=== PATIENT | female | born 1985 | race Caucasian/White ===

== ENCOUNTER → 2018-03-29 08:20 | Outpatient (CLI) | payer MEDICAID, SELFPAY ==
[2018-03-29 09:05] LABS: Basophils % 0.4 % (0.1-2.0); Eosinophils # 0.1 K/mm3 (0.0-0.4); Eosinophils % 1.1 % (0.1-12.0); Hematocrit 38.4 % (37.0-47.0); Lymphocytes # 2.7 K/mm3 (0.7-4.5); Lymphocytes % 38.3 K/mm3 (10-50); Mean Corpuscular HGB Conc 33.9 g/dL (31.8-35.4); Mean Corpuscular Hemoglobin 27.9 pg (27.0-31.2); Mean Corpuscular Volume 82.5 fl (81-99); Mean Platelet Volume 8.1 fl (7.4-10.4); Monocytes # 0.4 K/mm3 (0.1-1.0); Monocytes % 5.4 % (1.7-9.3); Neutrophils # 3.9 K/mm3 (1.8-7.8); Neutrophils % 54.8 % (37.0-80.0); Platelet Count 248 K/mm3 (142-424); Red Blood Count 4.65 M/mm3 (4.20-5.40); Red Cell Distribution Width 12.8 % (11.5-17.5); White Blood Count 7.1 K/mm3 (4.8-10.8)
[2018-03-29 09:46] LABS: Hemoglobin A1C 5.5 % (0.0-7.0)
[2018-03-29 12:45] LABS: Alanine Aminotransferase 38 U/L (12-78); Albumin Level 3.6 gm/dL (3.4-5.0); Albumin/Globulin Ratio 1.1 (1.1-1.8); Alkaline Phosphatase 84 U/L (46-116); Anion Gap 10.7 mEq/L (5-15); Aspartate Amino Transferase 19 U/L (15-37); Bilirubin,Total 0.8 mg/dL (0.2-1.0); Blood Urea Nitrogen 13 mg/dL (7-18); Calcium 9.1 mg/dL (8.5-10.1); Carbon Dioxide 28 mmol/L (21.0-32.0); Chloride 107 mmol/L (98-107); Chol/HDL Ratio 3.3 (1-3.5); Cholesterol 160 mg/dL (140-200); Creatinine,Serum 0.67 mg/dL (0.55-1.02); Estimated Glomerular Filt Rate 101 ml/min (>60); GFR (African American) 122 ML/MIN (>60); Globulin 3.2 gm/dl (1.3-3.2); Glucose 98 mg/dL (74-106); HDL Cholesterol 48 mg/dL (29-89); LDL Cholesterol 89 mg/dL (0-130); Potassium 3.7 mmoL/L (3.5-5.1); Sodium 142 mmol/L (136-145); Thyroid Stimulating Hormone 2.25 uIU/ml (0.358-3.740); Total Protein,Serum 6.8 gm/dL (6.4-8.2); Triglycerides 115 mg/dL (30-200); VLDL Cholesterol 23 mg/dL (0-40)
[2018-03-30 20:12] LABS: Insulin Level Total 22.3 uIU/mL (2.6-24.9); Vitamin D 25 Hydroxy 19.3 ng/mL (30.0-100.0)
== END ==
PROVIDERS: Visit Provider Physician Assistant
DX: R63.5 Abnormal weight gain (principal)
CPT/HCPCS: 36415; 80053; 80061; 82652; 83036; 83525; 84439; 84443; 85025

== ENCOUNTER → 2019-01-28 15:37 | Outpatient (CLI) | payer MEDICAID, SELFPAY ==
--- NOTE | 2019-01-28 15:42 | XR_ITS ---
EXAM: XR lumbar spine min 4V HISTORY: ITS.REASON: LOW BACK PAIN ORDERING PHYSICIAN: TRISTAN Hernandez PATIENT AGE: 33 years COMPARISON: None FINDINGS: There is mild dextroscoliosis of the lumbar spine and levoscoliosis of the lower thoracic spine. No fracture or dislocation. No lytic or blastic change. There is mild degenerative disc disease at T12-L1 with anterior osteophyte along the inferior aspect of T12. IMPRESSION: Thoracic lumbar scoliosis with degenerative changes at the thoracolumbar junction
--- NOTE | 2019-01-28 15:42 | XR_ITS ---
EXAM: XR cervical spine 2V HISTORY: ITS.REASON: NECK PAIN ORDERING PHYSICIAN: TRISTAN Hernandez PATIENT AGE: 33 years COMPARISON: None FINDINGS: There is reversal of the cervical lordosis with degenerative disc disease at C5-C6. No fracture or dislocation. No cervical rib. IMPRESSION: Degenerative disc disease. Reversal lordosis which may be due to patient positioning or muscle spasm
== END ==
PROVIDERS: PCP Physician Assistant; Visit Provider Physician Assistant
DX: M54.2 Cervicalgia (principal); M54.5 Low back pain
CPT/HCPCS: 72040; 72110

== ENCOUNTER 2019-04-24 11:00 | Outpatient (RCR) | payer MEDICAID, SELFPAY ==
--- NOTE | 2019-03-20 14:34 | HMH.PTOPEV ---
PT Outpatient Evaluation Rehab PT Outpatient Evaluation Start: 03/20/19 14:22 Freq: Status: Active Protocol: Document 03/20/19 14:22 DWAINE (Rec: 03/20/19 14:33 DWAINE [id number]) Electronically Signed By Kirt Mcclure, PT 03/20/19 14:22 Outpatient Therapy Subjective History Subjective History Pt reports h/o chronic neck pain and LBP for ~10+yrs, exacerbation reported over last ~3 months. Pt reports R>L sided neck w/intermittent radicular s/s down R UE. Pt reports localized LBP w/o radicular s/s. Chief Complaint Pain,Stiff,Paresthesia Symptom Type Ache,Sharp,Dull,Numbness, Tingling Symptoms Relieved By Ice Symptoms Aggravated By Standing,Physical Activity, Walking,Lifting Prior Functional Limitations Reaching,Lifting,Housework Current Functional Limitations Reaching,Lifting,Housework, Standing,Walking,Bending/ Stooping Symptom Description Constant but Variable Level of pain today (0-10) 6 Pain scale - at its best (0-10) 3 Pain scale - at its worst (0-10) 8 Cervical Eval Palpation Cervical Muscles R Cervical Paraspinal,L Cervical Paraspinal,R CT Junction,L CT Junction,R Upper Trapezius,L Upper Trapezius Cervical/Thoracic Palpation Findings Tenderness,Trigger Point Posture Head/C-Spine Posture Sitting Position Neutral Position Head/C-Spine Posture Standing Position Neutral Position Flexibility Deficits Upper Trapezius Muscle Length (R) Moderate Tightness,(L) Moderate Tightness Levaetor Scapulae Muscle Length (R) Mild Tightness,(L) Mild Tightness Scalene Group Muscle Length (R) Moderate Tightness,(L) Moderate Tightness Passive Joint Mobility Cervical PIVM WNL: R OA L OA R AA L AA R C2/3 L C2/3 R C3/4 L C3/4 R C4/5 L C4/5 R C5/6 L C5/6 R C6/7 L C6/7 R C7/T1
--- NOTE | 2019-04-19 11:31 | HMH.RHREAS ---
Rehab Reassessment Rehab OP Re-assessment Start: 04/19/19 10:53 Freq: Status: Active Protocol: Document 04/19/19 11:26 DWAINE (Rec: 04/19/19 11:31 DWAINE [id number]) Electronically Signed By Kirt Mcclure, PT 04/19/19 11:26 Rehab Re-assessment Subjective Subjective PT REPORTS 2-3/10 NECK PAIN, AND 4/10 LBP ON VAS, AND FEELS 50% BETTER OVERALL SINCE I EVAL Objective Objective Notes CROM: FLX 0-45, EXT 0-50, B SB 0-35, B ROT 0-50 AROM L-SPINE FLX 0-45, EXT 0- 30, R SB 0-30, L SB 0-20 W/ PAIN MMT: B HIP IR 4-/5, B HIP ER 4 /5, B HIP ABD 4--4/5, B DELTOID 4/5 TTP: R SI/L5-S1 3/4, B SUBOCCIPITAL 1/4 Assessment Progress Assessment Progressing as Expected Assessment Notes PT W/IMPROVEMENTS IN ROM, STRENTGH, AND TTP Patient goals met STG'S 03/13 Goals Not Met STG'S 01/11, LTG'S 07/15 Plan Plan PT TO CONT. W/SKILLED P.T. TO MAKE FURTHER IMPROVEMENTS IN ROM, STRENGTH, AND TTP TO ALLOW FOR OPTIMAL FUNCTION Frequency of Therapy 2-3X/WK Duration of therapy 3-4 WKS Time and Billing Re-Eval Time 15 Re-Eval Billing Units 1 PHYSICIAN CERTIFICATION: I certify the specified therapy services for Kimberly Flores are required, authorized, and reviewed every 30 days.
== END 2019-04-24 11:05 | disposition home or self-care (01) ==
LOC: PT 11:00
PROVIDERS: Visit Provider Physician Assistant
DX: M54.2 Cervicalgia (principal); M54.5 Low back pain
CPT/HCPCS: 97010; 97012; 97014; 97110; 97140; 97163; 97164; G0283

== ENCOUNTER → 2019-05-01 07:45 | Outpatient (CLI) | payer MEDICAID, SELFPAY ==
--- NOTE | 2019-05-01 07:52 | MR_ITS ---
MR lumbar spine wo con HISTORY: ITS.REASON: NECK PAIN ORDERING PHYSICIAN: TRISTAN Hernandez PATIENT AGE: 33 years Comparison: 01/28/2019. TECHNIQUE: Standard multiplanar multiecho sequences are performed without contrast. 3-D MIP and myelographic images are also rendered and reviewed FINDINGS: Alignment, vertebral body heights and significantly osseous marrow elements are normal. There is moderate loss of disc space height with anterior spur at T12-L1 level. L4-5 shows mild loss of disc hydration with preservation of the disc space height. L4-5 also showed borderline minimal bulge without mass effect associated with a thin linear focus of increased signal suggesting associated small annular tear. The remainder of the disc levels are normal without bulges, herniations or central canal stenosis. Nerve root and foraminal areas are normal. Conus and cauda equina structures are normal. L4-5 and L5-S1 shows borderline mild facet hypertrophy without mass effect. Paraspinal areas are unremarkable. IMPRESSION: L4-5 minimal bulge with small annular tear without mass effect or herniation. T12-L1 level chronic degenerative disc disease. L4-5 and L5-S1 mild facet arthrosis.
--- NOTE | 2019-05-01 07:53 | MR_ITS ---
MR cervical spine wo con HISTORY: ITS.REASON: ACUTE MIDLINE LOW BACK PAIN WITHOUT SCIATICA ORDERING PHYSICIAN: TRISTAN Hernandez PATIENT AGE: 33 years Comparison: 01/28/2019. TECHNIQUE: Standard multiplanar multiecho sequences are performed without contrast. 3-D MIP and myelographic images are also rendered and reviewed FINDINGS: There is borderline very mild kyphotic curvature at the C5-6 level. The axial gradient echo images shows a punctate foci of increased signal along the right lateral and right posterior periphery of the spinal cord at the skull base. There are some vessels in this area visualized on the axial T2 images and this area is normal on the T2 axial sequence suggesting this may be artifactual. Spinal cord is otherwise of normal signal. C5-6 shows diffuse mild to moderate left paracentral protrusion with mild left ventral cord deformity and also causes mild narrowing of the proximal aspect of the left C5-6 foramina. The remainder of the disc levels are normal. Foramen magnum and remainder of the foraminal areas are normal. Posterior elements are intact. Paraspinal areas appear unremarkable. IMPRESSION: C5-6 diffuse mild to moderate left-sided disc herniation with mild cord deformity and mild proximal left foraminal encroachment.
== END ==
PROVIDERS: PCP Physician Assistant; Visit Provider Physician Assistant
DX: M54.5 Low back pain (principal); M54.2 Cervicalgia
CPT/HCPCS: 72141; 72148; 76376

== ENCOUNTER → 2019-07-15 15:39 | Outpatient (POV) | payer MEDICAID, SELFPAY ==
[2019-07-15 15:52] VITALS: BP 121/68; PULSE 85; RESP 18; O2SAT 98; BMI 64.0
--- NOTE | 2019-07-16 08:51 | HMH.PMCON ---
Assessment and Plan (1) Degenerative disc disease Current visit: Yes Status: Chronic Qualifiers: Spinal region: lumbar Qualified Code(s): M51.36 - Other intervertebral disc degeneration, lumbar region Category: Medical (2) Spondylosis of lumbar spine Current visit: Yes Status: Chronic Category: Medical Code(s): M47.816 - Spondylosis without myelopathy or radiculopathy, lumbar region - Assessment and plan all Dx Assessment and Plan for all problems:: We will plan an L4-L5 L5-S1 bilateral medial branch block/facet joint injection given her symptomology I believe it would be beneficial for her. Patient and I discussed the diagnostic nature of this injection. She understands this. Patient is not on any anticoagulation therapy. She is completed over 6 months of conservative therapies including physical therapy. Patient is also having neck pain however she does have a nerve conduction study already scheduled. We will start working on her neck pain once she gets the results of these and she has relief of her low back pain Dr. Drummond has reviewed this note and agrees with this plan of care. This note was dictated using voice recognition software and may contain errors or omissions HPI - Data of Consult Consult date: 07/15/19 Requesting Physician: Vonda Hernandez APRN Primary Care Provider: TRISTAN Hernandez - Consult Narrative Reason for consult: Back pain History of present illness: Ms. Flores is a 33 year old female who presents today for consultation in regards to her low back and neck pain. Patient was seen by Dr. Hood who recommended trying injective therapy prior to surgical intervention. Her MRI does show spondylosis. She has no radicular pain in her legs it is very focal in her low back. Patient has trouble with twisting movements she does have a positive Kemps test and positive facet loading test lumbar spine. Patient has tried and failed chiropractic therapy, physical therapy, massage therapy. Patient also on gabapentin and states that it is not beneficial for her it has too many side effects and she has begun to feel dizzy and unable to function on the medication. She rates her pain today a 5 out of 10. CC: Vonda Hernandez APRN [facility] History I have reviewed the patient's past medical history: Yes Medical History: Reports:: Migraine Denies:: Asthma, Cancer, Congestive Heart Failure, Chronic Obstructive Pulmonary Disease (COPD), Congenital Heart Disease, Coronary Artery Disease, Diabetes Mellitus Type 1, Diabetes Mellitus Type 2, Gastroesophageal Reflux Disease(GERD), Hyperlipidemia, Hypertension, Myocardial Infarction *Have you ever received a pneumonia vaccine?: No *Have you received a flu vaccine this season?: Yes Laterality Cases: Bilateral: Tonsillectomy Other Surgeries: Yes: , Other (right foot surgery) Amputation: No Fractures: No - *Social History Smoking Status: Never smoker # Packs/Day (cigarettes): 0 #Yrs smoked (if former smoker): 0 Alcohol Intake: never Alcohol Intake Frequency:: other Substance Use Type: denies use *Occupational Status:: other Housing: house *Travel in the last 8 weeks: None Family Hx:: No significant family history Review of Systems - Review of Systems ROS General: no recent weight change, no fever, no sleep disturbances Respiratory: no cough, no shortness of air, no recurring pulmonary infections Cardiovascular/Peripheral Vascular: No chest pain, No palpitations, no edema, no shortness of breath. Gastrointestinal: no incontinence, normal bowel movements reported Genitourinary: no incontinence Musculoskeletal: Back pain, neck pain Psychiatric: normal mood/ affect Neurological: [denies weakness in extremities], [denies balance issues] Meds Home Medications Medication Instructions Recorded Confirmed Type buspirone 10 mg tablet PO 30 Days #60 01/11/18 History diclofenac 1 % topical gel 4 g TOPICAL QID #30 g
--- NOTE | 2019-07-16 08:55 | P.CONS_ITS ---
Assessment and Plan (1) Degenerative disc disease Current visit: Yes Status: Chronic Qualifiers: Spinal region: lumbar Qualified Code(s): M51.36 - Other intervertebral disc degeneration, lumbar region Category: Medical (2) Spondylosis of lumbar spine Current visit: Yes Status: Chronic Category: Medical Code(s): M47.816 - Spondylosis without myelopathy or radiculopathy, lumbar region - Assessment and plan all Dx Assessment and Plan for all problems:: We will plan an L4-L5 L5-S1 bilateral medial branch block/facet joint injection given her symptomology I believe it would be beneficial for her. Patient and I discussed the diagnostic nature of this injection. She understands this. Patient is not on any anticoagulation therapy. She is completed over 6 months of conservative therapies including physical therapy. Patient is also having neck pain however she does have a nerve conduction study already scheduled. We will start working on her neck pain once she gets the results of these and she has relief of her low back pain Dr. Drummond has reviewed this note and agrees with this plan of care. This note was dictated using voice recognition software and may contain errors or omissions HPI - Data of Consult Consult date: 07/15/19 Requesting Physician: Vonda Hernandez APRN Primary Care Provider: TRISTAN Hernandez - Consult Narrative Reason for consult: Back pain History of present illness: Ms. Flores is a 33 year old female who presents today for consultation in regards to her low back and neck pain. Patient was seen by Dr. Hood who recommended trying injective therapy prior to surgical intervention. Her MRI does show spondylosis. She has no radicular pain in her legs it is very focal in her low back. Patient has trouble with twisting movements she does have a positive Kemps test and positive facet loading test lumbar spine. Patient has tried and failed chiropractic therapy, physical therapy, massage therapy. Patient also on gabapentin and states that it is not beneficial for her it has too many side effects and she has begun to feel dizzy and unable to function on the medication. She rates her pain today a 5 out of 10. CC: Vonda Hernandez APRN [facility] History I have reviewed the patient's past medical history: Yes Medical History: Reports:: Migraine Denies:: Asthma, Cancer, Congestive Heart Failure, Chronic Obstructive Pulmonary Disease (COPD), Congenital Heart Disease, Coronary Artery Disease, Diabetes Mellitus Type 1, Diabetes Mellitus Type 2, Gastroesophageal Reflux Disease(GERD), Hyperlipidemia, Hypertension, Myocardial Infarction *Have you ever received a pneumonia vaccine?: No *Have you received a flu vaccine this season?: Yes Laterality Cases: Bilateral: Tonsillectomy Other Surgeries: Yes: , Other (right foot surgery) Amputation: No Fractures: No - *Social History Smoking Status: Never smoker # Packs/Day (cigarettes): 0 #Yrs smoked (if former smoker): 0 Alcohol Intake: never Alcohol Intake Frequency:: other Substance Use Type: denies use *Occupational Status:: other Housing: house *Travel in the last 8 weeks: None Family Hx:: No significant family history Review of Systems - Review of Systems ROS General: no recent weight change, no fever, no sleep disturbances Respiratory: no cough, no shortness of air, no recurring pulmonary infections Cardiovascular/Peripheral Vascular: No chest pain, No palpitations, no edema, no shortness of breath. Gastrointestinal: no incontinence, normal bowel movements reported Genitouri
== END ==
PROVIDERS: PCP Physician Assistant; Visit Provider Clinical Nurse Specialist Family Health
DX: M51.36 Other intervertebral disc degeneration, lumbar region (principal); M47.816 Spondylosis without myelopathy or radiculopathy, lumbar region
CPT/HCPCS: 99212

== ENCOUNTER → 2019-08-05 08:48 | Outpatient (POV) | payer MEDICAID, SELFPAY | PROVIDERS: Visit Provider Specialist | DX: M79.602 Pain in left arm (principal); R20.2 Paresthesia of skin | CPT/HCPCS: 95886; 95908 ==

== ENCOUNTER → 2019-08-29 15:35 | Outpatient (CLI) | payer OTHER, SELFPAY ==
--- NOTE | 2019-08-29 15:53 | ECG_ITS ---
APPROVED REPORT Exam: Resting ECG HR:89 bpm ECG Measurements Heart Rate 89 AXES GA 148 P 69 QRSd 88 QRS 93 QT 368 T 49 QTc 447 <Conclusion> Normal sinus rhythm Rightward axis Borderline ECG Electronically signed by : Alex Villalpando, 08/30/2019 08:51:09
[2019-08-29 16:18] LABS: Alanine Aminotransferase 20 U/L (12-78); Albumin Level 3.6 gm/dL (3.4-5.0); Alkaline Phosphatase 103 U/L (46-116); Anion Gap 12.9 mEq/L (5-15); Aspartate Amino Transferase 8 U/L (15-37); Bilirubin,Total 0.5 mg/dL (0.2-1.0); Blood Urea Nitrogen 16 mg/dL (7-18); CKMB Relative Index 0.8 U/L (0-4.0); Calcium 9.1 mg/dL (8.5-10.1); Carbon Dioxide 26 mmol/L (21.0-32.0); Chloride 104 mmol/L (98-107); Creatine Kinase 129 U/L (26-192); Creatinine,Serum 0.88 mg/dL (0.55-1.02); Estimated Glomerular Filt Rate 73 ml/min (>60); Free T4 (Free Thyroxine) 0.89 ng/dl (0.76-1.46); GFR (African American) 88 ML/MIN (>60); Globulin 3.6 gm/dl (1.3-3.2); Glucose 113 mg/dL (74-106); Potassium 3.9 mmoL/L (3.5-5.1); Sodium 139 mmol/L (136-145); Thyroid Stimulating Hormone 2.05 uIU/ml (0.358-3.740); Total Protein,Serum 7.2 gm/dL (6.4-8.2); Troponin I < 0.02 ng/ml (0.00-0.06)
== END ==
PROVIDERS: PCP Physician Assistant; Visit Provider Physician Assistant
DX: R07.9 Chest pain, unspecified (principal); R00.2 Palpitations
CPT/HCPCS: 36415; 80053; 82550; 82553; 84439; 84443; 84484; 93005; 93225; 93226

== ENCOUNTER → 2019-09-16 08:32 | Outpatient (CLI) | payer OTHER, SELFPAY ==
--- NOTE | 2019-09-16 | CA_ITS ---
APPROVED REPORT Exam: Exercise Treadmill Technologist: Sierra Craft Ht: 5 ft 2 in Wt: 334 lbs BSA: 2.38 m2 HR: 65 bpm BP: 133/73 mmHg Indications: Chest pain, Shortness of Breath Medical History Medications: PERsteke,,,,, Stress Test Details Test: Simón HR Resting HR: 68 bpm Max Heart Rate (APMHR): 184 bpm Max HR Achieved: 159 bpm Target HR (85% APMHR): 156 bpm % of APMHR: 86 Recovery HR: 96 bpm BP Resting BP: 133/73 mmHg Max BP: 154/76 mmHg Recovery BP: 144.0/69.0 mmHg ECG Clinical Exercise duration: 06:38 min Highest Stage Achieved: Exercise capacity: 7.0 METs Stress ECG Conclusion Resting ECG: Sinus rhythm Simón protocol completed. Patient exercised 6:38 Symptoms: Chest pain at peak exercise. Shortness of breath at peak exercise. Symptoms resolved in recovery. Arrhythmias/Ectopy: No ectopy. ST-T Changes: Less than 1.5mm ST depression. Conclusion: 1. The EKG portion of the exercise treadmill stress test is negative for ischemia, patient has adequate exercise capacity achieved 7 mets of workload on treadmill, the blood pressure response to exercise was adequate, there was no exercise-induced chest discomfort test was stopped due to shortness of breath. 2. Normal exercise treadmill stress test. Test Summary RECOVERY 02:00 0.0 0.0 121 . 154/ 76 . . REST 11:33 0.0 0.0 68 . 133/ 73 . . Stage 1 01:00 10.0 1.7 108 . . . . Stage 1 02:00 10.0 1.7 115 . . . . Stage 1 03:00 10.0 1.7 120 . 142/ 78 . . Stage 2 01:00 12.0 2.5 131 . . . . Stage 2 02:00 12.0 2.5 139 . . . . Stage 2 03:00 12.0 2.5 146 . 152/ 84 . . Stage 3 00:38 14.0 3.4 158 . . . Stop exercise at 06:38 RECOVERY 01:00 0.0 0.0 127 . . . . RECOVERY 02:00 0.0 0.0 121 . 154/ 76 . . RECOVERY 03:00 0.0 0.0 102 . 154/ 76 . . RECOVERY 04:00 0.0 0.0 95 . 140/ 78 . . RECOVERY 05:00 0.0 0.0 96 . 140/ 78 . . RECOVERY 05:34 0.0 0.0 95 . 144/ 69 . . Electronically signed by : Edson Colmenares, 09/16/2019 19:09:35
--- NOTE | 2019-09-16 08:32 | CA_ITS ---
APPROVED REPORT EXAM: Comprehensive 2D, Doppler, and color-flow Echocardiogram Cardiovascular Physician Assistant: Ana Zarate RDCS Ht: 5 ft 2 in Wt: 330lbs BSA: 2.37 BP: 132/78 mmHg Indications: Chest Pain, Palpitations 2D Dimensions LVOT 2.16 cm (M/F) 1.5-2.5 M-Mode Dimensions RVDd 2.88 cm (0.9-2.6) LVDd 3.92 cm (3.5-5.7) LVDs 2.55 cm (3.5-5.7) IVSd 1.54 cm (0.6-1.1) PWd 0.70 cm (0.6-1.1) EF (Teich) 64.90% FS 34.90% EDV (Teich) 66.70 mL ESV (Teich) 23.40 mL LV Diastology E/A Ratio 1.76 Mitral Valve MV A Velocity 50.00 (40-130 cm/s) Left Ventricle Left atrium is normal size, left ventricle is normal size, mild concentric left ventricular hypertrophy, visually estimated ejection fraction 55% with no regional wall motion abnormality. Diastolic parameters are within normal range. Right Ventricle Right atrium and right ventricular normal size and contractility. Aortic Valve Aortic valve is grossly normal, there is no aortic stenosis aortic insufficiency. Mitral Valve Mitral valve is grossly normal, there is no mitral stenosis, there is trace mitral regurgitation. Tricuspid Valve Tricuspid valve is grossly normal, there is no tricuspid stenosis, there is trace tricuspid regurgitation. Pulmonic Valve Pulmonic valve is poorly visualized. Great Vessels Aortic root is normal size. Pericardium No significant pericardial effusion noted. Conclusion 1. Normal left ventricular size, preserved left ventricular systolic function, visually estimated ejection fraction 55% with no regional wall motion abnormality, diastolic parameters are within normal range. 2. Trace mitral and tricuspid regurgitation 3. No significant pericardial effusion noted. Electronically signed by : Edson Colmenares, 09/16/2019 19:16:40
== END ==
PROVIDERS: PCP Physician Assistant; Visit Provider Nurse Practitioner Family
DX: R07.9 Chest pain, unspecified (principal); R00.2 Palpitations; E66.9 Obesity, unspecified
CPT/HCPCS: 93017; 93306

== ENCOUNTER → 2019-09-26 08:43 | Outpatient (POV) | payer OTHER, SELFPAY ==
--- NOTE | 2019-09-26 09:04 | HMH.PAINSOAP ---
[facility] Pain Management SOAP Note Subjective:: Patient is a pleasant 34-year-old white female who presents today for follow-up after medial branch block/facet joint injections at L4-L5 L5-S1 bilaterally. She is being treated for low back pain with lumbar spondylosis and facet arthropathy. Patient has increased pain over her lower lumbar facet joints. She has increased pain with extension and twisting. Patient says that she got approximately 85% relief following her medial branch block/facet joint injections. She rates her pain a 5 out of 10 today. Patient does state her pain has returned. She would like to proceed with a another medial branch block/facet joint injection. Patient also complains of neck pain with radiation into bilateral shoulders and bilateral arms with numbness and tingling. She says this is chronic for her and has been ongoing for greater than 5 years. She did see a neurologist for the numbness and tingling. She was also having severe headaches. Patient says her work-up with the neurologist has been negative to this point. Patient is not on any anticoagulation therapy. She is continuing with a home stretching program and anti-inflammatories. Review of Systems General: No recent weight changes, no fever, no sleep disturbances Respiratory: No cough, no shortness of air, no recurring pulmonary infections Cardiovascular/peripheral vascular: No chest pain, no palpitations, no edema, no shortness of breath Gastrointestinal: No new onset incontinence, normal bowel movements reported Genitourinary: No new onset incontinence Musculoskeletal: Back pain, neck pain Psychiatric: Normal mood/affect Neurological: [Denies weakness in extremities], [denies balance issues] Objective:: Physical exam General: Alert and oriented x3, no acute distress, pleasant and cooperative, [on room air] Lungs: Respirations even and unlabored, symmetrical chest expansion Eyes: PERRL Musculoskeletal: Flexion and extension of cervical and lumbar spine somewhat guarded secondary to pain, deep tendon reflexes normal, strength in upper and lower extremities [5/5], [abnormal gait noted] Neurological: Speech clear, certified personal chef equal, no gross sensory deficit Assessment:: Degenerative disc disease lumbar spine with lumbar spondylosis and facet arthropathy of lumbar spine, neck pain with cervical radiculopathy Plan:: Patient I did discuss that her next medial branch block and facet injections will be without any type of steroid medication. Patient's insurance has denied the procedure with steroids, however, will approve the injection with lidocaine only. Patient understands this and is in agreement. We will schedule her for the medial branch block/facet joint injection at L4-L5 and L5-S1. Is not on any anticoagulation therapy. She will continue with anti-inflammatories and home stretching program. Patient's been instructed to contact the clinic if she has any concerns before the next appointment. We will see her back in the clinic following her injection to reassess her symptoms. Patient and I did discuss possible injections to her neck in the future due to the severity of her pain. Dr. Drummond has reviewed this note and agrees with this plan of care. This note was dictated using voice recognition software and make contain errors or omissions. [facility] History I have reviewed the patient's past medical history: Yes Medical History: Reports:: Migraine Denies:: Asthma, Cancer, Congestive Heart Failure, Chronic Obstructive Pulmonary Disease (COPD), Congenital Heart Disease, Coronary Artery Disease, Diabetes Mellitus Type 1, Diabetes Mellitus Type 2, Gastroesophageal Reflux Disease(GERD), Hyperlipidemia, Hypertension, MRSA, Myocardial Infarction, Seizures *Have you ever received a pneumonia vaccine?: No *Have you received a flu vaccine this season?: Yes Other Medical History: Denies: Blood Transfusion Reaction Laterality Cases: Bilateral: Tonsillectomy Other
[2019-09-26 09:06] VITALS: BP 132/78; PULSE 78; RESP 18; O2SAT 99; BMI 54.8
--- NOTE | 2019-09-26 09:08 | P.CONS_ITS ---
[facility] Pain Management SOAP Note Subjective:: Patient is a pleasant 34-year-old white female who presents today for follow-up after medial branch block/facet joint injections at L4-L5 L5-S1 bilaterally. She is being treated for low back pain with lumbar spondylosis and facet arthropathy. Patient has increased pain over her lower lumbar facet joints. She has increased pain with extension and twisting. Patient says that she got approximately 85% relief following her medial branch block/facet joint injections. She rates her pain a 5 out of 10 today. Patient does state her pain has returned. She would like to proceed with a another medial branch block/facet joint injection. Patient also complains of neck pain with radiation into bilateral shoulders and bilateral arms with numbness and tingling. She says this is chronic for her and has been ongoing for greater than 5 years. She did see a neurologist for the numbness and tingling. She was also having severe headaches. Patient says her work-up with the neurologist has been negative to this point. Patient is not on any anticoagulation therapy. She is continuing with a home stretching program and anti-inflammatories. Review of Systems General: No recent weight changes, no fever, no sleep disturbances Respiratory: No cough, no shortness of air, no recurring pulmonary infections Cardiovascular/peripheral vascular: No chest pain, no palpitations, no edema, no shortness of breath Gastrointestinal: No new onset incontinence, normal bowel movements reported Genitourinary: No new onset incontinence Musculoskeletal: Back pain, neck pain Psychiatric: Normal mood/affect Neurological: [Denies weakness in extremities], [denies balance issues] Objective:: Physical exam General: Alert and oriented x3, no acute distress, pleasant and cooperative, [on room air] Lungs: Respirations even and unlabored, symmetrical chest expansion Eyes: PERRL Musculoskeletal: Flexion and extension of cervical and lumbar spine somewhat guarded secondary to pain, deep tendon reflexes normal, strength in upper and lower extremities [5/5], [abnormal gait noted] Neurological: Speech clear, laundry presser equal, no gross sensory deficit Assessment:: Degenerative disc disease lumbar spine with lumbar spondylosis and facet arthropathy of lumbar spine, neck pain with cervical radiculopathy Plan:: Patient I did discuss that her next medial branch block and facet injections will be without any type of steroid medication. Patient's insurance has denied the procedure with steroids, however, will approve the injection with lidocaine only. Patient understands this and is in agreement. We will schedule her for the medial branch block/facet joint injection at L4-L5 and L5-S1. Is not on any anticoagulation therapy. She will continue with anti-inflammatories and home stretching program. Patient's been instructed to contact the clinic if she has any concerns before the next appointment. We will see her back in the clinic following her injection to reassess her symptoms. Patient and I did discuss pos sible injections to her neck in the future due to the severity of her pain. Dr. Drummond has reviewed this note and agrees with this plan of care. This note was dictated using voice recognition software and make contain errors or omissions. [facility] History I have reviewed the patient's past medical history: Yes Medical History: Reports:: Migraine Denies:: Asthma, Cancer, Congestive Heart Failure, Chronic Obstructive Pulmonary Disease (COPD), Congenital Heart Disease, Coronary Artery Disease, Diabetes Mellitus Type 1, Diabetes Mellitus Type 2, Gastroesophageal Reflu
== END ==
PROVIDERS: PCP Physician Assistant; Visit Provider Clinical Nurse Specialist Family Health
DX: M51.36 Other intervertebral disc degeneration, lumbar region (principal); M54.12 Radiculopathy, cervical region; M47.816 Spondylosis without myelopathy or radiculopathy, lumbar region; M54.06 Panniculitis affecting regions of neck and back, lumbar region; M54.2 Cervicalgia
CPT/HCPCS: 99212

== ENCOUNTER → 2019-11-11 15:17 | Outpatient (POV) | payer OTHER, SELFPAY ==
[2019-11-11 15:39] VITALS: BP 125/67; PULSE 79; RESP 18; O2SAT 98; BMI 60.3
--- NOTE | 2019-11-12 08:40 | P.CONS_ITS ---
[facility] Pain Management SOAP Note Subjective:: Patient is a pleasant 34-year-old white female who presents today for follow-up after her second medial branch block at L4-L5 L5-S1 bilaterally. Patient got 90% relief of her symptomology for almost 2 weeks. She rates her pain today a 5 out of 10. Overall she has had 2 sets of medial branch blocks with over 80% relief. She is had pain for over 6 months and has exhausted medication and conservative therapy. Patient is continuing a home stretching program. Patient is a neurotomy candidate and would like to move forward with this. She is not on any anticoagulation therapy. ROS General: no recent weight change, no fever, no sleep disturbances Respiratory: no cough, no shortness of air, no recurring pulmonary infections Cardiovascular/Peripheral Vascular: No chest pain, No palpitations, no edema, no shortness of breath. Gastrointestinal: no new onset incontinence, normal bowel movements reported Genitourinary: no new onset incontinence Musculoskeletal: Back pain Psychiatric: normal mood/ affect Neurological: [denies new onset weakness in extremities], [denies new onset balance issues] Objective:: Physical Exam General: Alert and oriented x3, no acute distress, pleasant and cooperative, [on room air] Lungs: Resps E/U, Symmetrical chest expansion, Eyes: PERRL Musculoskeletal: Flexion and extension of lumbar spine somewhat guarded secondary to pain, deep tendon reflexes normal, strength in upper and lower extremities [5/5], normal gait noted, positive Kemps test positive facet loading lumbar spine Neurological: speech clear, supervisor forming department equal, no gross sensory deficits Assessment:: Degenerative disc disease lumbar spine with lumbar spondylosis and facet arthropathy Plan:: We will move forward with a RFA of the L4-L5 L5-S1 levels bilaterally. We will start with the left side and in 2 weeks to the right side. She is been instructed to call the office if she has any issues prior to her next appointment. Dr. Drummond has reviewed this note and agrees with this plan of care. This note was dictated using voice recognition software and may contain errors or omissions [facility] History I have reviewed the patient's past medical history: Yes Medical History: Reports:: Migraine Denies:: Asthma, Cancer, Congestive Heart Failure, Chronic Obstructive Pulmonary Disease (COPD), Congenital Heart Disease, Coronary Artery Disease, Diabetes Mellitus Type 1, Diabetes Mellitus Type 2, Gastroesophageal Reflux Disease(GERD), Hyperlipidemia, Hypertension, MRSA, Myocardial Infarction, Seizures *Have you ever received a pneumonia vaccine?: Yes *Have you received a flu vaccine this season?: Yes Other Medical History: Denies: Blood Transfusion Reaction Laterality Cases: Bilateral: Tonsillectomy Other Surgeries: Yes: , Other (right foot surgery) Amputation: No Fractures: No - *Social History Smoking Status: Never smoker # Packs/Day (cigarettes): 0 #Yrs smoked (if former smoker): 0 Alcohol Intake: never Alcohol Intake Frequency:: other Substance Use Type: denies use *Occupational Status:: other Housing: house Household Members: children *Travel in the last 8 weeks: None Family Hx:: No significant family history
== END ==
PROVIDERS: PCP Family Medicine; Visit Provider Clinical Nurse Specialist Family Health
DX: M51.36 Other intervertebral disc degeneration, lumbar region (principal); M47.816 Spondylosis without myelopathy or radiculopathy, lumbar region; M54.06 Panniculitis affecting regions of neck and back, lumbar region
CPT/HCPCS: 99212

== ENCOUNTER → 2020-01-27 10:52 | Outpatient (POV) | payer OTHER, SELFPAY ==
[2020-01-27 12:19] VITALS: BP 118/63; PULSE 79; RESP 18; O2SAT 99; BMI 58.5
--- NOTE | 2020-01-27 12:33 | HMH.PAINSOAP ---
[facility] Pain Management SOAP Note Subjective:: Patient is a pleasant 34-year-old white female who presents today for follow-up. Patient is awaiting an RFA which is now been postponed due to the coronavirus. She rates her pain today 6 out of 10. Patient is recently ran out of gabapentin she found that it had been helping her. She states that she takes 1 at nighttime. We will renew this. Also continue her Robaxin 500 mg 1 p.o. twice daily as needed. We will move forward with her RFA once available. ROS General: no recent weight change, no fever, no sleep disturbances Respiratory: no cough, no shortness of air, no recurring pulmonary infections Cardiovascular/Peripheral Vascular: No chest pain, No palpitations, no edema, no shortness of breath. Gastrointestinal: no new onset incontinence, normal bowel movements reported Genitourinary: no new onset incontinence Musculoskeletal: Back pain Psychiatric: normal mood/ affect Neurological: [denies new onset weakness in extremities], [denies new onset balance issues] Objective:: Physical Exam General: Alert and oriented x3, no acute distress, pleasant and cooperative, [on room air] Lungs: Resps E/U, Symmetrical chest expansion, Eyes: PERRL Musculoskeletal: Flexion and extension of lumbar spine somewhat guarded secondary to pain, deep tendon reflexes normal, strength in upper and lower extremities [5/5], normal gait noted Neurological: speech clear, certified medical dosimetrist equal, no gross sensory deficits Assessment:: Degenerative disc disease lumbar spine with lumbar spondylosis and facet arthropathy Plan:: We will continue the patient on gabapentin 3 mg 1 p.o. nightly and Robaxin 500 mg 1 p.o. twice daily as needed. We will see her back in 2 months reassess her symptoms at that time she has been instructed to call the office if she has any issues prior to her next appointment. Dr. Drummond has reviewed this note and agrees with this plan of care. This note was dictated using voice recognition software and may contain errors or omissions [facility] History I have reviewed the patient's past medical history: Yes Medical History: Reports:: Migraine Denies:: Asthma, Cancer, Congestive Heart Failure, Chronic Obstructive Pulmonary Disease (COPD), Congenital Heart Disease, Coronary Artery Disease, Diabetes Mellitus Type 1, Diabetes Mellitus Type 2, Gastroesophageal Reflux Disease(GERD), Hyperlipidemia, Hypertension, MRSA, Myocardial Infarction, Seizures *Have you ever received a pneumonia vaccine?: Yes *Have you received a flu vaccine this season?: Yes Other Medical History: Denies: Blood Transfusion Reaction Laterality Cases: Bilateral: Tonsillectomy Other Surgeries: Yes: , Other (right foot surgery) Amputation: No Fractures: No - *Social History Smoking Status: Never smoker # Packs/Day (cigarettes): 0 #Yrs smoked (if former smoker): 0 Alcohol Intake: never Alcohol Intake Frequency:: other Substance Use Type: denies use *Occupational Status:: other Housing: house Household Members: children *Travel in the last 8 weeks: None Family Hx:: No significant family history
== END ==
PROVIDERS: PCP Family Medicine; Visit Provider Clinical Nurse Specialist Family Health
DX: M51.36 Other intervertebral disc degeneration, lumbar region (principal); M47.816 Spondylosis without myelopathy or radiculopathy, lumbar region; M54.06 Panniculitis affecting regions of neck and back, lumbar region
CPT/HCPCS: 99212

== ENCOUNTER → 2020-02-24 10:38 | Outpatient (POV) | payer OTHER, SELFPAY ==
--- NOTE | 2020-02-24 12:24 | HMH.VVPMSO ---
[facility] Virtual Visit SOAP Consent for virtual visit:: With the recent concerns about the COVID-19, we are trying to minimize exposure to you by shifting to telehealth appointments whenever possible. It restricts me from seeing you in person, but the trade off is protecting you during this pandemic. Can you see and hear me okay, and do you consent to this option? If not, I would be happy to see if we can reschedule your appointment in the future, when feasible. Has patient consented to this virtual visit?: Yes Subjective:: Patient is a pleasant 34-year-old white female who presents for follow-up. She is awaiting an RFA which is been postponed due to the coronavirus. She rates her pain today a 7 out of 10. She is on gabapentin and Robaxin. Patient states Robaxin does make her too tired during the day so we will try her on Zanaflex 4 mg twice daily if necessary. Patient is interested in moving forward with RFA as soon as possible. She is had 2 successful medial branch blocks. She is not on any anticoagulation therapy. ROS General: no recent weight change, no fever, no sleep disturbances Respiratory: no cough, no shortness of air, no recurring pulmonary infections Cardiovascular/Peripheral Vascular: No chest pain, No palpitations, no edema, no shortness of breath. Gastrointestinal: no new onset incontinence, normal bowel movements reported Genitourinary: no new onset incontinence Musculoskeletal: Back pain Psychiatric: normal mood/ affect Neurological: [denies new onset balance issues] Objective:: Physical exam: Constitutional: Healthy appearing, well-developed, alert, in no acute distress Psychiatric: Judgment and insight intact, Alert and oriented x4 Mood and affect: Mood normal, affect appropriate Head and face: Inspection: Normocephalic atraumatic, extraocular movement intact Respiratory: Breathing nonlabored, nondyspneic Cardiovascular: No cyanosis, clubbing, or edema observed Skin: Head and neck: Skin with no lesions or rash observed Gait: Able to walk without assistive device: Able to heel and toe walk Neurologic: Sensation grossly intact per patient Musculoskeletal: Limited range of motion lumbar spine noted Assessment:: Lumbar spondylosis, facet arthropathy Plan:: We will move forward with RFA as soon as possible. Again she is not on any anticoagulation therapy. We will start Zanaflex 4 mg 1 p.o. twice daily as needed. After her RFA we will discuss starting to treat her neck pain. I will follow-up with her after this reassess her symptoms at that time she has been instructed to call the office if she has any issues prior to next appointment., This encounter was performed as a telemedicine visit via secure 2 way video and audio to minimize risk and transmission of Covid-19. The patient and we understand the limitations of a telemedicine visit including inability to check reflexes, possibly missing subtle findings on physical exam. Alternative options were presented to the patient and the patient elected to proceed with the visit. We specifically discussed risk factors for Covid-19 including age, heart or lung disease, diabetes, immunosuppression and travel. We also discussed that NSAIDs may worsen Covid-19 infection symptoms and that they should not be used to treat Covid-19 symptoms. Patient was also informed that corticosteroids in any form oral or injectable will decrease immune response and may increase risk of Covid-[address] Drummond has reviewed this patient's chart and this note and agrees with plan of care. Patient has been instructed to call the office if they have any issues prior to the next appointment. Time In:: 10:00 Time Out:: 10:10 [facility] History I have reviewed the patient's past medical history: Yes Medical History: Reports:: Migraine Denies:: Asthma, Cancer, Congestive Heart Failure, Chronic Obstructive Pulmonary Disease (COPD), Congenital Heart Disease, Coronary Artery Dis
== END ==
PROVIDERS: Visit Provider Clinical Nurse Specialist Family Health
DX: M47.816 Spondylosis without myelopathy or radiculopathy, lumbar region (principal); M54.06 Panniculitis affecting regions of neck and back, lumbar region
CPT/HCPCS: 99212

== ENCOUNTER → 2020-02-27 11:39 | Outpatient (CLI) | payer OTHER, SELFPAY ==
[2020-02-28 14:34] LABS: H. pylori Breath Test Negative (Negative)
== END ==
PROVIDERS: Visit Provider Physician Assistant Medical
DX: R10.13 Epigastric pain (principal)
CPT/HCPCS: 83013

== ENCOUNTER 2020-02-28 08:02 | Day surgery (SDC) | payer OTHER, SELFPAY ==
[2020-02-28 08:21] VITALS: BP 150/85; PULSE 81; RESP 18; TEMP 36.7; O2SAT 99; BMI 60.3
[2020-02-28 08:54] VITALS: BP 143/89; PULSE 74; RESP 18; TEMP 36.8; O2SAT 98
[2020-02-28 08:58] VITALS: BP 144/95; PULSE 76; RESP 18; O2SAT 98
--- NOTE | 2020-02-28 09:05 | HMH.PMPROC ---
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 She has done well with the medial branch blocks in the past with 80 to 90% relief in her pain symptoms for several days. Her pain now is worsened in her back is affecting activities of daily living. Is affecting her function. We will do radiofrequency ablation to her facet joints today to help with her pain symptoms and keep her out of the emergency room and off oral opioids. Procedure Details:: Lumbar RFA informed consent was obtained and the risk and benefits of the procedure was explained to the patient. Patient was placed prone on the procedure table. The patient was prepped and draped in sterile fashion. C-arm fluoroscopy was used to view the lumbar spine. The skin and subcutaneous tissues were anesthetized using lidocaine. I placed 20-gauge RF needles into the facet joints of L4-5 and L5-S1 levels on the left side. We underwent sensory stimulation. There is good sensory stimulation at 0.8 V. We underwent motor stimulation. There is no motor stimulation at 2 V. We then anesthetized these levels with lidocaine and Depo-Medrol. I used a total of 40 mg Depo-Medrol for both levels. I then burned both levels of L4-5 and L5-S1 facet joint/medial branches on the left side for 4 minutes at 80?C. Patient tolerated the procedure well with no complication. Plan and Disposition:: We will follow-up with her in 2 weeks. Will reevaluate her symptoms at that time. We will plan on radiofrequency ablation to the facet joints of L4-5 and L5-S1 on the right side.
[2020-02-28 09:08] VITALS: BP 158/97; PULSE 77; RESP 18; O2SAT 99
== END 2020-02-28 09:16 | disposition home or self-care (01) ==
PROVIDERS: PCP Physician Assistant; Visit Provider Anesthesiology
DX: M51.36 Other intervertebral disc degeneration, lumbar region (principal); M47.816 Spondylosis without myelopathy or radiculopathy, lumbar region; M54.06 Panniculitis affecting regions of neck and back, lumbar region
CPT/HCPCS: 64635; 64636; J1040

== ENCOUNTER → 2020-03-11 14:19 | Outpatient (CLI) | payer OTHER, SELFPAY ==
[2020-03-12 15:03] LABS: Covid-19 Nasal PCR Sendout Lex NOT DETECTED
== END ==
PROVIDERS: Visit Provider Anesthesiology
DX: Z01.818 Encounter for other preprocedural examination (principal); M47.9 Spondylosis, unspecified
CPT/HCPCS: U0003

== ENCOUNTER 2020-03-13 10:54 | Day surgery (SDC) | payer OTHER, SELFPAY ==
[2020-03-13 11:31] VITALS: BP 170/85; PULSE 102; RESP 18; TEMP 36.8; O2SAT 96; BMI 60.3
[2020-03-13 12:11] VITALS: BP 145/85
[2020-03-13 12:12] VITALS: BP 152/85; PULSE 85; RESP 18; O2SAT 98
--- NOTE | 2020-03-13 12:16 | HMH.PMPROC ---
- Procedure Date: 03/13/20 Time: 12:16 Anesthesiologist:: Ty Drummond MD Complications:: None Pre-procedure Diagnosis:: Degenerative disc disease of lumbar spine with lumbar radicular symptoms and lumbar spondylosis with facet arthropathy of lumbar spine Post-procedure Diagnosis:: Same Indications for Procedure:: The patient is a pleasant 34-year-old white female who we are treating for low back pain with lumbar spondylosis and lumbar facet arthropathy. She is done very well with RFA of the facet joints of L4-5 and L5-S1 on the left side. She presents for RFA of the facet joints of L4-5 and L5-S1 on the right side today. Procedure Details:: Lumbar RFA informed consent was obtained and the risk and benefits of the procedure was explained to the patient. Patient was placed prone on the procedure table. The patient was prepped and draped in sterile fashion. C-arm fluoroscopy was used to view the lumbar spine. The skin and subcutaneous tissues were anesthetized using lidocaine. I placed 20-gauge RF needles into the facet joints of L4-5 and L5-S1 levels on the right side. We underwent sensory stimulation. There is good sensory stimulation at 0.8 V. We underwent motor stimulation. There is no motor stimulation at 2 V. We then anesthetized these levels with lidocaine and Depo-Medrol. I used a total of 40 mg Depo-Medrol for both levels. I then burned both levels of L4-5 and L5-S1 facet joint/medial branches on the right side for 4 minutes at 80 ?C. Patient tolerated the procedure well with no complication. Plan and Disposition:: We will follow-up with her in 2 weeks we will reevaluate her symptoms at that time.
[2020-03-13 12:19] VITALS: BP 165/80; PULSE 102; RESP 20; O2SAT 96
== END 2020-03-13 12:21 | disposition home or self-care (01) ==
LOC: SC.PAINP 10:55
PROVIDERS: PCP Physician Assistant; Visit Provider Anesthesiology
DX: M51.16 Intervertebral disc disorders with radiculopathy, lumbar region (principal); M54.06 Panniculitis affecting regions of neck and back, lumbar region; M47.896 Other spondylosis, lumbar region; E66.9 Obesity, unspecified; Z68.44 Body mass index [BMI] 60.0-69.9, adult
CPT/HCPCS: 64635; 64636; J1040; Q9966

== ENCOUNTER → 2020-05-04 14:13 | Outpatient (POV) | payer OTHER, SELFPAY ==
[2020-05-04 15:00] VITALS: BP 122/65; PULSE 104; RESP 18; O2SAT 98; BMI 60.3
--- NOTE | 2020-05-04 16:26 | P.CONS_ITS ---
[facility] Pain Management SOAP Note Subjective:: Patient is a pleasant 34-year-old white female who presents today for follow-up after RFA. Patient is doing quite well she rates her pain a 5 out of 10 however she states is due to the fact that she is worked 35 hours in the last several days. Patient overall doing well she would like to address her neck and headaches. Patient has occipital neuralgia with extreme tenderness in her neck. Patient is scheduled for gastric sleeve surgery and is unable to take any steroids at this time. Patient is interested in a diagnostic occipital nerve block. ROS General: no recent weight change, no fever, no sleep disturbances Respiratory: no cough, no shortness of air, no recurring pulmonary infections Cardiovascular/Peripheral Vascular: No chest pain, No palpitations, no edema, no shortness of breath. Gastrointestinal: no new onset incontinence, normal bowel movements reported Genitourinary: no new onset incontinence Musculoskeletal: Neck pain, headache, occipital neuralgia Psychiatric: normal mood/ affect Neurological: [denies new onset weakness in extremities], [denies new onset balance issues] Objective:: Physical Exam General: Alert and oriented x3, no acute distress, pleasant and cooperative, [on room air] Lungs: Resps E/U, Symmetrical chest expansion, Eyes: PERRL Musculoskeletal: Flexion and extension of cervical and lumbar spine somewhat guarded secondary to pain, deep tendon reflexes normal, strength in upper and lower extremities [5/5], slightly antalgic gait noted Neurological: speech clear, consultant in ergonomics and safety equal, no gross sensory deficits Assessment:: Degenerative disc disease lumbar spine lumbar radiculopathy symptoms and lumbar spondylosis with facet arthropathy of lumbar spine, occipital neuralgia, headaches, cervical pain Plan:: Patient would like a diagnostic occipital nerve block given the fact that she cannot have any steroids due to pending gastric sleeve surgery. Patient and I had a long discussion in regards to this. She like to move forward. I will follow-up with her after this reassess her symptoms at that time she has been instructed to call the office if she has issues prior to her next appointment. Dr. Drummond has reviewed this note and agrees with this plan of care. This note was dictated using voice recognition software and may contain errors or omissions [facility] History I have reviewed the patient's past medical history: Yes Medical History: Reports:: Migraine Denies:: Asthma, Cancer, Congestive Heart Failure, Chronic Obstructive Pulmonary Disease (COPD), Congenital Heart Disease, Coronary Artery Disease, Diabetes Mellitus Type 1, Diabetes Mellitus Type 2, Gastroesophageal Reflux Disease(GERD), Hyperlipidemia, Hypertension, MRSA, Myocardial Infarction, Seizures *Have you ever received a pneumonia vaccine?: Yes *Have you received a flu vaccine this season?: Yes Other Medical History: Denies: Blood Transfusion Reaction Laterality Cases: Bilateral: Tonsillectomy Other Surgeries: Yes: , Other (right foot surgery) Amputation: No Fractures: No - *Social History Smoking Status: Never smoker # Packs/Day (cigarettes): 0 #Yrs smoked (if former smoker): 0 Alcohol Intake: never Alcohol Intake Frequency:: other Substance Use Type: denies use *Occupational Status:: other Housing: house Household Members: children *Travel in the last 8 weeks: None Family Hx:: No significant family history
== END ==
PROVIDERS: PCP Physician Assistant; Visit Provider Clinical Nurse Specialist Family Health
DX: M51.16 Intervertebral disc disorders with radiculopathy, lumbar region (principal); M47.816 Spondylosis without myelopathy or radiculopathy, lumbar region; M54.2 Cervicalgia; M54.81 Occipital neuralgia
CPT/HCPCS: 99212

== ENCOUNTER 2020-05-08 09:48 | Day surgery (SDC) | payer OTHER, SELFPAY ==
[2020-05-08 10:22] VITALS: BP 152/83; PULSE 94; RESP 18; TEMP 36.9; O2SAT 98; BMI 60.3
[2020-05-08 10:50] VITALS: BP 145/85; PULSE 88; RESP 18; O2SAT 99
[2020-05-08 10:51] VITALS: BP 142/88; BP 144/87; PULSE 85; PULSE 86; RESP 18; O2SAT 99
--- NOTE | 2020-05-08 11:00 | HMH.PMPROC ---
- Procedure Date: 05/08/20 Time: 11:01 Anesthesiologist:: Ty Drummond MD Complications:: None Pre-procedure Diagnosis:: Bilateral occipital neuralgia Post-procedure Diagnosis:: Same Indications for Procedure:: This patient is a pleasant 34-year-old white female who we are treating for occipital neuralgia. She has headaches originating from the occiput. She is scheduled for gastric sleeve surgery next week and is unable to take steroids at this time. We will do bilateral occipital nerve blocks today to see if this will help with her pain symptoms. We will only use local anesthetic. Procedure Details:: Bilateral occipital nerve block Informed consent was obtained and the risk and benefits of the procedure was explained to the patient. The patient was taken to the procedure room. The occiput was cleansed using ChloraPrep. A 25-gauge needle was used first on the left side and advanced until it contacted the left occiput. After negative aspiration we injected 5 mL bupivacaine 0.25% Depo-Medrol 40 mg. The same was done for the right side again advancing a 25-gauge needle until it contacted occiput. After negative aspiration, we injected 5 mL bupivacaine 0.25% and Depo-Medrol 40 mg. Patient tolerated procedure well with no complications. Plan and Disposition:: We will follow-up with this patient after her surgery. We will reevaluate her symptoms at that time.
== END 2020-05-08 10:53 | disposition home or self-care (01) ==
LOC: SC.PAINP 09:48
PROVIDERS: PCP Physician Assistant; Visit Provider Anesthesiology
DX: M54.81 Occipital neuralgia (principal); Z90.89 Acquired absence of other organs; Z87.39 Personal history of other diseases of the musculoskeletal system and connective tissue; Z98.84 Bariatric surgery status; M51.16 Intervertebral disc disorders with radiculopathy, lumbar region; M47.816 Spondylosis without myelopathy or radiculopathy, lumbar region; M12.88 Other specific arthropathies, not elsewhere classified, other specified site; Z79.899 Other long term (current) drug therapy
CPT/HCPCS: 64450

== ENCOUNTER 2020-08-12 16:27 | Emergency (ER) | payer OTHER, SELFPAY ==
[2020-08-12 16:38] VITALS: BP 147/81; PULSE 63; RESP 20; TEMP 36.7; O2SAT 99; BMI 53.0
--- NOTE | 2020-08-12 17:14 | HMH.EDUTC ---
[facility] [place]: Encounter for laboratory testing for COVID-19 virus Sinusitis Qualifiers: Sinusitis location: unspecified location Chronicity: unspecified Qualified Code(s): J32.9 - Chronic sinusitis, unspecified Disposition: Home, Self-Care Condition on Discharge: Good Instructions: Sinusitis, Sinus Headache, DI for Sinusitis, Preventing the Spread of Coronavirus Discharge Instructions Additional Instructions: *Monitor Temp, Over the counter Motrin or Tylenol as directed/as needed Tylenol every 4 hours and Motrin every 6 hours (as long as your family doctor has told you that you can take it) for fever or pain. and straight to ER if unable to lower temp less than 101.0 after medication given *Warm salt water gargles may help to soothe the throat *Throat Lozenges *Warm fluids like tea with honey may help to soothe the throat *Sleep elevated *Humidifier/Vaporizer *Flonase 2 sprays in each nostril daily but be aware that it may take 2-3 days before you notice improvement Follow up IMMEDIATELY for new or worsening symptoms or no Noticeable improvement over the next 48-72 hours. 911 for difficulty breathing or swallowing You was tested for today for COVID19 your test result should be back later this evening, you may call back later this evening to see if your test results are back and the result You was given a handout with instructions for Self Quarantine and Self isolation for while you wait on test results and what to do if they are positive Prescriptions: Fluticasone Propionate [Flonase 50mcg nasal spray 16gm] 1 - 2 spr NS DAILY #1 bottle Transmission Status: [facility] Azithromycin [Z-Derrick 250mg Tab] 250 mg PO DIRECTED #6 tab Transmission Status: Received by [facility] Referrals: Lakshmi Rivera PA [Primary Care Provider] - As needed Forms: Work/School Release Time of Disposition: 17:23 Medical Decision Making - Bill Inquiry Pt receiving controlled substance: No Bill was queried for this patient: No Vital Signs: 08/12/20 16:38 08/12/20 17:36 Temperature 98.0 F 98.0 F Temperature Source Oral Oral Pulse Rate 63 Pulse Rate [Radial] 63 Respiratory Rate 20 20 Blood Pressure 147/81 H Blood Pressure [Right Arm] 147/81 H Blood Pressure Mean [Right Arm] 103 Blood Pressure Source Automatic Cuff Blood Pressure Source [Right Arm] Automatic Cuff Blood Pressure Position Sitting Blood Pressure Position [Right Arm] Sitting 02 Sat by Pulse Oximetry 99 Oxygen Delivery Method Room Air Room Air Orders (Tests/Meds): ORDERS Category Date Time Status Covid-19 Nasal PCR ([facility]) Routine Lab 08/12/20 16:53 Received [facility] UTC HPI - General Stated complaint: Headache; sinus pressure;congestion Time Seen by Provider: 08/12/20 17:14 Mode of Arrival: Ambulatory Source of Information: Patient Limitations: No Limitations Description of Symptoms (Recalled from Triage Doc. by RN): BRODY, Sinus Presuure, chest tightness, chills. HEENT Symptoms (Recalled from RN notes): Yes Resp Symptoms (Recalled from RN notes): No Skin Symptoms (Recalled from RN notes): No MS Symptoms (Recalled from RN notes): No Functional Status (Recalled from RN notes): wnl - History of Present Illness Provider Complaint: Patient states that she has been having sinus pain and pressure along with sore throat and congestion States that she feels like it is trying to move into her chest like bronchitis or that she may have COVID and wants to be tested - Related Data Home Medications Medication Instructions Recorded Confirmed Gabapentin [Neurontin 300mg 300 mg PO HS 02/24/20 05/08/20 capsule] Previous Rx's Medication Instructions Recorded Azithromycin [Z-Derrick 250mg Tab] 250 mg PO DIRECTED #6 tab 08/12/20 Fluticasone Propionate [Flonase 1 - 2 spr NS DAILY #1 bottle 08/12/20 50mcg nasal spray 16gm] Allergies Allergy/AdvReac Type Severity [place]
[2020-08-12 17:36] VITALS: BP 147/81; PULSE 63; RESP 20; TEMP 36.7; O2SAT 99
== END 2020-08-12 17:37 | disposition home or self-care (01) ==
PROVIDERS: Emergency Provider Nurse Practitioner; PCP Physician Assistant
DX: J32.9 Chronic sinusitis, unspecified (principal); Z20.828 Contact with and (suspected) exposure to other viral communicable diseases; G43.709 Chronic migraine without aura, not intractable, without status migrainosus
CPT/HCPCS: 99201; U0003

== ENCOUNTER → 2021-02-25 15:31 | Outpatient (POV) | payer OTHER, SELFPAY ==
[2021-02-25 15:46] VITALS: BP 145/88; PULSE 74; RESP 18; TEMP 36.8; O2SAT 98; BMI 38.5
--- NOTE | 2021-02-25 16:05 | P.CONS_ITS ---
[facility] Pain Management SOAP Note Subjective:: Patient is a pleasant 35-year-old white female who we are treating for occipital neuralgia. Patient's been doing extremely well with her gabapentin 300 mg at bedtime and tizanidine 4 mg at bedtime. She is recently lost 140 pounds. She rates her pain today a 5 out of 10. She denies any side effects to her current medication regimen. [facility] #[id number] reviewed and and appropriate. ROS General: no recent weight change, no fever, no sleep disturbances Respiratory: no cough, no shortness of air, no recurring pulmonary infections Cardiovascular/Peripheral Vascular: No chest pain, No palpitations, no edema, no shortness of breath. Gastrointestinal: no new onset incontinence, normal bowel movements reported Genitourinary: no new onset incontinence Musculoskeletal: Headaches at times Psychiatric: normal mood/ affect, Neurological: [denies new onset weakness in extremities], [denies new onset balance issues] Objective:: Physical Exam General: Alert and oriented x3, no acute distress, pleasant and cooperative, [on room air] Lungs: Resps E/U, Symmetrical chest expansion Eyes: PERRL Musculoskeletal: deep tendon reflexes normal, strength in upper and lower extremities [5/5], normal gait noted Neurological: speech clear, patient care equal, no gross sensory deficits Assessment:: Occipital neuralgia Plan:: We will continue her gabapentin 300 mg 1 p.o. nightly and her tizanidine 4 mg 1 p.o. nightly. We will see her back in 6 months reassess her symptoms at that time she been instructed to call the office if she has any issues prior to her next appointment. Dr. Drummond has reviewed this note and agrees with this plan of care. This note was dictated using voice recognition software and may contain errors or omissions [facility] History I have reviewed the patient's past medical history: Yes Medical History: Reports:: Migraine Denies:: Asthma, Cancer, Congestive Heart Failure, Chronic Obstructive Pulmonary Disease (COPD), Congenital Heart Disease, Coronary Artery Disease, Diabetes Mellitus Type 1, Diabetes Mellitus Type 2, Gastroesophageal Reflux Disease(GERD), Hyperlipidemia, Hypertension, MRSA, Myocardial Infarction, Seizures *Have you ever received a pneumonia vaccine?: Yes *Have you received a flu vaccine this season?: Yes Other Medical History: Denies: Blood Transfusion Reaction Laterality Cases: Bilateral: Tonsillectomy Other Surgeries: Yes: , Other (right foot surgery) Amputation: No Fractures: No - *Social History Smoking Status: Never smoker # Packs/Day (cigarettes): 0 #Yrs smoked (if former smoker): 0 Alcohol Intake: never Alcohol Intake Frequency:: other Substance Use Type: denies use *Occupational Status:: other Housing: house Household Members: spouse *Travel in the last 8 weeks: None Family Hx:: No significant family history
== END ==
PROVIDERS: PCP Physician Assistant; Visit Provider Clinical Nurse Specialist Family Health
DX: M54.81 Occipital neuralgia (principal)
CPT/HCPCS: 99212; G0463

== ENCOUNTER 2021-03-17 10:38 | Emergency (ER) | payer OTHER, SELFPAY ==
[2021-03-17 11:07] VITALS: BP 128/75; PULSE 76; RESP 19; TEMP 37; O2SAT 99; BMI 37.6
[2021-03-17 11:13] VITALS: BP 128/75; PULSE 76; RESP 19; TEMP 37; O2SAT 99
[2021-03-17 11:13] LABS: UTC Influenza A Antigen Negative (Negative); UTC Strep Screen (Rapid) Negative (Negative)
[2021-03-17 11:14] LABS: UTC Influenza B Antigen Negative (Negative)
--- NOTE | 2021-03-17 11:35 | HMH.EDUTC ---
[facility] [place]position Clinical Impression: COVID-19 Disposition: Home, Self-Care Condition on Discharge: Good Instructions: DI for Viral Syndrome, Preventing the Spread of Coronavirus Discharge Instructions Additional Instructions: Drink plenty of fluids. Take tylenol or ibuprofen for pain or fever. Take the medications as directed. Follow up with your regular doctor. GO TO THE ER FOR ANY WORSENING SYMPTOMS Prescriptions: Ondansetron [Zofran 4mg ODT] 4 mg PO Q8HP PRN #12 tab.rapdis PRN Reason: Nausea Transmission Status: Received by [facility] Referrals: Lakshmi Rivera PA [Primary Care Provider] - Forms: Work/School Release Time of Disposition: 11:36 Medical Decision Making - Medical Records Medical records reviewed: No: I reviewed the patient's medical records. - Bill Inquiry Pt receiving controlled substance: No Vital Signs: 03/17/21 11:07 03/17/21 11:13 Temperature 98.6 F 98.6 F Temperature Source Oral Pulse Rate 76 Pulse Rate [Left] 76 Respiratory Rate 19 19 Blood Pressure 128/75 Blood Pressure [Right Arm] 128/75 Blood Pressure Mean [Right Arm] 92 02 Sat by Pulse Oximetry 99 - Lab Data Lab results reviewed: Yes: I reviewed the patient's lab results. Lab Results 03/17/21 10:55: Influenza Type A Ag Negative, Influenza Type B Ag Negative 03/17/21 10:55: Strep Scn Rapid Clinic Negative Orders (Tests/Meds): ORDERS Category Date Time Status Strep Screen Confirmation Stat Micro 03/17/21 10:55 Received [facility] [place] HPI - General Stated complaint: headache,fatigue Time Seen by Provider: 03/17/21 11:35 Mode of Arrival: Ambulatory Source of Information: Patient Limitations: No Limitations Description of Symptoms (Recalled from Triage Doc. by RN): Headache, fever, chills, and no energy since Monday HEENT Symptoms (Recalled from RN notes): Yes Resp Symptoms (Recalled from RN notes): No Skin Symptoms (Recalled from RN notes): No MS Symptoms (Recalled from RN notes): No Functional Status (Recalled from RN notes): wnl - History of Present Illness Provider Complaint: She states that for the past 2 days she has had worse than normal fatigue, body aches, chills and she has felt bad. She denies any cough, sore throat, n/v/d. - Related Data Home Medications Medication Instructions Recorded Confirmed hydrocortisone 2.5 % topical cream 1 applic ND g 03/08/21 03/08/21 with perineal applicator multivitamin 1 tab PO DAILY 03/08/21 03/08/21 phytonadione (vitamin K1) 5 mg 5 mg PO tab 03/08/21 03/08/21 tablet vitamin A 10,000 unit capsule 10,000 unit PO cap 03/08/21 03/08/21 Previous Rx's Medication Instructions Recorded Gabapentin [Neurontin 300mg 300 mg PO HS #30 cap 02/25/21 capsule] Tizanidine HCl 4 mg PO HS #30 tab 02/25/21 nitroglycerin 0.4 % (w/w) rectal 1 inch ND BID 14 Days #30 g 03/08/21 ointment Ondansetron [Zofran 4mg ODT] 4 mg PO Q8HP PRN #12 tab.rapdis 03/17/21 Allergies Allergy/AdvReac Type Severity Reaction Status Date / Time No Known Allergies Allergy Verified 03/17/21 11:11 - Worker's Comp Is this a Worker's Comp case?: No [facility] History - Hepatitis A Screen Drug use history?: No High risk sexual behaviors?: No History of sexually transmitted infection?: No Currently employed?: No Childcare worker?: No Do you have indoor plumbing?: Yes Do you have electricity?: Yes Attestation statement:: This patient has been screened for Hepatitis A risk factors. I have reviewed the patient's past medical history: Yes Medical History: Reports:: Migraine Denies:: Asthma, Cancer, Congestive Heart Failure, Chronic Obstructive Pulmonary Disease (COPD), Congenital Heart Disease, Coronary Artery Disease, Diabetes Mellitus Type 1, Diabetes Mellitus Type 2, Gastroesophageal Reflux Disease(GERD), Hyperlipidemia, Hypertension, MRSA, Myocardial Infarction, Seizures Other Medical History: Denies: Blood Transf
--- NOTE | 2021-03-17 15:07 | PC.NURSE ---
Pt notified by phoneat [phone] 03/17/2021 of Positive Covid result and informed to self isolate and the [facility] would be following up with him.
== END 2021-03-17 11:51 | disposition home or self-care (01) ==
PROVIDERS: Emergency Provider Nurse Practitioner Family; PCP Physician Assistant
DX: U07.1 COVID-19 (principal); R51.9 Headache, unspecified
CPT/HCPCS: 87804; 87880; 99202; G0463; U0003

== ENCOUNTER → 2021-07-14 15:54 | Outpatient (CLI) | payer OTHER, SELFPAY ==
--- NOTE | 2021-07-14 16:14 | ECG_ITS ---
APPROVED REPORT Exam: Resting ECG HR:65 bpm ECG Measurements Heart Rate 65 AXES DC 160 P 59 QRSd 90 QRS 16 QT 414 T 22 QTc 430 Conclusion Normal sinus rhythm T wave abnormality, consider anterior ischemia Abnormal ECG Electronically signed by : Alex Villalpando MD 07/16/2021 10:55:29
--- NOTE | 2021-07-14 16:14 | XR_ITS ---
PROCEDURE: XR CHEST 2V CLINICAL HISTORY: FIRST DEGREE HEMORRHOIDS COMPARISON: CR CXR CHEST(2 VIEWS-NOT PORTABLE) from 03/11/2015 CR CXR CHEST(2 VIEWS-NOT PORTABLE) from 04/17/2016 CR [id number] XR lumbar spine min 4V from 01/28/2019 FINDINGS: The cardiomediastinal silhouette and pulmonary vascularity are within normal limits. Nodular opacity is present in the left lung base and may represent a granuloma which appear stable. The remaining lungs are clear. There is mild midthoracic curvature convex right and thoracolumbar curvature convex left. No acute bony abnormalities. IMPRESSION: No change with no acute finding Dictated by: Alonzo Blanchard MD 07/15/2021 11:55 Alonzo Blanchard MD in OV 07/15/2021 11:55
[2021-07-14 17:01] LABS: Basophils % 0.4 % (0.1-2.0); Eosinophils % 0.4 % (0.1-12.0); Hematocrit 37.6 % (37.0-47.0); Hemoglobin 12.3 g/dL (12.2-16.2); Lymphocytes # 2.9 K/mm3 (0.7-4.5); Lymphocytes % 39.7 % (10-50); Mean Corpuscular HGB Conc 32.6 g/dL (31.8-35.4); Mean Corpuscular Hemoglobin 28.4 pg (27.0-31.2); Mean Corpuscular Volume 87.1 fl (81-99); Mean Platelet Volume 9.1 fl (7.4-10.4); Monocytes # 0.3 K/mm3 (0.1-1.0); Monocytes % 4.6 % (1.7-9.3); Neutrophils # 4.1 K/mm3 (1.8-7.8); Neutrophils % 54.9 % (37.0-80.0); Platelet Count 214 K/mm3 (142-424); Red Blood Count 4.32 M/mm3 (4.20-5.40); Red Cell Distribution Width 13.5 % (11.5-17.5); White Blood Count 7.4 K/mm3 (4.8-10.8)
[2021-07-14 17:18] LABS: Chloride 106 mmol/L (98-107); Potassium 3.3 mmoL/L (3.5-5.1); Sodium 142 mmol/L (136-145)
[2021-07-14 17:21] LABS: Anion Gap 11.3 mEq/L (5-15); Blood Urea Nitrogen 8 mg/dl (7-17); Calcium 8.4 mg/dl (8.4-10.2); Carbon Dioxide 28 mmol/L (22.0-30.0); Estimated Glomerular Filt Rate 139 ml/min (>60); GFR (African American) 168 ML/MIN (>60); Glucose 94 mg/dl (74-100)
== END ==
PROVIDERS: PCP Physician Assistant; Visit Provider Colon & Rectal Surgery
DX: K64.0 First degree hemorrhoids (principal)
CPT/HCPCS: 36415; 71046; 80048; 85025; 93005

== ENCOUNTER → 2021-08-05 15:41 | Outpatient (POV) | payer OTHER, SELFPAY ==
[2021-08-05 15:50] VITALS: BP 152/91; PULSE 78; RESP 18; O2SAT 98; BMI 36.2
--- NOTE | 2021-08-05 15:59 | HMH.PAINSOAP ---
[facility] Pain Management SOAP Note Subjective:: Patient is a 36-year-old white female who presents today for follow-up. The patient was seen in the clinic on 02/25/2021. The patient is having progressively worsening pain to her low back area. She says the pain is worse with bending and turning or twisting at her waist. She has undergone medial branch blocks x2 in 2019 and got 70 to 80% relief with the injections. The patient's pain did return and she did undergo an RFA. Patient got 90 to 100% relief with the RFA to bilateral L4-L5 L5-S1 areas. This was performed in 2019. The patient's pain has now returned. She says that the pain is worse with movement?turning and twisting and bending forward or extension at waist. She does rate her pain a 6 out of 10. She is also managed in the clinic with gabapentin 300 mg 1 tablet p.o. daily. She denies any side effects with the medication. Review of Systems General: No recent weight changes, no fever, no sleep disturbances Respiratory: No cough, no shortness of air, no recurring pulmonary infections Cardiovascular/peripheral vascular: No chest pain, no palpitations, no edema, no shortness of breath Gastrointestinal: No new onset incontinence, normal bowel movements reported Genitourinary: No new onset incontinence Musculoskeletal: Low back pain worse with bending forward or extension at waist Psychiatric: [Normal mood/affect] Neurological: [Denies weakness in extremities], [denies balance issues] Objective:: Physical exam General: Alert and oriented x3, no acute distress, pleasant and cooperative, [on room air] Lungs: Respirations even and unlabored, symmetrical chest expansion Eyes: PERRL Musculoskeletal: Flexion and extension of lumbar [spine] somewhat guarded secondary to pain, strength in upper and lower extremities [5/5], [antalgic gait noted], positive Kemps test Neurological: Speech clear, [occupational therapy teacher equal], no gross sensory deficit Assessment:: Degenerative disc disease lumbar spine with lumbar facet arthropathy and lumbar spondylosis Plan:: We will schedule the patient for an RFA at L4-L5 L5-S1 bilaterally. She has had an RFA in 2019 and got between 90 to 100% relief until recently. She has tried and failed conservative therapies of physical therapy for more than 6 weeks in the past, continued home stretching, anti-inflammatories, and medial branch blocks with greater than 80% relief. We will schedule her for the RFA and see her back afterwards for reevaluation of symptoms. Risks and benefits of the procedure have been explained to the patient. Patient would like to proceed with the procedure. Patient has been instructed to contact the clinic with any concerns before the next appointment. Dr. Drummond has reviewed this note and agrees with this plan of care. This note was dictated using voice recognition software and make contain errors or omissions. [facility] History I have reviewed the patient's past medical history: Yes Medical History: Reports:: Migraine Denies:: Asthma, Cancer, Congestive Heart Failure, Chronic Obstructive Pulmonary Disease (COPD), Congenital Heart Disease, Coronary Artery Disease, Diabetes Mellitus Type 1, Diabetes Mellitus Type 2, Gastroesophageal Reflux Disease(GERD), Hyperlipidemia, Hypertension, MRSA, Myocardial Infarction, Seizures *Have you ever received a pneumonia vaccine?: No *Have you received a flu vaccine this season?: No Other Medical History: Denies: Blood Transfusion Reaction Laterality Cases: Bilateral: Tonsillectomy Other Surgeries: Yes: Colonoscopy, , Other Amputation: No Fractures: No - *Social History Smoking Status: Never smoker # Packs/Day (cigarettes): 0 #Yrs smoked (if former smoker): 0 Alcohol Intake: never Alcohol Intake Frequency:: other Substance Use Type: denies use *Occupational Status:: employed Housing: house Household Members: spouse *Travel in the last 8 weeks: None Family Hx:: No significant family history
== END ==
PROVIDERS: Visit Provider Clinical Nurse Specialist Family Health
DX: M51.36 Other intervertebral disc degeneration, lumbar region (principal); M47.816 Spondylosis without myelopathy or radiculopathy, lumbar region; M54.06 Panniculitis affecting regions of neck and back, lumbar region
CPT/HCPCS: 99212; G0463

== ENCOUNTER 2021-09-03 15:16 | Day surgery (SDC) | payer OTHER, SELFPAY ==
[2021-09-03 15:23] VITALS: BP 150/91; PULSE 82; RESP 18; TEMP 36.9; O2SAT 100; BMI 33.5
[2021-09-03 15:38] VITALS: BP 138/87; PULSE 72; RESP 18; O2SAT 100
[2021-09-03 15:39] VITALS: BP 138/86; PULSE 68; RESP 18; O2SAT 100
--- NOTE | 2021-09-03 15:49 | P.PCN_ITS ---
- Procedure Date: 09/03/21 Time: 15:49 Anesthesiologist:: Ty Drummond MD Complications:: None Pre-procedure Diagnosis:: Degenerative disc disease of lumbar spine with lumbar spondylosis and lumbar facet arthropathy Post-procedure Diagnosis:: Same Indications for Procedure:: This patient is a pleasant 36-year-old white female who we are treating for low back pain with lumbar radiculopathy symptoms and lumbar facet arthropathy. She got 90 to 100% relief with previous RFA of L4-5 L5-S1. The pain is now returned. She presents for repeat RFA to L4-5 and L5-S1 bilaterally today. She is also had previous good results with medial branch blocks to these areas. Procedure Details:: Lumbar RFA informed consent was obtained and the risk and benefits of the procedure was explained to the patient. Patient was placed prone on the procedure table. The patient was prepped and draped in sterile fashion. C-arm fluoroscopy was used to view the lumbar spine. The skin and subcutaneous tissues were anesthetized using lidocaine. I placed 20-gauge RF needles into the facet joints of L4-5 and L5-S1 bilaterally. We underwent sensory stimulation. There is good sensory stimulation at 0.8 V. We underwent motor stimulation. There is no motor stimulation at 2 V. We then anesthetized these levels with lidocaine and Depo- Medrol. I used a total of 40 mg Depo-Medrol for both levels. I then burned both levels of L4-5 and L5-S1 bilaterally for 4 minutes at 80 ?C. Patient tolerated the procedure well with no complication. Plan and Disposition:: We will follow-up with her in 2 weeks. Will reevaluate symptoms at that time.
[2021-09-03 15:55] VITALS: BP 151/95; PULSE 76; RESP 18; TEMP 36.9; O2SAT 100
== END 2021-09-03 15:58 | disposition home or self-care (01) ==
LOC: SC.PAINP 15:18
PROVIDERS: PCP Physician Assistant; Visit Provider Anesthesiology
DX: M51.36 Other intervertebral disc degeneration, lumbar region (principal); M47.816 Spondylosis without myelopathy or radiculopathy, lumbar region; M54.06 Panniculitis affecting regions of neck and back, lumbar region; G43.909 Migraine, unspecified, not intractable, without status migrainosus; Z72.0 Tobacco use; K21.9 Gastro-esophageal reflux disease without esophagitis; Z98.84 Bariatric surgery status
CPT/HCPCS: 64635; 64636; J1040

== ENCOUNTER → 2021-10-07 15:41 | Outpatient (POV) | payer OTHER, SELFPAY ==
[2021-10-07 15:55] VITALS: BP 163/89; PULSE 87; RESP 18; O2SAT 97; BMI 34.5
--- NOTE | 2021-10-07 16:23 | HMH.PAINSOAP ---
[facility] Pain Management SOAP Note Subjective:: Patient is a pleasant 36-year-old female who is here today for follow-up after an RFA on 09/03/2021. Patient is currently being treated for degenerative disc disease of the lumbar spine with lumbar spondylosis and lumbar facet arthropathy. After the procedure, the patient says that she had about 90 to 100% relief. This is the patient's second RFA that provided tremendous relief. She said the first 1 was 1 to 2 years ago. Today, the patient is complaining of left-sided hip pain that started about 3 months ago. She she states that this pain radiates from her left buttock to her hip and her knees. She says that walking for long periods of time or any prolonged activity aggravates her hip. Patient denies any trauma to the hip. Patient has never had any injections to her hip. Patient has tried and failed several conservative therapies such as oral medication, physical therapy, and at home exercises. Patient is currently on gabapentin 300mg daily that is not prescribed at his clinic. She rates her pain today as 5 out of 10. Gregory is [phone] with a morphine equivalent of 0. Review of Systems General: No recent weight changes, no fever, no sleep disturbances Respiratory: No cough, no shortness of air, no recurring pulmonary infections Cardiovascular/peripheral vascular: No chest pain, no palpitations, no edema, no shortness of breath Gastrointestinal: No new onset incontinence, normal bowel movements reported Genitourinary: No new onset incontinence Musculoskeletal: Left hip pain, improved low back pain Psychiatric: [Normal mood/affect] Neurological: [Denies weakness in extremities], [denies balance issues] Objective:: Physical exam General: Alert and oriented x3, no acute distress, pleasant and cooperative Lungs: Respirations even and unlabored, symmetrical chest expansion Eyes: PERRL Musculoskeletal: Flexion and extension of [lumbar] [spine] somewhat guarded secondary to pain, left hip: +scott, +fortins, +compression, +distraction Neurological: Speech clear, no gross sensory deficit Assessment:: Degenerative disease of lumbar spine with lumbar spine spondylosis and lumbar facet arthropathy Sacroiliitis Plan:: We will schedule the patient for a left SI injection. Risk and benefits of this procedure has been discussed with the patient. Patient is currently not on any blood thinners. Risks and benefits of the medication have been explained in detail to the patient. The patient does understand the risk of dependence on the medication when given over a prolonged period. Patient has been advised of risks of oversedation with the prescribed medication. Narcan has been offered to the paitent in the event of oversedation. Patient has been advised that a family member should also be educated regarding administration of Narcan. The patient has been advised to consult with his/her primary care provider and pharmacist regarding drug-drug interaction of medications currently prescribed. Patient has been prescribed a controlled substance after being counseled on the medication, medication safety, and possible side effects. GREGORY report has been obtained and reviewed prior to prescription and found to be appropriate. Opioid contract was reviewed and signed by the patient, and that they have agreed to all of the terms set forth by our compliance program. Patient has been instructed to contact the clinic with any concerns before the next appointment. Dr. Drummond has reviewed this note and agrees with this plan of care. This note was dictated using voice recognition software and make contain errors or omissions. [facility] History Medical History: Reports:: Migraine Denies:: Asthma, Cancer, Congestive Heart Failure, Chronic Obstructive Pulmonary Disease (COPD), Congenital Heart Disease, Coronary Artery Disease, Diabetes Mellitus Type 1, Diabetes Mellitus Type 2, Gastroesophageal Reflu
== END ==
PROVIDERS: Visit Provider Clinical Nurse Specialist Family Health
DX: M51.36 Other intervertebral disc degeneration, lumbar region (principal); M47.816 Spondylosis without myelopathy or radiculopathy, lumbar region; M54.06 Panniculitis affecting regions of neck and back, lumbar region
CPT/HCPCS: 99212; G0463

== ENCOUNTER 2021-10-22 15:14 | Day surgery (SDC) | payer OTHER, SELFPAY ==
[2021-10-22 15:22] VITALS: BP 149/96; PULSE 81; RESP 20; TEMP 36.9; O2SAT 100; BMI 34.2
--- NOTE | 2021-10-22 15:29 | HMH.PMPROC ---
- Procedure Date: 10/22/21 Time: 15:29 Anesthesiologist:: Jacinda Padron MD Complications:: None Pre-procedure Diagnosis:: Left-sided sacroiliitis, left-sided low back pain, left-sided hip pain Post-procedure Diagnosis:: Same Indications for Procedure:: This patient is a very pleasant 36-year-old white female who presents today with left-sided low back and hip pain related to the above diagnosis. She has tried and failed conservative treatment including oral pain medication and home stretching program for greater than 6 weeks. She has previously undergone RFA on September 03, 2021 and notes 90 to 800% pain relief that is ongoing. Her biggest pain complaint today is her left-sided hip pain. The plan for today is for the patient to undergo a left SI joint injection under fluoroscopy. Procedure Details:: Left SI joint injection under fluoroscopy Informed consent was obtained and the risks and benefits of the procedure was explained to the patient. Patient was taken to the procedure room. Patient was placed prone on the procedure table. The left hip was prepped using ChloraPrep. The skin and subcutaneous tissues were anesthetized using lidocaine. I placed a 22-gauge spinal needle into the inferior aspect of the left SI joint. Needle placement was confirmed with dye. After this we injected 5 mL bupivacaine 0.25% and Depo-Medrol 40 mg into the left SI joint. The patient tolerated the procedure well with no complication. Plan and Disposition:: We will follow-up with this patient in 2 weeks. Will reevaluate pain symptoms at that time.
[2021-10-22 15:34] VITALS: RESP 18; O2SAT 98
[2021-10-22 15:36] VITALS: PULSE 83; RESP 18; O2SAT 98
[2021-10-22 15:45] VITALS: BP 138/88; PULSE 75; RESP 20; O2SAT 100
== END 2021-10-22 15:45 | disposition home or self-care (01) ==
LOC: SC.PAINP 15:15
PROVIDERS: PCP Physician Assistant; Visit Provider Anesthesiology Pain Medicine
DX: M46.1 Sacroiliitis, not elsewhere classified (principal); M54.59 Other low back pain; M25.552 Pain in left hip
CPT/HCPCS: 27096; G0260; J1040; Q9966

== ENCOUNTER → 2021-11-25 11:13 | Outpatient (POV) | payer OTHER, SELFPAY ==
--- NOTE | 2021-11-25 11:41 | HMH.VVPMSO ---
[facility] PM Virtual Visit SOAP Consent for virtual visit:: With the recent concerns about the COVID-19, we are trying to minimize exposure to you by shifting to telehealth appointments whenever possible. It restricts me from seeing you in person, but the trade off is protecting you during this pandemic. Can you see and hear me okay, and do you consent to this option? If not, I would be happy to see if we can reschedule your appointment in the future, when feasible. Has patient consented to this virtual visit?: Yes Subjective:: Patient is a 36-year-old white female who is following up via telehealth medicine today. She recently had a right-sided SI joint injection. She got up to 80% relief and is still. Today, she rates her pain a 3 out of 10. She is also managed with gabapentin 3 to milligrams 1 tablet p.o. daily and tizanidine 4 mg 1 tablet p.o. twice daily. She denies any side effects. She does need refills on medications. [facility] #[id number] has been reviewed and is appropriate. Morphine equivalent is 0. Review of Systems General: No recent weight changes, no fever, no sleep disturbances Respiratory: No cough, no shortness of air, no recurring pulmonary infections Cardiovascular/peripheral vascular: No chest pain, no palpitations, no edema, no shortness of breath Gastrointestinal: No new onset incontinence, normal bowel movements reported Genitourinary: No new onset incontinence Musculoskeletal: No pain at this time Psychiatric: [Normal mood/affect] Neurological: [Denies weakness in extremities], [denies balance issues] Objective:: Physical exam General: Alert and oriented x3, no acute distress, pleasant and cooperative Assessment:: Left side sacroiliitis, low back pain Plan:: Patient is doing well following her SI injection. We will continue her with gabapentin 300 mg 1 tablet p.o. and increase to twice daily and tizanidine 4 mg 1 tablet p.o. twice daily. She has started taking gabapentin twice daily to get relief of bilateral lower extremity pain with numbness and tingling. Tizanidine does help the patient throughout the day while working. We will see the patient back in the clinic for follow-up in 3 months. ORT is minimal risk. Risks and benefits of the medication have been explained in detail to the patient. The patient does understand the risk of dependence on the medication when given over a prolonged period. Patient has been advised of risks of oversedation with the prescribed medication. Narcan has been offered to the paitent in the event of oversedation. Patient has been advised that a family member should also be educated regarding administration of Narcan. The patient has been advised to consult with his/her primary care provider and pharmacist regarding drug-drug interaction of medications currently prescribed. Patient has been prescribed a controlled substance after being counseled on the medication, medication safety, and possible side effects. GREGORY report has been obtained and reviewed prior to prescription and found to be appropriate. Opioid contract was reviewed and signed by the patient, and that they have agreed to all of the terms set forth by our compliance program. Patient has been instructed to contact the clinic with any concerns before the next appointment. Dr. Drummond has reviewed this note and agrees with this plan of care. This note was dictated using voice recognition software and make contain errors or omissions. Time In:: 11:30 Time Out:: 11:40 [facility] History I have reviewed the patient's past medical history: Yes Medical History: Reports:: Migraine Denies:: Asthma, Cancer, Congestive Heart Failure, Chronic Obstructive Pulmonary Disease (COPD), Congenital Heart Disease, Coronary Artery Disease, Diabetes Mellitus Type 1, Diabetes Mellitus Type 2, Gastroesophageal Reflux Disease(GERD), Hyperlipidemia, Hypertension, MRSA, Myocardial Infarction, Seizures *Have you ever received
== END ==
PROVIDERS: Visit Provider Clinical Nurse Specialist Family Health
DX: M46.1 Sacroiliitis, not elsewhere classified (principal); M54.50 Low back pain, unspecified
CPT/HCPCS: 99212; G0463

== ENCOUNTER 2021-12-08 14:55 | Emergency (ER) | payer OTHER, SELFPAY ==
[2021-12-08 14:56] VITALS: BP 139/91; PULSE 99; RESP 18; TEMP 37.1; O2SAT 98; BMI 32.9
[2021-12-08 15:31] LABS: Microscopic, Urine URINE MICROSCOPIC (MICROSCOPIC)
[2021-12-08 15:36] LABS: Basophils # 0.1 K/mm3 (0-0.2); Basophils % 0.7 % (0.1-2.0); Eosinophils % 0.5 % (0.1-12.0); Hematocrit 42.9 % (37.0-47.0); Hemoglobin 13.3 g/dL (12.2-16.2); Lymphocytes # 2.6 K/mm3 (0.7-4.5); Mean Corpuscular Hemoglobin 28.7 pg (27.0-31.2); Mean Corpuscular Volume 92.6 fl (81-99); Mean Platelet Volume 9.3 fl (7.4-10.4); Monocytes # 0.3 K/mm3 (0.1-1.0); Monocytes % 4.4 % (1.7-9.3); Neutrophils # 4.8 K/mm3 (1.8-7.8); Neutrophils % 61.5 % (37.0-80.0); Platelet Count 199 K/mm3 (142-424); Red Blood Count 4.64 M/mm3 (4.20-5.40); White Blood Count 7.8 K/mm3 (4.8-10.8)
[2021-12-08 15:36] LABS: Urine Pregnancy, HCG Qual. Negative (Negative)
[2021-12-08 15:38] LABS: Chloride 108 mmol/L (98-107); Sodium 139 mmol/L (136-145)
[2021-12-08 15:39] LABS: Potassium 3.9 mmoL/L (3.5-5.1)
[2021-12-08 15:41] LABS: Alanine Aminotransferase 51 U/L (12-78); Alkaline Phosphatase 117 U/L (38-126); Amylase 41 U/L (30-110); Anion Gap 8.9 mEq/L (5-15); Aspartate Amino Transferase 58 U/L (14-36); Bilirubin,Total 0.6 mg/dl (0.2-1.3); Blood Urea Nitrogen 11 mg/dl (7-17); Calcium 8.4 mg/dl (8.4-10.2); Carbon Dioxide 26 mmol/L (22.0-30.0); Creatinine Clearance Estimated 123 mL/min (50-200); Estimated Glomerular Filt Rate 80 ml/min (>60); GFR (African American) 97 ML/MIN (>60); Glucose 69 mg/dl (74-100); Lipase 34 U/L (23-300)
[2021-12-08 15:42] LABS: Albumin Level 4.2 g/dl (3.5-5.0); Albumin/Globulin Ratio 1.5 (1.1-1.8); Globulin 2.8 g/dL (1.3-3.2)
--- NOTE | 2021-12-08 15:43 | HMH.EDGENADL ---
ED Disposition Clinical Impression: Upper abdominal pain, Abdominal distension (gaseous) Vomiting Qualifiers: Vomiting type: unspecified Nausea presence: with nausea Qualified Code(s): R11.2 - Nausea with vomiting, unspecified Constipation Qualifiers: Constipation type: unspecified constipation type Qualified Code(s): K59.00 - Constipation, unspecified Disposition: Home, Self-Care Condition on Discharge: Good Instructions: DI for Acute Abdominal Pain, DI for Constipation, DI for Vomiting -- Adult Additional Instructions: Zofran as needed for nausea and vomiting. Magnesium citrate followed by [facility]. Follow-up with your primary care provider, call tomorrow to make appointment. Additional instructions for ABDOMINAL PAIN: See your physician as soon as possible for further evaluation. Return immediately if worsening abdominal pain, vomiting, shortness of breath, fever, vomiting of blood or abdominal distention. Prescriptions: polyethylene glycoL 3350 [Miralax 17gm Packet] 17 gm PO DAILY #5 packet Transmission Status: Pending to [facility] Ondansetron [Zofran 4mg ODT] 4 mg PO TIDP PRN #10 tab PRN Reason: Nausea And Vomiting Transmission Status: Pending to [facility] Referrals: Lakshmi Rivera PA [Primary Care Provider] - - Critical Care Critical Care Time: No Attestation: On 12/08/21, the high probability of a clinically significant, sudden or life threatening deterioration of the following system(s) required my full and direct attention, intervention and personal management. The time I documented below is in addition to time spent performing reported procedures but includes the following listed in this critical care notation. Medical Decision Making - Bill Inquiry Pt receiving controlled substance: No Vital Signs: 12/08/21 14:56 Temperature 98.7 F Temperature Source Oral Pulse Rate [Right Radial] 99 H Respiratory Rate 18 Blood Pressure [Right Arm] 139/91 H Blood Pressure Mean [Right Arm] 107 Blood Pressure Source [Right Arm] Automatic Cuff Blood Pressure Position [Right Arm] Sitting 02 Sat by Pulse Oximetry 98 Oxygen Delivery Method Room Air - Lab Data Lab Results 12/08/21 15:24: WBC 7.8, RBC 4.64, Hgb 13.3, Hct 42.9, MCV 92.6, MCH 28.7, MCHC 31.0 L, RDW 13.0, Plt Count 199, MPV 9.3, Neut % (Auto) 61.5, Lymph % (Auto) 33.0, [place] % (Auto) 4.4, Eos % (Auto) 0.5, Baso % (Auto) 0.7, Neut # (Auto) 4.8, Lymph # (Auto) 2.6, [place] # (Auto) 0.3, Eos # (Auto) 0.0, Baso # (Auto) 0.1 12/08/21 15:24: Sodium 139, Potassium 3.9, Chloride 108 H, Carbon Dioxide 26, Anion Gap 8.9, BUN 11, Creatinine 0.80, Estimated Creat Clear 123, Estimated GFR 80, Est GFR ( Amer) 97, Glucose 69 L, Calcium 8.4, Total Bilirubin 0.6, AST 58 H, ALT 51, Alkaline Phosphatase 117, Total Protein 7.0, Albumin 4.2, Globulin 2.8, Albumin/Globulin Ratio 1.5, Amylase 41, Lipase 34 12/08/21 15:25: Urine Color Yellow, Urine Appearance Clear, Urine pH 5.0, Ur Specific [place] >= 1.030, Urine Protein Negative, Urine Glucose (UA) Negative, Urine Ketones Negative, Urine Blood 3+, Urine Nitrate Negative, Urine Bilirubin Negative, Urine Urobilinogen 0.2, Ur Leukocyte Esterase Negative, Urine RBC 10-20, Urine WBC Occasional, Ur Squamous Epith Cells Occasional, Urine Bacteria Trace 12/08/21 15:25: Urine HCG, Qual Negative Result diagrams: 12/08/21 15:24 12/08/21 15:24 Orders (Tests/Meds): ED MEDICATIONS Discontinued Medications Generic Name Dose Route Start Last Admin Trade Name Coronaq PRN Reason Stop Dose Admin Iopamidol 75 ml 12/08/21 16:53 12/08/21 16:56 Iopamidol-370 (76%);100ml Bottle IV 12/08/21 16:54 75 ml ONCE ONE Administration Ondansetron HCl 4 mg 12/08/21 15:51 12/08/21 16:00 Ondansetron 4mg/2ml Vial IV 12/08/21 15:52 4 mg ONCE ONE Administration Sodium Chloride 1,000 ml 12/08/21 15:52 12/08/21 16:00 Sodium Chloride 0.9% 1000ml Bag IV 12/08/21
--- NOTE | 2021-12-08 15:50 | CT_ITS ---
PROCEDURE INFORMATION: Exam: CT Abdomen And Pelvis With Contrast Exam date and time: 12/08/2021 3:50 PM Age: 36 years old Clinical indication: Vomiting; Abdominal pain; Localized; Upper; Prior surgery; Surgery type: Gastric sleeve; Additional info: Upper abdo pain and vomiting TECHNIQUE: Imaging protocol: Computed tomography of the abdomen and pelvis with contrast. Radiation optimization: All CT scans at this facility use at least one of these dose optimization techniques: automated exposure control; mA and/or kV adjustment per patient size (includes targeted exams where dose is matched to clinical indication); or iterative reconstruction. Contrast material: ISOVUE; Contrast volume: 75 ml; Contrast route: IV; COMPARISON: FINDINGS: Lungs: Calcified granuloma in the left lung base is of no clinical concern. Lung bases are otherwise clear. Liver: There is enlargement of the liver, measuring 22 cm. There is a diffuse decrease in hepatic parenchymal density, consistent with fatty infiltration. The liver is otherwise unremarkable. Gallbladder and bile ducts: Prior cholecystectomy. There is no evidence of biliary ductal dilation. Pancreas: Normal. No ductal dilation. Spleen: Normal. No splenomegaly. Adrenal glands: Normal. No mass. Kidneys and ureters: Normal. No hydronephrosis. Stomach and bowel: Prior gastric sleeve surgery without discrete complications. Diffusely air-filled large bowel with evidence of moderate constipation. Small bowel appears unremarkable. No segmental bowel wall thickening. Appendix: Appendix is not confidently visualized on this examination, however there are no significant inflammatory changes to the right lower quadrant. Intraperitoneal space: There is no evidence of free intraperitoneal or pelvic fluid. There is no free intraperitoneal air. Vasculature: Unremarkable. No abdominal aortic aneurysm. Lymph nodes: No retroperitoneal, pelvic, or mesenteric adenopathy. Urinary bladder: Unremarkable as visualized. Reproductive: Retroverted uterus with possible uterine myomas suggested. Consider correlation with nonemergent pelvic ultrasound. The reproductive organs are otherwise unremarkable. Bones/joints: No acute skeletal pathology. Mild multilevel degenerative changes of the spine, as manifested by multilevel anterior osteophytes and multilevel decrease in intervertebral disc space. Soft tissues: No acute body wall soft tissue findings. IMPRESSION: 1. Large bowel findings as can be seen with bloating and constipation. Consider a moderate focal large bowel ileus in the appropriate clinical setting. I do not see any evidence for a discrete mechanical bowel obstruction at this time. Distal rectal air is present. 2. No evidence of bowel perforation or significant bowel inflammatory changes. 3. No discrete complications to the gastric sleeve surgery. 4. No other acute abdominopelvic pathology is identified. 5. Incidental findings as above. Findings were discussed with MONI GARG at 12/08/2021 5:18 PM EST.
[2021-12-08 16:03] LABS: Appearance,Urine CLEAR (Clear); Bilirubin,Urine Negative (Negative); Blood, Urine 3+ (Negative); Color,Urine YELLOW (Yellow); Glucose,Urine (UA) Negative (Negative); Ketones,Urine Negative (Negative); Leukocyte Esterase,Urine Negative (Negative); Nitrate,Urine Negative (Negative); Protein,Urine Negative (Negative); Specific Gravity, Urine >= 1.030 (1.005-1.030); Urobilinogen,Urine 0.2 EU/dl (0.2)
[2021-12-08 16:07] LABS: WBC,Urine Occasional #/hpf (0-3)
[2021-12-08 16:08] LABS: Bacteria,Urine Trace /lpf; Squamous Epithelial Cell,Urine Occasional #/hpf (0-5)
[2021-12-08 17:49] VITALS: BP 142/98; PULSE 92; RESP 16; TEMP 37.1; O2SAT 100
== END 2021-12-08 17:49 | disposition home or self-care (01) ==
PROVIDERS: Emergency Provider Emergency Medicine; PCP Physician Assistant
DX: K59.00 Constipation, unspecified (principal); R11.2 Nausea with vomiting, unspecified; R10.9 Unspecified abdominal pain
CPT/HCPCS: 74177; 80053; 81001; 81025; 82150; 83690; 85025; 96365; 96375; 99283; J2405; Q9967

== ENCOUNTER → 2022-01-20 08:52 | Outpatient (POV) | payer OTHER, SELFPAY ==
[2022-01-20 09:04] VITALS: BP 131/75; PULSE 84; RESP 20; TEMP 37.4; O2SAT 100; BMI 31.2
--- NOTE | 2022-01-20 09:36 | HMH.PAINSOAP ---
[facility] Pain Management SOAP Note Subjective:: Patient is a pleasant 36-year-old female who presents today for follow-up. Previously treated this patient with SI injections that is still working, >2months. Today, patient complaining of neck pain that radiates to her bilateral shoulders. She denies any recent falls or traumas. She denies any visual changes, headaches, confusion. Patient states that this has been going on for the last couple of weeks. She said that she had a cervical epidural steroid injection in the past that helped significantly. She is wanting to know if we can repeat this injection. For pain management she is taking gabapentin 300 mg at night and a muscle relaxer. The medications are helping with some of her discomfort. She rates her pain today as 7 out of 10. [facility] #[id number] with an active morphine equivalent of 0. General: No recent weight changes, no fever, no sleep disturbances Respiratory: No cough, no shortness of air, no recurring pulmonary infections Cardiovascular/peripheral vascular: No chest pain, no palpitations, no edema, no shortness of breath Gastrointestinal: No new onset incontinence, normal bowel movements reported Genitourinary: No new onset incontinence Musculoskeletal: Neck pain Psychiatric: [Normal mood/affect] Neurological: [Denies weakness in extremities], [denies balance issues] Objective:: General: Alert and oriented x3, no acute distress, pleasant and cooperative, [on room air] Lungs: Respirations even and unlabored, symmetrical chest expansion Eyes: PERRL Musculoskeletal: Flexion and extension of cervical [spine] somewhat guarded secondary to pain, [antalgic gait noted] Neurological: Speech clear, no gross sensory deficit Assessment:: Degenerative disc disease of the cervical spine with cervical radiculopathy symptoms Sacroiliitis Chronic low back pain Plan:: Presents today with worsening neck pain that radiates to her bilateral shoulders. She had a cervical epidural steroid injection in the past that helped significantly. Her MRI in 2019 shows degenerative disc changes and disc herniation at the cervical spine. We will schedule the patient for a cervical epidural steroid injection. Risks and benefits of the procedure have been explained to the patient. Patient would like to proceed with the procedure. Additionally, patient is wanting to know if she can take something in the morning for pain because she cannot tolerate her gabapentin in the morning. I will start her on diclofenac 75 mg twice a day. Patient has been instructed to contact the clinic with any concerns before the next appointment. Dr. Drummond has reviewed this note and agrees with this plan of care. This note was dictated using voice recognition software and make contain errors or omissions. [facility] History Medical History: Reports:: Migraine Denies:: Asthma, Cancer, Congestive Heart Failure, Chronic Obstructive Pulmonary Disease (COPD), Congenital Heart Disease, Coronary Artery Disease, Diabetes Mellitus Type 1, Diabetes Mellitus Type 2, Gastroesophageal Reflux Disease(GERD), Hyperlipidemia, Hypertension, MRSA, Myocardial Infarction, Seizures *Have you ever received a pneumonia vaccine?: No *Have you received a flu vaccine this season?: No Other Medical History: Reports: Arthritis. Denies: Blood Transfusion Reaction Laterality Cases: Bilateral: Tonsillectomy Other Surgeries: Yes: Colonoscopy, , Other (gastric sleeve) Amputation: No Fractures: No - *Social History Smoking Status: Never smoker # Packs/Day (cigarettes): 0 #Yrs smoked (if former smoker): 0 Alcohol Intake: never Alcohol Intake Frequency:: other Substance Use Type: denies use *Occupational Status:: employed Housing: house Household Members: other *Travel in the last 8 weeks: None Family Hx:: No significant family history
== END ==
PROVIDERS: Visit Provider Student in an Organized Health Care Education/Training Program
DX: M50.10 Cervical disc disorder with radiculopathy, unspecified cervical region (principal); M46.1 Sacroiliitis, not elsewhere classified; M54.50 Low back pain, unspecified; G89.29 Other chronic pain
CPT/HCPCS: 99212; G0463

== ENCOUNTER → 2022-01-31 08:01 | Outpatient (CLI) | payer OTHER, SELFPAY ==
--- NOTE | 2022-01-31 08:05 | FL_ITS ---
FINAL REPORT CLINICAL HISTORY: DIFFICULTY SWALLOWING SOLID FOODS. 58 SEC FLUORO TIME FINDINGS: ESOPHAGRAM HISTORY: Dysphagia, difficultly swallowing solid foods. TECHNIQUE: The patient ingested thick and thin barium contrast. Spot and overhead films were performed. 26 images were saved. FINDINGS: The esophagus is unremarkable. No mucosal defects are seen. There is no gastroesophageal reflux demonstrated. There is mild esophageal dysmotility. No changes of esophagitis are evident. 13 mm barium tablet passes easily through the esophagus and into the stomach. There are postoperative changes of the proximal stomach. Fluoroscopy time: 58 seconds. IMPRESSION: Mild esophageal dysmotility. Postoperative changes of the proximal stomach. Otherwise, unremarkable esophagram. Reviewed, Interpreted and Dictated by Tremaine Manning III, MD Transcribed by Tari Mercado PA-C Authenticated by Tremaine Manning III, MD on 01/31/2022 11:27:00 AM [facility]
== END ==
PROVIDERS: PCP Physician Assistant; Visit Provider Physician Assistant
DX: R13.10 Dysphagia, unspecified (principal)
CPT/HCPCS: 74220

== ENCOUNTER 2022-02-18 13:33 | Day surgery (SDC) | payer OTHER, SELFPAY ==
[2022-02-18 13:42] VITALS: BP 141/81; PULSE 71; RESP 18; TEMP 37.2; O2SAT 100; BMI 31.8
[2022-02-18 13:53] VITALS: BP 150/84; PULSE 81; RESP 20; O2SAT 96
[2022-02-18 13:54] VITALS: BP 150/84; PULSE 81; RESP 20
[2022-02-18 13:58] VITALS: BP 149/84; PULSE 78; RESP 18; O2SAT 99
--- NOTE | 2022-03-07 10:10 | HMH.PMPROC ---
- Procedure Date: 02/18/22 Time: 15:00 Anesthesiologist:: Alberto Medina CRNA Complications:: None Pre-procedure Diagnosis:: Cervical disc disease with cervical radiculopathy Post-procedure Diagnosis:: Same Indications for Procedure:: Cervical disc disease with cervical radiculopathy Procedure Details:: Procedure:Cervical epidural steroid injection Informed consent was obtained and the risks and benefits of the procedure were explained to the patient. The patient was taken to the procedure room and noninvasive monitors placed, including noninvasive blood pressure cuff and pulse oximeter. The neck was prepped using Betadine as a cleansing solution. The C6-C7 interspace was palpated. The skin and subcutaneous tissues were anesthetized using lidocaine 1.5% and a 25-gauge needle. After this an 18-gauge Touhy epidural needle was placed into the C6-C7 interspace and advanced using loss of resistance to air until the epidural space was encountered. After confirmation of needle placement in the epidural space, a solution containing lidocaine 1.5%, 4 mL and Depo-Medrol 80 mg was incrementally injected into the cervical epidural space.~ The patient tolerated the procedure well with no complications. The patient was observed in the Pain Clinic and then discharged home neurologically intact. Plan and Disposition:: The patient was observed in the Pain Clinic and then discharged home neurologically intact. Patient will follow-up in the office in 2 weeks
== END 2022-02-18 13:59 | disposition home or self-care (01) ==
LOC: SC.PAINP 13:34
PROVIDERS: PCP Physician Assistant; Visit Provider Nurse Anesthetist, Certified Registered
DX: M50.123 Cervical disc disorder at C6-C7 level with radiculopathy (principal)
CPT/HCPCS: 62321; J1030; Q9966

== ENCOUNTER → 2022-05-16 08:45 | Outpatient (POV) | payer OTHER, SELFPAY ==
[2022-05-16 09:14] VITALS: BP 124/76; PULSE 84; RESP 17; TEMP 36.8; O2SAT 99; BMI 32.7
--- NOTE | 2022-05-16 09:54 | HMH.PAINSOAP ---
[facility] Pain Management SOAP Note Subjective:: Patient is a pleasant 36-year-old female who presents today for medication refill and follow-up. She is currently being treated for degenerative disc disease of cervical spine with cervical radiculopathy symptoms, sacroiliitis, chronic low back pain. Today patient rates her pain a 4 out of 10. She states the pain is in her low back and neck area. She states the pain in her low back is a sharp, constant pain that is worse with activity, primarily on her left side. Her neck pain is an intermittent throbbing, pulsating pain when she does have it. Patient has had injective therapy in the past. We have done SI injections and cervical epidural steroid injections with significant relief. She would like to schedule a injection today for her low back pain. She currently takes gabapentin 300 mg twice a day a as needed for the pain. she is requesting medication refills for her gabapentin, diclofenac and tizanidine today. Her Bill is [phone]. It has been reviewed and is appropriate. Review of Systems: General: No recent weight changes, no fever, no sleep disturbances Respiratory: No cough, no shortness of air, no recurring pulmonary infections Cardiovascular/peripheral vascular: No chest pain, no palpitations, no edema, no shortness of breath Gastrointestinal: No new onset incontinence, normal bowel movements reported Genitourinary: No new onset incontinence Musculoskeletal: Back pain Psychiatric: [Normal mood/affect] Neurological: [Denies weakness in extremities], [denies balance issues] Objective:: Physical Exam: General: Alert and oriented x3, no acute distress, pleasant and cooperative Lungs: Respirations even and unlabored, symmetrical chest expansion Eyes: PERRL Musculoskeletal: Flexion and extension of lumbar [spine] somewhat guarded secondary to pain, [antalgic gait noted] Neurological: Speech clear, no gross sensory deficit Assessment:: Generative disc disease of cervical spine with cervical radiculopathy symptoms, sacroiliitis, chronic low back pain Plan:: She has had injections in the past that significantly helped. We will schedule the patient for a lumbar epidural steroid injection at L4-L5. Risk and benefits of the procedure have been explained to the patient. She would like to proceed with the procedure. I will refill the patient's medication gabapentin 300 mg twice a day, diclofenac 75 mg twice a day, and tizanidine 4 mg twice a day. We will schedule her for this procedure and do the medication refills at today's visit. Patient has been instructed to contact the clinic with any concerns before the next appointment. Dr. Drummond has reviewed this note and agrees with this plan of care. This note was dictated using voice recognition software and make contain errors or omissions. [facility] History I have reviewed the patient's past medical history: Yes Medical History: Reports:: Migraine Denies:: Asthma, Cancer, Congestive Heart Failure, Chronic Obstructive Pulmonary Disease (COPD), Congenital Heart Disease, Coronary Artery Disease, Diabetes Mellitus Type 1, Diabetes Mellitus Type 2, Gastroesophageal Reflux Disease(GERD), Hyperlipidemia, Hypertension, MRSA, Myocardial Infarction, Seizures *Have you ever received a pneumonia vaccine?: No *Have you received a flu vaccine this season?: No Other Medical History: Reports: Arthritis. Denies: Blood Transfusion Reaction Laterality Cases: Bilateral: Tonsillectomy Other Surgeries: Yes: Colonoscopy, , Other (gastric sleeve) Amputation: No Fractures: No - *Social History Smoking Status: Never smoker # Packs/Day (cigarettes): 0 #Yrs smoked (if former smoker): 0 Alcohol Intake: never Alcohol Intake Frequency:: other Substance Use Type: denies use *Occupational Status:: other Housing: house Household Members: other *Travel in the last 8 weeks: Inside the [place] Family Hx:: No significant family history
== END ==
PROVIDERS: Visit Provider Student in an Organized Health Care Education/Training Program
DX: M50.10 Cervical disc disorder with radiculopathy, unspecified cervical region (principal); M46.1 Sacroiliitis, not elsewhere classified; G89.29 Other chronic pain
CPT/HCPCS: 99212; G0463

== ENCOUNTER 2022-06-10 13:56 | Day surgery (SDC) | payer OTHER, SELFPAY ==
[2022-06-10 14:03] VITALS: BP 137/84; PULSE 86; RESP 18; TEMP 37; O2SAT 100; BMI 32.9
[2022-06-10 14:11] VITALS: BP 138/80; PULSE 85; RESP 20
--- NOTE | 2022-06-10 14:18 | HMH.PMPROC ---
- Procedure Date: 06/10/22 Time: 14:18 Anesthesiologist:: Ty Drummond MD Complications:: None Pre-procedure Diagnosis:: Degenerative disc disease of lumbar spine with lumbar radiculopathy symptoms Post-procedure Diagnosis:: Same Indications for Procedure:: Patient is a pleasant 36-year-old white female who we are treating for low back pain with lumbar radiculopathy symptoms in particular down left leg. She has done well with previous epidural steroid injections in the cervical spine. She presents for lumbar epidural steroid injection under fluoroscopy today. He has Procedure Details:: Informed consent was obtained and the risk and benefits of the procedure was explained to the patient. The patient was taken to the procedure room. The patient was placed prone on the procedure table. The patient was prepped and draped in sterile fashion. C-arm fluoroscopy was used to view the lumbar spine. Skin and subcutaneous tissues were anesthetized using lidocaine. I placed an 18-gauge epidural needle and advanced into the L4-L5 interspace using fluoroscopic guidance and [id number] to air. After confirmation of needle placement in the epidural space with dye I injected 2 mL of lidocaine 1.5% with Depo-Medrol 80 mg. Patient tolerated the procedure well with no complications. Plan and Disposition:: We will follow-up with her in 2 weeks. Will reevaluate symptoms at that time.
[2022-06-10 14:20] VITALS: BP 153/70; PULSE 77; RESP 20; O2SAT 99
== END 2022-06-10 14:20 | disposition home or self-care (01) ==
LOC: SC.PAINP 13:57
PROVIDERS: PCP Physician Assistant; Visit Provider Anesthesiology
DX: M51.16 Intervertebral disc disorders with radiculopathy, lumbar region (principal)
CPT/HCPCS: 62323; J1040; Q9966

== ENCOUNTER → 2022-06-30 10:27 | Outpatient (CLI) | payer OTHER, SELFPAY ==
[2022-06-30 11:48] LABS: Basophils % 0.5 % (0.1-2.0); Eosinophils % 0.8 % (0.1-12.0); Hematocrit 37.1 % (37.0-47.0); Hemoglobin 11.6 g/dL (12.2-16.2); Lymphocytes % 37.4 % (10-50); Mean Corpuscular HGB Conc 31.3 g/dL (31.8-35.4); Mean Corpuscular Hemoglobin 27.8 pg (27.0-31.2); Mean Platelet Volume 8.7 fl (7.4-10.4); Monocytes # 0.3 K/mm3 (0.1-1.0); Monocytes % 6.3 % (1.7-9.3); Platelet Count 202 K/mm3 (142-424); Red Blood Count 4.17 M/mm3 (4.20-5.40); Red Cell Distribution Width 13.5 % (11.5-17.5); White Blood Count 5.4 K/mm3 (4.8-10.8)
[2022-06-30 11:52] LABS: Strep Scrn Group A (Rapid) Negative (Negative)
== END ==
PROVIDERS: PCP Physician Assistant; Visit Provider Physician Assistant
DX: Z20.822 Contact with and (suspected) exposure to COVID-19 (principal); J02.9 Acute pharyngitis, unspecified
CPT/HCPCS: 36415; 85025; 87430; C9803; U0003; U0005

== ENCOUNTER → 2022-08-25 15:01 | Outpatient (CLI) | payer OTHER, SELFPAY ==
[2022-08-25 16:07] LABS: Coronavirus 19, PCR Not Detected (NotDetected); Influenza A, PCR Not Detected (NotDetected); Influenza B, PCR Not Detected (NotDetected)
[2022-08-25 16:12] LABS: Basophils % 0.6 % (0.1-2.0); Eosinophils % 0.5 % (0.1-12.0); Hematocrit 36.5 % (37.0-47.0); Hemoglobin 12.1 g/dL (12.2-16.2); Lymphocytes # 2.3 K/mm3 (0.7-4.5); Lymphocytes % 33.8 % (10-50); Mean Corpuscular HGB Conc 33.1 g/dL (31.8-35.4); Mean Corpuscular Hemoglobin 28.9 pg (27.0-31.2); Mean Corpuscular Volume 87.4 fl (81-99); Mean Platelet Volume 8.8 fl (7.4-10.4); Monocytes # 0.3 K/mm3 (0.1-1.0); Monocytes % 4.3 % (1.7-9.3); Neutrophils # 4.1 K/mm3 (1.8-7.8); Neutrophils % 60.9 % (37.0-80.0); Platelet Count 225 K/mm3 (142-424); Red Blood Count 4.18 M/mm3 (4.20-5.40); Red Cell Distribution Width 13.3 % (11.5-17.5); White Blood Count 6.7 K/mm3 (4.8-10.8)
== END ==
PROVIDERS: PCP Physician Assistant; Visit Provider Physician Assistant
DX: Z20.822 Contact with and (suspected) exposure to COVID-19 (principal)
CPT/HCPCS: 36415; 85025; C9803; U0003; U0005

== ENCOUNTER → 2022-09-19 09:19 | Outpatient (POV) | payer OTHER, SELFPAY ==
--- NOTE | 2022-09-19 09:38 | EXP.PAIN.SOA ---
[facility] Pain Management SOAP Note Subjective:: Patient is a pleasant 36-year-old female who presents today for follow-up of lumbar epidural steroid injection L4-L5 on 06/10/2022. We are currently treating the patient for degenerative disc disease of cervical and lumbar spine with cervical and lumbar radiculopathy symptoms, sacroiliitis, chronic low back pain. Today the patient states she got approximately 50 to 60% improvement following that last epidural injection lasting for approximately 2-1/2 weeks. Today she rates her pain a 4 out of 10. She states the pain is in her upper back and low back. Patient states this is a throbbing, pulsating sensation that is worse with increased activity. Patient states this does affect her ability to perform activities of daily living due to her worsening pain symptoms. Patient denies any new trauma or injury. Patient denies any change location or type of pain she experiences. We have done multiple injective therapies in the past that have provided significant improvement of her symptoms. Patient is currently managed with gabapentin 300 mg twice a day. Patient denies any side effects from this medication. She states this medication does help manage some of her pain symptoms. At this time patient does not require any additional refills. Her Bill is [id number]. It has been reviewed and appropriate. Review of Systems: General: No recent weight changes, no fever, no sleep disturbances Respiratory: No cough, no shortness of air, no recurring pulmonary infections Cardiovascular/peripheral vascular: No chest pain, no palpitations, no edema, no shortness of breath Gastrointestinal: No new onset incontinence, normal bowel movements reported Genitourinary: No new onset incontinence Musculoskeletal: Neck pain, low back pain Psychiatric: [Normal mood/affect] Neurological: [Denies weakness in extremities], [denies balance issues] Objective:: Physical Exam: General: Alert and oriented x3, no acute distress, pleasant and cooperative Lungs: Respirations even and unlabored, symmetrical chest expansion Eyes: PERRL Musculoskeletal: Flexion and extension of cervical, lumbar [spine] somewhat guarded secondary to pain, [antalgic gait noted] Neurological: Speech clear, no gross sensory deficit Assessment:: Degenerative disc disease of cervical and lumbar spine with cervical and lumbar radiculopathy symptoms, sacroiliitis, chronic low back pain Plan:: Patient is experiencing significant pain in her upper back at today's visit. Patient did have limited range of motion of her cervical and lumbar spine. Patient has tried and failed conservative therapy such as oral medications, topicals, heat and ice, at home stretching and exercising for more than 6 weeks. I have discussed with the patient regarding having repeat cervical epidural steroid injections. Risk and benefits were discussed with the patient. She would like to proceed forward with this plan of care. We will schedule the patient for a ANABEL C6-C7. Patient is not on any blood thinners. Patient has been instructed to contact the clinic with any concerns before the next appointment. Dr. Drummond has reviewed this note and agrees with this plan of care. This note was dictated using voice recognition software and make contain errors or omissions. [facility] Medical History (Updated 12/08/21 @ 17:42 by Wiliam Batres MD) Chest pain Obesity Palpitations Social History Smoking Status: Never smoker second hand exposure: No alcohol intake: never substance use type: denies use current occupational status: employed Travel in the last 8 weeks: None household members: other housing: house current occupational exposures/hazards: No caffeine: Yes
[2022-09-19 09:46] VITALS: BP 129/86; PULSE 72; RESP 18; O2SAT 99; BMI 32.7
== END ==
PROVIDERS: PCP Physician Assistant; Visit Provider Nurse Practitioner Family
DX: M50.123 Cervical disc disorder at C6-C7 level with radiculopathy (principal); M46.1 Sacroiliitis, not elsewhere classified; G89.29 Other chronic pain
CPT/HCPCS: 99212; G0463

== ENCOUNTER 2022-10-04 08:00 | Day surgery (SDC) | payer OTHER, SELFPAY ==
[2022-10-04 08:16] VITALS: BP 140/83; PULSE 97; RESP 18; TEMP 37.1; O2SAT 100; BMI 32.7
[2022-10-04 08:46] VITALS: BP 133/80; PULSE 73; RESP 18
[2022-10-04 08:47] VITALS: BP 133/80; PULSE 73; RESP 18
[2022-10-04 08:53] VITALS: BP 127/85; PULSE 74; RESP 18; O2SAT 100
--- NOTE | 2022-10-04 09:01 | P.PCN_ITS ---
Procedure Date: 10/04/22 Time: 08:40 Anesthesiologist:: Alberto Medina CRNA Complications:: None Pre-procedure Diagnosis:: Degenerative disc disease cervical spine. Cervical radiculopathy. Post-procedure Diagnosis:: Same. Indications for Procedure:: Very pleasant 37-year-old female that comes our clinic today for repeat cervical epidural steroid injection C6-7. Patient describes her cervical neck pain as constant, dull, aching. She also complains of bilateral arm radicular symptoms at times Procedure Details:: Procedure:Cervical epidural steroid injection Informed consent was obtained and the risks and benefits of the procedure were explained to the patient. The patient was taken to the procedure room and noninvasive monitors placed, including noninvasive blood pressure cuff and pulse oximeter. The neck was prepped using Chloraprep as a cleansing solution. The C6- C7 interspace was viewed using fluroscopy. The skin and subcutaneous tissues were anesthetized using lidocaine 1.5% and a 25-gauge needle. After this an 18- gauge Touhy epidural needle was placed into the C6-C7 interspace under fluroscopy guidance and advanced using loss of resistance to air until the epidural space was encountered. After confirmation of needle placement in the epidural space using contrast dye, a solution containing normal saline, 2 mL and Depo-Medrol 80 mg was incrementally injected into the cervical epidural space.~ The patient tolerated the procedure well with no complications. The patient was observed in the Pain Clinic and then discharged home neurologically intact. Plan and Disposition:: Patient was discharged without incident.
== END 2022-10-04 08:53 | disposition home or self-care (01) ==
LOC: SC.PAINP 10-05 12:32
PROVIDERS: PCP Physician Assistant; Visit Provider Nurse Anesthetist, Certified Registered
DX: M50.123 Cervical disc disorder at C6-C7 level with radiculopathy (principal)
CPT/HCPCS: 62321; J1040; Q9966

== ENCOUNTER → 2022-10-28 09:07 | Outpatient (CLI) | payer OTHER, SELFPAY ==
--- NOTE | 2022-10-28 09:12 | XR_ITS ---
FINAL REPORT TECHNIQUE: Bone densitometry calculations of the lumbar spine and left hip were obtained. CLINICAL HISTORY: hx of bariatric surgery FINDINGS: Using L1-4, the bone mineral density of the spine is 0.945 g/cm2, corresponding to T-score of -0.9. Using the left hip, the bone mineral density of the femoral neck is 0.787 g/cm2, corresponding to a T-score of -0.6. Using the right hip, the bone mineral density of the femoral neck is 0.776 g/cm2, corresponding to a T-score of -0.7. NOTE: T-score: Standard deviation compared with peak bone mass of young adult mean. *Following the recommendations of the International Society of Bone densitometry, classification of hip BMD is based on the lower of two T-scores; total hip or femoral neck. FRAX score was not reported because all T-scores are at or above -1.0. IMPRESSION: Normal bone mineral density of the lumbar spine and hip. Reviewed, Interpreted and Dictated by Tremaine Manning III, MD Transcribed by Ginny Hastings Authenticated and [facility]
== END ==
PROVIDERS: PCP Physician Assistant; Visit Provider Physician Assistant
DX: Z98.84 Bariatric surgery status (principal)
CPT/HCPCS: 77080

== ENCOUNTER → 2022-12-29 15:14 | Outpatient (POV) | payer OTHER, SELFPAY ==
[2022-12-29 15:20] VITALS: BP 126/80; PULSE 87; RESP 18; O2SAT 99; BMI 32.7
--- NOTE | 2022-12-29 15:29 | EXP.PAIN.SOA ---
[facility] Pain Management SOAP Note Subjective:: Patient is a pleasant 37-year-old female who presents today for follow-up. We are currently treating the patient for degenerative disc disease of cervical and lumbar spine with cervical and lumbar radiculopathy symptoms, sacroiliitis, chronic low back pain. Today she rates her pain a 6 out of 10. Patient denies any new trauma or injury. Patient states that she is experiencing more pain along her hips that go down her leg and stops at her knee. Patient does state this is a burning sensation that is worse with increased activity. She does state that the right side is the worst side. Patient states she does notice it more predominantly on days that she has been on her feet all day. 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 Patient frequently gets cervical and lumbar epidural injections that do provide significant improvement. Patient's last lumbar epidural was in June 2022 that did provide upwards of 50 to 60% relief. Patient is interested in injections during today's visit. Patient is currently managed with gabapentin 300 mg twice a day and tizanidine 4 mg twice daily. Patient denies any side effects from these medications. She is also on diclofenac 75 mg twice daily. she is requesting refills at today's visit. Her Bill is [id number]. Its been reviewed and appropriate. Review of Systems: General: No recent weight changes, no fever, no sleep disturbances Respiratory: No cough, no shortness of air, no recurring pulmonary infections Cardiovascular/peripheral vascular: No chest pain, no palpitations, no edema, no shortness of breath Gastrointestinal: No new onset incontinence, normal bowel movements reported Genitourinary: No new onset incontinence Musculoskeletal: Low back pain, bilateral leg pain Psychiatric: [Normal mood/affect] Neurological: [Denies weakness in extremities], [denies balance issues] Objective:: Physical Exam: General: Alert and oriented x3, no acute distress, pleasant and cooperative Lungs: Respirations even and unlabored, symmetrical chest expansion Eyes: PERRL Musculoskeletal: Flexion and extension of lumbar [spine] somewhat guarded secondary to pain, [antalgic gait noted] extreme point tenderness along right SI with point tenderness at left SI and positive bilateral Yeyo's, Alyssa's, Gaenslen's, compression and distraction exam Neurological: Speech clear, no gross sensory deficit ORT score updated with low risk Assessment:: Degenerative disc disease of cervical and lumbar spine with cervical and lumbar radiculopathy symptoms, sacroiliitis, chronic low back pain Plan:: Patient is experiencing significant pain in her low back with radiating symptoms into her lower extremities. Patient did have limited range of motion of her lumbar spine with extreme point tenderness along her right SI and point tenderness at her left SI as well as positive bilateral Yeyo's, Alyssa's, Gaenslen's, compression and distraction exam. I have discussed with the patient that she may benefit from bilateral SI injections. Risk and benefits were discussed with the patient and she would like to proceed forward with this plan of care. I will also order bilateral hip x-rays. I will refill her tizanidine 4 mg twice daily and gabapentin 300 mg twice a day and provide a 1 month supply of this medication. We will schedule the patient for bilateral SI injections. Patient has been instructed to contact the clinic with any concerns before the next appointment. Dr. Drummond has reviewed this note and agrees with this plan of care. This note was dictated using voice recognition software and make contain errors or omissions. [facility] Disclaimer: The information contained in this section may have been updated after the patient was seen, as this information can be updated by other users. Medical History (Updated 10/04/22 @ 08:17 by Gabriella Massey RN) Chest pain Cholecystectomy planned Obesity
== END | disposition home or self-care (01) ==
PROVIDERS: PCP Physician Assistant; Visit Provider Nurse Practitioner Family
DX: M50.10 Cervical disc disorder with radiculopathy, unspecified cervical region (principal); M51.16 Intervertebral disc disorders with radiculopathy, lumbar region; M46.1 Sacroiliitis, not elsewhere classified; G89.29 Other chronic pain
CPT/HCPCS: 99212; G0463

== ENCOUNTER → 2023-02-13 08:28 | Outpatient (POV) | payer OTHER, SELFPAY ==
[2023-02-13 08:42] VITALS: BP 122/79; PULSE 86; RESP 18; O2SAT 98; BMI 32.7
--- NOTE | 2023-02-13 08:53 | EXP.PAIN.SOA ---
[facility] Pain Management SOAP Note Subjective:: Patient is a pleasant 37-year-old female who presents today for medication refill and SI injection denial. We are currently treating the patient for degenerative disc disease of cervical and lumbar spine with cervical and lumbar radiculopathy symptoms, sacroiliitis, chronic low back pain. Today she rates her pain a 5 out of 10. Patient denies any new trauma or injury. Patient denies any change to location or type of pain she experiences. Patient states she continues to have a aching, throbbing, burning sensation that is in her low back and is worse with increased activity. Patient cannot tolerate prolonged sitting, standing, walking due to the pain. She is currently managed with gabapentin 300 mg twice a day and tizanidine 4 mg twice daily. Patient denies any side effects from this medication. She is requesting refills at today's visit. Patient is also managed with diclofenac 75 mg twice daily however she states she does not need any refills on this medication. Her Bill is [id number]. Its been reviewed and appropriate. Review of Systems: General: No recent weight changes, no fever, no sleep disturbances Respiratory: No cough, no shortness of air, no recurring pulmonary infections Cardiovascular/peripheral vascular: No chest pain, no palpitations, no edema, no shortness of breath Gastrointestinal: No new onset incontinence, normal bowel movements reported Genitourinary: No new onset incontinence Musculoskeletal: Low back pain Psychiatric: [Normal mood/affect] Neurological: [Denies weakness in extremities], [denies balance issues] Objective:: Physical Exam: General: Alert and oriented x3, no acute distress, pleasant and cooperative Lungs: Respirations even and unlabored, symmetrical chest expansion Eyes: PERRL Musculoskeletal: Flexion and extension of lumbar [spine] somewhat guarded secondary to pain, [antalgic gait noted] extreme point tenderness along bilateral SIs with positive bilateral Yeyo's, Alyssa's, Gaenslen's, compression and distraction exam Neurological: Speech clear, no gross sensory deficit Assessment:: Degenerative disc disease of cervical and lumbar spine with cervical and lumbar radiculopathy symptoms, sacroiliitis, chronic low back pain Plan:: Patient is experiencing significant pain in her low back with limited range of motion. I will order her physical therapy for her SI/low back pain. I will also refill her gabapentin 300 mg twice a day and tizanidine 4 mg twice a day and provide a 1 month supply of this medication. I will also prescribe prednisone 20 mg twice daily and provide a 5-day supply of this medication. Patient will return to clinic in 1 month for reevaluation of symptoms, medication refill and follow-up. Patient has been instructed to contact the clinic with any concerns before the next appointment. Dr. Drummond has reviewed this note and agrees with this plan of care. This note was dictated using voice recognition software and make contain errors or omissions. [facility] Disclaimer: The information contained in this section may have been updated after the patient was seen, as this information can be updated by other users. Medical History Chest pain Cholecystectomy planned Obesity Palpitations Surgical History H/O gastric sleeve History of Family History Other No significant family history Social History Smoking Status: Never smoker second hand exposure: No alcohol intake: never substance use type: denies use current occupational status: employed Travel in the last 8 weeks: None household members: other housing: house current occupational exposures/hazards: No caffeine: Yes
== END | disposition home or self-care (01) ==
PROVIDERS: Visit Provider Nurse Practitioner Family
DX: M51.16 Intervertebral disc disorders with radiculopathy, lumbar region (principal); M50.10 Cervical disc disorder with radiculopathy, unspecified cervical region; M46.1 Sacroiliitis, not elsewhere classified; G89.29 Other chronic pain
CPT/HCPCS: 99212; G0463

== ENCOUNTER 2023-06-27 09:46 | Emergency (ER) | payer OTHER, SELFPAY ==
[2023-06-27 09:55] VITALS: BP 132/78; PULSE 76; RESP 22; TEMP 36.9; O2SAT 99; BMI 31.2
--- NOTE | 2023-06-27 10:08 | EXP.UTC ---
Discharge Plan Disposition Patient Disposition: Home, Self-Care Condition: Good Prescriptions Prescriptions: New benzonatate [benzonatate] 100 mg capsule 100 mg PO TIDP PRN (Reason: Cough) Qty: 30 0RF ondansetron 4 mg Tablet,Disintegrating 4 mg PO Q8H PRN (Reason: Nausea) Qty: 12 0RF No Action multivitamin Tablet 1 tab PO DAILY diclofenac sodium 75 MG tablet,delayed release (DR/EC) 75 mg PO BID 30 Days Qty: 60 2RF prednisone 20 mg tablet 20 mg PO BID Qty: 10 0RF tizanidine 4 MG tablet 4 mg PO BID Qty: 60 2RF gabapentin 300 MG capsule 300 mg PO BID Qty: 60 2RF polyethylene glycol 3350 17 GM powder in packet 17 g PO DAILY Referrals Follow up/Referrals: Lakshmi Rivera PA [Primary Care Provider] - See instructions Activity Restrictions/Add. Instructions Additional Instructions/Restrictions: Drink plenty of fluids. Take tylenol or ibuprofen for pain or fever. I sent in zofran for if you have nausea/vomiting. I sent in a cough medication just in case you need that. Follow up with your regular doctor. GO TO THE ER FOR ANY WORSENING SYMPTOMS Clinical Impressions Clinical Impression: Acute viral syndrome, Exposure to 2019 novel coronavirus Instructions Patient Instructions: Coronavirus Disease 2019, Preventing the Spread of Coronavirus Discharge Instructions Discharge ED Provider: Mark Ordoñez [facility] General Stated complaint: runny nose,cough Mode of Arrival: Ambulatory Source of Information: Patient Limitations: No Limitations Time Seen by Provider: 06/27/23 10:08 Description of Symptoms (Recalled from Triage Doc. by RN): PATIENT C/O RUNNY NOSE AND COUGH SINCE MONDAY. RECENTLY EXPOSED TO COVID HEENT Symptoms (Recalled from RN notes): Yes Resp Symptoms (Recalled from RN notes): Yes Skin Symptoms (Recalled from RN notes): No MS Symptoms (Recalled from RN notes): No Functional Status (Recalled from RN notes): WNL History of Present Illness Provider Complaint: She states that for the past 3 days she has had felt bad, had a runny nose and a dry cough. Her son currently has covid-19, so she has had close exposure to that. She denies any shortness of breath. Related Data Home Medications Medication Instructions Recorded Confirmed multivitamin 1 tab PO DAILY . 03/08/21 02/13/23 polyethylene glycol 3350 17 gram 17 g PO DAILY . 01/20/22 02/13/23 oral powder packet Previous Rx's Medication Instructions Recorded diclofenac sodium 75 mg 75 mg PO BID Pain 30 days #60 tabs 05/16/22 tablet,delayed release gabapentin 300 mg capsule 300 mg PO BID neuropathy #60 caps 02/13/23 prednisone 20 mg tablet 20 mg PO BID #10 tabs 02/13/23 tizanidine 4 mg tablet 4 mg PO BID . #60 tabs 02/13/23 benzonatate 100 mg capsule 100 mg PO TIDP PRN Cough #30 caps 06/27/23 ondansetron 4 mg disintegrating 4 mg PO Q8H PRN Nausea #12 tabs 06/27/23 tablet Allergies Allergy/AdvReac Type Severity Reaction Status Date / Time No Known Allergies Allergy Verified 01/31/23 13:49 Worker's Comp Is this a Worker's Comp case?: No [facility] Disclaimer: The information contained in this section may have been updated after the patient was seen, as this information can be updated by other users. Medical History Chest pain Cholecystectomy planned Obesity Palpitations Surgical History H/O gastric sleeve History of Family History Other No significant family history Social History Smoking Status: Never smoker second hand exposure: No alcohol intake: never substance use type: denies use current occupational status: employed Travel in the last 8 weeks: None household members: other housing: house current occupational e
[2023-06-27 10:12] VITALS: BP 132/78; PULSE 76; RESP 22; TEMP 36.9; O2SAT 99
== END 2023-06-27 10:45 | disposition home or self-care (01) ==
PROVIDERS: Emergency Provider Nurse Practitioner Family; PCP Physician Assistant
DX: R05.9 Cough, unspecified (principal); B34.9 Viral infection, unspecified; Z20.822 Contact with and (suspected) exposure to COVID-19
CPT/HCPCS: 99212; 99214; G0463

== ENCOUNTER → 2023-08-02 13:40 | Outpatient (POV) | payer OTHER, SELFPAY ==
[2023-08-02 14:38] VITALS: BP 141/86; PULSE 66; RESP 20; O2SAT 100; BMI 32.1
--- NOTE | 2023-08-02 14:49 | A.OFFVIS_ITS ---
[facility] Pain Management SOAP Note Subjective:: Patient is a pleasant 38-year-old female who presents today for medication refill and follow-up. We are currently treating the patient for degenerative disc disease of cervical and lumbar spine with cervical and lumbar radiculopathy symptoms, sacroiliitis, chronic low back pain. Today she rates her pain a 4 out of 10. Patient denies any new trauma or injury. She states over the last couple of months she has been doing better overall. Patient is currently managed with gabapentin 300 mg twice a day and tizanidine 4 mg twice a day. She denies any side effects from this medication. She is requesting refills at today's visit. Patient has previously had injections that did provide sig nificant improvement however at this time she states she is doing well and does not need any 8. Patient does state that she is scheduled for an upcoming surgery next Monday to remove excess skin. Patient does state that she is not been able to make time to start the physical therapy that was ordered at her previous visit. Her Bill is [id number]. Its been reviewed and appropriate. Review of Systems: General: No recent weight changes, no fever, no sleep disturbances Respiratory: No cough, no shortness of air, no recurring pulmonary infections Cardiovascular/peripheral vascular: No chest pain, no palpitations, no edema, no shortness of breath Gastrointestinal: No new onset incontinence, normal bowel movements reported Genitourinary: No new onset incontinence Musculoskeletal: Low back pain Psychiatric: [Normal mood/affect] Neurological: [Denies weakness in extremities], [denies balance issues] Objective:: Physical Exam: General: Alert and oriented x3, no acute distress, pleasant and cooperative Lungs: Respirations even and unlabored, symmetrical chest expansion Eyes: PERRL Musculoskeletal: Flexion and extension of lumbar [spine] somewhat guarded secondary to pain, [antalgic gait noted] Neurological: Speech clear, no gross sensory deficit Assessment:: Degenerative disc disease of cervical and lumbar spine with cervical and lumbar radiculopathy symptoms, sacroiliitis, chronic low back pain Plan:: I will refill the patient's gabapentin 300 mg twice a day and tizanidine 4 mg twice a day and provide a 6-month supply of this medication. Patient will return to clinic in 6 months for reevaluation of symptoms and plan of care. Patient has been instructed to contact the clinic with any concerns before the next appointment. Dr. Drummond has reviewed this note and agrees with this plan of care. This note was dictated using voice recognition software and make contain errors or omissions. [facility] Disclaimer: The information contained in this section may have been updated after the patient was seen, as this information can be updated by other users. Medical History Chest pain Cholecystectomy planned Obesity Palpitations Surgical History H/O gastric sleeve History of Family History Other No significant family history Social History Smoking Status: Never smoker second hand exposure: No alcohol intake: never substance use type: denies use current occupational status: other Travel in the last 8 weeks: None household members: other housing: house current occupational exposures/hazards: No caffeine: Yes
== END | disposition home or self-care (01) ==
PROVIDERS: PCP Pediatrics; Visit Provider Nurse Practitioner Family
DX: M50.10 Cervical disc disorder with radiculopathy, unspecified cervical region (principal); M51.16 Intervertebral disc disorders with radiculopathy, lumbar region; M46.1 Sacroiliitis, not elsewhere classified; G89.29 Other chronic pain
CPT/HCPCS: 99212; G0463

== ENCOUNTER 2024-01-11 15:31 | Outpatient (CLI) | payer OTHER, SELFPAY ==
[2024-01-11 16:37] LABS: Hemoglobin A1C 4.8 % (4.0-6.0)
[2024-01-12 08:26] LABS: Estradiol 84.1 pg/mL (.); Progesterone 3.5 ng/mL (.); Testosterone,Total <3 ng/dL (8-60)
== END 2024-01-11 23:59 ==
LOC: LAB 15:32
PROVIDERS: PCP Physician Assistant; Visit Provider Obstetrics & Gynecology
DX: Z01.419 Encounter for gynecological examination (general) (routine) without abnormal findings (principal); E34.9 Endocrine disorder, unspecified
CPT/HCPCS: 36415; 82670; 83036; 84144; 84403

== ENCOUNTER 2024-01-22 15:39 | Outpatient (CLI) | payer OTHER, SELFPAY ==
--- NOTE | 2024-01-22 15:41 | MM_ITS ---
PROCEDURE INFORMATION: Exam: MG Bilateral Screening 3D Mammography Exam date and time: 01/22/2024 3:32 PM Age: 38 years old Clinical indication: Screening examination TECHNIQUE: Imaging protocol: Bilateral Screening tomosynthesis and 2D mammography including computer-aided detection (CAD) when performed. COMPARISON: No relevant prior studies available. Baseline FINDINGS: MAMMOGRAPHY: Breast composition: There are scattered areas of fibroglandular density. Mass: Questionable 0.7 cm ovoid mass in the middle third of the left medial breast only well seen in the craniocaudal projection Architectural distortion: None. Calcifications: No suspicious calcifications. Asymmetric density: None. Skin thickening: None. Axillary adenopathy: None. IMPRESSION: Patient to be recalled for a spot compression view of the left breast in the craniocaudal projection, a full 90 degree lateral view of the left breast, and possible left breast ultrasound for further evaluation of a questionable left breast mass. ASSESSMENT: BI-RADS Category 0: Incomplete- Need Additional Imaging Evaluation and/or Prior Mammograms for Comparison.
== END 2024-01-22 23:59 ==
LOC: RAD 15:41
PROVIDERS: PCP Physician Assistant; Visit Provider Obstetrics & Gynecology
DX: Z12.31 Encounter for screening mammogram for malignant neoplasm of breast (principal)
CPT/HCPCS: 77063; 77067

== ENCOUNTER 2024-01-29 07:20 | Observation (INO) | payer OTHER, SELFPAY ==
[2024-01-29] VITALS (15 sets, daily range): BP systolic 121–154; BP diastolic 74–95; PULSE 66–95; RESP 14–26; TEMP 36.6–36.8; O2SAT 96–100; BMI 29.2; BMI 30.2
--- NOTE | 2024-01-29 08:02 | CT_ITS ---
FINAL REPORT TECHNIQUE: Thin section axial images are obtained through the abdomen and pelvis after intravenous contrast. Reconstruction images were obtained from the axial data. Exam was performed using dose reduction techniques. CLINICAL HISTORY: ho gastric bypass, upper abd pain rad to back COMPARISON: 12/08/2021 FINDINGS: LUNG BASES: There is granulomatous disease in the lung bases. The lungs are otherwise clear. Heart size is normal. LIVER: Diffuse fatty infiltration. No focal lesion. GALLBLADDER/BILIARY SYSTEM: Gallbladder is absent. SPLEEN: Unremarkable. PANCREAS: Unremarkable. ADRENALS: Unremarkable. SYSTEM: No hydronephrosis, renal mass, or renal stone. Unremarkable urinary bladder. Pelvic organs are unremarkable for age. GI TRACT: Post operative changes are noted to the stomach. No small bowel dilatation in the abdomen. There are thick walled small bowel loops in the pelvis with mild dilatation of the small bowel loop just above the urinary bladder. The colon is mildly distended. The appendix is not visualized. LYMPH NODES/RETROPERITONEUM/MESENTERY: Mesenteric fluid in the abdomen and pelvis. On axial images 63 through 75 and coronal images 17 through 27, there is some swirling of the vessels in the mesentery. An internal hernia cannot be excluded. No lymphadenopathy. No abdominal aortic aneurysm. OTHER: No ascites. Remaining soft tissues without acute abnormality. BONES: No acute osseous abnormality. IMPRESSION: Small bowel wall thickening with dilated loops in the pelvis as well as mesenteric edema and fluid. This is nonspecific and could represent enteritis. Swirling of the vessels in the mesentery. An internal hernia is not excluded. Fatty infiltration of the liver. Reviewed, Interpreted and Dictated by Aylin Schmidt MD Transcribed by Alicia Krishnamurthy Authenticated and [facility]
[2024-01-29 08:05] LABS: Microscopic, Urine URINE MICROSCOPIC (MICROSCOPIC)
[2024-01-29 08:08] LABS: Basophils # 0.1 K/mm3 (0-0.2); Basophils % 0.7 % (0.1-2.0); Eosinophils % 0.4 % (0.1-12.0); Lymphocytes # 1.7 K/mm3 (0.7-4.5); Lymphocytes % 24.9 % (10-50); Mean Corpuscular HGB Conc 31.5 g/dL (31.8-35.4); Mean Corpuscular Hemoglobin 28.2 pg (27.0-31.2); Mean Corpuscular Volume 89.4 fl (81-99); Mean Platelet Volume 8.5 fl (7.4-10.4); Monocytes # 0.3 K/mm3 (0.1-1.0); Monocytes % 4.8 % (1.7-9.3); Neutrophils # 4.7 K/mm3 (1.8-7.8); Neutrophils % 69.1 % (37.0-80.0); Platelet Count 214 K/mm3 (142-424); Red Blood Count 3.91 M/mm3 (4.20-5.40); Red Cell Distribution Width 14.3 % (11.5-17.5); White Blood Count 6.8 K/mm3 (4.8-10.8)
--- NOTE | 2024-01-29 08:09 | ECG_ITS ---
APPROVED REPORT Exam: Resting ECG HR:62 bpm ECG Measurements Heart Rate 62 AXES TN 161 P 80 QRSd 103 QRS 88 QT 423 T 64 QTc 428 Conclusion SINUS RHYTHM WITH SINUS ARRHYTHMIA Electronically signed by : GLENN STONE, 01/29/2024 15:57:34
[2024-01-29] MEDS: ONDANSETRON 4MG/2ML VIAL 4 MG IV (08:12)
[2024-01-29] MEDS: ACETAMINOPHEN 1,000MG/100ML VIAL 1000 MG IV (08:12)
[2024-01-29] MEDS: KETOROLAC 30MG/ML VIAL 15 MG IV (08:12)
[2024-01-29] MEDS: LACTATED RINGERS 1000ML 1,000 ML 999 ML IV (08:12)
[2024-01-29] MEDS: DIATRIZOATE MEG 66% & DIATRIZOATE NA 10% 30ML UDC 30 ML PO (08:12)
[2024-01-29 08:18] LABS: HCG Qualitative, Serum Negative (Negative)
[2024-01-29 08:19] LABS: Appearance,Urine SL CLOUDY (Clear); Bilirubin,Urine Negative (Negative); Blood, Urine TRACE-I (Negative); Color,Urine YELLOW (Yellow); Glucose,Urine (UA) Negative (Negative); Ketones,Urine Negative (Negative); Leukocyte Esterase,Urine Negative (Negative); Nitrate,Urine Negative (Negative); PH,Urine 5.5 (5.0-8.5); Protein,Urine Negative (Negative); Specific Gravity, Urine >= 1.030 (1.005-1.030); Urobilinogen,Urine 0.2 EU/dl (0.2)
[2024-01-29 08:26] LABS: Alanine Aminotransferase 38 U/L (12-78); Albumin Level 3.8 g/dl (3.5-5.0); Albumin/Globulin Ratio 1.4 (1.1-1.8); Alkaline Phosphatase 130 U/L (38-126); Anion Gap 7.7 mEq/L (5-15); Aspartate Amino Transferase 47 U/L (14-36); Bilirubin,Total 0.5 mg/dl (0.2-1.3); Blood Urea Nitrogen 8 mg/dl (7-17); Calcium 8.3 mg/dl (8.4-10.2); Carbon Dioxide 25 mmol/L (22.0-30.0); Chloride 111 mmol/L (98-107); Creatinine Clearance Estimated 214 mL/min (50-200); Estimated Glomerular Filt Rate 177 ml/min (>60); GFR (African American) 214 ML/MIN (>60); Globulin 2.8 g/dL (1.3-3.2); Glucose 123 mg/dl (74-100); Lipase 63 U/L (23-300); Sodium 141 mmol/L (136-145); Total Protein,Serum 6.6 g/dl (6.3-8.2)
[2024-01-29 08:29] LABS: Potassium 2.7 mmoL/L (3.5-5.1)
--- NOTE | 2024-01-29 08:29 | PC.NURSE ---
notified Dr Chaparro of potassium 2.7
[2024-01-29 08:37] LABS: Coronavirus 19, PCR Not Detected (NotDetected); Influenza A, PCR Not Detected (NotDetected); Influenza B, PCR Not Detected (NotDetected)
--- NOTE | 2024-01-29 08:38 | ED_ITS ---
Discharge Plan Disposition Patient Disposition: Admitted Clinical Impressions Clinical Impression: Abdominal pain, Nausea & vomiting, Hypokalemia, Hernia, internal Discharge ED Provider: Marjan Chaparro General Adult HPI General Chief complaint: Abdominal Pain Stated complaint: vomitting, stomach and back pain Time Seen by Provider: 01/29/24 07:48 Mode of Arrival: Ambulatory Source of Information: Patient Limitations: No Limitations Description of Symptoms (Recalled from ER Triage Doc. by RN): Patient presents to ER with complaints of vomiting and abdominal pain for 2 hours. Patient reports pain is all across abdomen and radiates into back and is constant. Patient denies fever. History of Present Illness HPI narrative: This patient is a 38-year-old female with history of SIBS gastric sleeve surgery approx 4 years ago, cholecystectomy, anxiety, and constipation presenting to the ED with concern for epigastric/LUQ abdominal pain and intractable nausea and vomiting since this morning approximately 2 hours ago. It radiates around to her back. She denies experiencing anything like this in the past. No fevers, sore throat, cough, congestion, changes in bowel movements, urinary symptoms, or other concerns. She does note that she is still passing gas. Related Data Home Medications Medication Instructions Recorded Confirmed multivitamin 1 tab PO DAILY Supplement 03/08/21 01/29/24 bremelanotide 1.75 mg/0.3 mL 1.75 mg SQ DIRECTED 01/29/24 01/29/24 subcutaneous auto-injector calcium polycarbophil 625 mg 625 mg PO TID 01/29/24 01/29/24 tablet (Fiber-Tabs) cariprazine 1.5 mg capsule 1.5 mg PO Q48H 01/29/24 01/29/24 (Vraylar) desvenlafaxine succinate 50 mg 50 mg PO DAILY 01/29/24 01/29/24 tablet,extended release 24 hr gabapentin 300 mg capsule 300 mg PO BID Pain 01/29/24 01/29/24 hydroxyzine pamoate 25 mg capsule 25 mg PO TIDP PRN Anxiety 01/29/24 01/29/24 (Vistaril) tizanidine 4 mg tablet 4 mg PO BIDP PRN Muscle Spasm 01/29/24 01/29/24 Allergies Allergy/AdvReac Type Severity Reaction Status Date / Time No Known Allergies Allergy Verified 01/02/24 14:52 [facility] Disclaimer: The information contained in this section may have been updated after the patient was seen, as this information can be updated by other users. Medical History Generalized anxiety disorder Cholecystectomy planned Obesity Palpitations Chest pain Surgical History History of cholecystectomy History of skin surgery H/O gastric sleeve History of Family History Other No significant family history Social History Smoking Status: Never smoker second hand exposure: No alcohol intake: current counseling given: No substance use type: denies use counseling given: No current occupational status: employed Travel in the last 8 weeks: None adopted: No caregiver/support person: Yes foster care: No household members: children and other housing: house lives independently: Yes marital status: number of children: 4 number of grandchildren: 0 education level: high school current occupational exposures/hazards: No Hx Recent Travel: No sexually active: Yes caffeine: Yes physical activity: none working smoke detector in home: Yes fire extinguisher in home: Yes carbon monox detector in home: Yes firearms in home: Yes do you feel safe at home: Yes victim of physical abuse: No victim of emotional abuse: No victim of sexual abuse: No would you like helpful sources: No ROS Obtained: Yes All systems reviewed & no additional complaints except as documented Physical Exam General General appearance: alert and in no apparent distress Comment: Uncomfortable appearing, actively vomiting Head Head exam: atraumatic and normocephalic Eye Eye exam: Present normal appearance, PERRL and EOMI ENT ENT exam: Present normal exam, normal oropharynx, mucous membranes moist and normal external ear exam Neck Neck exam: Present normal inspection, full ROM and trachea midline; Absent tenderness Chest Chest inspection: Present normal inspection and symmetric chest wall rise; Absent tenderness Respiratory Respiratory exam: Present normal lung sounds bilaterally; Absent respiratory distress, wheezes, stridor or accessory muscle use Cardiovascular Cardiovascular exam: Present regular rate and normal rhythm Abdominal Exam Abdominal exam: Present soft and tenderness (epigastric/LUQ); Absent distention, guarding, rebound or rigidity Extremities Exam Extremities exam: Present normal inspection, full ROM and normal capillary refill; Absent tenderness or edema Back Exam Back exam: Present normal inspection and full ROM; Absent tenderness Neurological Exam Neurological exam: Present alert, oriented X3, CN II-XII intact and normal gait; Absent motor sensory deficit Psychiatric Psychiatric exam: Present normal affect and normal mood Skin Skin exam: Present warm and dry Medical Decision Making Medical Records Medical records reviewed: Yes I reviewed the patient's medical records. Bill Inquiry Pt receiving controlled substance: No Vital Signs: 01/29/24 07:21 01/29/24 07:28 01/29/24 09:01 Temperature 97.9 F Temperature Source Oral Pulse Rate 76 94 H Pulse Rate [Right] 73 Respiratory Rate 18 17 Blood Pressure 129/95 H 153/94 H Blood Pressure [Right Arm] 129/92 H Blood Pressure Mean Blood Pressure Mean [Right Arm] 104 Blood Pressure Source [Right Arm] Automatic Cuff 02 Sat by Pulse Oximetry 100 100 100 Oxygen Delivery Method Room Air Room Air Room Air 01/29/24 09:49 01/29/24 10:00 01/29/24 10:30 Temperature Temperature Source Pulse Rate 77 72 74 Pulse Rate [Right] Respiratory Rate 14 26 H 19 Blood Pressure 147/86 H 146/88 H 129/78 Blood Pressure [Right Arm] Blood Pressure Mean Blood Pressure Mean [Right Arm] Blood Pressure Source [Right Arm] 02 Sat by Pulse Oximetry 100 100 100 Oxygen Delivery Method Room Air Room Air Room Air 01/29/24 11:00 01/29/24 11:31 01/29/24 12:00 Temperature Temperature Source Pulse Rate 66 72 Pulse Rate [Right] Respiratory Rate 21 Blood Pressure 129/74 154/82 H 131/87 Blood Pressure [Right Arm] Blood Pressure Mean 106 105 Blood Pressure Mean [Right Arm] Blood Pressure Source [Right Arm] 02 Sat by Pulse Oximetry 96 100 100 Oxygen Delivery Method Room Air Room Air Room Air 01/29/24 14:26 01/29/24 14:27 01/29/24 14:30 Temperature Temperature Source Pulse Rate 72 88 Pulse Rate [Right] Respiratory Rate Blood Pressure 126/85 126/85 152/89 H Blood Pressure [Right Arm] Blood Pressure Mean 102 Blood Pressure Mean [Right Arm] Blood Pressure Source [Right Arm] 02 Sat by Pulse Oximetry 96 100 Oxygen Delivery Method Room Air Room Air 01/29/24 15:17 Temperature 97.9 F Temperature Source Oral Pulse Rate 74 Pulse Rate [Right] Respiratory Rate 18 Blood Pressure 121/81 Blood Pressure [Right Arm] Blood Pressure Mean Blood Pressure Mean [Right Arm] Blood Pressure Source [Right Arm] 02 Sat by Pulse Oximetry Oxygen Delivery Method Room Air Lab Data Lab results reviewed: Yes I reviewed the patient's lab results. Lab Results 01/29/24 07:30: Urine Color Yellow, Urine Appearance Sl cloudy, Urine pH 5.5, Ur Specific Chrisman >= 1.030, Urine Protein Negative, Urine Glucose (UA) Negative, Urine Ketones Negative, Urine Blood Trace-i, Urine Nitrate Negative, Urine Bilirubin Negative, Urine Urobilinogen 0.2, Ur Leukocyte Esterase Negative, Urine RBC Occasional, Urine WBC Occasional, Ur Squamous Epith Cells 3-5, Calcium Oxalate Crystal 3+, Urine Bacteria Trace 01/29/24 07:47: WBC 6.8, RBC 3.91 L, Hgb 11.0 L, Hct 35.0 L, MCV 89.4, MCH 28.2, MCHC 31.5 L, RDW 14.3, Plt Count 214, MPV 8.5, Neut % (Auto) 69.1, Lymph % (Auto) 24.9, [place] % (Auto) 4.8, Eos % (Auto) 0.4, Baso % (Auto) 0.7, Neut # (Auto) 4.7, Lymph # (Auto) 1.7, [place] # (Auto) 0.3, Eos # (Auto) 0.0, Baso # (Auto) 0.1, Sodium 141, Potassium 2.7 L*, Chloride 111 H, Carbon Dioxide 25, Anion Gap 7.7, BUN 8, Creatinine 0.40 L, Estimated Creat Clear 214, Estimated GFR 177, Est GFR ( Amer) 214, Glucose 123 H, Calcium 8.3 L, Total Bilirubin 0.5, AST 47 H, ALT 38, Alkaline Phosphatase 130 H, Total Protein 6.6, Albumin 3.8, Globulin 2.8, Albumin/Globulin Ratio 1.4, Lipase 63, Serum HCG, Qual Negative 01/29/24 08:31: SARS-CoV-2 (PCR) Not detected, Influenza A Untype (PCR) Not detected, Influenza Type B (PCR) Not detected 01/29/24 12:27: Lactate 0.7 01/29/24 07:47 01/29/24 07:47 Orders (Tests/Meds): ED MEDICATIONS Generic Name Dose Route Start Last Admin Trade Name Freq PRN Reason Stop Dose Admin Lactated Ringer's 1,000 mls @ 125 mls/hr 01/29/24 13:45 Lactated Ringer's 1000 Ml Bag IV 02/28/24 13:44 .Q8H THADDEUS Morphine Sulfate 4 mg 01/29/24 13:34 Morphine 4mg/Ml Syringe IV 02/28/24 13:33 Q4HP PRN pain Promethazine HCl 25 mg 01/29/24 13:34 Promethazine Hcl 25mg/Ml 1ml Vial IV 02/28/24 13:33 Q6HP PRN Nausea And Vomiting Discontinued Medications Generic Name Dose Route Start Last Admin Trade Name Freq PRN Reason Stop Dose Admin Acetaminophen 1,000 mg 01/29/24 08:01 01/29/24 08:12 Acetaminophen 1,000mg/100ml Vial IV 01/29/24 08:02 1,000 mg ONCE ONE Administration Diatrizoate Meglum/Diatrizoate Sod 30 ml 01/29/24 08:02 01/29/24 08:12 Diatrizoate Denia 66% & Diatrizoate Na 10% 30ml Udc PO 01/29/24 08:03 30 ml ONCE ONE Administration Hydromorphone HCl 0.5 mg 01/29/24 14:33 01/29/24 14:35 Hydromorphone 2mg/Ml Syringe IV 01/29/24 14:34 0.5 mg ONCE ONE Administration Lactated Ringer's 1,000 mls @ 999 mls/hr 01/29/24 08:01 01/29/24 08:12 Lactated Ringer's 1000 Ml Bag IV 01/29/24 09:01 999 mls/hr .Q1H1M ONE Administration Potassium Chloride/Water 100 mls @ 50 mls/hr 01/29/24 08:37 01/29/24 09:49 Potassium Chloride 20meq/100ml Ivpb IV 01/29/24 10:36 50 mls/hr ONCE ONE Administration Ketorolac Tromethamine 15 mg 01/29/24 08:01 01/29/24 08:12 Ketorolac 30mg/Ml Vial IV 01/29/24 08:02 15 mg ONCE ONE Administration Morphine Sulfate 4 mg 01/29/24 08:37 01/29/24 09:02 Morphine 4mg/Ml Syringe IV 01/29/24 08:38 4 mg ONCE ONE Administration Ondansetron HCl 4 mg 01/29/24 08:01 01/29/24 08:12 Ondansetron 4mg/2ml Vial IV 01/29/24 08:02 4 mg ONCE ONE Administration Promethazine HCl 12.5 mg 01/29/24 08:47 01/29/24 09:03 Promethazine Hcl 25mg/Ml 1ml Vial IV 01/29/24 08:48 12.5 mg ONCE ONE Administration Sodium Chloride 25 ml 01/29/24 08:47 01/29/24 09:03 Sodium Chloride 0.9% 25ml Bag IV 01/29/24 08:48 25 ml ONCE ONE Administration Sodium Chloride 25 ml 01/29/24 13:34 Sodium Chloride 0.9% 25ml Bag IV 01/29/24 13:35 ONCE ONE ORDERS Category Date Time Status CT abdomen pelvis w con Stat Cat Scan 01/29/24 08:02 Completed Complete Blood Count Auto Diff Stat Lab 01/29/24 07:47 Completed Comprehensive Metabolic Panel Stat Lab 01/29/24 07:47 Completed HCG Qualitative, Serum Stat Lab 01/29/24 07:47 Completed Lactic Acid Stat Lab 01/29/24 12:27 Completed Lipase Stat Lab 01/29/24 07:47 Completed Rapid PCR Covid and Flu A/B Stat Lab 01/29/24 08:31 Completed Urinalysis and Microscopic Stat Lab 01/29/24 07:30 Completed ECG Data Tracing #1: I reviewed this ECG and interpreted as documented below: Normal sinus rhythm with a ventricular rate of [address] elevations concerning for ischemia. Normal axis and intervals. ECG initial impression date: 01/29/24 ECG initial impression time: 08:11 Medical Decision Narrative: In summary, this patient is a 38-year-old female presenting to the Emergency Department for evaluation of abdominal pain, nausea, and vomiting. Differential diagnoses considered include but are not limited to pancreatitis, gastritis, colitis, bowel obstruction, perforation, infectious enteritis, pyelonephritis, dehydration. Ruling out the most morbid conditions drove assessment. It should be noted patient's history includes SIBS gastric sleeve surgery. This complicates all aspects of care by increasing patient's risk for morbidity. On exam, the patient is uncomfortable appearing with abdominal tenderness and intractable vomiting. Workup included CBC, CMP, lipase, lactic acid, CT abdomen pelvis with p.o. and IV contrast, test, and urinalysis. EKG was also obtained, which is reassuring. Patient was given a bolus of IV fluids as well as IV Toradol, acetaminophen, and Zofran for symptomatic improvement. On reassessment, patient had no improvement in symptoms after administration of medications above, so she was given IV morphine. She continues to have intractable vomiting, so IV phenergan was also ordered. Labs were obtained that demonstrated significant hypokalemia with a potassium of 2.7. Given this, IV potassium replacement was ordered. Patient also has mildly elevated AST and alkaline phosphatase. She has mild anemia, which is stable for her baseline. Really, no acute concerns noted on labs. I independently interpreted CT scan prior to the radiologist read and noted mildly dilated and thickened loops of bowel, but no obvious obstructive pattern to me. Please see their read for final interpretation. They advised that she has findings concerning for enteritis as well as swelling of her mesentery concerning for potential internal hernia On reassessment, patient had minimal improvement after administration of interventions above. She still has continued pain and intractable nausea and vomiting. IV Dilaudid was ordered, and as needed orders were placed for Phenergan and morphine. Maintenance IV fluid resuscitation was initiated. Patient had her gastric surgery at [facility] in [place] with Dr. Rosenbaum, so after discussion with the patient about her intractable symptoms and finding on CT scan, she would like to pursue consultation with them. I called and had an interactive discussion with the PA for Dr. Kidd in their health system. They advised that they would be happy to accept the patient there for transfer for further evaluation and management, and she is currently waitlisted for a bed. They advised maintenance IV fluids, n.p.o. status, and symptomatic management. They advised if she has any decompensation, such as worsening symptoms, abnormal vital signs, changes in lab work, or surgical abdomen, to call them right away. I had an interactive discussion with Dr. Merida who advised that he would be happy to admit the patient pending transfer to [facility]. Patient was admitted in stable condition. Critical Care Critical Care Time Critical Care Time: No
[2024-01-29 09:02] LABS: Bacteria,Urine Trace /lpf; Calcium Oxalate Crystals,Urine 3+ /lpf; RBC,Urine Occasional #/hpf (0-3); WBC,Urine Occasional #/hpf (0-3)
[2024-01-29] MEDS: MORPHINE 4MG/ML SYRINGE 4 MG IV ×3 (09:02→20:35)
[2024-01-29] MEDS: SODIUM CHLORIDE 0.9% 25ML BAG 25 ML IV (09:03)
[2024-01-29] MEDS: PROMETHAZINE HCL 25MG/ML 1ML VIAL 12.5 MG IV (09:03)
--- NOTE | 2024-01-29 09:22 | PC.NURSE ---
patient to CT
--- NOTE | 2024-01-29 09:34 | PC.NURSE ---
Patient back from CT
[2024-01-29] MEDS: KCl 20mEq/100ml 100 ML 50 MEQ IV ×3 (09:49→20:35)
--- NOTE | 2024-01-29 09:50 | PC.NURSE ---
potassium started and cardiac cath technician placed
--- NOTE | 2024-01-29 10:36 | PC.NURSE ---
Sommer Camacho rounded on pt. No needs voiced. Call light within reach.
--- NOTE | 2024-01-29 11:23 | PC.NURSE ---
I rounded on the pt, changed her sheets, and brought her a warm blanket.
--- NOTE | 2024-01-29 11:40 | PC.NURSE ---
Potassium complete at this time.
--- NOTE | 2024-01-29 12:08 | PC.NURSE ---
pt given water for po challenge
--- NOTE | 2024-01-29 12:16 | PC.NURSE ---
calling [facility] for a surgeon and possible transfer. the transfer center stated she would be placed on list until a bed opens up
[2024-01-29 12:43] LABS: Lactic Acid 0.7 mmol/L (0.7-2.1)
--- NOTE | 2024-01-29 13:32 | PC.NURSE ---
Per Dr. Chaparro the pt has been accepted at [facility], but has been placed on their waitlist.
--- NOTE | 2024-01-29 14:05 | PC.NURSE ---
glycerin supervisor notified of pt admission
[2024-01-29] MEDS: HYDROMORPHONE 2MG/ML SYRINGE 0.5 MG IV (14:35)
--- NOTE | 2024-01-29 14:37 | PC.NURSE ---
Admissions notified of admit to room 213 for Internal hernia to . OBS.
--- NOTE | 2024-01-29 14:48 | PC.NURSE ---
Report called to DESMOND Barahona
--- NOTE | 2024-01-29 15:14 | P.CONPHA_ITS ---
Pharmacy Intervention Comments: MEDICATION RECONCILIATION COMPLETED ON PATIENT USING EXTERNAL FILL HISTORY FROM PHARMACY AND LIST FROM PERFUME COMPOUNDER OFFICE. -RITA SQUIRESD
--- NOTE | 2024-01-29 15:14 | HMH.PHAINT1 ---
Pharmacy Intervention Comments: MEDICATION RECONCILIATION COMPLETED ON PATIENT USING EXTERNAL FILL HISTORY FROM PHARMACY AND LIST FROM DIRECTOR OF SCOUT WORK OFFICE. -RITA SQUIRESD
--- NOTE | 2024-01-29 15:16 | PC.NURSE ---
arrived to floor by w/c from ED
[2024-01-29] MEDS: LACTATED RINGERS 1000ML 1,000 ML 125 ML IV (16:34)
--- NOTE | 2024-01-29 17:52 | P.HP_ITS ---
History of Present Illness *Admission Date: 01/29/24 *Reason for visit:: Intractable nausea and vomiting and abdominal pain *History of present illness: Celsa is a 38-year-old female with a history of bariatric surgery, SIPS, in 2019 with a 200 pound weight loss, cholecystectomy, anxiety, and constipation who presented to the emergency room after having sharp, stabbing abdominal pain for the previous 2 days. The pain continued throughout today and she began to have nausea and vomiting this morning. The pain radiates around to her back. Her bowels did move yesterday and appeared to be normal. She denies any upper respiratory symptoms, fever, congestion. She has not noted any hematemesis, melena, are bloody stools. She has been voiding without difficulty. She did pass gas this morning but none since. With evaluation in the emergency room urine appeared negative. White blood cell count was 6800 with a hemoglobin of 11 hematocrit of 35. Potassium was low at 2.7. AST was slightly elevated at 87 and alkaline phosphatase elevated at 130. COVID and flu were negative. She was given fluid boluses and started on lactated Ringer's at 125 an hour. She also received morphine for pain, promethazine for nausea and hydromorphone and Keralac as well for the abdominal pain; she also received Zofran. With reassessment in the ER patient showed no improvement after administration of the medications. She Received IV potassium. The radiologist noted mildly dilated and thickened loops of bowel but no obvious obstruction pattern With findings concerning for enteritis as well as swelling of her mesentery concerning for potential internal hernia. She did continue with pain and intractable nausea and vomiting. Dr. Rosenbaum was her gastric surgeon and findings were discussed with this GI group. They stated that they would be happy to accept her in transfer for further evaluation and management and would place her on a wait list for a bed. They advised maintenance IV fluids, n.p.o. status and symptomatic management. She was thus admitted to [facility] for ongoing treatment While awaiting bed at [facility]. [facility] Disclaimer: The information contained in this section may have been updated after the patient was seen, as this information can be updated by other users. Medical History Generalized anxiety disorder Cholecystectomy planned Obesity Palpitations Chest pain Surgical History History of cholecystectomy History of skin surgery H/O gastric sleeve History of Family History (Updated 01/29/24 @ 16:32 by Ele Mobley RN) Other Family history of cancer Family history of hyperlipidemia Family history of hypertension Family history of myocardial infarction No significant family history Social History (Updated 01/29/24 @ 16:32 by lEe Mobley RN) Smoking Status: Never smoker second hand exposure: No alcohol intake: current counseling given: No substance use type: denies use counseling given: No current occupational status: employed Travel in the last 8 weeks: None adopted: No caregiver/support person: Yes foster care: No household members: children and other housing: house lives independently: Yes marital status: number of children: 4 number of grandchildren: 0 education level: high school current occupational exposures/hazards: No Hx Recent Travel: No sexually active: Yes caffeine: Yes physical activity: none working smoke detector in home: Yes fire extinguisher in home: Yes carbon monox detector in home: Yes firearms in home: Yes do you feel safe at home: Yes victim of physical abuse: No victim of emotional abuse: No victim of sexual abuse: No would you like helpful sources: No Review of Systems Constitutional Constitutional: Denies fever(s) and Denies headache(s) Eyes Eyes: Denies change in vision ENT Ears, Nose, Mouth, and Throat: Denies dysphagia, Denies otalgia, Denies headache(s) and Denies sore throat *Cardiovascular Cardiovascular: Denies chest pain, Denies dyspnea and Denies leg edema *Respiratory Respiratory: Denies chest congestion, Denies cough and Denies dyspnea *Gastrointestinal Gastrointestinal: Reports abdominal pain (Sharp and stabbing), Denies constipation, Denies diarrhea, Denies dyspepsia, Denies dysphagia, Denies heartburn, Denies hematemesis, Denies melena, Reports nausea and Reports vomiting *Genitourinary Genitourinary: Denies dysuria *Musculoskeletal Musculoskeletal: Denies arthralgias *Neurologic Neurologic: Denies headache(s) Meds Home Medications and Allergies Home Medications Medication Instructions Recorded Confirmed Type multivitamin 1 tab PO DAILY Supplement 03/08/21 01/29/24 History bremelanotide 1.75 mg/0.3 mL 1.75 mg SQ DIRECTED 01/29/24 01/29/24 History subcutaneous auto-injector calcium polycarbophil 625 mg 625 mg PO TID 01/29/24 01/29/24 History tablet (Fiber-Tabs) cariprazine 1.5 mg capsule 1.5 mg PO Q48H 01/29/24 01/29/24 History (Vraylar) desvenlafaxine succinate 50 mg 50 mg PO DAILY 01/29/24 01/29/24 History tablet,extended release 24 hr gabapentin 300 mg capsule 300 mg PO BID Pain 01/29/24 01/29/24 History hydroxyzine pamoate 25 mg capsule 25 mg PO TIDP PRN Anxiety 01/29/24 01/29/24 History (Vistaril) tizanidine 4 mg tablet 4 mg PO BIDP PRN Muscle Spasm 01/29/24 01/29/24 History New Prescriptions to Start Prescriptions: Allergies Allergy/AdvReac Type Severity Reaction Status Date / Time No Known Allergies Allergy Verified 01/02/24 14:52 Exam Data for Last 24 hours Vital signs and Labs for Last 24 Hours: Temp Pulse Resp BP Pulse Ox O2 Del Method 97.9 F 69 18 121/84 99 Room Air 01/29/24 16:06 01/29/24 16:06 01/29/24 16:06 01/29/24 16:06 01/29/24 16:06 01/29/24 16:45 Laboratory Results - last 24 hr 01/29/24 07:30: Urine Color Yellow, Urine Appearance Sl cloudy, Urine pH 5.5, Ur Specific [place] >= 1.030, Urine Protein Negative, Urine Glucose (UA) Negative, Urine Ketones Negative, Urine Blood Trace-i, Urine Nitrate Negative, Urine Bilirubin Negative, Urine Urobilinogen 0.2, Ur Leukocyte Esterase Negative, Urine RBC Occasional, Urine WBC Occasional, Ur Squamous Epith Cells 3-5, Calcium Oxalate Crystal 3+, Urine Bacteria Trace 01/29/24 07:47: WBC 6.8, RBC 3.91 L, Hgb 11.0 L, Hct 35.0 L, MCV 89.4, MCH 28.2, MCHC 31.5 L, RDW 14.3, Plt Count 214, MPV 8.5, Neut % (Auto) 69.1, Lymph % (Auto) 24.9, Perkins % (Auto) 4.8, Eos % (Auto) 0.4, Baso % (Auto) 0.7, Neut # (Auto) 4.7, Lymph # (Auto) 1.7, Perkins # (Auto) 0.3, Eos # (Auto) 0.0, Baso # (Auto) 0.1, Sodium 141, Potassium 2.7 L*, Chloride 111 H, Carbon Dioxide 25, Anion Gap 7.7, BUN 8, Creatinine 0.40 L, Estimated Creat Clear 214, Estimated GFR 177, Est GFR ( Amer) 214, Glucose 123 H, Calcium 8.3 L, Total Bilirubin 0.5, AST 47 H, ALT 38, Alkaline Phosphatase 130 H, Total Protein 6.6, Albumin 3.8, Globulin 2.8, Albumin/Globulin Ratio 1.4, Lipase 63, Serum HCG, Qual Negative 01/29/24 08:31: SARS-CoV-2 (PCR) Not detected, Influenza A Untype (PCR) Not detected, Influenza Type B (PCR) Not detected 01/29/24 12:27: Lactate 0.7 I & O for Last 24 hours: Intake & Output 01/27/24 01/28/24 01/29/24 01/30/24 11:59 11:59 11:59 11:59 Output Total 0 / 0 Balance 0 / 0 Weight 160 lb 165 lb Constitutional Constitutional: no acute distress *Routine HEENT Exam Head: Present normocephalic and atraumatic Eye: Present PERRL; Absent conjunctival icterus, scleral injection or conjunctivae pink ENT: Present mucous membranes moist, oropharynx clear and nares patent *Routine Neck Exam Neck: Present supple and full ROM; Absent carotid bruit, lymphadenopathy or thyromegaly *Routine Respiratory Exam Respiratory: Present CTA bilaterally (Anteriorly and posteriorly) *Routine Cardiovascular Exam Cardiovascular: Present RRR (80/min) *Routine Abdominal Exam Abdominal: Present soft, tenderness (Lower quadrants and left upper quadrants with guarding) and guarding; Absent normoactive bowel sounds (Diminished bowel sounds) *Routine Rectal Exam Rectal:: deferred *Routine Genitalia Exam Genitalia:: deferred *Routine Extremities Exam Extremities: Absent edema *Routine Neurological Exam Neurological: Present alert, oriented X3 and moving all extremities Assessment and Plan *Assessment and plan (1) Hernia, internal: Status: Acute Category: Medical Code(s): K45.8 - Other specified abdominal hernia without obstruction or gangrene (2) Nausea & vomiting: Status: Acute Category: Medical Code(s): R11.2 - Nausea with vomiting, unspecified (3) Hypokalemia: Status: Acute Category: Medical Code(s): E87.6 - Hypokalemia (4) Abdominal pain: Status: Acute Qualifiers: Abdominal location: generalized Qualified Code(s): R10.84 - Generalized abdominal pain Category: Medical Code(s): R10.9 - Unspecified abdominal pain (5) History of skin surgery: Problem Comment: skin removal surgery from gastric sleeve Status: Acute Category: Surgical Code(s): Z98.890 - Other specified postprocedural states (6) Generalized anxiety disorder: Status: Acute Category: Medical Code(s): F41.1 - Generalized anxiety disorder Plan Bowel rest, IV fluids, symptomatic treatment. Await [facility] bed in [place]. Dr. Merida entry - Saw patient, agree with above note.
[2024-01-29] MEDS: PROMETHAZINE HCL 25MG/ML 1ML VIAL 25 MG IV (22:12)
[2024-01-30] MEDS: MORPHINE 4MG/ML SYRINGE 4 MG IV ×7 (01:23→20:31)
[2024-01-30] MEDS: LACTATED RINGERS 1000ML 1,000 ML 125 ML IV ×2 (02:39→11:21)
[2024-01-30 04:00] VITALS: BP 143/86; PULSE 61; RESP 17; TEMP 37.2; O2SAT 97; BMI 30.4
[2024-01-30] MEDS: PROMETHAZINE HCL 25MG/ML 1ML VIAL 25 MG IV (04:21)
[2024-01-30 07:52] LABS: Basophils % 0.3 % (0.1-2.0); Eosinophils % 0.4 % (0.1-12.0); Hematocrit 32.9 % (37.0-47.0); Hemoglobin 10.6 g/dL (12.2-16.2); Lymphocytes # 2.2 K/mm3 (0.7-4.5); Lymphocytes % 30.5 % (10-50); Mean Corpuscular HGB Conc 32.1 g/dL (31.8-35.4); Mean Corpuscular Volume 87.1 fl (81-99); Mean Platelet Volume 8.6 fl (7.4-10.4); Monocytes # 0.4 K/mm3 (0.1-1.0); Monocytes % 5.9 % (1.7-9.3); Neutrophils # 4.5 K/mm3 (1.8-7.8); Neutrophils % 62.9 % (37.0-80.0); Platelet Count 205 K/mm3 (142-424); Red Blood Count 3.78 M/mm3 (4.20-5.40); Red Cell Distribution Width 14.3 % (11.5-17.5); White Blood Count 7.2 K/mm3 (4.8-10.8)
[2024-01-30 08:00] VITALS: BP 147/91; PULSE 72; RESP 17; TEMP 37; O2SAT 98
[2024-01-30 08:01] LABS: Anion Gap 4.4 mEq/L (5-15); Blood Urea Nitrogen 3 mg/dl (7-17); Calcium 8.5 mg/dl (8.4-10.2); Carbon Dioxide 28 mmol/L (22.0-30.0); Chloride 109 mmol/L (98-107); Creatinine Clearance Estimated 221 mL/min (50-200); Estimated Glomerular Filt Rate 177 ml/min (>60); GFR (African American) 214 ML/MIN (>60); Glucose 98 mg/dl (74-100); Potassium 3.4 mmoL/L (3.5-5.1); Sodium 138 mmol/L (136-145)
--- NOTE | 2024-01-30 08:08 | EXP.ACUTE.PN ---
Subjective *Date: 01/30/24 *Time: 08:48 Interval history: States she is the same. She was required pain medicine throughout the night and has had minimal sleep.. She describes dry heaving. She is not short of breath and does not have chest pain. She remains NPO. She is voiding QS Medical Exam Vital signs and Labs for Last 24 Hours: Vital Signs Temp Pulse Pulse Resp BP BP Pulse Ox 01/30/24 07:00 01/30/24 05:00 01/30/24 04:00 98.9 F 61 17 143/86 H 97 01/30/24 03:00 01/30/24 01:00 01/29/24 23:00 01/29/24 21:00 01/29/24 20:43 01/29/24 20:00 98.2 F 95 H 17 145/90 H 97 01/29/24 19:00 01/29/24 17:57 01/29/24 16:45 01/29/24 16:06 97.9 F 69 18 121/84 99 01/29/24 15:17 97.9 F 74 18 121/81 01/29/24 14:30 88 152/89 H 100 01/29/24 14:27 72 126/85 96 01/29/24 14:26 126/85 01/29/24 12:00 72 131/87 100 01/29/24 11:31 66 154/82 H 100 01/29/24 11:00 21 129/74 96 01/29/24 10:30 74 19 129/78 100 01/29/24 10:00 72 26 H 146/88 H 100 01/29/24 09:49 77 14 147/86 H 100 01/29/24 09:01 94 H 17 153/94 H 100 O2 Del Method 01/30/24 07:00 Room Air 01/30/24 05:00 Room Air 01/30/24 04:00 Room Air 01/30/24 03:00 Room Air 01/30/24 01:00 Room Air 01/29/24 23:00 Room Air 01/29/24 21:00 Room Air 01/29/24 20:43 Room Air 01/29/24 20:00 01/29/24 19:00 Room Air 01/29/24 17:57 Room Air 01/29/24 16:45 Room Air 01/29/24 16:06 Room Air 01/29/24 15:17 Room Air 01/29/24 14:30 Room Air 01/29/24 14:27 Room Air 01/29/24 14:26 01/29/24 12:00 Room Air 01/29/24 11:31 Room Air 01/29/24 11:00 Room Air 01/29/24 10:30 Room Air 01/29/24 10:00 Room Air 01/29/24 09:49 Room Air 01/29/24 09:01 Room Air Intake and Output 01/29/24 01/30/24 01/30/24 19:59 03:59 11:59 Intake Total 1414 / 1414 Output Total 0 / 0 0 / 0 0 / 0 Balance 0 / 0 0 / 0 1414 / 1414 Intake: Intake, Total IV Amount 1414 / 1414 Lactated Ringers 1000ML 1,000 1414 / 1414 ml @ 125 mls/hr IV .Q8H [facility] Rx# :[id number] Output: Output, Urine Amount 0 / 0 0 / 0 0 / 0 Other: Number of Unmeasured Voids 1 1 1 Weight 165 lb 165 lb 3.2 oz Patient Weight 01/30/24 11:59 Weight 165 lb 3.2 oz Laboratory Results - last 24 hr 01/29/24 07:30: Urine Color Yellow, Urine Appearance Sl cloudy, Urine pH 5.5, Ur Specific [place] >= 1.030, Urine Protein Negative, Urine Glucose (UA) Negative, Urine Ketones Negative, Urine Blood Trace-i, Urine Nitrate Negative, Urine Bilirubin Negative, Urine Urobilinogen 0.2, Ur Leukocyte Esterase Negative, Urine RBC Occasional, Urine WBC Occasional, Ur Squamous Epith Cells 3-5, Calcium Oxalate Crystal 3+, Urine Bacteria Trace 01/29/24 07:47: WBC 6.8, RBC 3.91 L, Hgb 11.0 L, Hct 35.0 L, MCV 89.4, MCH 28.2, MCHC 31.5 L, RDW 14.3, Plt Count 214, MPV 8.5, Neut % (Auto) 69.1, Lymph % (Auto) 24.9, Jenkins % (Auto) 4.8, Eos % (Auto) 0.4, Baso % (Auto) 0.7, Neut # (Auto) 4.7, Lymph # (Auto) 1.7, Jenkins # (Auto) 0.3, Eos # (Auto) 0.0, Baso # (Auto) 0.1, Sodium 141, Potassium 2.7 L*, Chloride 111 H, Carbon Dioxide 25, Anion Gap 7.7, BUN 8, Creatinine 0.40 L, Estimated Creat Clear 214, Estimated GFR 177, Est GFR ( Amer) 214, Glucose 123 H, Calcium 8.3 L, Total Bilirubin 0.5, AST 47 H, ALT 38, Alkaline Phosphatase 130 H, Total Protein 6.6, Albumin 3.8, Globulin 2.8, Albumin/Globulin Ratio 1.4, Lipase 63, Serum HCG, Qual Negative 01/29/24 08:31: SARS-CoV-2 (PCR) Not detected, Influenza A Untype (PCR) Not detected, Influenza Type B (PCR) Not detected 01/29/24 12:27: Lactate 0.7 01/30/24 07:11: WBC 7.2, RBC 3.78 L, Hgb 10.6 L, Hct 32.9 L, MCV 87.1, MCH 28.0, MCHC 32.1, RDW 14.3, Plt Count 205, MPV 8.6, Neut % (Auto) 62.9, Lymph % (Auto) 30.5, Jenkins % (Auto) 5.9, Eos % (Auto) 0.4, Baso % (Auto) 0.3, Neut # (Auto) 4.5, Lymph # (Auto) 2.2, Jenkins # (Auto) 0.4, Eos # (Auto) 0.0, Baso # (Auto) 0.0, Sodium 138, Potassium 3.4 L D, Chloride 109 H, Carbon Dioxide 28, Anion Gap 4.4 L, BUN 3 L D, Creatinine 0.40 L, Estimated Creat Clear 221, Estimated GFR 177, Est GFR ( Amer) 214, Glucose 98 D, Calcium 8.5 I & O for Labs for Last 24 Hours: Intake & Output 01/27/24 01/28/24 01/29/24 01/30/24 11:59 11:59 11:59 11:59 Intake Total 1414 / 1414 Output Total 0 / 0 Balance 1414 / 1414 Weight 160 lb 165 lb 3.2 oz Constitutional: Present no acute distress Comment:: Lying still in the bed. Respiratory: Present CTA bilaterally Cardiac: Present Regular Rate GI: Present soft, tenderness and diminished bowel sounds; Absent distention Extremities: Absent tenderness, edema or calf tenderness Neuro: Present alert, awake and oriented x 3 Assessment and Plan *Assessment and plan (1) Hernia, internal: Status: Acute Category: Medical Code(s): K45.8 - Other specified abdominal hernia without obstruction or gangrene (2) Nausea & vomiting: Status: Acute Category: Medical Code(s): R11.2 - Nausea with vomiting, unspecified (3) Hypokalemia: Status: Acute Category: Medical Code(s): E87.6 - Hypokalemia (4) Abdominal pain: Status: Acute Qualifiers: Abdominal location: generalized Qualified Code(s): R10.84 - Generalized abdominal pain Category: Medical Code(s): R10.9 - Unspecified abdominal pain (5) History of skin surgery: Problem Comment: skin removal surgery from gastric sleeve Status: Acute Category: Surgical Code(s): Z98.890 - Other specified postprocedural states (6) Generalized anxiety disorder: Status: Acute Category: Medical Code(s): F41.1 - Generalized anxiety disorder Plan Continue to wait for bed at [facility] in [place]. Nurses were told that they may have a bed today. Continue with IV hydration and bowel rest and pain/ nausea management. Dr. Merida entry - Saw patient, agree with above note.
[2024-01-30 13:44] VITALS: BMI 30.4
--- NOTE | 2024-01-30 14:30 | PC.NURSE ---
Spoke with [facility] about bed status, they stated they are still waiting on dc's and no beds available at this time. They may have a bed available this afternoon or later this evening.
[2024-01-30 16:00] VITALS: BP 146/83; PULSE 67; RESP 17; TEMP 36.8; O2SAT 97
--- NOTE | 2024-01-30 18:37 | PC.NURSE ---
[facility] called with a bed available. cash gave VO for discharge, leave all medications the same.
[2024-01-30 20:00] VITALS: BP 148/87; PULSE 80; RESP 16; TEMP 36.6; O2SAT 98
--- NOTE | 2024-01-30 20:58 | PC.NURSE ---
Pt being transferred to [facility], room 207
--- NOTE | 2024-01-31 11:33 | EXP.DC.SUM ---
General Admission date:: 01/29/24 Discharge date: 01/30/24 HPI HPI HPI: Celsa is a 38-year-old female with a history of bariatric surgery, SIPS, in 2019 with a 200 pound weight loss, cholecystectomy, anxiety, and constipation who presented to the emergency room after having sharp, stabbing abdominal pain for the previous 2 days. The pain continued throughout today and she began to have nausea and vomiting this morning. The pain radiates around to her back. Her bowels did move yesterday and appeared to be normal. She denies any upper respiratory symptoms, fever, congestion. She has not noted any hematemesis, melena, are bloody stools. She has been voiding without difficulty. She did pass gas this morning but none since. With evaluation in the emergency room urine appeared negative. White blood cell count was 6800 with a hemoglobin of 11 hematocrit of 35. Potassium was low at 2.7. AST was slightly elevated at 87 and alkaline phosphatase elevated at 130. COVID and flu were negative. She was given fluid boluses and started on lactated Ringer's at 125 an hour. She also received morphine for pain, promethazine for nausea and hydromorphone and Keralac as well for the abdominal pain; she also received Zofran. With reassessment in the ER patient showed no improvement after administration of the medications. She Received IV potassium. The radiologist noted mildly dilated and thickened loops of bowel but no obvious obstruction pattern With findings concerning for enteritis as well as swelling of her mesentery concerning for potential internal hernia. She did continue with pain and intractable nausea and vomiting. Dr. Rosenbaum was her gastric surgeon and findings were discussed with this GI group. They stated that they would be happy to accept her in transfer for further evaluation and management and would place her on a wait list for a bed. They advised maintenance IV fluids, n.p.o. status and symptomatic management. She was thus admitted to [facility] for ongoing treatment While awaiting bed at [facility] [place]. Hospital Course Hospital Course Hospital Course: The patient was admitted for bowel rest and IV fluids. She was awaiting a bed at [facility] [place]. She was kept overnight and required pain medication throughout the night. She was vomiting. A bed became available and she was transferred. Exam Data for Last 24 hours Vital signs and Labs for Last 24 Hours: Temp Pulse Resp BP Pulse Ox O2 Del Method 98 F 80 16 148/87 H 98 Room Air 01/30/24 20:00 01/30/24 20:00 01/30/24 20:00 01/30/24 20:00 01/30/24 20:00 01/30/24 18:23 I & O for Last 24 hours: Intake & Output 01/28/24 01/29/24 01/30/24 01/31/24 11:59 11:59 11:59 11:59 Intake Total 1414 / 1414 1510 / 1510 Output Total 0 / 0 Balance 1414 / 1414 1510 / 1510 Weight 160 lb 165 lb 3.2 oz 165 lb 2.02 oz Narrative: Constitutional Constitutional: no acute distress *Routine HEENT Exam Head: Present normocephalic and atraumatic Eye: Present PERRL; Absent conjunctival icterus, scleral injection or conjunctivae pink ENT: Present mucous membranes moist, oropharynx clear and nares patent *Routine Neck Exam Neck: Present supple and full ROM; Absent carotid bruit, lymphadenopathy or thyromegaly *Routine Respiratory Exam Respiratory: Present CTA bilaterally (Anteriorly and posteriorly) *Routine Cardiovascular Exam Cardiovascular: Present RRR (80/min) *Routine Abdominal Exam Abdominal: Present soft, tenderness (Lower quadrants and left upper quadrants with guarding) and guarding; Absent normoactive bowel sounds (Diminished bowel sounds) *Routine Rectal Exam Rectal:: deferred *Routine Genitalia Exam Genitalia:: deferred *Routine Extremities Exam Extremities: Absent edema *Routine Neurological Exam Neurological: Present alert, oriented X3 and moving all extremities DS: Diagnosis Discharge Diagnosis (1) Hernia, internal: Status: Acute Code(s): K45.8 - Other specified abdominal hernia without obstruction or gangrene (2) Nausea & vomiting: Status: Acute Code(s): R11.2 - Nausea with vomiting, unspecified (3) Hypokalemia: Status: Acute Code(s): E87.6 - Hypokalemia (4) Abdominal pain: Status: Acute Code(s): R10.9 - Unspecified abdominal pain Qualifiers: Abdominal location: generalized Qualified Code(s): R10.84 - Generalized abdominal pain (5) History of skin surgery: Status: Acute Code(s): Z98.890 - Other specified postprocedural states Problem details: skin removal surgery from gastric sleeve (6) Generalized anxiety disorder: Status: Acute Code(s): F41.1 - Generalized anxiety disorder Meds Home Medications and Allergies Home Medications Medication Instructions Recorded Confirmed Type multivitamin 1 tab PO DAILY Supplement 03/08/21 01/29/24 History bremelanotide 1.75 mg/0.3 mL 1.75 mg SQ DIRECTED 01/29/24 01/29/24 History subcutaneous auto-injector calcium polycarbophil 625 mg 625 mg PO TID 01/29/24 01/29/24 History tablet (Fiber-Tabs) cariprazine 1.5 mg capsule 1.5 mg PO Q48H 01/29/24 01/29/24 History (Vraylar) desvenlafaxine succinate 50 mg 50 mg PO DAILY 01/29/24 01/29/24 History tablet,extended release 24 hr gabapentin 300 mg capsule 300 mg PO BID Pain 01/29/24 01/29/24 History hydroxyzine pamoate 25 mg capsule 25 mg PO TIDP PRN Anxiety 01/29/24 01/29/24 History (Vistaril) tizanidine 4 mg tablet 4 mg PO BIDP PRN Muscle Spasm 01/29/24 01/29/24 History New Prescriptions to Start Prescriptions: Allergies Allergy/AdvReac Type Severity Reaction Status Date / Time No Known Allergies Allergy Verified 01/02/24 14:52 Discharge Plan Disposition Patient Disposition: Xfer Short-Term Hosp Condition: Fair Discharge Order Discharge Orders: Discharge Patient (Nurse per MD order) (Routine); Ordered 01/30/24 Ordered By: Greg Merida Discharge Order (Routine); Ordered 01/30/24 Ordered By: Greg Merida Follow up Plan Prescriptions/Medication Reconciliation: No Action multivitamin Tablet 1 tab PO DAILY calcium polycarbophil [Fiber-Tabs] 625 mg tablet 625 mg PO TID tizanidine 4 MG tablet 4 mg PO BIDP PRN (Reason: Muscle Spasm) gabapentin 300 MG capsule 300 mg PO BID hydroxyzine pamoate [Vistaril] 25 mg capsule 25 mg PO TIDP PRN (Reason: Anxiety) desvenlafaxine succinate 50 mg tablet extended release 24 hr 50 mg PO DAILY Vraylar 1.5 mg capsule 1.5 mg PO Q48H bremelanotide 1.75 mg/0.3 mL auto-injector 1.75 mg SQ DIRECTED Problem Reconciliation Problems Reviewed?: Yes Patient Discharge Instructions Patient Instructions: Hernias: Causes and Treatment Options, DI for Acute Abdominal Pain, Nausea and Vomiting-Adult Providers Primary Care Provider: Lakshmi Rivera Admit Provider: Greg Merida Attending Provider: Greg Merida
== END 2024-01-30 21:06 | disposition short-term general hospital (02) ==
LOC: ER 14:05 → 2ND 14:57
PROVIDERS: Admitting Provider Family Medicine; Emergency Provider Emergency Medicine; PCP Physician Assistant; Visit Provider Family Medicine
DX: K45.8 Other specified abdominal hernia without obstruction or gangrene (principal); E87.6 Hypokalemia; Z79.899 Other long term (current) drug therapy; Z98.84 Bariatric surgery status; R11.2 Nausea with vomiting, unspecified; R10.84 Generalized abdominal pain; F41.1 Generalized anxiety disorder; R07.1 Chest pain on breathing
CPT/HCPCS: 36415; 74177; 80048; 80053; 81001; 83605; 83690; 84703; 85025; 87636; 93005; 99285; G0378; J0131; J2405

== ENCOUNTER 2024-02-19 15:07 | Outpatient (POV) | payer OTHER, SELFPAY ==
--- NOTE | 2024-02-19 15:09 | EXP.PAIN.SOA ---
[facility] Pain Management SOAP Note Subjective:: Patient is a pleasant 38-year-old female who presents today for medication refill and 6-month follow-up. We are currently treating the patient for degenerative disc disease of cervical and lumbar spine with cervical and lumbar radiculopathy symptoms, sacroiliitis, chronic low back pain. Today she rates her pain a 6 out of 10. From the last visit the patient has had a lot going on. Patient did go to the doctor on multiple occasions due to abdominal pain and ended up being sent to [place] where she did undergo surgery due to twisted bowels. Patient states she then went on vacation out of state and ended up having additional pains and underwent a second surgery due to seeping of her bowels. She states this was in relation to the first surgeon not connecting back something that was allowing for seepage. Patient states that she is doing much better now. She does state that she is having a little bit more neck pain but believes this is because of the longer car ride home. Patient states that they did take their time and stopped for multiple breaks. Patient is currently managed with gabapentin 300 mg twice a day and tizanidine 4 mg twice a day. She denies any side effects from this medication. Her Bill has been reviewed and is appropriate. Review of Systems: General: No recent weight changes, no fever, no sleep disturbances Respiratory: No cough, no shortness of air, no recurring pulmonary infections Cardiovascular/peripheral vascular: No chest pain, no palpitations, no edema, no shortness of breath Gastrointestinal: No new onset incontinence, normal bowel movements reported Genitourinary: No new onset incontinence Musculoskeletal: Low back pain Psychiatric: [Normal mood/affect] Neurological: [Denies weakness in extremities], [denies balance issues] Objective:: Physical Exam: General: Alert and oriented x3, no acute distress, pleasant and cooperative Lungs: Respirations even and unlabored, symmetrical chest expansion Eyes: PERRL Musculoskeletal: Flexion and extension of lumbar [spine] somewhat guarded secondary to pain, [antalgic gait noted] Neurological: Speech clear, no gross sensory deficit Assessment:: Degenerative disc disease of cervical and lumbar spine with cervical and lumbar radiculopathy symptoms, sacroiliitis, chronic low back pain Plan:: I will refill the patient's gabapentin 300 mg twice a day and tizanidine 4 mg twice a day and provide a 6-month supply of this medication. I will also order the patient a compounded cream. I have discussed with the patient if her neck pain does not resolve that she can follow-up with our office sooner for possible injection therapy. Patient acknowledges understanding and agrees with this plan of care. Patient will return to clinic in 6 months for reevaluation of symptoms and plan of care. Patient has been instructed to contact the clinic with any concerns before the next appointment. Dr. Drummond has reviewed this note and agrees with this plan of care. This note was dictated using voice recognition software and make contain errors or omissions. [facility] Disclaimer: The information contained in this section may have been updated after the patient was seen, as this information can be updated by other users. Medical History Generalized anxiety disorder Cholecystectomy planned Obesity Palpitations Chest pain Surgical History History of cholecystectomy History of skin surgery H/O gastric sleeve History of Family History (Updated 01/29/24 @ 16:32 by Ele Mobley RN) Other Family history of cancer Family history of hyperlipidemia Family history of hypertension Family history of myocardial infarction No significant family history Social History (Updated 01/29/24 @ 16:32 by Ele Mobley RN) Smoking Status: Never smoker second hand exposure: No alcohol intake: current counseling given: No substance use type: denies use counseling given: No current occupational status: employed Travel in the last 8 weeks: None adopted: No caregiver/support person: Yes foster care: No household members: children and other housing: house lives independently: Yes marital status: number of children: 4 number of grandchildren: 0 education level: high school current occupational exposures/hazards: No Hx Recent Travel: No sexually active: Yes caffeine: Yes physical activity: none working smoke detector in home: Yes fire extinguisher in home: Yes carbon monox detector in home: Yes firearms in home: Yes do you feel safe at home: Yes victim of physical abuse: No victim of emotional abuse: No victim of sexual abuse: No would you like helpful sources: No
[2024-02-19 15:19] VITALS: BP 141/79; PULSE 77; RESP 18; TEMP 36.7; O2SAT 99; BMI 28.0
== END 2024-02-19 23:59 | disposition home or self-care (01) ==
PROVIDERS: PCP Physician Assistant; Visit Provider Nurse Practitioner Family
DX: M50.10 Cervical disc disorder with radiculopathy, unspecified cervical region (principal); M51.16 Intervertebral disc disorders with radiculopathy, lumbar region; M46.1 Sacroiliitis, not elsewhere classified; M54.50 Low back pain, unspecified; G89.29 Other chronic pain
CPT/HCPCS: 99212; G0463

== ENCOUNTER 2024-02-20 13:30 | Outpatient (CLI) | payer OTHER, SELFPAY ==
--- NOTE | 2024-02-20 13:34 | US_ITS ---
PROCEDURE INFORMATION: Exam: US Left Breast, Complete Exam date and time: 02/20/2024 1:58 PM Age: 38 years old Clinical indication: Patient recalled for further evaluation of a left breast mass TECHNIQUE: Imaging protocol: Complete ultrasound of all four quadrants of the left breast and the retroareolar regions, including ultrasound of the axilla when performed. COMPARISON: MG MM DIG MAMM DX UNILAT LT CAD 02/20/2024 1:32 PM FINDINGS: ULTRASOUND: Breast ultrasound findings: Sonographic images of the left breast including the retroareolar region, all 4 quadrants and the axilla demonstrates an ovoid hypoechoic mass in the 2 o'clock axis 7 cm from the nipple measuring 0.8 x 0.3 x 0.7 cm possibly reflecting benign focal fibrocystic change. Few scattered simple and minimally debris-filled cysts are noted throughout the left breast most notably in the 8 o'clock axis 6 cm from the nipple were 2 adjacent cysts are noted. The larger of the 2 corresponds to the mass on mammography. The larger of the 2 measures 0.8 cm in greatest dimension. No architectural distortion or acoustical shadowing. No skin thickening or axillary adenopathy. IMPRESSION: Mass on screening mammography corresponds to underlying cystic change sonographically. Additional probably benign mass is noted in the 2 o'clock axis. A six-month follow-up targeted left breast ultrasound is recommended to ensure stability over time. ASSESSMENT: BI-RADS Category 3: Probably benign.
--- NOTE | 2024-02-20 13:34 | MM_ITS ---
PROCEDURE INFORMATION: Exam: MG Left Diagnostic Breast Tomosynthesis Exam date and time: 02/20/2024 1:32 PM Age: 38 years old Clinical indication: Patient recalled for further evaluation of a left breast mass TECHNIQUE: Imaging protocol: Left Diagnostic tomosynthesis and 2D mammography including computer-aided detection (CAD) when performed. Unilateral or bilateral exam. COMPARISON: MG MM DIG SCREENING MAMM BI W/CAD 01/22/2024 3:32 PM FINDINGS: MAMMOGRAPHY: Breast composition: There are scattered areas of fibroglandular density (based on the most recent screening mammogram report). Breast mammogram findings: Digital diagnostic spot compression view of the left breast and 90 degree lateral view left breast demonstrate a persistent ovoid mass measuring 0.7 cm in greatest dimension. IMPRESSION: Patient should return for left upper inner and lower inner quadrant sonography for further evaluation of a subcentimeter ovoid mass best seen in the craniocaudal projection medially ASSESSMENT: BI-RADS Category 0: Incomplete- Need Additional Imaging Evaluation and/or Prior Mammograms for Comparison.
== END 2024-02-20 23:59 | disposition home or self-care (01) ==
LOC: RAD 13:34
PROVIDERS: PCP Physician Assistant; Visit Provider Obstetrics & Gynecology
DX: R92.8 Other abnormal and inconclusive findings on diagnostic imaging of breast (principal); N63.20 Unspecified lump in the left breast, unspecified quadrant
CPT/HCPCS: 76641; 77061; 77065; G0279

== ENCOUNTER 2024-08-22 09:23 | Outpatient (CLI) | payer OTHER, SELFPAY ==
--- NOTE | 2024-08-22 09:23 | US_ITS ---
PROCEDURE INFORMATION: Exam: US Left Breast, Complete Exam date and time: 08/22/2024 9:51 AM Age: 39 years old Clinical indication: Follow-up from prior for probably benign complicated cysts in the left breast. TECHNIQUE: Imaging protocol: Complete ultrasound of all four quadrants of the left breast and the retroareolar regions, including ultrasound of the axilla when performed. COMPARISON: US BREAST LT COMPLETE 02/20/2024 1:58 PM FINDINGS: ULTRASOUND: Breast ultrasound findings: Left breast ultrasound: Redemonstrated complicated cyst or parallel circumscribed hypoechoic oval mass at 1 o'clock, 7 cm from the nipple (previously labeled as 2 o'clock) measuring 0.8 x 0.3 x 0.7 cm, not significantly changed. Similar-appearing structure at 2 o'clock 5 cm from nipple (previously labeled as 4 cm from the nipple) measuring 0.4 x 0.2 x 0 3 cm, also unchanged. Similar appearing structure 8 o'clock 6 cm from the nipple measuring 0.7 x 0.2 x 0.5 cm, unchanged. Probable complicated cyst at 8 o'clock 6 cm nipple measuring 0.8 cm, not definitely present on prior. Similar-appearing structure at 9 o'clock 4 cm from nipple measuring 0.5 x 0.3 x 0.4 cm (previously labeled as 10:00 a.m.), unchanged. Benign simple cyst at 11 o'clock. No abnormal lymph nodes in the axilla. IMPRESSION: Left breast complicated cysts are unchanged since 02/20/2024 and probably benign. Recommend six-month follow-up left breast ultrasound and bilateral diagnostic mammogram to ensure stability ASSESSMENT: BI-RADS Category 3: Probably benign.
== END 2024-08-22 23:59 | disposition home or self-care (01) ==
LOC: RAD 09:23
PROVIDERS: PCP Physician Assistant; Visit Provider Obstetrics & Gynecology
DX: R92.8 Other abnormal and inconclusive findings on diagnostic imaging of breast (principal); N63.21 Unspecified lump in the left breast, upper outer quadrant
CPT/HCPCS: 76641

== ENCOUNTER 2024-08-28 12:56 | Outpatient (POV) | payer OTHER, SELFPAY ==
--- OUTSIDE RECORDS SUMMARY | 2024-08-28 12:58 | XMS_ITS ---
Author Organization [facility] Address [address] [facility] [address] [place] [id number] Care Team Providers Care Roll Slicing Machine Tender Name Role Phone Jeremy Mcrae Primary Care Provider Concetta Ramirez Unavailable [phone] Lakshmi Rivera Unavailable [phone] ALLERGIES No Known Allergies REASON FOR VISIT Discharge [facility] [place] [facility] Encounters Encounter Location Date Provider Diagnosis [facility] [place] [facility] [address] [place] [id number] 07/17/2024 Lakshmi Rivera PLAN OF TREATMENT No Information
--- OUTSIDE RECORDS SUMMARY | 2024-08-28 12:58 | XMS_ITS ---
[facility] [address] [place] [id number] Care Team Providers Care Ribbing Machine Operator Name Role Phone Jeremy Mcrae Primary Care Provider Concetta Ramirez Unavailable [phone] Lakshmi Rivera Unavailable [phone] ALLERGIES No Known Allergies REASON FOR VISIT f/u from [facility] Encounters Encounter Location Date Provider Diagnosis [place] [address] [place] [facility] [address] [place] [id number] 05/15/2024 Lakshmi Rivera PLAN OF TREATMENT No Information
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
--- OUTSIDE RECORDS SUMMARY | 2024-08-28 12:59 | XMS_ITS ---
Author Organization [facility] Address [address] [facility] [address] [place] [id number] Care Team Providers Care Single Resource Boss Name Role Phone Jeremy Mcrae Primary Care Provider [phone] Concetta Ramirez Unavailable [phone] Lakshmi Rivera Unavailable [phone] REASON FOR VISIT Needs call back from MD MEDICATIONS Medication SIG (Take, Route, Frequency, Duration) Notes Start Date End Date Status Zanaflex 4 MG 1 tab(s) orally once daily for 30 day(s) Active Encounters Encounter Location Date Provider Diagnosis [facility] [address] [facility] [address] [place] [id number] 02/07/2024 Lakshmi Rivera PLAN OF TREATMENT Medication Medication Name Sig Start Date Stop Date Notes Zanaflex 4 MG 1 tab(s) orally once daily for 30 day(s)
--- NOTE | 2024-08-28 13:19 | A.OFFVIS_ITS ---
[facility] Disclaimer: The information contained in this section may have been updated after the patient was seen, as this information can be updated by other users. Medical History (Updated 08/06/24 @ 10:21 by Michelle Duke APRN) Insomnia Generalized anxiety disorder Cholecystectomy planned Obesity Palpitations Chest pain Surgical History History of cholecystectomy History of skin surgery H/O gastric sleeve History of Family History Other Family history of cancer Family history of hyperlipidemia Family history of hypertension Family history of myocardial infarction No significant family history Social History Smoking Status: Never smoker second hand exposure: No alcohol intake: current alcohol intake frequency: holidays/special occasions only counseling given: No substance use type: denies use counseling given: No current occupational status: employed Travel in the last 8 weeks: None adopted: No caregiver/support person: Yes foster care: No household members: children and other housing: house lives independently: Yes marital status: number of children: 4 number of grandchildren: 0 education level: high school current occupational exposures/hazards: No Hx Recent Travel: No sexually active: Yes caffeine: Yes physical activity: none working smoke detector in home: Yes fire extinguisher in home: Yes carbon monox detector in home: Yes firearms in home: Yes do you feel safe at home: Yes victim of physical abuse: No victim of emotional abuse: No victim of sexual abuse: No would you like helpful sources: No PM Subjective & Objective Subjective Subjective:: Patient is a pleasant 39-year-old female who presents today for 6-month follow- up and medication refill. Today she rates her pain a 5 out of 10. She does state from her last visit she did end up having to have an additional abdominal surgery where they removed the right side of her colon about 6 weeks ago. She does state that she is doing better since and is hoping that she will not have to have any additional surgeries. Patient does state that they are thinking that all of this is related to her gastric bypass surgery. Patient is currently managed with gabapentin 300 mg twice a day and tizanidine 4 mg twice a day. She denies any side effects from this medication. Her Bill has been reviewed and is appropriate. Review of Systems: General: No recent weight changes, no fever, no sleep disturbances Respiratory: No cough, no shortness of air, no recurring pulmonary infections Cardiovascular/peripheral vascular: No chest pain, no palpitations, no edema, no shortness of breath Gastrointestinal: No new onset incontinence, normal bowel movements reported Genitourinary: No new onset incontinence Musculoskeletal: Low back pain Psychiatric: [Normal mood/affect] Neurological: [Denies weakness in extremities], [denies balance issues] Pain at rest (0-10 scale): 5 Objective Objective:: Physical Exam: General: Alert and oriented x3, no acute distress, pleasant and cooperative Lungs: Respirations even and unlabored, symmetrical chest expansion Eyes: PERRL Musculoskeletal: Flexion and extension of lumbar [spine] somewhat guarded secondary to pain, [antalgic gait noted] Neurological: Speech clear, no gross sensory deficit Has patient had previous pain injection?: No Conservative treatment options previously tried: Home exercise plan Length of treatment: Longer than 12 weeks Meds Home Medications and Allergies Home Medications ?Medication ?Instructions ?Recorded ?Confirmed ?Type multivitamin 1 tab PO DAILY Supplement 03/08/21 08/06/24 History calcium polycarbophil 625 mg 625 mg PO TID 01/29/24 08/06/24 History tablet (Fiber-Tabs) hydroxyzine pamoate 25 mg capsule 25 mg PO TIDP PRN Anxiety 01/29/24 08/06/24 History (Vistaril) gabapentin 300 mg capsule 300 mg PO BID Pain #60 caps 02/19/24 08/06/24 Rx tizanidine 4 mg tablet 4 mg PO BIDP PRN Muscle Spasm #60 02/19/24 08/06/24 Rx tabs amantadine HCl 100 mg tablet mg PO DAILY 02/29/24 08/06/24 History ketorolac 10 mg tablet mg PO 02/29/24 08/06/24 History pantoprazole 40 mg tablet,delayed mg PO 02/29/24 08/06/24 History release potassium chloride 10 mEq meq PO DAILY 02/29/24 08/06/24 History tablet,extended release promethazine 12.5 mg tablet See Rx Instructions PO .COMPLEX 02/29/24 08/06/24 History promethazine 25 mg rectal mg MI .prn 02/29/24 08/06/24 History suppository (Promethegan) desvenlafaxine succinate 50 mg See Rx Instructions .Route 06/10/24 08/06/24 Rx tablet,extended release 24 hr .COMPLEX #30 tabs doxepin 25 mg capsule 25 mg PO QHS PRN sleep #30 caps 06/10/24 08/06/24 Rx New Prescriptions to Start Prescriptions: Allergies Allergy/AdvReac Type Severity Reaction Status Date / Time No Known Allergies Allergy Verified 08/06/24 10:20 Assessment and Plan *Assessment and plan (1) Spondylosis of lumbar spine: Status: Chronic Category: Medical Code(s): M47.816 - Spondylosis without myelopathy or radiculopathy, lumbar region (2) Degenerative disc disease: Status: Chronic Qualifiers: Spinal region: lumbar Qualified Code(s): M51.36 - Other intervertebral disc degeneration, lumbar region Category: Medical Plan We will refill the patient's gabapentin and tizanidine and provide a 6-month supply of this medication. Patient will return to clinic in 6 months for reevaluation of symptoms and plan of care. Patient has been instructed to contact the clinic with any concerns before the next appointment. Dr. Drummond has reviewed this note and agrees with this plan of care. This note was dictated using voice recognition software and make contain errors or omissions. All injections are used with Lidocaine or Bupivacaine and Depo Medrol.
[2024-08-28 14:12] VITALS: BP 135/64; PULSE 101; RESP 18; O2SAT 99; BMI 28.3
== END 2024-08-28 23:59 | disposition home or self-care (01) ==
PROVIDERS: PCP Physician Assistant; Visit Provider Nurse Practitioner Family
DX: M47.816 Spondylosis without myelopathy or radiculopathy, lumbar region (principal); M51.369 Other intervertebral disc degeneration, lumbar region without mention of lumbar back pain or lower extremity pain
CPT/HCPCS: 99212; G0463

== ENCOUNTER 2025-01-14 13:54 | Outpatient (CLI) | payer OTHER, SELFPAY ==
--- NOTE | 2025-01-14 13:55 | US_ITS ---
PROCEDURE: US TRANSVAGINAL CLINICAL INDICATION: ovarian cyst COMPARISON: CT CT ABDOMEN PELVIS W CON from 12/08/[address] ABDOMEN PELVIS W CON from 01/29/[address] ABD PEL W (IV CONT ONLY) from 01/06/2025 FINDINGS: Transvaginal sonographic images of the pelvis were obtained. UTERUS: 8.5 cm x 7.2cmx 5.6 cm retroverted with a combined endometrial thickness of 8.1mm. There is a trace of fluid at the fundus of the uterus within the endometrium. The base of the endometrium has a somewhat irregular appearance which could represent adenomyosis. There is a 0.9 cm nabothian cyst in the cervix. LEFT OVARY: 3.6 cmx2.3cmx1.6cm with a volume of 6.6ml. There are several small peripheral follicles. RIGHT OVARY: 5.2cmx 3.5cmx3.2cm with a volume of 30.5ml. There is a follicle in the right ovary that measures 2.4 cm x 1.7 cm x 2.3 cm. There is a solid area in the inferior right ovary that measures 2.3 cm x 2.7 cm x 1.8 cm. This could represent an old corpus luteum and would suggest repeat scan in 3 months. Both ovaries are seen and appear normal. Doppler flow to both ovaries are seen. There is no fluid in the cul-de-sac. IMPRESSION: 1. Retroverted uterus bulky in size. The endometrium measures 8 mm and there is trace fluid in the endometrium at the fundus of the uterus. 2. Left ovary appears normal and has a few small peripheral follicles. 3. The right ovary is slightly enlarged and within the right ovary there is a 2.4 cm follicle. There is a solid area more inferiorly in the ovary that could be an old corpus luteum. Would suggest repeat scan in 3 months. 4. No fluid in the cul-de-sac Dictated by: Ashok Arcos MD 01/14/2025 15:13 Ashok Arcos MD in [place] 01/14/2025 15:13
== END 2025-01-14 23:59 | disposition home or self-care (01) ==
LOC: RAD 13:55
PROVIDERS: PCP Physician Assistant; Visit Provider Obstetrics & Gynecology
DX: N83.201 Unspecified ovarian cyst, right side (principal)
CPT/HCPCS: 76830

== ENCOUNTER 2025-01-15 15:38 | Outpatient (CLI) | payer OTHER, SELFPAY ==
[2025-01-20 10:46] LABS: Miscellaneous Test SCANNED IMAGE
== END 2025-01-15 23:59 | disposition home or self-care (01) ==
LOC: LAB 15:39
PROVIDERS: PCP Physician Assistant; Visit Provider Obstetrics & Gynecology
DX: N83.209 Unspecified ovarian cyst, unspecified side (principal)
CPT/HCPCS: 36415; 81500

== ENCOUNTER 2025-02-19 09:57 | Outpatient (CLI) | payer OTHER, SELFPAY ==
--- NOTE | 2025-02-19 09:58 | US_ITS ---
PROCEDURE INFORMATION: Exam: US Left Breast, Complete MG Bilateral Diagnostic Breast Tomosynthesis Exam date and time: 02/19/2025 10:31 AM Age: 39 years old Clinical indication: Follow-up probably benign findings in the left breast. Due for annual mammogram. TECHNIQUE: Imaging protocol: Complete ultrasound of all four quadrants of the left breast and the retroareolar regions, including ultrasound of the axilla when performed. Bilateral Diagnostic tomosynthesis and 2D mammography including computer-aided detection (CAD) when performed. Unilateral or bilateral exam. COMPARISON: US BREAST LT COMPLETE 08/22/2024 9:51 AM FINDINGS: MAMMOGRAPHY: Breast composition: There are scattered areas of fibroglandular density. Breast mammogram findings: No stellate mass, architectural distortion, or suspicious microcalcifications to suggest malignancy. No skin thickening or axillary adenopathy. No dominant or suspicious mass in the left breast. ULTRASOUND: Breast ultrasound findings: Scanning of the left breast is performed. There are scattered subcentimeter benign appearing cysts throughout the left breast, measuring to 0.9 cm. There is no suspicious mass, shadowing, distortion. No axillary adenopathy. IMPRESSION: 1. The left breast demonstrates benign cysts. No further imaging follow-up for the ultrasound findings is considered necessary. 2. No mammographic evidence of malignancy. 3. Annual bilateral mammographic screening is recommended unless otherwise clinically indicated. ASSESSMENT: BI-RADS Category 2: Benign.
== END 2025-02-19 23:59 | disposition home or self-care (01) ==
LOC: RAD 09:58
PROVIDERS: PCP Physician Assistant; Visit Provider Obstetrics & Gynecology
DX: R92.8 Other abnormal and inconclusive findings on diagnostic imaging of breast (principal)
CPT/HCPCS: 76641; 77062; 77066; G0279

== ENCOUNTER 2025-02-20 11:00 | Outpatient (CLI) | payer OTHER, SELFPAY ==
--- NOTE | 2025-02-20 | CA_ITS ---
APPROVED REPORT Exam: Exercise Treadmill Technologist: Dona Reynoso Ht: 5 ft 2 in Wt: 206 lbs BSA: 1.94 m2 Rhythm: NSR Medical History Medications: amantadine HCI, abilify, rexulti, fiber tabs, pristiq, doxepin, famotidine, gabapentin, hydroxyzine, sprintec, pantoprazole, potassium, promethazine, senna, tizanidine, trazodone, voquezna Stress Test Details Test: Exercise stress testing was performed using a Simón protocol. HR Resting HR: 61 bpm Max Heart Rate (APMHR): 179 bpm Max HR Achieved: 158 bpm Target HR (85% APMHR): 152 bpm % of APMHR: 88 Recovery HR: 92 bpm HR response to stress: Abnormal HR response to stress BP Resting BP: 141.0/81.0 mmHg Max BP: 192.0/100.0 mmHg Recovery BP: 138.0/68.0 mmHg BP response to stress: Normal blood pressure response to stress. ECG Resting ECG: NSR Stress EC.[address] depression Clinical Exercise duration: 7.28 min Highest Stage Achieved: III Exercise capacity: 10.3 METs Overall Exercise Capacity for Age: Average Stress ECG Conclusion Test stopped due to: target achieved. Symptoms: SOA. Fatigue. Arrhythmias/Ectpy: Occasional PVCs. ST-T Changes: 0.[address] depression Conclusion: Average exercise capacity. No evidence of ischemia at peak stress on ECG. Myoview images are reported separately. Electronically signed by : Bing Espinoza MD 02/23/2025 21:58:15
--- NOTE | 2025-02-20 | CA_ITS ---
APPROVED REPORT EXAM: Comprehensive 2D, Doppler, and color-flow Echocardiogram Echo Vascular Technologist: Yanelis Laureano CRT Ht: 5 ft 2 in Wt: 206lbs BSA: 1.94 BP: 136/81 mmHg Indications: Abnormal ECG, Chest Pain, Palpitations, Pre-Op BARIATRIC 2D Dimensions LA Volume 48.90 mL LA Volume Index 24.70 mL/m2 (M/F) 16-34 M-Mode Dimensions RVDd 2.37 cm (0.9-2.6) LA Diam 3.45 cm (1.9-4.0) LVDd 4.33 cm (3.5-5.7) LVDs 3.07 cm (3.5-5.7) IVSd 1.26 cm (0.6-1.1) PWd 0.83 cm (0.6-1.1) EF (Teich) 56.20% FS 29.10% EDV (Teich) 84.40 mL TAPSE 2.40 (<1.7) ESV (Teich) 37.00 mL LV Diastology E Decel Time 150 (160-240 msec) E/A Ratio 0.96 MED A' 13.80 cm/s LAT A' 16.30 cm/s Aortic Valve AO Peak GR. 7.00 mmHg Mitral Valve MV E Max Chris. 94.0 (40-130 cm/s) MV A Velocity 98.0 (40-130 cm/s) E/A Ratio 0.96 MV PHT 44.0 ms Pulmonary Valve PV Peak Velocity 130.0 (50-150 cm/s) Tricuspid Valve TR P. Velocity 131.00 cm/s RAP Estimate 10.00 mmHg RVSP 16.90 mmHg Left Ventricle The left ventricle is normal size. The left ventricular systolic function is normal. The left ventricular ejection fraction is within the normal range. There is normal left ventricular wall thickness. There is normal LV segmental wall motion. The left ventricular diastolic function is normal. LVEF is 55%. Right Ventricle The right ventricle is normal size. The right ventricular systolic function is normal. Atria The left atrium size is normal. The right atrium size is normal. There is no Doppler evidence of interatrial shunt. Aortic Valve The aortic valve opens well. There is no aortic valvular stenosis. No aortic regurgitation is present. Mitral Valve The mitral valve is normal in structure. No evidence of mitral valve stenosis. Trace mitral regurgitation. Tricuspid Valve Tricuspid valve is grossly normal in structure and function. Trace tricuspid regurgitation. There is insufficient TR jet to estimate RVSP. Pulmonic Valve The pulmonary valve is normal in structure. Trace pulmonic regurgitation. Great Vessels The aortic root is normal in size. IVC is normal in size and collapses >50% with inspiration. Pericardium There is no pericardial effusion. Other Information Study Quality: Adequate Conclusion Normal biventricular systolic function. No significant valvular stenosis or regurgitation. Electronically signed by : Bing Espinoza MD 02/21/2025 00:05:48
--- NOTE | 2025-02-20 12:00 | NM_ITS ---
APPROVED REPORT Exam: Nuclear Stress Test Indication: Abnormal EKG, Family history, Pre-op Patient Location: Outpatient Stress Tech: Dona CHOW Tech:Alivia Zamarripa ALEJANDRA RT(R)(N) Ht: 5 ft 2 in Wt: 200 lbs Bra Size: DD HR: 62 bpm BP: 141/81 mmHg BSA: 1.91 m2 TID: 1.16 BMI: 36.5 History: Abnormal EKG, Family history, Pre-op Procedure: Patient exercised on Simón protocol 7:28 minutes and sec, resting heart rate 62 bpm, resting blood pressure 141/81 mmHg, with exercise maximum heart rate achived was 158 bpm which is 88 % of the maximum predicted heart rate and blood pressure was 192/100 mmHg. Test was stopped due to SOB. Patient denied any complaint of chest pain. Patient has average exercise capacity, achieved 10.3 METs of workload on treadmill, the blood pressure response to exercise was normal. Cardiac Stress and Resting SPECT Images: Cardiac Stress and Resting SPECT images were obtained using technetium 99m Myoview 32.8 mCi stress and 10.84 mCi at rest. Raw images demonstrate significant soft tissue overlap with the cardiac borders. This may affect diagnostic interpretation of the study findings. Technically difficult study. Resting and stress imaging in supine and prone positions demonstrate no evidence of fixed or reversible perfusion defects. Gated imaging demonstrates normal global and regional LV systolic function. LVEF is calculated at 60%. Conclusion: Technically difficult study. Diaphragmatic attenuation is present. No evidence of fixed or reversible perfusion defects. Gated imaging demonstrates normal global and regional LV systolic function. LVEF is calculated at 60%. Electronically signed by : Bing Espinoza MD 02/21/2025 00:19:27
[2025-02-20] MEDS: ISOTOPE MYOVIEW (PER STUDY) 1 DOSE IV (13:34)
[2025-02-20] MEDS: SODIUM CHLORIDE 0.9% 10ML SYR (RAD ONLY) 10 ML IV ×2 (13:34)
== END 2025-02-20 23:59 | disposition home or self-care (01) ==
LOC: RT 11:00
PROVIDERS: PCP Physician Assistant; Visit Provider Physician Assistant
DX: Z01.810 Encounter for preprocedural cardiovascular examination (principal); R00.2 Palpitations; R94.31 Abnormal electrocardiogram [ECG] [EKG]
CPT/HCPCS: 78452; 93017; 93018; 93306; A9502

== ENCOUNTER 2025-03-24 10:22 | Outpatient (POV) | payer OTHER, SELFPAY ==
--- NOTE | 2025-03-24 10:30 | A.OFFVIS_ITS ---
[facility] Disclaimer: The information contained in this section may have been updated after the patient was seen, as this information can be updated by other users. Medical History Encounter for pre-operative cardiovascular clearance Insomnia Generalized anxiety disorder Cholecystectomy planned Obesity Palpitations Chest pain Surgical History History of cholecystectomy 2014 History of skin surgery skin removal surgery from gastric sleeve H/O gastric sleeve History of Family History Other Family history of cancer Family history of hyperlipidemia Family history of hypertension Family history of myocardial infarction No significant family history Social History Smoking Status: Never smoker second hand exposure: No alcohol intake: current alcohol intake frequency: holidays/special occasions o nly counseling given: No substance use type: denies use counseling given: No current occupational status: other Travel in the last 8 weeks?: None adopted: No caregiver/support person: Yes foster care: No household members: children and other housing: house lives independently: Yes marital status: number of children: 4 number of grandchildren: 0 education level: high school current occupational exposures/hazards: No Hx Recent Travel: No sexually active: Yes caffeine: Yes physical activity: none working smoke detector in home: Yes fire extinguisher in home: Yes carbon monox detector in home: Yes firearms in home: Yes do you feel safe at home: Yes victim of physical abuse: No victim of emotional abuse: No victim of sexual abuse: No would you like helpful sources: No PM Subjective & Objective Subjective Subjective:: Patient is a pleasant 39-year-old female who presents today for 6-month refill. She rates her pain today at 3 out of 10. She denies any new changes from her last appointment. She is doing well with her gabapentin 300 mg twice a day and tizanidine 4 mg twice a day. She denies any side effects or any changes to her pharmacy. Her Bill has been reviewed and is appropriate. Review of Systems: General: No recent weight changes, no fever, no sleep disturbances Respiratory: No cough, no shortness of air, no recurring pulmonary infections Cardiovascular/peripheral vascular: No chest pain, no palpitations, no edema, no shortness of breath Gastrointestinal: No new onset incontinence, normal bowel movements reported Genitourinary: No new onset incontinence Musculoskeletal: Low back pain Psychiatric: [Normal mood/affect] Neurological: [Denies weakness in extremities], [denies balance issues] Pain at rest (0-10 scale): 3 Objective Objective:: Physical Exam: General: Alert and oriented x3, no acute distress, pleasant and cooperative Lungs: Respirations even and unlabored, symmetrical chest expansion Eyes: PERRL Musculoskeletal: Flexion and extension of lumbar [spine] within normal limits Neurological: Speech clear, no gross sensory deficit Has patient had previous pain injection?: No Conservative treatment options previously tried: Prescription medications Length of treatment: Longer than 12 weeks Meds Home Medications and Allergies Home Medications ?Medication ?Instructions ?Recorded ?Confirmed ?Type multivitamin 1 tab PO DAILY Supplement 03/08/21 03/03/25 History calcium polycarbophil 625 mg 625 mg PO TID 01/29/24 03/03/25 History tablet (Fiber-Tabs) amantadine HCl 100 mg tablet 100 mg PO DAILY 02/29/24 03/03/25 History pantoprazole 40 mg tablet,delayed 40 mg PO DAILY 02/29/24 03/03/25 History release potassium chloride 10 mEq 10 meq PO DAILY 02/29/24 03/03/25 History tablet,extended release promethazine 12.5 mg tablet See Rx Instructions PO .COMPLEX 02/29/24 03/03/25 History gabapentin 300 mg capsule 300 mg PO BID Pain #60 caps 08/28/24 03/03/25 Rx tizanidine 4 mg tablet 4 mg PO BIDP PRN Muscle Spasm #60 08/28/24 03/03/25 Rx tabs famotidine 20 mg tablet mg PO 01/09/25 03/03/25 History norgestimate 0.25 mg-ethinyl 1 tab PO DAILY #84 tabs 01/17/25 03/03/25 Rx estradiol 0.035 mg tablet (Sprintec (28)) sennosides 8.6 mg tablet (senna) mg PO 01/17/25 03/03/25 History vonoprazan 20 mg tablet (Voquezna) mg PO 01/17/25 03/03/25 History desvenlafaxine succinate 50 mg 100 mg (2 x 50 mg) PO DAILY #30 02/04/25 03/03/25 Rx tablet,extended release 24 hr tabs trazodone 50 mg tablet See Rx Instructions PO HS PRN 02/04/25 03/03/25 Rx insomnia #60 tabs hydroxyzine pamoate 25 mg capsule 25 mg PO TID PRN anxiety #30 caps 02/20/25 03/03/25 Rx brexpiprazole 2 mg tablet 2 mg PO DAILY #30 tabs 03/03/25 03/03/25 Rx New Prescriptions to Start Prescriptions: Allergies Allergy/AdvReac Type Severity Reaction Status Date / Time No Known Allergies Allergy Verified 03/03/25 14:14 Assessment and Plan *Assessment and plan (1) Degenerative disc disease: Status: Chronic Qualifiers: Spinal region: lumbar Qualified Code(s): M51.36 - Other intervertebral disc degeneration, lumbar region Category: Medical (2) Spondylosis of lumbar spine: Status: Chronic Category: Medical Code(s): M47.816 - Spondylosis without myelopathy or radiculopathy, lumbar region Plan Patient is still doing well with her current medication regimen. I will refill the patient's gabapentin and tizanidine and provide a 6-month supply of these medications. Patient will return to clinic in 6 months for reevaluation of symptoms and plan of care. Patient has been instructed to contact the clinic with any concerns before the next appointment. Dr. Drummond has reviewed this note and agrees with this plan of care. This note was dictated using voice recognition software and make contain errors or omissions. All injections are used with Lidocaine, Bupivacaine and dexamethasone. Occasionally urine drug screen is needed to verify patient's compliance with our office pain contract. This is ordered based off specific treatments related to chronic pain with the potential to abuse certain medications.
[2025-03-24 11:27] VITALS: BP 126/76; PULSE 98; RESP 18; O2SAT 100; BMI 36.6
== END 2025-03-24 23:59 | disposition home or self-care (01) ==
PROVIDERS: PCP Physician Assistant; Visit Provider Nurse Practitioner Family
DX: M51.369 Other intervertebral disc degeneration, lumbar region without mention of lumbar back pain or lower extremity pain (principal); M47.816 Spondylosis without myelopathy or radiculopathy, lumbar region
CPT/HCPCS: 99212; G0463

== ENCOUNTER 2025-04-14 08:41 | Outpatient (CLI) | payer OTHER, SELFPAY ==
--- OUTSIDE RECORDS SUMMARY | 2025-04-14 08:44 | XMS_ITS | Continuity of Care Document ---
Author Organization [facility] Address [address] [place] [address] Care Team Providers Care Pickling Machine Operator Name Role Phone JEFE KILLIAN Primary Care Provider Assessment No assessment recorded. Plan of Treatment Reminders Order Date Submit Date Provider Last Modified By Organization Details Last Modified Time Details Appointments OV EST 20 2024 01:00P M REESE ORTE[address] RD Not available Not available Not available SURGERY 15 2024 11:30A M MINE CEVALLOS MD Not available Not available Not available OV EST 20 2024 01:20P M RINKU MARTIN NP Not available Not available Not available Lab prealbumi n, serum 2024 025 [id number] [facility], [address], [address], [place], [address], 04/11/2025 09:54:33 zinc, serum or plasma 2024 025 [email or web address] [facility], [address], [address], [place], [address], 04/11/2025 09:54:32 folate, serum 2024 025 [email or web address] [facility], [address], [address], [place], [address], 04/11/2025 09:54:32 thiamine, QN, blood 2024 025 [id number] [facility], [address], [address], [place], [address], 04/11/2025 09:54:33 methylmal becky, QN, serum or plasma 2024 025 [email or web address] [facility], [address], [address], [place], [address], 04/11/2025 09:54:33 lipid panel, serum 2024 025 [email or web address] [facility], [address], [address], [place], [address], 04/11/2025 09:54:33 copper, serum or plasma 2024 025 [email or web address] [facility], [address], [address], [place], [address], 04/11/2025 09:54:33 selenium, quantitat hazel, blood 2024 025 [email or web address] [facility], [address], [address], [place], [address], 04/11/2025 09:54:33 CBC w/ auto diff 2024 025 [id number] [facility], [address], [address], [place], [address], 04/11/2025 09:54:33 CMP, serum or plasma 2024 025 [id number] [facility], [address], [address], [place], [address], 04/11/2025 09:54:33 HbA1c (hemoglob in A1c), blood 2024 025 [id number] [facility], [address], [address], [place], [address], 04/11/2025 09:54:33 iron + TIBC + ferritin, serum 2024 025 [id number] [facility], [address], [address], [place], [address], 04/11/2025 09:54:33 vitamin D, 25-hydrox y, total, serum 2024 025 [email or web address] [facility], [address], [address], [place], [address], 04/11/2025 09:54:33 vitamin E, serum 2024 025 [email or web address] [facility], [address], [address], [place], [address], 04/11/2025 09:54:33 vitamin A (retinol) , serum 2024 025 [email or web address] [facility], [address], [address], [place], [address], 04/11/2025 09:54:33 TSH + free T4, serum 2024 025 [email or web address] [facility], [address], [address], [place], [address], 04/11/2025 09:54:33 Referral None recorded. Procedures None recorded. Surgeries esophagog astroduod enoscopy (SURG) 2024 025 [email or web address] Mine Cevallos MD, [address], [address], [place], [address], 04/11/2025 13:43:08 Imaging None recorded. Medication Orders hyoscyami ne 0.125 mg sublingua l tablet 2024 025 [email or web address] [facility] [id number], [address] [place] [address], [address], 04/11/2025 09:54:33 cyanocoba scott (vit B-12) 1,000 mcg/mL injection solution 2024 025 [email or web address] 17 Not available 04/11/2025 10:17:30 thiamine HCl (vitamin B1) 100 mg/mL injection solution 2024 025 [email or web address] 17 Not available 04/11/2025 10:18:43 Patient TargetsNo targets recorded. Patient InstructionsNo instructions recorded. Reason for Referral None Reported. Problems Name Problem SNOMED Code Status Onset Date Resolution Date Notes Provider Name and Address Organization Details Recorded Time History of sleeve gastrectom y [id number] 07 Active 2024 MAK MARTIN NP [address] , [place], [address] , [facility] - [facility] & [place] 5 14:53:38 Duodenal switch Active 2024 MAK MARTIN NP [address] , [place], [address] , [place] - [facility] & [place] 5 14:54:07 Gastro-eso phageal reflux disease with esophagiti s 161502884 Active 2024 MAK MARTIN NP [address], [place], [address] , [place] - [facility] & [place] 5 12:05:24 History of gastrointe stinal tract bypass 844625396 Active 2024 MAK MARTIN NP [address], [place], [address] , [place] - [facility] & [place] 5 12:34:58 Local infection of wound 12782181 Active 2024 Diogo Shaikh, DNP, [employer], [employer]-[facility] [address] , [place], [address] , [place] - [facility] & [place] 5 08:40:31 Wound pain 177750393 Active 2024 Diogo Shaikh, FELICIA, [employer], [employer]-[facility] [address], [place], [address] , [place] - [facility] - [place] & [place] 5 08:50:47 Morbid obesity 863854846 Active 2024 Diogo Shaikh DNP, [employer], [employer]-[facility] [address], [place], [address] , [place] - [facility] - [place] & [place] 5 08:58:20 Problem Notes None recorded. Procedures Surgical History Date Name Laterality Status Provider Name and Address Organization Details Recorded Time 2024 bypass of stomach completed Susan Patrick [place] - [facility] - [place] & [place] 5 08:31:27 2024 ESOPHAGOGASTRODUODENOSCOPY (EGD) WITH VAZQUEZ (SURG) completed Milly Mccain [place] - [facility] - [place] & [place] 5 13:56:45 2023 completed Wally Sharp-Bec g[place]elle [place] - [facility] - [place] & [place] 5 14:40:42 2023 Date of Last Pap Smear completed Wally Sharp-Bec g[place]elle [place] - [facility] - [place] & [place] 5 14:40:42 2023 Date of Last Colonoscopy completed Wally Sharp-B[place] g[place] - [facility] - [place] & [place] 5 14:40:42 2023 Most Recent Bone Density completed Wally Sharp-Bec g[place] - [facility] - [place] & [place] 5 14:40:42 2023 EGD completed Wally Sharp-[place] - [facility] - [place] & [place] 5 14:40:28 2023 Colonoscopy completed Wally Sharp-[place] g[place] - [facility] - [place] & [place] 5 14:40:28 2023 Abdominal Surgery completed Wally Sharp-[place] - [facility] - [place] & [place] 5 14:41:37 2020 Appendectomy completed Wally Boggs-Bec g[place]elle [place] - [facility] - [place] & [place] 5 14:40:28 1987 Tonsillectomy/Adenoidectomy completed Al Boggs-Bec giselle [place] - [facility] - [place] & [place] 5 14:40:28 partial resection of colon completed Susan TUR[place] - [facility] & [place] 5 08:17:21 procedure on intestine completed Ra roly TUR[place] - [facility] - [place] & [place] 5 08:17:57 Imaging Results None recorded. Procedure Notes None recorded. Medical Equipment None Reported. Allergies No known drug allergies Medications Name Sig Start Date Stop Date Status Note LastModified by Organization Details LastModified Time amantadine HCl 100 mg tablet 11/12 completed Not Available Not Available Not Available trazodone 50 mg tablet TAKE 1 TO 2 TABLETS BY MOUTH AT BEDTIME NEEDED FOR INSOMNIA active Not Available Not Available No t Available tizanidine 4 mg tablet TAKE 1 TABLET BY MOUTH 2 TIMES A DAY NEEDED FOR MUSCLE SPASMS active Not Available Not Available No t Available doxepin 25 mg capsule TAKE 2 CAPSULES BY MOUTH AT BEDTIME 03/04 completed Not Available Not Available Not Available hydrocodone 5 mg-acetamin ophen 325 mg tablet Take 1 tablet every 8 hours by oral route for 2 days, for severe pain. 04/11 completed Not Available Not Available Not Available senna 8.6 mg tablet Take 2 tablets twice a day by oral route for 7 days. 03/04 completed Not Available Not Available Not Available sucralfate 1 gram tablet 11/12 completed Not Available Not Available Not Available promethazin e 12.5 mg tablet 11/12 completed Not Available Not Available Not Available potassium chloride ER 10 mEq tablet,exte nded release 11/12 completed Not Available Not Available Not Available metronidazo le 500 mg tablet 11/12 completed Not Available Not Available Not Available Cholestyram ine Light 4 gram powder for suspension in a packet 11/12 completed Not Available Not Available Not Available levothyroxi ne 25 mcg tablet TAKE 1 TABLET BY MOUTH EVERY MORNING ON AN EMPTY STOMACH 04/11 completed Not Available Not Available Not Available ketorolac 10 mg tablet 11/12 completed Not Available Not Available Not Available oxycodone-a cetaminophe n 5 mg-325 mg tablet 11/12 completed Not Available Not Available Not Available thiamine HCl (vitamin B1) 100 mg/mL injection solution Take 200 mg by injection route. 2024 active Not Available Not Available Not Avai lable famotidine 20 mg tablet TAKE ONE TABLET BY MOUTH 2 TIMES A DAY NEEDED FOR HEARTBURN 04/11 completed Not Available Not Available Not Available pantoprazol e 40 mg tablet,aleyda yed release TAKE ONE TABLET BY MOUTH 2 TIMES A DAY 03/04 completed Not Available Not Available Not Available cyanocobala min (vit B-12) 1,000 mcg/mL injection solution Inject 1 mL every month by subcutane ous route. 2024 active Not Available Not Available Not Avai lable oseltamivir 75 mg capsule TAKE 1 CAPSULE BY MOUTH TWICE DAILY FOR 5 DAYS 03/05 completed Not Available Not Available Not Available hyoscyamine 0.[address] 0.125 mg every 6-8 hours by sublingua l route as needed, for esophagea l spasm. 2024 active Not Available Not Available Not Avai lable gabapentin 300 mg capsule TAKE 1 CAPSULE BY MOUTH ONCE A DAY FOR pain active Not Available Not Available No t Available mupirocin 2 % topical ointment APPLY A SMALL AMOUNT TO THE AFFECTED AREA BY TOPICAL ROUTE 3 TIMES PER DAY 2024 active Not Available Not Available Not Avai lable ergocalcife rol (vitamin D2) 1,250 mcg (50,000 unit) capsule TAKE 1 CAPSULE BY MOUTH ONCE WEEKLY 04/11 completed Not Available Not Available Not Available Promethegan 25 mg rectal suppository 11/12 completed Not Available Not Available Not Available cefuroxime axetil 500 mg tablet 11/12 completed Not Available Not Available Not Available neomycin 500 mg tablet 11/12 completed Not Available Not Available Not Available celecoxib 100 mg capsule TAKE 1 CAPSULE BY MOUTH TWICE DAILY FOR 7 DAYS 04/11 completed Not Available Not Available Not Available ondansetron 4 mg disintegrat ing tablet active Not Available Not Available N ot Available Fiber-Tabs 625 mg tablet 04/11 completed Not Available Not Available Not Available diazepam 5 mg tablet 11/12 completed Not Available Not Available Not Available metoclopram erich 10 mg tablet TAKE 1 TABLET BY MOUTH EVERY 6 HOURS NEEDED FOR NAUSEA OR VOMITING 11/12 completed Not Available Not Available Not Available oxycodone 5 mg tablet 11/12 completed Not Available Not Available Not Available hydroxyzine pamoate 25 mg capsule TAKE 1 CAPSULE BY MOUTH THREE TIMES DAILY NEEDED FOR ANXIETY active Not Available Not Available No t Available aripiprazol e 5 mg tablet TAKE ONE TABLET BY MOUTH AT BEDTIME 04/11 completed Not Available Not Available Not Available vitamin K 04/11 completed Not Available Not Available Not Available vitamin A 04/11 completed Not Available Not Available Not Available vitamin E 04/11 completed Not Available Not Available Not Available iron 04/11 completed Not Available Not Available Not Available Vitamin D3 active Not Available Not Av ailable Not Available multivitami n active Not Available Not Available Not Available cholecalcif kemar (vitamin D3) 1,250 mcg (50,000 unit) capsule Take 1 capsule every week by oral route. 04/11 completed Not Available Not Available Not Available desvenlafax ine succinate ER 50 mg tablet,exte nded release 24 hr 03/05 completed Not Available Not Available Not Available desvenlafax ine succinate ER 100 mg tablet,exte nded release 24 hr TAKE 1 TABLET BY MOUTH EVERY DAY active Not Available Not Available No t Available menthol 0.44 %-zinc oxide 20.6 % topical ointment 11/12 completed Not Available Not Available Not Available calcium 1,000 mg (as carbonate)- vitamin D3 20 mcg (800 unit) tablet active Not Available Not Available Not Available Fiber (calcium polycarboph il) 12/20 completed Not Available Not Available Not Available Estarylla 0.25 mg-0.035 mg tablet 03/04 completed Not Available Not Available Not Available Rexulti 1 mg tablet TAKE 1 TABLET BY MOUTH ONCE A DAY 03/17 completed Not Available Not Available Not Available Rexulti 2 mg tablet TAKE 1 TABLET BY MOUTH ONCE A DAY active Not Available Not Available No t Available Vraylar 1.5 mg capsule 11/12 completed Not Available Not Available Not Available psyllium husk 0.4 gram capsule TAKE 3 CAPSULES BY MOUTH ONCE A DAY 03/04 completed Not Available Not Available Not Available vitamin B12 1,000 mcg-folic acid 400 mcg sublingual lozenge 04/11 completed Not Available Not Available Not Available Voquezna 20 mg tablet TAKE ONE TABLET BY MOUTH ONCE A DAY active Not Available Not Available No t Available Vitals Date Recorded Body height Body temperature Body mass index (BMI) Body weight Heart rate Systolic blood pressure Diastolic blood pressure Provider Name and Address Organization Details Last Updated DateTime 157.48 cm 97.5 [degF] 36.3 kg/m2 05102.4 4 g 70 /min 109 mm[Hg] 69 mm[Hg] Susan Patrick [facility] & [place] 09:25:12 Social History Question Answer Notes LastModified by [employer] Details LastModified Time Tobacco Smoking Status Former Smoker Wally Calvillo [facility], [facility] & [place] 11/12/2024 14:40:35 Do You Have An Advance Directive? No Information not available 11/12/2024 Are You Blind Or Do You Have Difficulty Seeing? No Information not available 11/12/2024 What Is Your Level Of Caffeine Consumption? Occasional [email or web address] Information not available 03/05/2025 What Was The Date Of Your Most Recent Tobacco Screening? 11/12/2024 Information not available 11/12/2024 Are You Passively Exposed To Smoke? No Information not available 11/12/2024 How Much Tobacco Do You Smoke? No Information not available 11/12/2024 Sex: Unknown Functional Status Question Answer Note LastModified by Organizat ion Details LastModified Time Do you use any illicit or recreational drugs? No Information not available 11/12/2024 What is your level of alcohol consumption? Occasional Information not available 11/12/2024 Do you or have you ever used smokeless tobacco? Never used smokeless tobacco Information not available 11/12/2024 What is your exercise level? Occasional Information not available 11/12/2024 Mental Status Question Answer Note LastModified by Organization D etails LastModified Time Do you feel stressed (tense, restless, nervous, or anxious, or unable to sleep at night)? [id number] Information not available 11/12/2024 Family History Relationship Description Onset Age of this Age Resolved Age Notes LastModified by Organization Details LastModified Time Father Disorder of endocrine system pt. added direct ly (11/12) [email or web address] Not available 11/12/2024 12:06:47 Maternal Grandfather Myocardial infarction pt. added direct ly (11/12) [email or web address] Not available 11/12/2024 12:06:55 Paternal Grandmother Myocardial infarction pt. added direct ly (11/12) [email or web address] Not available 11/12/2024 12:07:11 Maternal Grandmother Myocardial infarction pt. added direct ly (11/12) [email or web address] Not available 11/12/2024 12:07:11 Mother Hypercholest erolemia pt. added direct ly (11/12) [email or web address] Not available 11/12/2024 12:07:19 Mother Hypertensive disorder pt. added direct ly (11/12) [email or web address] Not available 11/12/2024 12:07:38 Mother Disorder of thyroid gland pt. added direct ly (11/12) [email or web address] Not available 11/12/2024 12:07:54 Medical History Condition Response Depression Y Anemia Y Anxiety Disorder Y Reflux/GERD Y Gynecological History Statement/Question Response Abnormal Pap N 02/05/2024 Flow Moderate Date of LMP 11/10/2024 Duration of Flow (days) 4 Current Control Method Tubal Ligat ion Date of Last Colonoscopy 12/07/2023 Most Recent Bone Density 11/06/2023 Sexually Active? Y Menses Monthly Y Date of Last Pap Smear 02/05/2024 Obstetrics History GPAL:G 0 P 0 0 0 0 Past Encounters Encounter ID Performer Location Encounter Start Date Encounter Closed Date Diagnosis/Indication Diagnosis SNOMED-CT Code Diagnosis ICD10 Code Diagnosis Note [id number] Diogo Shaikh, DNP, [employer], [employer] [facility] [address] [facility] [facility] [address] [place] [address] 03/17/2025 08:23:57 03/17/2025 11:25:12 Local infection of wound 68945154 T14.8XXA L08.9 Patient was reassured. We discussed keeping area clean dry. She may use gold dial soap to the site itself. Notify staff with any worsening symptoms. She is to keep her 1 week follow up appointmen t tomorrow. Encouraged her to wash hands well and avoid touching side if at all possible. Wound pain 345807460 L76 .82 Morbid obesity 316574071 E66.01 [id number] [facility] [address] [place] [address] [address] [place] [address] 03/18/2025 07:58:15 03/18/2025 11:07:15 History of gastrectomy 522402066 Z90.3 Local infe ction of wound 95572914 T14.8XXA L08.9 Wound infection appears to be improving overall. Patient to contact our office for any further signs or symptoms of infection, including chills, nausea, vomiting, or fever. [id number] MAK MARTIN NP [facility] n [facility] [address] [place] [address] [address] [place] [address] 04/11/2025 09:11:32 04/11/2025 10:41:50 Intentional weight loss 157596779 R63.8 History of gastrectomy 989747847 Z90.3 We discussed diet and the importance of adequate protein. Encouraged patient to continue focus on adequate protein/ca lories/hyd ration. Patient is to see dietitian today for typical 1 month postoperat hazel dietary support.Co ntinue PPI and vitamins.E ncouraged routine exercise. Advised exercising such that maintain target HR x 20 min 3dy/wkFoll ow-up 2 months At [facility] risk of nutritional deficit 546386875 Z91.89 Esophageal dysphagia 408 49378 R13.19 Patient is suffering from painful swallowing and foods getting stuck . Patient is currently only one month out from surgery. Patient was encouraged to continue solid foods, but avoid denser meats for the next week and retry them again. If she continues to suffer from these symptoms, we will proceed forward with EGD to rule out any strictures /structura l concerns. Patient is to have upper endoscopy. All risk, complicati on, alternativ es discussed w/ pt. These include but are not limited to over sedation bleeding perforatio n. Pt has had opportunit y to voice all questions and agrees to proceed with EGD For now, patient will be started on Levsin PRN to help with swallowing and esophageal spasm. Fatigue 63021836 R53.83 Health Concerns Section Related Observation LastModified by Organization Detai ls LastModified Time None Recorded Concern Status LastModified by Organization Details LastModified Time None Recorded Payers Encounter Date Sequence Insurance Name Policy Number Policy Neumann Covered Member ID Neumann Member ID Guarantor Name 04/11/2025 1 [facility] (MEDICAID HMO) Kimberly Smart [id number] Kimberly Smart Notes Date Note Type Note Provider Name and Address Organization Details Recorded Time 04/11/2025 text/html Patient is a 39y o female, who presents the office today for one-month follow-up status post bariatric surgery. Patient doing well. Reports q.i.d. small meal intake. Reports less than 50g/dy protein intake and at least 64oz PO fluid daily. Daily Calories around 500. Patient reports she eats breakfast daily, but by lunch she is so nauseaous and dry heaving and she cannot tolerate any other meals for the day. She has tried tuna and chicken, which she states get stuck going down her esophagus.Taking routine vitamins as advised.Heartburn/mary lou roesophageal reflux: Denies. Patient remains on Voquezna.Pt Denies : abdominal pain, bowel or bladder issues. Patient is frequently having nausea and vomiting. She is even dry heaving at times.Total Weight loss 16lbs since MD jeffers visit on 03/05/2025 @1week03/18/2025: Patient presents for 1wk Post-Op Check s/p Nichole-en-Y gastrojejunostomy Robotic assisted revision from previous duodenal switch to Nichole-en-Y gastric bypass with repair of hiatal hernia andresection of small bowel on 03/10/2025. Patient is doing well. Tolerating PO intake w/out issue. Getting 70-80g/dy protein. Pt reports 64oz PO fluid daily. Taking recommended vitamins and PPI.Pt Denies : abdominal pain, prandial issues Nausea, Vomiting, bowel or bladder issuesPath benignPt is happy with their quality of life after Weight loss Surgery. Patient was seen in office yesterday for postop wound infection (see note below). Patient continues to have moderate pain and is taking medication for this, which is helping. She has also started on Bactrim and states she is feeling better today than yesterday. She is also afebrile. @ Acute OV on 03/17/2025: Patient presents for 1wk Post-Op Check s/p Bariatric surgery. Patient had a gastric Nichole-en-Y gastrojejunostomy Robotic assisted revision from previous duodenal switch to Nichole-en-Y gastric bypass with repair of hiatal hernia and resection of small bowel performed on 2024 .Today patient is on post-operative day # 7. Patient is doing well, but did start having incisional pain yesterday afternoon. Had a low grade temp of 99.0. She actually called compensation consultant service yesterday afternoon with c/o pain at incision site, . While in office lobby, site started draining fluid with an odor. Tolerating PO intake w/out issue. Getting 70g/day protein. Pt reports good hydration. Is consuming 64 oz of water a day.Taking recommended vitamins and PPI.Pt Denies : abdominal pain, prandial issues Nausea, Vomiting, bowel or bladder issuesTotal Weight loss 9 pounds.Patient has not seen PCP since surgery.Patient is happy with their quality of life after Weight loss Surgery. LIS MARTIN, SUE [address] , [place], [address], [facility] - [place] & [place] 04/11/2025 10:11:32 OBGyn Episode No OBEpisode recorded.
--- OUTSIDE RECORDS SUMMARY | 2025-04-14 08:44 | XMS_ITS | Continuity of Care Document ---
Author Organization [place] - [facility] & [facility] and Adv Surg Address [address] [place] [address] Care Team Providers Care Lawn Care Technician Name Role Phone JEFE KILLIAN Primary Care Provider Assessment Encounter Date Assessment Date Assessment LastModified by Organization Details LastModified Time 03/18/2025 03/18/2025 The patient is doing well. The patient is instructed to continue their vitamins as directed. They are to continue advancing their diet as directed. They may start exercising but keep lifting less than 25 pounds for 2 more weeks. I will see them back in 3 weeks or one month from surgery. We will order their first set of labs at that time. I summarized the expectations for the upcoming year. We will check labs at their one month visit from surgery, 3 months from surgery as well as at 6, 9, and 12 months from surgery. These labs will be ordered on the day of their appointment. They have the option to come to the appointment fasting and labs can be drawn that day at the hospital. If not, I expect these labs to be drawn within the week of ordering them. If they choose to have them drawn at another institution they are to make sure that the labs are sent to my office. These labs will be reviewed once received and the patient will be called with any significant abnormalities and how they should be addressed. If they would like a copy of their labs they are welcome to request these and we will send a copy to them. If they're labs and vitamin levels are adequate at 12 months then they will need lab checks every 6mth-12mth. They consent to understand this plan and agree to comply. [email or web address] Not available 03/18/2025 08:39:22 Plan of Treatment Reminders Order Date Submit Date Provider Last Modified By Organization Details Last Modified Time Details Appointments OV EST 2024 01:00P M REESE ORTEGA RD Not available Not available Not available SURGERY 15 2024 11:30A M MINE SEVILLA MD Not available Not available Not available OV EST 2024 01:20P M RINKU MARTIN NP Not available Not available Not available Lab None recorded . Referral None recorded . Procedures None recorded . Surgeries None recorded . Imaging None recorded . Medication Orders None recorded . Patient TargetsNo targets recorded. Patient InstructionsNo instructions recorded. Reason for Referral None Reported. Problems Name Problem SNOMED Code Status Onset Date Resolution Date Notes Provider Name and Address Organization Details Recorded Time History of sleeve gastrectom y 9560663816291 07 Active 2024 MAK MARTIN NP [address], [place], [address] , [place] [facility] & [place] 5 14:53:38 Duodenal switch Active 2024 MAK MARTIN NP [address], [place], [address] , [place] [facility] & [place] 5 14:54:07 Gastro-eso phageal reflux disease with esophagiti s 247306129 Active 2024 MAK MARTIN NP [address], [place], [address] , [place] [facility] [place] & [place] 5 12:05:24 History of gastrointe stinal tract bypass 004227764 Active 2024 MAK MARTIN NP [address], [place], [address] , [place] [facility] & [place] 5 12:34:58 Local infection of wound 50463470 Active 2024 Diogo Shaikh, DNP, VISUAL MERCHANDISE MANAGER, LAP RUNNER-C [address], [place], [address] , [place] [facility] [place] & [place] 5 08:40:31 Wound pain 917044834 Active 2024 Diogo Shaikh, FELICIA, VISUAL MERCHANDISE MANAGER, LAP RUNNER-C [address], [place], [address] , [place] [facility] [place] & [place] 5 08:50:47 Morbid obesity 380808333 Active 2024 Diogo Shaikh DNP, VISUAL MERCHANDISE MANAGER, LAP RUNNER-C [address], [place], [address] , [place] [facility] [place] & [place] 5 08:58:20 Problem Notes None recorded. Procedures Surgical History Date Name Laterality Status Provider Name and Address Organization Details Recorded Time 2024 bypass of stomach completed Susan Patrick [place] [facility] - [place] & [place] 5 08:31:27 2024 ESOPHAGOGASTRODUODENOSCOPY (EGD) WITH TAYLOR (SURG) completed Milly Mccain [place] [facility] [place] & [place] 5 13:56:45 2023 completed Wally Sharp-Bec giselle [place] - [facility] - [place] & [place] 5 14:40:42 2023 Date of Last Pap Smear completed Wally Sharp-Bec giselle [place] [facility] [place] & [place] 5 14:40:42 2023 Date of Last Colonoscopy completed Wally Sharp-Bec giselle [place] [facility] [place] & [place] 5 14:40:42 2023 Most Recent Bone Density completed Wally Sharp-Bec giselle [place] [facility] [place] & [place] 5 14:40:42 2023 EGD completed Wally Sharp-Bec giselle [place] [facility] [place] & [place] 5 14:40:28 2023 Colonoscopy completed Wally Sharp-Bec giselle [place] [facility] [place] & [place] 5 14:40:28 2023 Abdominal Surgery completed Wally Sharp-Bec giselle [place] [facility] [place] & [place] 5 14:41:37 2020 Appendectomy completed Wally TURNER - [facility] - [place] & [place] 5 14:40:28 1987 Tonsillectomy/Adenoidectomy completed Al Boggs-Tena TURNER - [facility] - [place] & [place] 5 14:40:28 partial resection of colon completed Susan TURNER - [facility] - [place] & [place] 5 08:17:21 procedure on intestine completed Ra roly TURNER - [facility] - [place] & [place] 5 08:17:57 Imaging Results None recorded. Procedure [...] Available Vitals Date Recorded Body height Body mass index (BMI) Body weight Body temperature Heart rate Systolic blood pressure Diastolic blood pressure Provider Name and Address Organization Details Last Updated DateTime 157.48 cm 37.5 kg/m2 38283.4 4 g 97.9 [degF] 85 /min 133 mm[Hg] 83 mm[Hg] Susan Patrick [facility] & [place] 08:04:27 Social History Question Answer Notes LastModified by [facility] ion Details LastModified Time Tobacco Smoking Status Former Smoker Wally Calv[facility], [facility] & [place] 11/12/2024 14:40:35 Do You Have An Advance Directive? No Information not available 11/12/2024 Are You Blind Or Do You Have Difficulty Seeing? No Information not available 11/12/2024 What Is Your Level Of Caffeine Consumption? Occasional [email or web address] Information not available 03/05/2025 What Was The [...] anxious, or unable to sleep at night)? [id number] [facility] Information not available 11/12/2024 Family History Relationship [...] available 11/12/2024 12:07:54 Medical History Condition Response Anxiety Disorder Y Anemia Y Reflux/GERD Y Depression Y Gynecological History Statement/Question Response Abnormal Pap [...] SNOMED-CT Code Diagnosis ICD10 Code Diagnosis Note [id number] MINE SEVILLA [facility] [address] [place] [address] 03/05/2025 07:47:44 03/05/2025 12:50:35 Morbid obesity 705300978 E66.01 Pre-surger y evaluation 134214049 Z01.818 Postoperative pain 33635 9007 G89.18 Gastroesop hageal reflux disease 980350994 K21.9 patient will remain on Voquezna postoperat ively. [id number] Diogo Shaikh, DNP, VISUAL MERCHANDISE MANAGER, LAP RUNNER-C [place] [facility] [address] [place] [address] 03/17/2025 08:23:57 03/17/2025 11:25:12 Local infection of wound 39902754 T14.8XXA L08.9 Patient was reassured. We discussed keeping area clean dry. She may use gold dial soap to the site itself. Notify staff with any worsening symptoms. She is to keep her 1 week follow up appointmen t tomorrow. Encouraged her to wash hands well and avoid touching side if at all possible. Wound pain 308486213 L76 .82 Morbid obesity 176703255 E66.01 [id number] MAK MARTIN NP [place] [facility] [address] [place] [address] 03/18/2025 07:58:15 03/18/2025 11:07:15 History of gastrectomy 657194588 Z90.3 Local infe ction of wound 45877308 T14.8XXA L08.9 Wound infection appears to be improving overall. Patient to contact our office for any further signs or symptoms of infection, including chills, nausea, vomiting, or fever. Health Concerns Section Related Observation LastModified by Organization Detai ls LastModified Time None Recorded Concern Status LastModified by Organization Details LastModified Time None Recorded Payers Encounter Date Sequence Insurance Name Policy Number Policy Neumann Covered Member ID Neumann Member ID Guarantor Name 03/18/2025 1 [employer] [facility] (MEDICAID HMO) Kimberly Smart [id number] Kimberly Shepardzahira Notes Date Note Type Note Provider Name and Address Organization Details Recorded Time 03/18/2025 text/html Patient presents for 1wk Post-Op Check s/p [...] today than yesterday. She is also afebrile. OV on 03/17/2025: Patient presents for 1wk Post-Op Check s/p Bariatric surgery. Patient had a gastric Nichole-en-Y gastrojejunostomy Robotic assisted revision from previous duodenal switch to Nichole-en-Y gastric bypass with repair of hiatal hernia and resection of small bowel performed on 2024 . Today patient is on post-operative day # 7. Patient is doing well, but did start having incisional pain yesterday afternoon. Had a low grade temp of 99.0. She actually called bonderizer service yesterday afternoon with c/o pain at [...] after Weight loss Surgery. LIS MARTIN, SUE [address] [facility], [place], [address], [facility] - [place] & [place] 03/18/2025 10:46:21 OBGyn Episode No OBEpisode recorded.
--- OUTSIDE RECORDS SUMMARY | 2025-04-14 08:44 | XMS_ITS | Continuity of Care Document ---
Author Organization [facility] & [facility] Bariatrics and Adv Surg Address [address] [place] [address] Care Team Providers Care Wrinkle Chaser Name Role Phone JEFE KILLIAN Primary Care Provider Assessment No assessment recorded. Plan of Treatment Reminders Order Date Submit Date Provider Last Modified By Organization Details Last Modified Time Details Appointments OV EST 2024 01:00P M REESE ORTEGA RD Not available Not available Not available SURGERY 2024 11:30A M MINE SEVILLA MD Not available Not available Not available OV EST 2024 01:20P M RINKU MARTIN NP Not available Not available Not available Lab None recorded. Referral None recorded. Procedures None recorded. Surgeries None recorded. Imaging None recorded. Medication Orders Bactrim DS 800 mg-[address] [facility] [id number], [address] [place], [address], 04/11/2025 09:17:36 mupirocin 2 % topical ointment [address] [facility] [id number], [address] [place], [address], 03/17/2025 08:41:50 hydrocodo ne 5 mg-acetam inophen 325 [address] [facility] [id number], [address] [place], [address], 04/11/2025 09:18:56 Patient TargetsNo targets recorded. Patient InstructionsNo instructions recorded. Reason for Referral None Reported. Problems Name Problem SNOMED Code Status Onset Date Resolution Date Notes Provider Name and Address Organization Details Recorded Time History of sleeve gastrectom y 4441980559705 07 Active 2024 MAK MARTIN NP [address], [place], [place], [address] [place] [address] , [place] [facility] [place] 5 14:53:38 Duodenal switch Active 2024 MAK MARTIN NP [address], [place], [place], [address] [place] [address] , [place] [facility] & [place] 5 14:54:07 Gastro-eso phageal reflux disease with esophagiti s 636697372 Active 2024 MAK MARTIN NP [address], [place], [address] [place] [address] , [place] [facility] & [place] 5 12:05:24 History of gastrointe stinal tract bypass 955283927 Active 2024 MAK MARTIN NP [address], [place], [address] [place] [address] , [place] [facility] & [place] 5 12:34:58 Local infection of wound 63966455 Active 2024 Diogo Shaikh DNP, MARK, SENIOR FIELD SERVICE ENGINEER-C [address], [place], [address] [place] [address] , [place] [facility] & [place] 5 08:40:31 Wound pain 552106713 Active 2024 Diogo Shaikh DNP, SLIP INJECTOR AND APPLICATOR, SENIOR FIELD SERVICE ENGINEER-C [address], [place], [address] [place] [address] , [place] [facility] & [place] 5 08:50:47 Morbid obesity 637348890 Active 2024 Diogo Shaikh DNP, MARK, SENIOR FIELD SERVICE ENGINEER-C [address], [place], [address] , [place] [facility] [place] 5 08:58:20 Problem Notes None recorded. Procedures Surgical History Date Name Laterality Status Provider Name and Address Organization Details Recorded Time 2024 bypass of stomach completed Susan Patrick [place] [facility] [place] & [place] 5 08:31:27 2024 ESOPHAGOGASTRODUODENOSCOPY (EGD) WITH TAYLOR (SURG) completed Milly Mccain [place] [facility] [place] 5 13:56:45 2023 completed Wally Sharp-Bec giselle [place] [facility] [place] 5 14:40:42 2023 Date of Last Pap Smear completed Wally Sharp-Bec giselle [place] [facility] [place] 5 14:40:42 2023 Date of Last Colonoscopy completed Wally Sharp-Bec giselle [place] [facility] [place] 5 14:40:42 2023 Most Recent Bone Density completed Wally Sharp-Bec giselle [place] [facility] [place] 5 14:40:42 2023 EGD completed Wally Sharp-Bec giselle [place] [facility] [place] 5 14:40:28 2023 Colonoscopy completed Wally Sharp-Bec giselle [place] [facility] [place] 5 14:40:28 2023 Abdominal Surgery completed Wally Sharp-Bec g[place]elle [place] [facility] [place] 5 14:41:37 2020 Appendectomy completed Wally Sharp-Bec giselle [place] [facility] [place] 5 14:40:28 1987 Tonsillectomy/Adenoidectomy completed Al n Sharp-Bec giselle [place] [facility] [place] & [place] 5 14:40:28 partial resection of colon completed Susan Patrick [place] [facility] & [place] 5 08:17:21 procedure on intestine completed Ra roly Patrick [place] - [facility] & [place] 5 08:17:57 Imaging Results None recorded. Procedure [...] Last Updated DateTime 157.48 cm 37.5 kg/m2 00152.4 4 g 98.2 [degF] 108 /min 131 mm[Hg] 87 mm[Hg] Susan Patrick [facility] & [place] 08:30:23 Social History Question Answer Notes LastModified by Organizat ion Details LastModified Time Tobacco Smoking Status Former Smoker Wally Karli [facility], [facility] & [place] 11/12/2024 14:40:35 Do You Have An Advance Directive? No Information not available 11/12/2024 Are You Blind Or Do You Have Difficulty Seeing? No Information not available 11/12/2024 What Is Your Level Of Caffeine Consumption? Occasional [email or web address] Information not available 03/05/2025 What Was The [...] anxious, or unable to sleep at night)? [id number] Information not available 11/12/2024 Family History Relationship [...] SNOMED-CT Code Diagnosis ICD10 Code Diagnosis Note [id number] MD Melo REDDING Bariat[facility] s [facility] Adv Surg [address] [place] [address] 03/05/2025 07:47:44 03/05/2025 12:50:35 Morbid obesity 200508363 E66.01 Pre-surger y evaluation 816859806 Z01.818 Postoperative pain 37355 9007 G89.18 Gastroesop hageal reflux disease 237238663 K21.9 patient will remain on Voquezna postoperat ively. [id number] Diogo Shaikh, DNP, SLIP INJECTOR AND APPLICATOR, SENIOR FIELD SERVICE ENGINEER-C [facility]in [facility] [address] [place] [address] 03/17/2025 08:23:57 03/17/2025 11:25:12 Local infection of wound 94398546 T14.8XXA L08.9 Patient was reassured. We discussed keeping area clean dry. She may use gold dial soap to the site itself. Notify staff with any worsening symptoms. She is to keep her 1 week follow up appointmen t tomorrow. Encouraged her to wash hands well and avoid touching side if at all possible. Wound pain 388592051 L76 .82 Morbid obesity 468415220 E66.01 Health Concerns Section Related Observation LastModified by Organization Detai ls LastModified Time None Recorded Concern Status LastModified by Organization Details LastModified Time None Recorded Payers Encounter Date Sequence Insurance Name Policy Number Policy Neumann Covered Member ID Neumann Member ID Guarantor Name 03/17/2025 1 [facility] (MEDICAID HMO) Kimberly Smart [id number] Kimberly Smart Notes Date Note Type Note Provider Name and Address Organization Details Recorded Time 03/17/2025 text/html Patient presents for 1wk Post-Op Check [...] grade temp of 99.0. She actually called [employer] dispatcher service yesterday afternoon with c/o pain at [...] 9 pounds.Patient has not seen PCP since surgery. Patient is happy with their quality of life after Weight loss Surgery. Diogo Shaikh, FELICIA, SLIP INJECTOR AND APPLICATOR, SENIOR FIELD SERVICE ENGINEER-C [address], [place], [address], [facility] [place] 03/17/2025 08:58:56 OBGyn Episode No OBEpisode recorded.
--- OUTSIDE RECORDS SUMMARY | 2025-04-14 08:45 | XMS_ITS | Data Portability ---
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 They understand that there are many possible complications that may occur with bariatric surgery including but not limited to; bleeding, infection, staple line leak, injury to solid organ, injury to bowel, injury to bladder, injury to blood vessel, pneumonia, DVT, PE, , cardiac event, stricture, ulcer, non-healing of the staple line. They also understand that bed bug exterminator they may develop some of these problems as well as the risk of vitamin deficiencies, malnutrition and this may require further surgery or interventional procedures such as feeding tubes or re-operation for their healing. They have also been given an extensive surgical consent that explains these risks and complications and have acknowledged and signed that they understand these. They understand Weight loss surgery is a tool and that compliance is mandatory to not only be successful but to give them the best chance to avoid complications. They understand they must keep all recommended office follow up appointments and laboratory checks Patient will return to clinic for postoperative follow-up 1 week after surgery. [email or web address] Not available 03/05/2025 09:20:56 03/18/2025 03/18/2025 The patient is doing well. [...] understand this plan and agree to comply. [email or web address] Not available 03/18/2025 08:39:22 Plan of Treatment Reminders Order Date Submit Date Provider Last Modified By Organization Details Last Modified Time Details Appointments OV EST 20 2024 01:00P M REESE ORTEGA RD Not available Not available Not available SURGER Y 15 2024 11:30A M MINE CEVALLOS MD Not available Not available Not available OV EST 20 2024 01:20P M RINKU MARTIN NP Not available Not available Not available Lab prealb umin, serum 2024 025 [id number] [facility], [address], [address], [place], [address], 04/11/2025 09:54:33 zinc, serum or plasma 2024 025 [id number] [facility], [address], [address], [place], [address], 04/11/2025 09:54:32 folate , serum 2024 025 [id number] [facility], [address], [address], [place], [address], 04/11/2025 09:54:32 thiami ne, QN, blood 2024 025 [email or web address] [facility], [address], [address], [place], [address], 04/11/2025 09:54:33 methyl malona te, QN, serum or plasma 2024 025 [id number] [facility], [address], [address], [place], [address], 04/11/2025 09:54:33 lipid panel, serum 2024 025 [id number] [facility], [address], [address], [place], [address], 04/11/2025 09:54:33 copper , serum or plasma 2024 025 [id number] [facility], [address], [address], [place], [address], 04/11/2025 09:54:33 seleni um, quanti tative , blood 2024 025 [id number] [facility], [address], [address], [place], [address], 04/11/2025 09:54:33 CBC w/ auto diff 2024 025 [id number] [facility], [address], [address], [place], [address], 04/11/2025 09:54:33 CMP, serum or plasma 2024 025 [email or web address] [facility], [address], [address], [place], [address], 04/11/2025 09:54:33 HbA1c (hemog lobin A1c), blood 2024 025 [id number] [facility], [address], [address], [place], [address], 04/11/2025 09:54:33 iron + TIBC + ferrit in, serum 2024 025 [id number] [facility], [address], [address], [place], [address], 04/11/2025 09:54:33 vitami n D, 25-hyd jaskaran, total, serum 2024 025 [id number] [facility], [address], [address], [place], [address], 04/11/2025 09:54:33 vitami n E, serum 2024 025 [email or web address] [facility], [address], [address], [place], [address], 04/11/2025 09:54:33 vitami n A (retin ol), serum 2024 025 [id number] [facility], [address], [address], [place], [address], 04/11/2025 09:54:33 TSH + free T4, serum 2024 025 [id number] [facility], [address], [address], [place], [address], 04/11/2025 09:54:33 CBC w/ auto diff 2024 025 LEANNA [facility], [address], [address], [place], [address], 03/06/2025 03:39:41 CMP, serum or plasma 2024 025 M[place]INGTON [facility], [address], [address], [place], [address], 03/06/2025 03:39:42 HbA1c (hemog lobin A1c), blood 2024 025 [place] [facility], [address], [address], [place], [address], 03/06/2025 03:39:43 Referral None record ed. Procedures None record ed. Surgeries esopha gogast roduod enosco py (SURG) 2024 025 [email or web address] Mine Cevallos MD, [address] [facility], [address], [place], [address], 04/11/2025 13:43:08 Imaging XR, chest, 2 view 2024 025 [facility] (Registration ), [address] [facility], [place], [address], 01/17/2025 15:36:09 electr ocardi nelsonram, routin e ECG, 12 leads min 2024 025 [facility] (Registration ), [address] [facility], [place], [address], 01/31/2025 08:43:08 Medication Orders hyoscy amine 0.125 mg sublin gual tablet 2024 025 [id number] [facility] [id number], [address] [place], [address], 04/11/2025 09:54:33 cyanoc obalam in (vit B-12) 1,000 mcg/mL inject ion soluti on 2024 025 [id number] Not available 04/11/2025 10:17:30 thiami ne HCl (vitam in B1) 100 mg/mL inject ion soluti on 2024 025 [email or web address] Not available 04/11/2025 10:18:43 Bactri m DS 800 mg-160 mg tablet 2024 025 [facility] [id number], [address] [place], [address], 04/11/2025 09:17:36 mupiro jefferson 2 % topica l ointme nt 2024 025 [facility] [id number], [address] [place], [address], 03/17/2025 08:41:50 hydroc odone 5 mg-amador tamino phen 325 mg tablet 2024 025 [facility] [id number], [address] [place], [address], 04/11/2025 09:18:56 Neuron tin 300 mg capsul e 2024 025 [email or web address] [facility], [address] [place] [address], [id number], 04/11/2025 09:18:45 Celebr ex 100 mg capsul e 2024 025 [facility], [address] [place] [address], [id number], 04/11/2025 09:26:24 senna 8.6 mg tablet 2024 025 [id number] [facility], [address] [place] [address], [id number], 03/04/2025 09:32:57 Patient TargetsNo targets recorded. Patient InstructionsNo instructions recorded. Reason for Referral None Reported. Results Created Date Observation Date Name Description Value Unit Range Abnormal Flag Note LastModifiedBy Organization Detail LastModifiedTime 03/05/2003/06/2025 CBC WITH DIFFE RENTI AL/PL ATELE T WBC 8.8 x10e3 /uL 3.4-10 .8 normal Not Available [facility] ([facility]) [address] [place], [address], 03/06/2025 03:39:41 03/05/20 25 03/06/2025 CBC WITH DIFFE RENTI AL/PL ATELE T RBC 4.59 x10e6 /uL 3.77-5 .28 normal Not Available [facility] ([facility]) [address] [place], [address], 03/06/2025 03:39:41 03/05/2003/06/2025 CBC WITH DIFFE RENTI AL/PL ATELE T hemoglobin 13.0 g/dL 11.1-1 5.9 normal Not Available [facility] ([facility]) [address] [place], [address], 03/06/2025 03:39:41 03/05/2003/06/2025 CBC WITH DIFFE RENTI AL/PL ATELE T hematocrit 41.7 % 34.0-4 6.6 normal Not Available [facility] ([facility]) [address] [place], [address], 03/06/2025 03:39:41 03/05/2003/06/2025 CBC WITH DIFFE RENTI AL/PL ATELE T MCV 91 fL 79-97 normal Not Available [facility] ([facility]) [address] [place], [address], 03/06/2025 03:39:41 03/05/2003/06/2025 CBC WITH DIFFE RENTI AL/PL ATELE T MCH 28.3 pg 26.6-3 3.0 normal Not Available [facility] ([facility]) [address] [place], [address], 03/06/2025 03:39:41 03/05/20 25 03/06/2025 CBC WITH DIFFE RENTI AL/PL ATELE T MCHC 31.2 g/dL 31.5-3 5.7 below low normal Not Available [facility] ([facility]) [address] [facility], [place], [address], 03/06/2025 03:39:41 03/05/2003/06/2025 CBC WITH DIFFE RENTI AL/PL ATELE T RDW 12.8 % 11.7-1 5.4 Not Available [facility] ([facility]) [address] [facility], [place], [address], 03/06/2025 03:39:41 03/05/2003/06/2025 CBC WITH DIFFE RENTI AL/PL ATELE T platelets 257 x10e3 /uL 150-45 0 normal Not Available [facility] ([facility]) [address] [facility], [place], [address], 03/06/2025 03:39:41 03/05/2003/06/2025 CBC WITH DIFFE RENTI AL/PL ATELE T neutrophils 62 % not estab. normal Not Available [facility] ([facility]) [address] [facility], [place], [address], 03/06/2025 03:39:41 03/05/2003/06/2025 CBC WITH DIFFE RENTI AL/PL ATELE T lymphs 31 % not estab. normal Not Available [facility] ([facility]) [address] [facility], [place], [address], 03/06/2025 03:39:41 03/05/2003/06/2025 CBC WITH DIFFE RENTI AL/PL ATELE T monocytes 5 % not estab. normal Not Available [facility] ([facility]) [address] [facility], [place], [address], 03/06/2025 03:39:41 03/05/2003/06/2025 CBC WITH DIFFE RENTI AL/PL ATELE T eos 1 % not estab. normal Not Available [facility] ([facility]) [address] [place], [address], 03/06/2025 03:39:41 03/05/20 25 03/06/2025 CBC WITH DIFFE RENTI AL/PL ATELE T basos 1 % not estab. normal Not Available [facility] ([facility]) [address] [facility], [place], [address], 03/06/2025 03:39:41 03/05/20 25 03/06/2025 CBC WITH DIFFE RENTI AL/PL ATELE T immature cells [employer] Not Available [facility] ([facility]) [address] [place], [address], 03/06/2025 03:39:41 03/05/20 25 03/06/2025 CBC WITH DIFFE RENTI AL/PL ATELE T neutrophils (absolute) 5.5 x10e3 /uL 1.4-7. 0 normal Not Available [facility] ([facility]) [address] [place], [address], 03/06/2025 03:39:41 03/05/20 25 03/06/2025 CBC WITH DIFFE RENTI AL/PL ATELE T lymphs (absolute) 2.7 x10e3 /uL 0.7-3. 1 normal Not Available [facility] ([facility]) [address] [place], [address], 03/06/2025 03:39:41 03/05/20 25 03/06/2025 CBC WITH DIFFE RENTI AL/PL ATELE T monocytes(ab solute) 0.5 x10e3 /uL 0.1-0. 9 normal Not Available [facility] ([facility]) [address] [place], [address], 03/06/2025 03:39:41 03/05/20 25 03/06/2025 CBC WITH DIFFE RENTI AL/PL ATELE T eos (absolute) 0.1 x10e3 /uL 0.0-0. 4 normal Not Available [facility] ([facility]) [address] [facility], [place], [address], 03/06/2025 03:39:41 03/05/2003/06/2025 CBC WITH DIFFE RENTI AL/PL ATELE T baso (absolute) 0.0 x10e3 /uL 0.0-0. 2 normal Not Available [facility] ([facility]) [address] [facility], [place], [address], 03/06/2025 03:39:41 03/05/2003/06/2025 CBC WITH DIFFE RENTI AL/PL ATELE T immature granulocytes 0 % not estab. Not Available [facility] ([facility]) [address] [place], [address], 03/06/2025 03:39:41 03/05/2003/06/2025 CBC WITH DIFFE RENTI AL/PL ATELE T immature grans (abs) 0.0 x10e3 /uL 0.0-0. 1 Not Available [facility] ([facility]) [address] [place], [address], 03/06/2025 03:39:41 03/05/2003/06/2025 CBC WITH DIFFE RENTI AL/PL ATELE T NRBC [employer] Not Available [facility] ([facility]) [address] [place], [address], 03/06/2025 03:39:41 03/05/2003/06/2025 CBC WITH DIFFE RENTI AL/PL ATELE T hematology comments: [employer] Not Available [facility] ([facility]) [address] [facility], [place], [address], 03/06/2025 03:39:41 03/05/2003/06/2025 COMP. METAB OLIC PANEL (14) glucose 94 mg/dL 70-99 normal Not Available [facility] ([facility]) [address] [place], [address], 03/06/2025 03:39:42 03/05/20 25 03/06/2025 COMP. METAB OLIC PANEL (14) BUN 11 mg/dL 6-24 normal Not Available [facility] ([facility]) [address] [place], [address], 03/06/2025 03:39:42 03/05/20 25 03/06/2025 COMP. METAB OLIC PANEL (14) creatinine 0.73 mg/dL 0.57-1 .00 normal Not Available [facility] ([facility]) [address] [facility] [place], [address], 03/06/2025 03:39:42 03/05/20 25 03/06/2025 COMP. METAB OLIC PANEL (14) eGFR 106 mL/mi n/1.7 3 >59 normal Not Available [facility] ([facility]) [address] [place], [address], 03/06/2025 03:39:42 03/05/20 25 03/06/2025 COMP. METAB OLIC PANEL (14) BUN/creatini ne ratio 15 9-23 normal Not Available [facility] ([facility]) [address] [place], [address], 03/06/2025 03:39:42 03/05/20 25 03/06/2025 COMP. METAB OLIC PANEL (14) sodium 139 mmol/ L 134-14 4 normal Not Available [facility] ([facility]) [address] [place], [address], 03/06/2025 03:39:42 03/05/20 25 03/06/2025 COMP. METAB OLIC PANEL (14) potassium 4.5 mmol/ L 3.5-5. 2 normal Not Available [facility] ([facility]) [address] [place], [address], 03/06/2025 03:39:42 03/05/20 25 03/06/2025 COMP. METAB OLIC PANEL (14) chloride 103 mmol/ L 96-106 normal Not Available [facility] ([facility]) [address] [place], [address], 03/06/2025 03:39:42 03/05/20 25 03/06/2025 COMP. METAB OLIC PANEL (14) carbon dioxide, total 22 mmol/ L 20-29 normal Not Available [facility] ([facility]) [address] [place], [address], 03/06/2025 03:39:42 03/05/20 25 03/06/2025 COMP. METAB OLIC PANEL (14) calcium 10.0 mg/dL 8.7-10 .2 normal Not Available [facility] ([facility]) [address] [place], [address], 03/06/2025 03:39:42 03/05/20 25 03/06/2025 COMP. METAB OLIC PANEL (14) protein, total 7.0 g/dL 6.0-8. 5 normal Not Available [facility] ([facility]) [address] [facility] [place], [address], 03/06/2025 03:39:42 03/05/20 25 03/06/2025 COMP. METAB OLIC PANEL (14) albumin 4.2 g/dL 3.9-4. 9 normal Not Available [facility] ([facility]) [address] [facility] [place], [address], 03/06/2025 03:39:42 03/05/20 25 03/06/2025 COMP. METAB OLIC PANEL (14) globulin, total 2.8 g/dL 1.5-4. 5 Not Available [facility] ([facility]) [address] [facility], [place], [address], 03/06/2025 03:39:42 03/05/20 25 03/06/2025 COMP. METAB OLIC PANEL (14) bilirubin, total 0.4 mg/dL 0.0-1. 2 normal Not Available [facility] ([facility]) [address] [facility], [place], [address], 03/06/2025 03:39:42 03/05/20 25 03/06/2025 COMP. METAB OLIC PANEL (14) alkaline phosphatase 88 IU/L 44-121 normal Not Available [facility] ([facility]) [address] [place], [address], 03/06/2025 03:39:42 03/05/20 25 03/06/2025 COMP. METAB OLIC PANEL (14) AST (SGOT) 25 IU/L 0-40 normal Not Available [facility] ([facility]) [address] [facility], [place], [address], 03/06/2025 03:39:42 03/05/20 25 03/06/2025 COMP. METAB OLIC PANEL (14) ALT (SGPT) 24 IU/L 0-32 normal Not Available [facility] ([facility]) [address] [facility], [place], [address], 03/06/2025 03:39:42 03/11/20 25 03/11/2025 HGB HGB 12.4 gm/dL 12.5-1 6.0 low Not Available [facility] ([facility]) [address], [place], [address], 03/11/2025 09:18:51 03/11/20 25 03/11/2025 HGB HCT 38.8 % 37.0-4 7.0 Not Available [facility] ([facility]) [address], [place], [address], 03/11/2025 09:18:51 01/18/20 25 01/16/2025 XR, chest , 2 view [facility] [address] [facility] [place] [address] Phone: Fax: Name: KIMBERLY DE LA CRUZ Exam Date: : [birth year] Age 39 years Gender : F Access ion: [id number] Physic coleen: CEE MARTIN Facili ty: [facility] Facili ty HSV: Outpat ient Exam: CHEST 2 VIEWS EXAMIN ATION: Chest 2 views CLINIC AL INFORM ATION: preop COMPAR THIERRY: 01/07/20 FINDIN GS: The heart size is normal . The pulmon shanice vascul ature is normal . No focal consol idatio n. No pneumo thorax or pleura l effusi on. No acute osseou s or soft tissue abnorm ality. IMPRES CHALO: No acute cardio pulmon shanice abnorm ality. Electr onical ly signed by: Zain rosario MD 2024 03:03 PM EDT RP Workst ation: [id number] Dictat ed By: Zain Castaneda Transc ribed By: Transc ribed On: 1:47 PM Electr onical ly signed by: Zain Castaneda Thank you for referr ing KIMBERLY DE LA CRUZ to [facility]. Legall y authen ticate d by REYNALDO OLIVEIRA 2024-0 01-16 13:47: 19 CC'ed Logic: Orderi ng Provid er: MARIO Chaudhary Attend ing Provid er: MARIO Chaudhary Admitt ing Provid er: MARIO Chaudhary [id number] [facility] [address] [facility], [place], [address], 03/05/2025 09:20:22 Result Notes None recorded. Problems Name Problem SNOMED Code Status Onset Date Resolution Date Notes Provider Name and Address Organization Details Recorded Time History of sleeve gastrectom y 3030356616441 07 Active 2024 MAK MARTIN, SUE [address], [place], [place], [address] [place] [address] , [place] - [facility] - [place] & [place] 5 14:53:38 Duodenal switch Active 2024 MAK MARTIN NP [address], [place], [address] [place] [address] , [place] [facility] [place] & [place] 5 14:54:07 Gastro-eso phageal reflux disease with esophagiti s 792474348 Active 2024 MAK MARTIN NP [address], [place], [address] [place] [address] , [place] [facility] [place] 5 12:05:24 History of gastrointe stinal tract bypass 706943712 Active 2024 MAK MARTIN NP [address], [place], [address] [place] [address] , [place] - [facility] & [place] 5 12:34:58 Local infection of wound 37333154 Active 2024 Diogo Shaikh DNP, APRN, [employer] MAKERGriseldaC [address], [place], [address] , [place] [facility] & [place] 5 08:40:31 Wound pain 946884427 Active 2024 Diogo Shaikh DNP, APRN, [employer]-C [address], [place], [address] [place] [address] , [place] [facility] & [place] 5 08:50:47 Morbid obesity 481111239 Active 2024 Diogo Shaikh DNP, APRN, [employer] MAKERGriseldaC [address], [place], [address] , [place] - [facility] & [place] 5 08:58:20 Problem Notes None recorded. Procedures Surgical History Date Name Laterality Status Provider Name and Address Organization Details Recorded Time 2024 bypass of stomach completed Susan Patrick [place] - [facility] - [place] & [place] 5 08:31:27 2024 ESOPHAGOGASTRODUODENOSCOPY (EGD) WITH TAYLOR (SURG) completed Milly Mccain [place] & [place] 5 13:56:45 2023 completed Wally Sharp-Bec giselle [place] [place] & [place] 5 14:40:42 2023 Date of Last Pap Smear completed Wally Sharp-Bec giselle [place] [place] & [place] 5 14:40:42 2023 Date of Last Colonoscopy completed Wally Sharp-Bec g[place]elle [place] [facility] [place] & [place] 5 14:40:42 2023 Most Recent Bone Density completed Wally Sharp-Bec giselle [place] - [facility] - [place] & [place] 5 14:40:42 2023 EGD completed Wally Sharp-Bec giselle [place] [facility] [place] & [place] 5 14:40:28 2023 Colonoscopy completed Wally Sharp-Bec giselle [place] - [facility] - [place] & [place] 5 14:40:28 2023 Abdominal Surgery completed Wally Sharp-Bec giselle [place] - [facility] - [place] & [place] 5 14:41:37 2020 Appendectomy completed Wally Sharp-Bec giselle [place] - [facility] - [place] & [place] 5 14:40:28 1987 Tonsillectomy/Adenoidectomy completed Al n Sharp-Bec giselle [place] - [facility] - [place] & [place] 5 14:40:28 partial resection of colon completed Susan Patrick [place] & [place] 5 08:17:21 procedure on intestine completed Ra roly Foremanves [place] - [facility] - [place] & [place] 5 08:17:57 Imaging Results None recorded. Procedure [...] Vitals Date Recorded Body height Body temperature Heart rate Body mass index (BMI) Body weight Systolic blood pressure Diastolic blood pressure Provider Name and Address Organization Details Last Updated DateTime 03/10/202 5 157.48 cm 97.9 [degF] 82 /min 37 kg/m2 51958.4 5 g 143 mm[Hg] 93 mm[Hg] Wally desai Y[place] - [facility] & [place] 5 14:41:37 Date Recorded Body height Body mass index (BMI) Body weight Heart rate Body temperature Systolic blood pressure Diastolic blood pressure Provider Name and Address Organization Details Last Updated DateTime 5 157.48 cm 39.2 kg/m2 57681.4 9 g 73 /min 97.8 [degF] 134 mm[Hg] 85 mm[Hg] Susan TURNER - [facility] & [place] 5 08:15:02 Date Recorded Body height Body mass index (BMI) Body weight Body temperature Heart rate Systolic blood pressure Diastolic blood pressure Provider Name and Address Organization Details Last Updated DateTime 5 157.48 cm 37.5 kg/m2 53063.4 4 g 98.2 [degF] 108 /min 131 mm[Hg] 87 mm[Hg] uSsan TURNER - [facility] & [place] 5 08:30:23 Date Recorded Body height Body mass index (BMI) Body weight Body temperature Heart rate Systolic blood pressure Diastolic blood pressure Provider Name and Address Organization Details Last Updated DateTime 5 157.48 cm 37.5 kg/m2 57977.4 4 g 97.9 [degF] 85 /min 133 mm[Hg] 83 mm[Hg] Susan TURNER - [facility] & [place] 5 08:04:27 Date Recorded Body height Body temperature Body mass index (BMI) Body weight Heart rate Systolic blood pressure Diastolic blood pressure Provider Name and Address Organization Details Last Updated DateTime 5 157.48 cm 97.5 [degF] 36.3 kg/m2 17344.4 4 g 70 /min 109 mm[Hg] 69 mm[Hg] Susan TURNER - [facility] & [place] 5 09:25:12 Social History Question Answer Notes LastModified by Organizat ion Details LastModified Time Tobacco Smoking Status Former Smoker Wally moulton, YUE - [facility] & [place] 11/12/2024 14:40:35 Do You Have An Advance Directive? No Information not available 11/12/2024 Are You Blind Or Do You Have Difficulty Seeing? No Information not available 11/12/2024 What Is Your Level Of Caffeine Consumption? Occasional [email or web address] Information not available 03/05/2025 What Was The [...] anxious, or unable to sleep at night)? [id number] Information not available 11/12/2024 Family History Relationship [...] SNOMED-CT Code Diagnosis ICD10 Code Diagnosis Note [id number] MAK MARTIN NP [facility] [address] [place] [address] 11/12/2024 14:32:57 11/20/2024 13:45:14 Gastroesophageal reflux disease 879219602 K21.9 Patient was reassured, we discussed lifestyle modificati ons. In patient directed therapy which is designed to decrease distal esophageal acid exposure. Plan is to continue current PPI. Other lifestyle modificati ons include elevating the head of the bed on 15cm of blocks or sleep on a wedge shaped bolster. Patient was encouraged to consume smaller meals and not to eat for three hours prior to lying recumbent. Ultimately , patient has been advised to avoid large, high fat meals and avoid foods that may aggravate the problem. Discussed patient case with Dr. Jeffers. We will order EGD with Thakur With Dr. Avila to determine extent of GERD symptoms. We will also order upper GI to be completed at our facility. After all testing has been completed, patient will come into office to discuss options further with Dr. Jeffers. Intentiona l weight loss [id number] R63.8 History of gastrectomy [id number] Z90.3 Advised qid intake 50% protein 8637-1673 calories/d y less than 100 carbs/dyLo ng discussion today of [employer] results including PBF(percen t body fat) SMM (skeletal muscle mass) Visceral fat level level BMR Segmental Fat Analysis and Segmental Lean Analysis.E ncouraged pt to take minimal calories as per BMR and to anticipate changes in SMM and PBF values not just total weight.Fol low-up with Repeat SUKHJINDER in 3mth suggested Patient is status post bariatric surgery and at increased risk for vitamin deficienci es and malnutriti on. Bariatric vitamin panel ordered today. Patient will be contacted to correct any vitamin deficienci es. patient does have concerns about weight regain since duodenal switch. patient was encouraged to meet with the dietitian in office today. At [facility] risk of nutritional deficit [id number] Z91.89 Obesity [id number] E66.9 [id number] [facility]K [facility]ART[facility] [address] [facility] [address] [place] [address] 12/20/2024 10:31:53 12/20/2024 11:50:20 Gastro-esophageal reflux disease with esophagitis [id number] K21.00 Long discussion with patient about EGD and UGI results. EGD with thakur results are abnormal. Previously discussed patient case with Dr. Jeffers. Due to high Demeester score, we may need to consider revisional surgery. Patient will return to office on a Monday when Dr. Jeffers is in office to discuss our next steps forward. History of sleeve gastrectomy [id number] 74069 Z90.3 [id number] [facility]K [facility] [address] [facility] [address] [place] [address] 01/13/2025 14:33:18 01/13/2025 16:20:56 Constipation 75586957 K59.00 Patient was noted to have moderate stool burden on CT in ED last Monday. Patient to start on senna x2 BID for seven days until regular BMs have been achieved. Patient has been trying fiber, but has continued to only have one BM every three days. Pre-surger y evaluation [id number] Z01.818 Prior to surgery, patient will need chest Xray as well as ECG. Patient does have outside labs that were reviewed today and will be scanned into the chart. Gastro-eso phageal reflux disease with esophagitis 795360204 K21.00 Patient was seen with Dr. Jeffers in clinic today. Lengthy discussion with patient regarding different options for GERD management . Patient's demeester score from EGD on 12/11/2024 was 36.1. At 24 hours, Demeester score was 51.8, representi ng severe GERD. Patient previously had a revisional surgery from sleeve gastrectom y to duodenal switch to treat biliary reflux, however this has not helped with patient's overal GERD symptoms. It affects patient's every day life and she is unable to sleep and it affects her daily living. For this reason, Dr. Jeffers recommends revision of DS to RNY gastric bypass for GERD. Patient is agreeable to this plan. We discussed with patient plan for robotic procedure, but depending on scar tissue formation surgery may need to be converted to an open procedure. OV today 80 minutes, including review of outside records, discussion of risks and benefits from surgery, and discussing surgical options for GERD management . Review of records include multiple OVs with outside bariatric provider, outside lab results, outside test results (including gastric emptying study), ER records, and Four operative reports from outside facilities . History of gastrointestinal tract bypass [id number] Z98.84 Patient is at very high risk for vitamin deficienci es due to surgical history. Patient is currently taking a good vitamin regimen. We discussed in office today the importance of continuing vitamin regimen, especially after RNY gastric bypass surgery. She verbalized understand ing. Dr. Jeffers also discussed with patient the possibilit y of bacterial overgrowth in her GI tract from previous bariatric procedures and risk of blind limbs. After surgery, patient would benefit from a good quality probiotic. Obesity [id number] E66.81 2 Z68.37 Patient does have concerns about weight regain since duodenal switch. We will provide dietary education mary salas revisional surgery preop and postop. [id number] MINE CEVALLOS MD [facility] Bariatric s and Adv Surg [address] [facility] [address] [place] [address] 03/05/2025 07:47:44 03/05/2025 12:50:35 Morbid obesity 571342680 E66.01 Pre-surger y evaluation 925252516 Z01.818 Postoperative pain 09278 9007 G89.18 Gastroesop hageal reflux disease 393072209 K21.9 patient will remain on Voquezna postoperat ively. [id number] Diogo Shaikh, DNP, BOOKKEEPING ASSISTANT, CARBON BRUSH MAKER-C [facility] Bariatric s and Adv Surg [address] [place] [address] [address] [place] [address] 03/17/2025 08:23:57 03/17/2025 11:25:12 Local infection of wound 26487346 T14.8XXA L08.9 Patient was reassured. We discussed keeping area clean dry. She may use gold dial soap to the site itself. Notify staff with any worsening symptoms. She is to keep her 1 week follow up appointmen t tomorrow. Encouraged her to wash hands well and avoid touching side if at all possible. Wound pain [id number] L76 .82 Morbid obesity 245666671 E66.01 [id number] MAK MARTIN NP [facility]ariat[facility] and Adv Surg [address] [place] [address] [address] [place] [address] 03/18/2025 07:58:15 03/18/2025 11:07:15 History of gastrectomy 489070810 Z90.3 Local infe ction of wound 54539695 T14.8XXA L08.9 Wound infection appears to be improving overall. Patient to contact our office for any further signs or symptoms of infection, including chills, nausea, vomiting, or fever. [id number] MAK MARTIN NP [facility]ariat[facility] and Adv Surg [address] [place] [address] [address] [place] [address] 04/11/2025 09:11:32 04/11/2025 10:41:50 Intentional weight loss 531182686 R63.8 History of gastrectomy 031237806 Z90.3 We discussed diet and the importance of adequate protein. Encouraged patient to continue focus on adequate protein/ca lories/hyd ration. Patient is to see dietitian today for typical 1 month postoperat hazel dietary support.Co ntinue PPI and vitamins.E ncouraged routine exercise. Advised exercising such that maintain target HR x 20 min 3dy/wkFoll ow-up 2 months At [facility] risk of nutritional deficit 363494406 Z91.89 Esophageal dysphagia 408 09621 R13.19 Patient is suffering from painful swallowing [...] help with swallowing and esophageal spasm. Fatigue 42511617 R53.83 Health Concerns Section Related Observation LastModified by Organization Detai ls LastModified Time None Recorded Concern Status LastModified by Organization Details LastModified Time None Recorded Advance Directives Directive N: Payers Insurance Date Sequence Insurance Name Policy Number Policy Neumann Covered Member ID Neumann Member ID Guarantor Name 04/14/2025 1 [facility] (MEDICAID HMO) Kimberly Smart [id number] Kimberly Smart Notes Date Note Type Note Provider Name and Address Organization Details Recorded Time 01/13/2025 text/html Today: Patient i s 39yo female who is here today to discuss possible surgical options for moderate to severe GERD symptoms s/p duodenal switch by Dr. Rosenbaum at [facility], along with multiple other surgical procedures (listed below). Patient did present to ED last Monday, at which time she was diagnosed with constipation as well an ovarian cyst. Previous OV on 12/20/2024: Patient is a 39yo patient who presents today for follow up from [facility] appointment on 11/12/2024. Since last OV, patient had EGD and UGI completed. EGD impressions: normal mucosa. Thakur results showed Demeester score of 36.1, which is elevated. Biopsy results from EGD: reflux esophagitis noted in distal esophagus and chronic esophagitis noted in mid esophagus. UGI results from 11/28/2024: Normal appearance of the esophagus. Patent GE junction. No hiatal hernia or GERD.Patient did see [facility] and has a scheduled follow up with Dr. Rosenbaum next week. OV on 11/12/2024: Patient is 39yo female, who here today to transfer care to [place] [facility]. Patient is a former patient of Dr. Rosenbaum and has been seen at [facility]. Dr. Rosenbaum has done multiple surgeries, which are listed below. currently, patient has true duodenal switch Per Dr. Jeffers. Patient has had the following gastric procedure performed: Sleeve in 2011, Laparoscopic sleeve revision and modified duodenal switch/SIPS with HHR in 2022, Open Laparotomy/Appendectom y/Internal Hernia repair/Conversion to standard RNY/duodenal switch configuration in 01/2024, Open Jejunojejunostomy in 02/2024, and Open Right colectomy with elongation of DS with SB anastomoses x2 on 07/02/2024 Today: Patient is 39yo female who is here today to discuss possible surgical options for moderate to severe GERD symptoms s/p duodenal switch by Dr. Rosenbaum at [facility], along with multiple other surgical procedures (listed below). Since last OV on 12/20/2024, patient did present to ER at [facility] for moderate to severe abdominal pain. CT impression from ED visit: No acute findings. 3.5 cm right ovarian cyst. Moderate to moderately significant colonic fecal burden. Patient reports she has been trying to increase her fiber intake, but continues to only have a BM once every three days or so. She had a recent bariatric lab panel at [facility] on Previous OV on 12/20/2024: Patient is a 39yo patient who presents today for follow up from [facility] appointment on 11/12/2024. Since last OV, patient had EGD and UGI completed. EGD impressions: normal mucosa. Thakur results showed Demeester score of 36.1, which is elevated. Biopsy results from EGD: reflux esophagitis noted in distal esophagus and chronic esophagitis noted in mid esophagus. UGI results from 11/28/2024: Normal appearance of the esophagus. Patent GE junction. No hiatal hernia or GERD.Patient did see [facility] and has a scheduled follow up with Dr. Rosenbaum next week. OV on 11/12/2024: Patient is 39yo female, who here today to transfer care to [place] [facility]. Patient is a former patient of Dr. Rosenbaum and has been seen at [facility]. Dr. Rosenbaum has done multiple surgeries, which are listed below. currently, patient has true duodenal switch Per Dr. Jeffers.Patient has had the following gastric procedure performed: Sleeve in 2011, Laparoscopic sleeve revision and modified duodenal switch/SIPS with HHR in 2022, Open Laparotomy/Appendectom y/Internal Hernia repair/Conversion to standard RNY/duodenal switch configuration in 01/2024, Open Jejunojejunostomy in 02/2024, and Open Right colectomy with elongation of DS with SB anastomoses x2 on 07/02/2024 LIS MARTIN NP [address], [place], [address], [facility] & [place] 01/15/2025 12:42:50 03/05/2025 text/html The patient is h ere today to schedule bariatric surgery which is Robotic revision of duodenal switch to Nichole-en-Y gastric bypass. They have undergone all required pre-operative work up and screening and have been approved to proceed with surgery. They deny any recent changes in their medical history since originally seen for their intake history and physical exam. They have undergone a 1 hour education class by myself reviewing the entire surgical process what to expect pre-operatively, during their hospital stay and when they are discharged home. They have had the opportunity to ask questions and all questions have been addressed. They have also undergone a class with the surface grinder and have received clear instructions on what is required regarding fluid intake, protein intake and vitamin consumption postoperatively. The patient is being managed by their PCP for their anxiety and hypothyroidism and is currently stable. MINE CEVALLOS MD [address], [place], [address], [facility] [place] 03/05/2025 11:42:45 03/17/2025 text/html Patient presents for 1wk Post-Op [...] grade temp of 99.0. She actually called litigation counsel service yesterday afternoon with c/o pain at [...] life after Weight loss Surgery. Diogo Shaikh, DNP, BOOKKEEPING ASSISTANT, CARBON BRUSH MAKER-C [address] [facility], [place], [address], [facility] [place] 03/17/2025 08:58:56 03/18/2025 text/html Patient presents for 1wk Post-Op [...] and resection of small bowel performed on 5 /5 / 2025 . Today patient is on post-operative day # 7. Patient is doing well, but did start having incisional pain yesterday afternoon. Had a low grade temp of 99.0. She actually called litigation counsel service yesterday afternoon with c/o pain at [...] after Weight loss Surgery. LIS MARTIN, SUE [address], [place], [address], [facility] - [place] & [place] 03/18/2025 10:46:21 04/11/2025 text/html Patient is a 39y o [...] grade temp of 99.0. She actually called litigation counsel service yesterday afternoon with c/o pain at [...] life after Weight loss Surgery. LIS MARTIN, CARBON BRUSH MAKER [address] [facility], [place], [address], [facility] - [place] & [place] 04/11/2025 10:11:32 OBGyn Episode No OBEpisode recorded.
--- NOTE | 2025-04-14 08:49 | US_ITS ---
PROCEDURE: US TRANSVAGINAL CLINICAL INDICATION: f/u on ovarian cyst COMPARISON: CT CT ABDOMEN PELVIS W CON from 01/29/[address] ABD PEL W (IV CONT ONLY) from 01/06/2025 US US TRANSVAGINAL from 01/14/2025 FINDINGS: Transvaginal sonographic images of the pelvis were obtained. UTERUS: 8.7 cm x 6.5 cmx 5.3cm retroverted and retroflexed with a combined endometrial thickness of 6.1mm. The endometrium appears trilaminar. A scar is visualized LEFT OVARY: 4.9 cmx2.9 cmx2.2cm with a volume of 16.2ml. There are several small peripheral follicles. There is a small follicle measuring 1.5 cm x 1.6 cm x 1.4 cm. RIGHT OVARY: 3.6 cmx 2.5 cmx3.0cm with a volume of 14ml. Are several small peripheral follicles in the right ovary. There is a dominant follicle measuring 2.4 cm x 1.8 cm x 2.0 cm Similar in size to the follicle seen 01/14/2025. Both ovaries are seen and appear normal. Doppler flow to both ovaries are seen. There is no fluid in the cul-de-sac. IMPRESSION: 1. Retroverted and retroflexed uterus normal in shape and size. The endometrium is trilaminar and measures 6.1 mm. 2. Both ovaries are seen and contain dominant follicles. There are several small peripheral follicles in each ovary. There is a similar size follicle in the right ovary that was seen 01/14/2025. 3. No fluid in the cul-de-sac. Dictated by: Ashok Arcos MD 04/14/2025 13:01 Ashok Arcos MD in OV 04/14/2025 13:01
== END 2025-04-14 23:59 | disposition home or self-care (01) ==
LOC: RAD 08:42
PROVIDERS: PCP Physician Assistant; Visit Provider Obstetrics & Gynecology
DX: N85.4 Malposition of uterus (principal); N83.01 Follicular cyst of right ovary; N83.02 Follicular cyst of left ovary
CPT/HCPCS: 76830

== ENCOUNTER 2025-06-19 08:32 | Outpatient (CLI) | payer OTHER, SELFPAY ==
--- OUTSIDE RECORDS SUMMARY | 2019-12-04 14:09 | XMS_ITS | Encounter Summary ---
Author Organization [facility] Address [address] [place] [address] Care Team Providers Care Bellows Charger Assembler Name Role Phone Lakshmi Rivera Primary Care Provider [phone] Encounter Details Date Type Department Care Team (Late st Contact Info) Description 12/04/2019 1:09 PM EST Hospital Encounter [facility] PULMONARY & CRITICAL CARE MEDICINE [address] [place] [phone] Social History Tobacco Use Types Packs/Day Years Used Date Smoking Tobacco: Former Cigarettes 0.5 10 0 11/06/1999 - 11/06/2009 Passive Smoke Exposure: Past Smokeless Tobacco: Never Alcohol Use Standard Drinks/Week Comments Not Currently 0 (1 standard drink = 0.6 oz pur e alcohol) [facility] Utilities Answer Date Recorded In the past 12 months has [employer], gas, oil, or water [employer] threatened to shut off services in your [...] and heating? Not hard at all 07/03/2024 [facility] [place] of Occupat ional Health - Occupational Stress [...] GED or equivalent No 07/09/2024 Preferred Language Monegasque 07/09/2024 PHQ-2 Answer Date Recorded Retired PHQ-9: [...] documented as of this encounter Care Teams Bellows Charger Assembler Relationship Specialty Start Date End Date Lakshmi Rivera PA [address] [place] [address] [facility] [address] [place] [address] PCP - General Physician Assistant Prosecuting Attorney 12/04/19 documented as of this encounter
--- OUTSIDE RECORDS SUMMARY | 2025-06-19 08:40 | XMS_ITS | Encounter Summary ---
[facility] Address [address] [place] [address] Care Team Providers Care Supply Chain Intern Name Role Phone Lakshmi Rivera Primary Care Provider [phone] Reason for Visit * Reason Comments Med Refill Encounter Details Date Type Department Care Team (Late st Contact Info) Description 03/06/2023 Refill [facility] SURGERY [address] [place] [address] Kate Bernstein, PA-C Social History Tobacco Use Types Packs/Day Years Used Date Smoking Tobacco: Former Cigarettes 1 10 2 000 - 2010 Smokeless Tobacco: Never Alcohol Use Standard Drinks/Week Comments No 0 (1 standard drink = 0.6 oz pur e alcohol) AUDIT-C Answer Date Recorded Frequency of Alcohol Consumption Never 03/20/2019 Average Number of Drinks Not on file 019 Frequency of Binge Drinking Not on file 03/06 Comments No Sex and Gender Information Value Date Recorded Sex Assigned at Not on file Legal Sex Female 10:04 AM EDT Gender Identity Not on file Sexual Orientation Not on file documented as of this encounter Plan of Treatment Not on file documented as of this encounter Visit Diagnoses Not on filedocumented in this encounter Additional Health Concerns Infection Onset Date Last Indicated Resolved Time COVID Screen (preop/placement) 07/07/2024 07/07/2024 07/07/2024 2:46 PM EDT documented as of this encounter Care Teams Supply Chain Intern Relationship Specialty Start Date End Date Lakshmi Rivera PA [address] [facility] [address] [place] [address] PCP - General Physician Tubing Oiler 12/04/19 documented as of this encounter
--- OUTSIDE RECORDS SUMMARY | 2025-06-19 08:41 | XMS_ITS | Encounter Summary ---
Author Organization [facility] Address [address] [place] [address] Care Team Providers Care Enrollment Advisor Name Role Phone Lakshmi Rivera Primary Care Provider [phone] Reason for Visit * Reason Comments Med Refill Encounter Details Date Type Department Care Team (Late st Contact Info) Description 12/23/2024 Refill [facility] BARIATRIC SURGERY [address] [place] [address] Indira Kidd MD [address] [place] [address] Social History Tobacco Use Types Packs/Day Years Used Date Smoking Tobacco: Former Cigarettes 0.5 10 0 11/06/1999 - 11/06/2009 Passive Smoke Exposure: Past Smokeless Tobacco: Never Alcohol Use Standard Drinks/Week Comments Not Currently 0 (1 standard drink = 0.6 oz pur e alcohol) [facility] Utilities Answer Date Recorded In the past 12 months has [employer], gas, oil, or water company threatened to shut off services in your [...] and heating? Not hard at all 07/03/2024 [facility] - Occupational Stress Questionnaire Answer Date [...] GED or equivalent No 07/09/[address] [facility] 07/09/2024 PHQ-2 Answer Date Recorded Retired PHQ-9: [...] Diagnoses Not on filedocumented in this encounter Care Teams Enrollment Advisor Relationship Specialty Start Date End Date Lakshmi Rivera PA [address] [place] [address] [facility] [address] [facility] [address] PCP - General Physician Patient Care Associate 12/04/19 documented as of this encounter
--- OUTSIDE RECORDS SUMMARY | 2025-06-19 08:41 | XMS_ITS | Clinical Summary ---
Author Organization [facility] Address [address] [place] [address] Care Team Providers Care Physics Technical Officer Name Role Phone Lakshmi Rivera Primary Care Provider [phone] Allergies No known active allergies Medications * This document contains information received from the source organization and may not represent a complete record from that organization. gabapentin (NEURONTIN) 300 MG capsule Take 1 capsule by mouth every night at bedtime. 0 Active tiZANidine (ZANAFLEX) 4 MG tablet Take 1 tablet by mouth Every Night. 0 Active Cholecalciferol (Vitamin D3) 250 MCG (29693 UT) tablet Take 30,000 Units by mouth Daily. OTC 3 Active multivitamin (THERAGRAN) tablet tablet Take 3 tablets by mouth Daily. OTC Active Vitamin A 7.5 MG (19835 UT) capsule Take 65,000 Units by mouth Daily. OTC Active ferrous sulfate 324 (65 Fe) MG tablet delayed-release EC tablet Take 1 tablet by mouth Daily With Breakfast. OTC Active Cyanocobalamin (VITAMIN B 12 PO) Take 1,000 mcg by mouth Daily. OTC Active VITAMIN E 400 UNIT capsule Take 1 capsule by mouth Daily. OTC Active magnesium oxide 250 MG tablet Take 1 tablet by mouth Daily. OTC Active calcium carbonate (OS-SUKHWINDER) 600 MG tablet Take 3 tablets by mouth Daily. OTC Active ondansetron ODT (ZOFRAN-ODT) [address] 1 tablet on the tongue Every 8 (Eight) Hours As Needed for Nausea or Vomiting. 60 tablet 11 4 Active polycarbophil 625 MG tablet tablet Take 1 tablet by mouth Daily. 4 Active desvenlafaxine (PRISTIQ) 50 MG 24 hr tablet Take 1 tablet by mouth Daily. 4 Active doxepin (SINEquan) 25 MG capsule Take 1 capsule by mouth Every Night. Active pantoprazole (PROTONIX) 40 MG EC tablet Take 1 tablet by mouth 2 (Two) Times a Day. 180 tablet 3 4 Active Psyllium Fiber 0.52 g capsule Take 0.4 each by mouth As Needed. 4 Active famotidine (Pepcid) 20 MG tablet Take 1 tablet by mouth 2 (Two) Times a Day As Needed for Heartburn. 180 tablet 3 4 Active Active Problems Problem Noted Date Diagnosed Date S/P biliopancreatic diversion with duodenal swit ch 01/30/2024 Secondary hyperparathyroidism, non-renal 024 Overview (11/29/2023): Calcium low (8.1) Pth level consistently about 100 Vit D typically quite low requiring high dose supplements Assessment & Plan (11/29/2023 4:53 PM EST): Her history of bariatric surgery and labs are consistent with secondary hyperparathyroidism due to malabsorption of calcium and vit D. The treatment is sufficient doses of calcium and vitamin D. She is on enough of the latter but needs more of the former. Will have her double her dose and recheck. 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 01/31/2024 01/31/2024 Partial small bowel obstruction 01/30/2024 01/31/2024 Hiatal hernia with gastroesophageal reflux 04/29/2020 05/15/2020 Overview (04/29/2020): Added automatically from request for surgery [id number] Morbid obesity with body mas s index (BMI) of 50.0 to 59.9 in adult 04/28/2020 08/10/2023 Morbid obesity with BMI of 50.0-59.9, adult 08/10/2023 Dyspnea on exertion 08/10/20 Immunizations Immunization Administration Dates Next Due Influenza TIV (IM) 09/18/2014 Tdap 10/12/2015,08/15/2008 Family History Medical History Relation Name Comments Diabetes Father Mary aguero Heart disease Maternal Grandfather Clemente voss Heart attack Maternal Grandmother Pancreatic cancer Maternal Grandmother Thyroid disease Maternal Uncle Goiter Mother Elizabeth aguero Hypertension Mother Elizabeth aguero Thyroid disease Mother Elizabeth aguero Colon cancer Paternal Grandfather Diabetes Paternal Grandmother Tc Aguero Relation Name Status Comments Brother Alive Child 1 Alive Child 2 Alive Father Mary aguero Alive Maternal Grandfather Clemente voss Maternal Grandmother Maternal Uncle Mother Elizabeth aguero Alive Paternal Grandfather Paternal Grandmother Tc Sau[place] Sister Alive Social History Tobacco Use Types Packs/Day Years Used Date Smoking Tobacco: Former Cigarettes 0.5 10 0 11/06/1999 - 11/06/2009 Passive Smoke Exposure: Past Smokeless Tobacco: Never Tobacco Cessation:Counseling Given: Yes Alcohol Use Standard Drinks/Week Comments Not Currently 0 (1 standard drink = 0.6 oz pur e alcohol) [facility] Utilities Answer Date Recorded In the past 12 months has [employer], gas, oil, or water [employer] threatened to shut off services in your [...] and heating? Not hard at all 07/03/2024 [facility] [place] of Occupat ional Health - Occupational Stress [...] GED or equivalent No 07/09/2024 Preferred Language Zimbabwean 07/09/2024 PHQ-2 Answer Date Recorded Retired PHQ-9: Brief Depression Severity Measure Score 0 07/03/2024 Comments No Sex and Gender Information Value Date Recorded Sex Assigned at Not on file Legal Sex Female 10:04 AM EDT Gender Identity Not on file Sexual Orientation Not on file Last Filed Vital Signs Vital Sign Reading Time Taken Comments Blood Pressure 114/72 12/13/2024 9:24 AM EST Pulse 77 12/13/2024 9:24 AM EST Temperature 37.1 C (98.7 F) 12/13/2024 9:24 AM EST Respiratory Rate 16 12/13/2024 9:24 AM EST Oxygen Saturation 99% 12/13/2024 9:24 AM EST Inhaled Oxygen Concentration - - Weight 85.5 kg (188 lb 6.4 oz) 12/13/2024 9:24 A M EST Height 157.5 cm (5' 2 ) 12/13/2024 9:24 AM EST Body Mass Index 34.46 12/13/2024 9:24 AM EST Plan of Treatment Health Maintenance Due Date Last Done Comments Annual Gynecologic Pelvic an d Breast Exam 1983 PAP SMEAR 2004 ANNUAL PHYSICAL 03/19/2019 HEPATITIS C SCREENING 03/19/2019 MAMMOGRAM 2023 COVID-19 Vaccine (2023-12 5 season) 2024 12/24/2021, 12/02/2021 INFLUENZA VACCINE 08/06/2025 09/18/2014 TDAP/TD VACCINES (3 - Td or Tdap) 10/12/2025 10/12/2015, 08/15/2008 Pneumococcal Vaccine 0-49 Aged Out No longer eligible based on patient's age to complete this topic Medical Devices Implanted Type Area Mineral Economist Device Identifier Shelf Expiration Date Model / Serial / Lot Reload Stplr Signia Tristaple 2.0 Pga 60mm Art /Emily Prp - [id number] Implanted:Qty : 1 on 05/15/2020 by Elvin Rosenbaum MD at [facility] Implant N/A: Stomach COVIDIEN 11/05/2021 [id number] AMT / / [id number] Reload Stplr Signia Tristaple 2.0 Pga 60mm Art /Emily Prp - [id number] Implanted:Qty : 3 on 05/15/2020 by Elvin Rosenbaum MD at [facility] Implant N/A: Stomach COVIDIEN 02/03/2023 [id number] AMT / / [id number] Cartrdg Clip Endo Ligaclip/X Opn Ti Slvr Pk/6 - [id number] Implanted:Qty : 4 on 08/10/2023 by Yudy Sanchez MD at [facility] Implant N/A: Abdomen ETH[employer]ON ENDO SURGERY DIV OF J AND J [id number] 12/06/2027 LT200 / / [id number] Cartrdg Clip Endo Ligaclip/X Opn Ti /Lg Grn Pk/6 - [id number] Implanted:Qty : 2 on 08/10/2023 by Yudy Sanchez MD at [facility] Implant N/A: Abdomen [employer] END[employer] SURG[employer] DIV OF J AND J [id number] 06/05/2027 LT300 / / [id number] Cartrdg Clip Ligaclip/X Opn Ti Luther Pk/6 - [id number] Implanted:Qty : 1 on 08/10/2023 by Yudy Sanchez MD at [facility] Implant N/A: Abdomen [employer] END[employer] DIV OF J AND J [id number] 11/05/2027 LT100 / / [id number] Dev Cls Wnd Vloc/Pbt Natasha Nonabs 1/2cir Sz2/0 27mm 23cm Luther - [id number] Implanted:Qty : 1 on 01/31/2024 by Elvin Rosenbaum MD at [facility] Implant N/A: Abdomen COVIDIEN 05/05/2026 [id number] / / [id number] Dev Contrl Tiss Stratafix Spiral Pds Pls 3/0 0 15cm Tex - [id number] Implanted:Qty : 1 on 01/31/2024 by Elvin Rosenbaum MD at [facility] Implant N/A: Abdomen ETHICON DIV OF Hue AND J 03/05/2025 [id number] / / [id number] Dev Cls Wnd Vloc/Pbt Natasha Nonabs 1/2cir Sz2/0 26mm 15cm Luther - [id number] Implanted:Qty : 2 on 01/31/2024 by Elvin Rosenbaum MD at [facility] Implant N/A: Abdomen COVIDIEN 10/05/2026 [id number] / / [id number] Dev Contrl Tiss Stratafix Spiral Pds Pls 3/0 0 15cm Tex - [id number] Implanted:Qty : 2 on 01/31/2024 by Elvin Rosenbaum MD at [facility] Implant N/A: Abdomen ETHICON DIV OF Hue AND J 03/05/2025 [id number] / / [id number] Stplr Lnr Cut Prox 75mm Luther Tlc75 - [id number] Implanted:Qty : 1 on 01/31/2024 by Elvin Rosenbaum MD at [facility] Implant N/A: Abdomen [employer] ENDO SURGERY DIV OF J AND J 12/06/2028 TLC75 / / [id number] Reload Stplr Lnr Cut Prox 75mm Luther Tcr75 - [id number] Implanted:Qty : 3 on 01/31/2024 by Elvin Rosenbaum MD at [facility] Implant N/A: Abdomen ETH[employer] ENDO SURGERY DIV OF J AND J 12/06/2028 TCR75 / / [id number] Stplr Lnr Cut Prox 75mm Luther Tlc75 - [id number] Implanted:Qty : 1 on 07/02/2024 by Kate Fleming MD at [facility] Implant Right: Abdomen ETH[employer] ENDO SURGERY DIV OF AND J 04/05/2029 TLC75 / / [id number] Reload Stplr Lnr Cut Prox 75mm Luther Tcr75 - [id number] Implanted:Qty : 1 on 07/02/2024 by Kate Fleming MD at [facility] Implant Right: Abdomen ETH[employer] ENDO SURGERY DIV OF AND J 02/03/2029 TCR75 / / [id number] Reload Stplr Lnr Cut Prox 75mm Luther Tcr75 - [id number] Implanted:Qty : 1 on 07/02/2024 by Elvin Rosenbaum MD at [facility] Implant Right: Abdomen ETH[employer] ENDO SURGERY DIV OF AND J 02/03/2029 TCR75 / / [id number] Reload Stplr Lnr Cut Prox 75mm Luther Tcr75 - [id number] Implanted:Qty : 3 on 07/02/2024 by Elvin Rosenbaum MD at [facility] Implant Right: Abdomen ETH[employer] ENDO SURGERY DIV OF AND J 04/05/2029 TCR75 / / [id number] Dev Contrl Tiss Stratafix Spiral Pds Pls 3/0 0 15cm Tex - [id number] Implanted:Qty : 2 on 07/02/2024 by Elvin Rosenbaum MD at [facility] Implant Right: Abdomen ETHICON DIV OF AND J 10/05/2025 [id number] / / [id number] Dev Cls Wnd Vloc/Pbt Natasha Nonabs 1/2cir Sz2/0 26mm 15cm Lutehr - [id number] Implanted:Qty : 1 on 07/02/2024 by Elvin Rosenbaum MD at [facility] Implant Right: Abdomen COVIDIEN 03/05/2027 [id number] / / [id number] Reload Stplr Lnr Cut Prox 75mm Luther Tcr75 - [id number] Implanted:Qty : 1 on 07/02/2024 by Elvin Rosenbaum MD at [facility] Implant Right: Abdomen ETH[employer] ENDO SURGERY DIV OF J AND J 04/05/2029 TCR75 / / [id number] Dev Cls Wnd Vloc/Pbt Natasha Nonabs 1/2cir Sz2/0 26mm 15cm Luther - [id number] Implanted:Qty : 2 on 07/02/2024 by Elvin Rosenbaum MD at [facility] Implant Right: Abdomen COVIDIEN 01/03/2027 [id number] / / [id number] Insurance [facility] Advance Directives * CPR (Attempt to Resuscitate) (Latest Code Status on File) Date Activated Date Inactivated Comments 07/07/2024 4:20 PM 07/10/2024 6:44 PM Question Answer Comments Code Status (Patient has no pulse and is not breathing): CPR (Attempt to Resuscitate) Medical Interventions (Patie nt has pulse or is breathing): Full Support * CPR (Attempt to Resuscitate) Date Activated Date Inactivated Comments 07/02/2024 1:28 PM 07/05/2024 7:18 PM Question Answer Comments Code Status (Patient has no pulse and is not breathing): CPR (Attempt to Resuscitate) Medical Interventions (Patie nt has pulse or is breathing): Full Support Level Of Support Discussed With: Patient * CPR (Attempt to Resuscitate) Date Activated Date Inactivated Comments 05/07/2024 2:54 PM 05/13/2024 7:34 PM Question Answer Comments Code Status (Patient has no pulse and is not breathing): CPR (Attempt to Resuscitate) Medical Interventions (Patie nt has pulse or is breathing): Full Support Level Of Support Discussed With: Patient * CPR (Attempt to Resuscitate) Date Activated Date Inactivated Comments 01/31/2024 9:31 PM 02/03/2024 6:11 PM Question Answer Comments Code Status (Patient has no pulse and is not breathing): CPR (Attempt to Resuscitate) Medical Interventions (Patie nt has pulse or is breathing): Full Support Level Of Support Discussed With: Patient * CPR (Attempt to Resuscitate) Date Activated Date Inactivated Comments 01/31/2024 6:44 AM 01/31/2024 9:31 PM Question Answer Comments Code Status (Patient has no pulse and is not breathing): CPR (Attempt to Resuscitate) Medical Interventions (Patie nt has pulse or is breathing): Full Support Care Teams Physics Technical Officer Relationship Specialty Start Date End Date Lakshmi Rivera PA [address] [place] [address] [place] [id number] PCP - General Physician Management Nurse Rn 12/04/19
[2025-06-19 08:54] LABS: Hematocrit 34.6 % (37.0-47.0); Hemoglobin 11.2 g/dL (12.2-16.2); Immature Granulocytes % 0.3 %; Mean Corpuscular HGB Conc 32.4 g/dL (31.8-35.4); Mean Corpuscular Hemoglobin 27.6 pg (27.0-31.2); Mean Corpuscular Volume 85.2 fl (81-99); Nucleated Red Blood Cells % 0 %; Platelet Count 232 K/mm3 (142-424); Red Blood Count 4.06 M/mm3 (4.20-5.40); Red Cell Distribution Width-SD 43.1 fL; White Blood Count 9.7 K/mm3 (4.8-10.8)
[2025-06-19 09:32] LABS: Free T4 (Free Thyroxine) 1.04 ng/dl (0.78-2.19)
[2025-06-19 09:45] LABS: Thyroid Stimulating Hormone 1.95 uIU/mL (0.465-4.68)
[2025-06-19 10:04] LABS: Vitamin B12 575 pg/mL (239-931)
[2025-06-19 10:35] LABS: Iron 90 ug/dL (37-170)
[2025-06-19 10:44] LABS: Total Iron Binding Capacity 330 ug/dL (265-497)
[2025-06-20 13:28] LABS: Triiodothyronine (T3) Free 2.9 pg/mL (2.0-4.4)
[2025-06-20 17:12] LABS: Cortisol,AM 8.3 ug/dL (6.2-19.4)
== END 2025-06-19 23:59 | disposition home or self-care (01) ==
LOC: LAB 08:33
PROVIDERS: PCP Physician Assistant
DX: R53.83 Other fatigue (principal)
CPT/HCPCS: 36415; 82533; 82607; 83540; 83550; 84439; 84443; 84481; 85025

== ENCOUNTER 2025-06-27 09:32 | Outpatient (CLI) | payer OTHER, SELFPAY ==
--- OUTSIDE RECORDS SUMMARY | 2019-12-04 14:09 | XMS_ITS | Encounter Summary ---
Author Organization [facility] Address [address] [place] [address] Care Team Providers Care Human Resource Assistant Name Role Phone Lakshmi Rivera Primary Care Provider Encounter Details Date Type Department Care Team (Late st Contact Info) Description 12/04/2019 1:09 PM EST Hospital Encounter [facility] PULMONARY & CRITICAL CARE MEDICINE [address] [place] [phone] Social History Tobacco Use Types Packs/Day Years Used Date Smoking Tobacco: Former Cigarettes 0.5 10 0 11/06/1999 - 11/06/2009 Passive Smoke Exposure: Past Smokeless Tobacco: Never Alcohol Use Standard Drinks/Week Comments Not Currently 0 (1 standard drink = 0.6 oz pur e alcohol) [facility] Utilities Answer Date Recorded In the past 12 months has [employer], gas, oil, or water [employer] threatened to shut off services in your [...] and heating? Not hard at all 07/03/2024 [facility] [place] of Occupat ional Health - Occupational Stress [...] GED or equivalent No 07/09/2024 Preferred Language Maldivian 07/09/2024 PHQ-2 Answer Date Recorded Retired PHQ-9: [...] documented as of this encounter Care Teams Human Resource Assistant Relationship Specialty Start Date End Date Lakshmi Rivera PA [address] [facility] [address] [place] [address] PCP - General Physician Coal Deliverer 12/04/19 documented as of this encounter
[2025-06-27 07:51] VITALS: BMI 37.6
--- OUTSIDE RECORDS SUMMARY | 2025-06-27 09:36 | XMS_ITS | Clinical Summary ---
Author Organization [facility] Address [address] [place] [address] Care Team Providers Care Concrete Vault Maker Name Role Phone Lakshmi Rivera Primary Care Provider [phone] Allergies No known active allergies Medications * This document contains information received from the source organization and may not represent a complete record from that organization. gabapentin (NEURONTIN) 300 MG capsule Take 1 capsule by mouth every night at bedtime. 0 Active tiZANidine (ZANAFLEX) 4 MG tablet Take 1 tablet by mouth Every Night. 0 Active Cholecalciferol (Vitamin D3) 250 MCG (90620 UT) tablet Take 30,000 Units by mouth Daily. OTC 3 Active multivitamin (THERAGRAN) tablet tablet Take 3 tablets by mouth Daily. OTC Active Vitamin A 7.5 MG (43259 UT) capsule Take 65,000 Units by mouth [...] IM vit D in situations like this (604761 units IM every 4 months) Abdominal pannus [...] (04/29/2020): Added automatically from request for surgery [id number] Morbid obesity with body mas s index [...] drink = 0.6 oz pur e alcohol) [facility] Utilities Answer Date Recorded In the past 12 months has [employer] gas, oil, or water [employer] threatened to shut off services in your [...] and heating? Not hard at all 07/03/2024 [facility] [place] of Occupat ional Health - Occupational Stress [...] none 07/07/2024 Family and Community Support Answer Aarm e Recorded If for any reason you [...] GED or equivalent No 07/09/2024 Preferred Language Cameroonian 07/09/2024 PHQ-2 Answer Date Recorded Retired PHQ-9: [...] this topic Medical Devices Implanted Type Area Vp Of Digital Marketing Device Identifier Shelf Expiration Date Model / Serial / Lot Reload Stplr Signia Tristaple 2.0 Pga 60mm Art /Emily Prp - [id number] Implanted:Qty : 1 on 05/15/2020 by Elvin Rosenbaum MD at [facility] Implant N/A: Stomach COVIDIEN 11/05/2021 [id number] AMT / / [id number] Reload Stplr Signia Tristaple 2.0 Pga 60mm Art /Emily Prp - [id number] Implanted:Qty : 3 on 05/15/2020 by Elvin Rosenbaum MD at [facility] Implant N/A: Stomach COVIDIEN 02/03/2023 NWPISES23 AMT / / [id number] Cartrdg Clip Endo Ligaclip/X Opn Ti Slvr Pk/6 - [id number] Implanted:Qty : 4 on 08/10/2023 by Yudy Sanchez MD at [facility] Implant N/A: Abdomen [employer] ENDO SURGERY DIV OF J AND J [id number] 12/06/2027 LT200 / / [id number] Cartrdg Clip Endo Ligaclip/X Opn Ti /Lg Grn Pk/6 - [id number] Implanted:Qty : 2 on 08/10/2023 by Yudy Sanchez MD at [facility] Implant N/A: Abdomen ETH[employer]ON ENDO SURGERY DIV OF J AND J [id number] 06/05/2027 LT300 / / [id number] Cartrdg Clip Ligaclip/X Opn Ti Luther Pk/6 - [id number] Implanted:Qty : 1 on 08/10/2023 by Yudy Sanchez MD at [facility] Implant N/A: Abdomen ETH[employer]ON ENDO SURGERY DIV OF J AND J [id number] 11/05/2027 LT100 / / [id number] Dev Cls Wnd Vloc/Pbt Natasha Nonabs 1/2cir Sz2/0 27mm 23cm Luther - [id number] Implanted:Qty : 1 on 01/31/2024 by Elvin Rosenbaum MD at [facility] Implant N/A: Abdomen COVIDIEN 05/05/2026 [id number] / / [id number] Dev Contrl Tiss Stratafix Spiral Pds Pls 3/0 0 15cm Tex - [id number] Implanted:Qty : 1 on 01/31/2024 by Elvin Rosenbaum MD at [facility] Implant N/A: Abdomen ETHICON DIV OF Hue AND J 03/05/2025 [id number] / / [id number] Dev Cls Wnd Vloc/Pbt Natasha Nonabs 1/2cir Sz2/0 26mm 15cm Luther - [id number] Implanted:Qty : 2 on 01/31/2024 by Elvin Rosenbaum MD at [facility] Implant N/A: Abdomen COVIDIEN 10/05/2026 [id number] / / [id number] Dev Contrl Tiss Stratafix Spiral Pds Pls 3/0 0 15cm Tex - [id number] Implanted:Qty : 2 on 01/31/2024 by Elvin Rosenbaum MD at [facility] Implant N/A: Abdomen ETHICON DIV OF Hue AND J 03/05/2025 [id number] / / [id number] Stplr Lnr Cut Prox 75mm Luther Tlc75 - [id number] Implanted:Qty : 1 on 01/31/2024 by Elvin Rosenbaum MD at [facility] Implant N/A: Abdomen ETH[employer]ON ENDO SURGERY DIV OF J AND J 12/06/2028 TLC75 / / [id number] Reload Stplr Lnr Cut Prox 75mm Luther Tcr75 - [id number] Implanted:Qty : 3 on 01/31/2024 by Elvin Rosenbaum MD at [facility] Implant N/A: Abdomen ETHICON ENDO SURGERY DIV OF J AND J 12/06/2028 TCR75 / / [id number] Stplr Lnr Cut Prox 75mm Luther Tlc75 - [id number] Implanted:Qty : 1 on 07/02/2024 by Kate Fleming MD at [facility] Implant Right: Abdomen ETHICON ENDO SURGERY DIV OF AND J 04/05/2029 TLC75 / / [id number] Reload Stplr Lnr Cut Prox 75mm Luther Tcr75 - [id number] Implanted:Qty : 1 on 07/02/2024 by Kate Fleming MD at [facility] Implant Right: Abdomen ETHICON ENDO SURGERY DIV OF AND J 02/03/2029 TCR75 / / [id number] Reload Stplr Lnr Cut Prox 75mm Luther Tcr75 - [id number] Implanted:Qty : 1 on 07/02/2024 by Elvin Rosenbaum MD at [facility] Implant Right: Abdomen ETHICON ENDO SURGERY DIV OF AND J 02/03/2029 TCR75 / / [id number] Reload Stplr Lnr Cut Prox 75mm Luther Tcr75 - [id number] Implanted:Qty : 3 on 07/02/2024 by Elvin Rosenbaum MD at [facility] Implant Right: Abdomen ETHICON ENDO SURGERY DIV OF AND J 04/05/2029 TCR75 / / [id number] Dev Contrl Tiss Stratafix Spiral Pds Pls 3/0 0 15cm Tex - [id number] Implanted:Qty : 2 on 07/02/2024 by Elvin Rsoenbaum MD at [facility] Implant Right: Abdomen ETHICON DIV OF AND J 10/05/2025 [id number] / / [id number] Dev Cls Wnd Vloc/Pbt Natasha Nonabs 1/2cir Sz2/0 26mm 15cm Luther - [id number] Implanted:Qty : 1 on 07/02/2024 by Elvin Rosenbaum MD at [facility] Implant Right: Abdomen COVIDIEN 03/05/2027 [id number] / / [id number] Reload Stplr Lnr Cut Prox 75mm Luther Tcr75 - [id number] Implanted:Qty : 1 on 07/02/2024 by Elvin Rosenbaum MD at [facility] Implant Right: Abdomen ETHICON ENDO SURGERY DIV OF J AND J 04/05/2029 TCR75 / / [id number] Dev Cls Wnd Vloc/Pbt Natasha Nonabs 1/2cir Sz2/0 26mm 15cm Luther - [id number] Implanted:Qty : 2 on 07/02/2024 by Elvin Rosenbaum MD at [facility] Implant Right: Abdomen COVIDIEN 01/03/2027 [id number] / / [id number] Insurance [facility] Advance Directives * CPR (Attempt to [...] or is breathing): Full Support Care Teams Concrete Vault Maker Relationship Specialty Start Date End Date Lakshmi Rivera PA [address] [place] [address] [place] [id number] PCP - General Physician Mechanical Design Drafter 12/04/19
--- OUTSIDE RECORDS SUMMARY | 2025-06-27 09:36 | XMS_ITS | Encounter Summary ---
Author Organization [facility] Address [address] [place] [address] Care Team Providers Care Manager Play Name Role Phone Lakshmi Rivera Primary Care Provider [phone] Reason for Visit * Reason Comments Med Refill Encounter Details Date Type Department Care Team (Late st Contact Info) Description 12/23/2024 Refill [facility] BARIATRIC SURGERY [address] [place] [address] Indira Kidd MD [address] [place] [address] Social History Tobacco Use Types Packs/Day Years Used Date Smoking Tobacco: Former Cigarettes 0.5 10 0 11/06/1999 - 11/06/2009 Passive Smoke Exposure: Past Smokeless Tobacco: Never Alcohol Use Standard Drinks/Week Comments Not Currently 0 (1 standard drink = 0.6 oz pur e alcohol) [facility] Utilities Answer Date Recorded In the past 12 months has [employer], gas, oil, or water company threatened to [...] and heating? Not hard at all 07/03/2024 [facility] - Occupational Stress Questionnaire Answer Date [...] GED or equivalent No 07/09/2024 Preferred Language Eritrean 07/09/2024 PHQ-2 Answer Date Recorded Retired PHQ-9: [...] on filedocumented in this encounter Care Teams Manager Play Relationship Specialty Start Date End Date Lakshmi Rivera PA [address] [place] [address] [facility] [address] [place] [id number] PCP - General Physician Director Of Social Work 12/04/19 documented as of this encounter
--- OUTSIDE RECORDS SUMMARY | 2025-06-27 09:36 | XMS_ITS | Encounter Summary ---
Author Organization [facility] Address [address] [place] [address] Care Team Providers Care Sole Ruffer Name Role Phone Lakshmi Rivera Primary Care Provider [phone] Reason for Visit * Reason Comments Med Refill Encounter Details Date Type Department Care Team (Late st Contact Info) Description 03/06/2023 Refill [facility] BARIAT[facility]IC SURGERY [address] [place] [address] Kate Bernstein, PA-C Social History [...] documented as of this encounter Care Teams Sole Ruffer Relationship Specialty Start Date End Date Lakshmi Rivera PA [address] [facility] [address] [place] [address] PCP - General Physician Ground School Instructor 12/04/19 documented as of this encounter
--- NOTE | 2025-06-27 10:24 | ECG_ITS ---
APPROVED REPORT Exam: Resting ECG HR:91 bpm ECG Measurements Heart Rate 91 AXES AR 151 P 50 QRSd 86 QRS 34 QT 351 T 19 QTc 399 Conclusion SINUS RHYTHM Late r wave progression;low voltage - ?body habitus issue BORDERLINE ECG UNCONFIRMED REPORT Electronically signed by : Alex Villalpando MD 06/28/2025 08:42:06
[2025-06-27 10:36] LABS: Hematocrit 33.9 % (37.0-47.0); Hemoglobin 10.8 g/dL (12.2-16.2); Immature Granulocytes % 0.3 %; Mean Corpuscular HGB Conc 31.9 g/dL (31.8-35.4); Mean Corpuscular Hemoglobin 27.3 pg (27.0-31.2); Mean Corpuscular Volume 85.8 fl (81-99); Nucleated Red Blood Cells % 0 %; Platelet Count 234 K/mm3 (142-424); Red Blood Count 3.95 M/mm3 (4.20-5.40); Red Cell Distribution Width-SD 44.6 fL; White Blood Count 7.5 K/mm3 (4.8-10.8)
[2025-06-27 10:43] LABS: Chloride 109 mmol/L (98-107); Sodium 140 mmol/L (136-145)
[2025-06-27 10:44] LABS: Potassium 3.6 mmoL/L (3.5-5.1)
[2025-06-27 10:46] LABS: Blood Urea Nitrogen 10 mg/dl (7-17); Creatinine Clearance Estimated 218 mL/min (50-200); Creatinine,Serum 0.50 mg/dl (0.52-1.04); Estimated Glomerular Filt Rate 136 ml/min (>60); GFR (African American) 165 ML/MIN (>60)
[2025-06-27 10:47] LABS: Anion Gap 10.6 mEq/L (5-15); Calcium 8.7 mg/dl (8.4-10.2); Carbon Dioxide 24 mmol/L (22.0-30.0); Glucose 94 mg/dl (74-100)
[2025-06-27 11:05] LABS: HCG Qualitative, Serum Negative (Negative)
== END 2025-06-27 23:59 | disposition home or self-care (01) ==
LOC: PREOP 09:33
PROVIDERS: PCP Physician Assistant; Visit Provider Obstetrics & Gynecology
DX: Z01.810 Encounter for preprocedural cardiovascular examination (principal); Z01.812 Encounter for preprocedural laboratory examination; R94.31 Abnormal electrocardiogram [ECG] [EKG]
CPT/HCPCS: 80048; 84703; 85025; 93005

== ENCOUNTER 2025-07-03 14:23 | Inpatient (IN) | payer OTHER, SELFPAY ==
--- OUTSIDE RECORDS SUMMARY | 2019-12-04 14:09 | XMS_ITS | Encounter Summary ---
Author Organization [facility] Address [address] [place] [address] Care Team Providers Care Cafeteria Cook Name Role Phone Lakshmi Rivera Primary Care Provider [phone] Encounter Details Date Type Department Care Team (Late st Contact Info) Description 12/04/2019 1:09 PM EST Hospital Encounter [facility] PULMONARY & CRITICAL CARE MEDICINE [address] [place] [id number] Social History Tobacco Use Types Packs/Day Years Used Date Smoking Tobacco: Former Cigarettes 0.5 10 0 11/06/1999 - 11/06/2009 Passive Smoke Exposure: Past Smokeless Tobacco: Never Alcohol Use Standard Drinks/Week Comments Not Currently 0 (1 standard drink = 0.6 oz pur e alcohol) [facility] Utilities Answer Date Recorded In the past 12 months has [employer], gas, oil, or water [employer] threatened to shut off services in your home? No 07/03/2024 AUDIT-C Answer Date Recorded Q1: How often do you have a drink containing alcohol? Never 07/07/2024 Q2: How many drinks containi ng alcohol do you have on a typical day when you are drinking? Patient does not drink Q3: How often do you have si x or more drinks on one occasion? Never 07/07/2024 Overall Financial Resource Strain (CARDIA) Answe r Date Recorded How hard is it for you to pa y for the very basics like food, housing, medical care, and heating? Not hard at all 07/03/2024 [facility] [place] of Occupat ional Health - Occupational Stress Questionnaire Answer Date Recorded Do you feel stress - tense, restless, nervous, or anxious, or unable to sleep at night because your mind is troubled all the time - these days? Not at all 07/03/2024 Exercise Vital Sign Answer Date Recorde d On average, how many days pe r week do you engage in moderate to strenuous exercise (like a brisk walk)? 0 days 07/03/2024 On average, how many minutes do you engage in exercise at this level? 0 min 07/03/2024 Hunger Vital Sign Answer Date Recorded Within the past 12 months, y ou worried that your food would run out before you got the money to buy more. Never true 07/03/20 24 Within the past 12 months, t he food you bought just didn't last and you didn't have money to get more. Never true 07/03/2024 PRAPARE - Transportation Answer Date Re corded In the past 12 months, has l ack of transportation kept you from medical appointments or from getting medications? No 06/07 In the past 12 months, has l ack of transportation kept you from meetings, work, or from getting things needed for daily living? No 07/03/2024 Abuse Screen Answer Date Recorded Feels Unsafe at Home or Work/School no 07/07/2024 Feels Threatened by Someone no 11/2023 Does Anyone Try to Keep You From Having Contact with Others or Doing Things Outside Your Home? no 07/07/2024 Physical Signs of Abuse Present no 07/07/2024 Housing Stability Answer Date Recorded Current Living Arrangements home 11/2023 Potentially Unsafe Housing Conditions none 07/07/2024 Family and Community Support Answer Aram e Recorded If for any reason you need h elp with day-to-day activities such as bathing, preparing meals, shopping, managing finances, etc., do you get the help you need? I get all the help I need 07/03/2024 How often do you feel lonely or isolated from those around you? Never 07/03/2024 Employment Answer Date Recorded Do you want help finding or keeping work or a job? I do not need or want help 07/03/2024 Disabilities Answer Date Recorded Difficulty Concentrating, Remembering or Making Decisions no 07/07/2024 Difficulty Managing Errands Independently no 07/07/2024 Education Answer Date Recorded Do you want help with school or training? For example, starting or completing job training or getting a high school diploma, GED or equivalent No 07/09/2024 Preferred Language Australian 07/09/2024 PHQ-2 Answer Date Recorded Retired PHQ-9: Brief Depression Severity Measure Score 0 07/03/2024 Comments No Sex and Gender Information Value Date Recorded Sex Assigned at Not on file Legal Sex Female 10:04 AM EDT Gender Identity Not on file Sexual Orientation Not on file documented as of this encounter Functional Status documented as of this encounter Plan of Treatment Not on file documented as of this encounter Procedures Procedure Name Priority Date/Time Associated Diagnosis Comments XR CHEST PA AND LATERAL Routine 12/04/2019 1:20 PM EST Preoperative clearance documented in this encounter Results * XR Chest PA & Lateral (12/04/2019 1:20 PM EST) Anatomical Region Laterality Modality Body, Chest N/A Radiographic Kaitlynn ging 12/05/2019 1:27 PM EST Impressions 12/05/2019 4:55 PM EST Chronic changes seen within the lung bragg with no evidence of acute parenchymal disease. E: 12/05/2019 This report was finalized on 12/05/2019 4:[address] Jennifer Bailey MD. Narrative 12/05/2019 4:55 PM EST EXAMINATION: XR CHEST PA AND LATERAL- 12/04/2019 INDICATION: SEE DIAGNOSIS; Z01.818-Encounter for other preprocedural examination COMPARISON: NONE FINDINGS: PA and lateral views of the chest reveal heart to be borderline enlarged. Mild elevation seen of the right hemidiaphragm. The lung bragg are clear with calcified granuloma identified left lung base. Degenerative changes seen within the spine. Upper lung bragg are unremarkable. Procedure Note Jennifer Bailey MD - 12/05/2019 EXAMINATION: XR CHEST PA AND LATERAL- 12/04/2019 INDICATION: SEE DIAGNOSIS; Z01.818-Encounter for other preprocedural examination COMPARISON: NONE FINDINGS: PA and lateral views of the chest reveal heart to be borderline enlarged. Mild elevation seen of the right hemidiaphragm. The lung bragg are clear with calcified granuloma identified left lung base. Degenerative changes seen within the spine. Upper lung bragg are unremarkable. IMPRESSION: Chronic changes seen within the lung bragg with no evidence of acute parenchymal disease. E: 12/05/2019 This report was finalized on 12/05/2019 4:[address] Jennifer Bailey MD. Fadia Kamara APRN IMG DIAGNOSTIC IMAGING ORD ERABLES Final Result documented in this encounter Visit Diagnoses Not on filedocumented in this encounter Additional Health Concerns Infection Onset Date Last Indicated Resolved Time COVID Screen (preop/placement) 05/13/2020 05/13/2020 05/14/2020 3:53 PM EDT COVID Screen (preop/placement) 07/07/2024 07/07/2024 07/07/2024 2:46 PM EDT documented as of this encounter Care Teams Cafeteria Cook Relationship Specialty Start Date End Date Lakshmi Rivera PA [address] [place] [address] [facility] [address] [place] [address] PCP - General Physician Barrelhead Inspector 12/04/19 documented as of this encounter
[2025-06-27 12:35] VITALS: BMI 35.3
[2025-07-03] VITALS (20 sets, daily range): BP systolic 105–139; BP diastolic 50–79; PULSE 65–93; RESP 14–18; TEMP 36.1–36.8; O2SAT 94–100
[2025-07-03] MEDS: GABAPENTIN 300MG CAPSULE 600 MG (08:19)
[2025-07-03] MEDS: CELECOXIB 100MG CAPSULE 400 MG PO (08:19)
[2025-07-03] MEDS: ACETAMINOPHEN 500MG TAB 1000 MG PO (08:19)
[2025-07-03] MEDS: LACTATED RINGERS 1000ML 1,000 ML 25 ML IV (08:21)
--- NOTE | 2025-07-03 08:48 | P.PNANES_ITS ---
[facility] Disclaimer: The information contained in this section may have been updated after the patient was seen, as this information can be updated by other users. Medical History DUB (dysfunctional uterine bleeding) Encounter for pre-operative cardiovascular clearance Insomnia Generalized anxiety disorder Cholecystectomy planned Obesity Palpitations Chest pain Surgical History History of gastric bypass History of bowel resection History of cholecystectomy History of skin surgery H/O gastric sleeve History of Family History Other Family history of cancer Family history of hyperlipidemia Family history of hypertension Family history of myocardial infarction Social History Smoking Status: Former smoker second hand exposure: No alcohol intake: never counseling given: No substance use type: denies use counseling given: No current occupational status: employed Travel in the last 8 weeks?: None adopted: No caregiver/support person: Yes foster care: No household members: children and other housing: house lives independently: Yes marital status: number of children: 4 number of grandchildren: 0 education level: high school current occupational exposures/hazards: No Hx Recent Travel: No sexually active: Yes caffeine: Yes physical activity: none working smoke detector in home: Yes fire extinguisher in home: Yes carbon monox detector in home: Yes firearms in home: Yes do you feel safe at home: Yes victim of physical abuse: No victim of emotional abuse: No victim of sexual abuse: No would you like helpful sources: No Have you lived/traveled outside [place] in past 30 days?: No Contact w/someone who lives/traveled outside US past 30 days?: No Exposure to someone with infectious disease in past 14 days?: No Do you have a fever (greater than 100.4 F or 38 C)?: No Have you tested positive for COVID-19?: No Exposed to someone with COVID-19 in past 14 days?: No Do you have a sore throat?: No Do you have a cough?: No Do you have any weakness?: No Do you have any diarrhea?: No Are you experiencing any unusual bleeding?: No Do you have any muscle aches/pain?: No Do you have any abdominal pain?: No Are you experiencing loss of taste or smell?: No [facility] Anesthesia Checklist Patient Identification Patient Identification: Arm Band and Verbal (Name & ) Structural Data Admitted From: Home Planned Operative Procedure/s: lap hysterectomy Consent for Planned Operative Procedure(s) Verified: Yes Verified Documents: Surgical Consent and History and Physical NPO Status Verified Time NPO: 00:00 Additional verifications Anesthesia Reactions: No Hx Blood Transfusions: No Blood Transfusion Reaction: No Airway Assessment Mallampati Score:: Class II Dentition: Good Dentition Neurological Assessment Level of Consciousness: Awake, Alert and Appropriate Hx Seizures: No Numbness or tingling in extremities: No Anesthesia Plan Anesthesia Risk discussed: Yes Anesthesia Plan: Verified ASA Class: II Anesthesia Type: General
--- NOTE | 2025-07-03 08:56 | EXP.ANES.CKL ---
[facility] Disclaimer: The information contained in this section may have been updated after the patient was seen, as this information can be updated by other users. Medical History DUB (dysfunctional uterine bleeding) Encounter for pre-operative cardiovascular clearance Insomnia Generalized anxiety disorder Cholecystectomy planned Obesity Palpitations Chest pain Surgical History History of gastric bypass History of bowel resection History of cholecystectomy History of skin surgery H/O gastric sleeve History of Family History Other Family history of cancer Family history of hyperlipidemia Family history of hypertension Family history of myocardial infarction Social History Smoking Status: Former smoker second hand exposure: No alcohol intake: never counseling given: No substance use type: denies use counseling given: No current occupational status: employed Travel in the last 8 weeks?: None adopted: No caregiver/support person: Yes foster care: No household members: children and other housing: house lives independently: Yes marital status: number of children: 4 number of grandchildren: 0 education level: high school current occupational exposures/hazards: No Hx Recent Travel: No sexually active: Yes caffeine: Yes physical activity: none working smoke detector in home: Yes fire extinguisher in home: Yes carbon monox detector in home: Yes firearms in home: Yes do you feel safe at home: Yes victim of physical abuse: No victim of emotional abuse: No victim of sexual abuse: No would you like helpful sources: No Have you lived/traveled outside US in past 30 days?: No Contact w/someone who lives/traveled outside US past 30 days?: No Exposure to someone with infectious disease in past 14 days?: No Do you have a fever (greater than 100.4 F or 38 C)?: No Have you tested positive for COVID-19?: No Exposed to someone with COVID-19 in past 14 days?: No Do you have a sore throat?: No Do you have a cough?: No Do you have any weakness?: No Do you have any diarrhea?: No Are you experiencing any unusual bleeding?: No Do you have any muscle aches/pain?: No Do you have any abdominal pain?: No Are you experiencing loss of taste or smell?: No [facility] Anesthesia Checklist Patient Identification Patient Identification: Arm Band and Verbal (Name & ) Structural Data Admitted From: Home Planned Operative Procedure/s: repeat c section Consent for Planned Operative Procedure(s) Verified: Yes Verified Documents: Surgical Consent and History and Physical NPO Status Verified Time NPO: 00:00 Additional verifications Patient : Yes Anesthesia Reactions: No Hx Blood Transfusions: No Blood Transfusion Reaction: No Airway Assessment Mallampati Score:: Class II Dentition: Good Dentition Neurological Assessment Level of Consciousness: Awake, Alert and Appropriate Hx Seizures: No Numbness or tingling in extremities: No Anesthesia Plan Anesthesia Risk discussed: Yes Anesthesia Plan: Verified ASA Class: II Anesthesia Type: Spinal
--- NOTE | 2025-07-03 10:40 | EXP.HP ---
History of Present Illness *Admission Date: 07/03/25 *Reason for visit:: Hysterectomy *History of present illness: Kimberly Smart is a pleasant 39yo (CSx3 with one set of twins) presenting today to for a hysterectomy. Desires to proceed with JAMAL. Past HPI: -Indications: heavy uterine bleeding and dysmenorrhea. suspeccted adenomyosis -reviewed benign EMB -patient desires to proceed with definitive surgical management, hysterectomy. We agreed upon a total abdominal hysterectomy, bilateral salpingectomy (she does have a history of a tubal but is unsure if she has any tubal remnants), and cystoscopy -This has been a long standing problem for several years. Her US is suggestive of adenomyosis. Endorses fairly regular menses, just states they are heavy and painful. FDLMP: 04/03/25. She has complained of right sided pain that radiates to her back in the past -Her PMHx is complicated by several abdominal surgeries, see below. -She is using a tubal for contraception. Her other surgeries include 3 C-sections, weight loss surgery x3 who she still follows with that surgeon, cholecystectomy, a skin removal surgery, and right colon resection along with exploratory laparotomy for abdominal pain and suspected bowel pathology. We will need to get the records from some of these surgeries to determine the exent of adhesive disease -Previously had a CT in [place] [facility] and ovarian cyst noted. See below for follow up TVUS x2. She was originally scheduled for an endometrial ablation but was cancelled secondary to needing emergency bowel surgery. Chart review from 02/29/24: Patient was recently admitted to [facility] for a bowel obstruction, she was transferred to [facility] where they did surgery on 328. She was discharged a few days later and shortly after went on vacation with her family. While on vacation in [place] she started having problems again and was admitted to the hospital down there and had a second surgery on 02/07. Patient is doing much better at this time but states that it has been very stressful emotional roller coaster. -Hx of GDM with last twin . Follows with surgeon that did gastric bypass and thinks they may have screened for DM but she is unsure. -Denies any STD history. Reports she is sexually active and has no concerns. In a safe monomagous relationship, feels safe in work and home life. Denies dyspareunia, or insertional pain. -Denies any bowel or bladder complaints/ incontinence. -Controlled anxiety or depression -Denies Tobacco use. Social EtOH use. Denies illcit drug use. -FHX: denies breast, ovarian, colon or uterine cancer. [facility] Disclaimer: The information contained in this section may have been updated after the patient was seen, as this information can be updated by other users. Medical History DUB (dysfunctional uterine bleeding) Encounter for pre-operative cardiovascular clearance Insomnia Generalized anxiety disorder Cholecystectomy planned Obesity Palpitations Chest pain Surgical History History of gastric bypass History of bowel resection History of cholecystectomy History of skin surgery H/O gastric sleeve History of Family History Other Family history of cancer Family history of hyperlipidemia Family history of hypertension Family history of myocardial infarction Social History Smoking Status: Former smoker second hand exposure: No alcohol intake: never counseling given: No substance use type: denies use counseling given: No current occupational status: employed Travel in the last 8 weeks?: None adopted: No caregiver/support person: Yes foster care: No household members: children and other housing: house lives independently: Yes marital status: number of children: 4 number of grandchildren: 0 education level: high school current occupational exposures/hazards: No Hx Recent Travel: No sexually active: Yes caffeine: Yes physical activity: none working smoke detector in home: Yes fire extinguisher in home: Yes carbon monox detector in home: Yes firearms in home: Yes do you feel safe at home: Yes victim of physical abuse: No victim of emotional abuse: No victim of sexual abuse: No would you like helpful sources: No Have you lived/traveled outside US in past 30 days?: No Contact w/someone who lives/traveled outside US past 30 days?: No Exposure to someone with infectious disease in past 14 days?: No Do you have a fever (greater than 100.4 F or 38 C)?: No Have you tested positive for COVID-19?: No Exposed to someone with COVID-19 in past 14 days?: No Do you have a sore throat?: No Do you have a cough?: No Do you have any weakness?: No Do you have any diarrhea?: No Are you experiencing any unusual bleeding?: No Do you have any muscle aches/pain?: No Do you have any abdominal pain?: No Are you experiencing loss of taste or smell?: No Other Medical History Have you received the Flu Vaccine for this season: No Have you received the Pneumonia Vaccine: No Review of Systems Review of Systems Review of systems (narrative): Const: Denies headaches, fever/chills, weakness Cardiorespiratory: Denies chest pain, shortness of breath, and cough GI: Denies abdominal pain, change in BM, nausea, vomiting, constipation, diarrhea : Endorses menorrhagia and pelvic pain. Denies genital lesions, vaginal itching and odor; denies leakage of urine, urinary urgency, frequency, dysuria and hematuria Endorses depression and anxiety Endorses decreased libido Meds Home Medications and Allergies Home Medications ?Medication ?Instructions ?Recorded ?Confirmed ?Type multivitamin 1 tab PO DAILY Supplement 03/08/21 07/03/25 History vonoprazan 20 mg tablet (Voquezna) 20 mg PO DIRECTED 01/17/25 07/03/25 History gabapentin 300 mg capsule 300 mg PO BID Pain #60 caps 03/24/25 07/03/25 Rx tizanidine 4 mg tablet 4 mg PO BIDP PRN Muscle Spasm #60 03/24/25 07/03/25 Rx tabs hyoscyamine sulfate 0.125 mg 0.125 mg PO DAILY 04/17/25 07/03/25 History sublingual tablet (Levsin/SL) levothyroxine 25 mcg tablet 25 mcg PO DAILY 04/17/25 07/03/25 History trazodone 150 mg tablet 150 mg PO HS insomnia #30 tabs 06/18/25 07/03/25 Rx hydroxyzine pamoate 25 mg capsule 25 mg PO TID PRN anxiety #30 caps 06/23/25 07/03/25 Rx brexpiprazole 2 mg tablet (Rexulti) 2 mg PO DAILY 07/03/25 07/03/25 History desvenlafaxine succinate 100 mg See Rx Instructions .Route .COMPLEX 07/03/25 07/03/25 History tablet,extended release 24 hr (Pristiq) New Prescriptions to Start Prescriptions: Allergies Allergy/AdvReac Type Severity Reaction Status Date / Time No Known Allergies Allergy Verified 07/03/25 08:15 Exam Data for Last 24 hours Vital signs and Labs for Last 24 Hours: Temp Pulse Resp BP Pulse Ox O2 Del Method 97 F L 71 18 129/76 100 Room Air 07/03/25 08:22 07/03/25 08:22 07/03/25 08:22 07/03/25 08:22 07/03/25 08:22 07/03/25 08:22 Narrative: Const: healthy appearing, obese, NAD, well developed/nourished Resp: Normal respiratory effort, no audible wheezing, symmetric chest rise Cardio: Regular rate GI: Abdomen soft, tender with palpation, non-distended. no guarding Skin: Several scars on abdomen from skin removal, laparoscopies and midline vertical incisions. Neuro:No focal deficits Extrem: No visible deformity Psych: Normal mood and demeanor Constitutional Constitutional: no acute distress *Routine HEENT Exam Head: Present normocephalic Eye: Present EOMI and PERRL ENT: Present mucous membranes moist *Routine Neck Exam Neck: Present supple; Absent lymphadenopathy *Routine Respiratory Exam Respiratory: Present CTA bilaterally *Routine Cardiovascular Exam Cardiovascular: Present RRR *Routine Abdominal Exam Abdominal: Present soft and normoactive bowel sounds; Absent tenderness *Routine Rectal Exam Rectal:: deferred *Routine Genitalia Exam Genitalia:: deferred *Routine Extremities Exam Extremities: Absent cyanosis, clubbing or edema *Routine Skin Exam Skin: Present warm; Absent rash *Routine Neurological Exam Neurological: Present alert and oriented X3 Assessment and Plan *Assessment and plan (1) Fatigue: Status: Acute Category: Medical Code(s): R53.83 - Other fatigue (2) Abnormal uterine bleeding due to adenomyosis: Status: Acute Category: Medical Code(s): N93.9 - Abnormal uterine and vaginal bleeding, unspecified; N80.03 - Adenomyosis of the uterus (3) MDD (major depressive disorder), recurrent episode: Status: Acute Category: Medical Code(s): F33.9 - Major depressive disorder, recurrent, unspecified (4) Dysmenorrhea: Status: Acute Category: Medical Code(s): N94.6 - Dysmenorrhea, unspecified (5) Ovarian cyst: Status: Acute Category: Medical Code(s): N83.209 - Unspecified ovarian cyst, unspecified side (6) Nausea & vomiting: Status: Acute Category: Medical Code(s): R11.2 - Nausea with vomiting, unspecified (7) Abdominal pain: Status: Acute Qualifiers: Abdominal location: generalized Qualified Code(s): R10.84 - Generalized abdominal pain Category: Medical Code(s): R10.9 - Unspecified abdominal pain (8) Generalized anxiety disorder: Status: Acute Category: Medical Code(s): F41.1 - Generalized anxiety disorder (9) Obesity: Status: Acute Qualifiers: Obesity classification: adult class 3 (BMI >= 40) Serious obesity comorbidity presence: without serious comorbidity Body mass index: BMI 60.0-69.9 Obesity type: unspecified obesity type Qualified Code(s): E66.01 - Morbid (severe) obesity due to excess calories; Z68.44 - Body mass index (BMI) 60.0-69.9, adult Category: Medical Code(s): E66.9 - Obesity, unspecified Plan Plan for a total abdominal hysterectomy, removal of any tubal remnants, and cystoscopy Pt had cardiac clearance for surgery in february 2025 Pt desires definitive surgical management with hysterectomy. I suspect the safest route to complete this is a JAMAL given the patients extensive surgical history and risk for adhesive disease. TVUS 04/14/25: Uterus: 8.7 x 6.5 x 5.3 cm. Retroverted and retroflexed. The endometrium measures 6.1 mm. scar noted Ovaries: -The right ovary measure 3.6 x 2.5 x 3.0 cm. Right ovarian volume: 14 mL. Several small peripheral follicles. Dominant follicle measuring 2.4 x 1.8 x 2.0 cm (similar to previous scan below). -The left ovary measure 4.9 x 2.9 x 2.2 cm. Left ovarian volume: 16 mL. Several small peripheral follicles. Small follicle measuring 1.5 x 1.6 x 1.4 cm. No evidence of adnexal mass or free fluid in the pelvic cavity. TVUS 01/14/2025: Uterus: 8.5 x 7.2 x 5.6 cm. Retroverted. Endometrial thickness: 8.1 mm. Trace fluid within the uterine cavity. Irregular endometrium automobile rental representative of adenomyosis. Ovaries: - The right ovary measures 5.2 x 3.5 x 3.2 cm. Right ovarian volume: 30.5 mL. Several small peripheral follicles. There is a follicle on the right ovary that measures 2.4 x 1.7 x 2.3 cm (see above). There is a solid area in the inferior right ovary that measures 2.3 x 2.7 x 1.8 cm, suggestive of an old corpus luteal cyst. Repeat scan in 3 months showed resolution - The left ovary measures 3.6 x 2.3 x 1.6 cm. Left ovarian volume: 6.6 mL. -The patient is requesting definitive surgical management with hysterectomy. -Diagnosis: Abnormal uterine bleeding, dysmenorrhea, dyspareunia, suspected adenomyosis -She declines continued medical intervention. Previous failed therapies include: OCPs -EMB: Proliferative endometrium -Pap smear: 01/09/2024: Negative for intraepithelial lesion or malignancy. Transformation zone present. -Reviewed the risks of major gynecologic surgery with the pt to include bleeding, infection and risk of damage to surrounding structures. I assessed the patient's understanding from her last visit and she was able to review most of the risk that I reviewed with her at the last visit. She thoroughly understands the risk of hysterectomy. Discussed risks of Hemorrhage requiring life saving blood transfusion that carries a risk of viral infection was explained to the pt and she consented to transfusion if deemed medically necessary. Discussed risks of infection, and the use of antibiotics for infection ppx. Discussed risks of injury to the surrounding structures to include her bowel, bladder, ureters, and neurovascular bundles. Discussed that this could require further surgeries and prolong recovery and hospital stay. Discussed risk of fistula formation. She voiced understanding of all risks. I ensured she understood with teachback method of risks. -Infection prophylactic antibiotics ordered: Ancef 2g and metronidazole -Reviewed with the pt the risk that hysterectomy would not alleviate her pelvic pain. Pt voiced understanding of the risks and consented to hysterectomy. -Postoperative course reviewed with the patient: Since her doing an open abdominal procedure anticipate overnight stay for 1-2 nights
[2025-07-03] MEDS: METRONIDAZ/SOD CHL 500 MG/100 ML PIGGYBACK 100 MG IV (11:21)
[2025-07-03] MEDS: WATER FOR IRRIGATION,STERILE 3,000 ML 25 ML IR (13:09)
--- NOTE | 2025-07-03 13:40 | P.OP_ITS ---
Date of procedure: 07/03/25 Pre-op Diagnosis:: 1. Heavy uterine bleeding 2. Dysmenorrhea 3. Suspected adenomyosis 4. History of tubal ligation 5. Significant surgical history, see HPI Post-op Diagnosis:: 1. Heavy uterine bleeding 2. Dysmenorrhea 3. Suspected adenomyosis 4. History of tubal ligation 5. Significant surgical history, see HPI Procedure performed:: 1. Total abdominal hysterectomy 2. Removal of tubal remnants 3. Cystoscopy Surgeon:: Kylie Reddy DO Explosives Operator(s):: Kate Hope DO FIELD ARTILLERY RADAR OPERATOR:: Rachel Lagos Anesthesia: GETA Estimated blood loss (mL): 150 Operative findings:: - EUA revealed normal appearing vulva and vagina, uterus approximately 12 weeks in size with regular contour - Operative findings demonstrated freely mobile uterus without significant adhesions to the pelvis. Ovaries were within normal limits. The left fallopian tube remained in situ but the right fallopian tube was mostly surgically absent, there was a small amount of fimbriated end of the tube that was adherent to the ovary and left in situ. The pelvis and posterior cul-de-sac had several Alonzo- Masters windows and evidence of endometriosis Operative note:: After informed consent was obtained and all questions were answered to the patient?s satisfaction in layman?s terms. She was taken to the Operating Room where general anesthesia was obtained without any difficulty. Pt was placed in dorsal lithotomy position using yellowfin stirrups. EUA revealed findings above and the decision was made to proceed with JAMAL secondary to concern for adhesions from previous surgeries. The vagina and abdomen were prepped and draped in normal sterile fashion. A Pfannenstiel skin incision was made and carried down to the fascia with the bovie. The fascia was knicked in the midline and sharply extended laterally. Remigio were used to grasp the anterior aspect of the fascia and the rectus muscle was bluntly and gently dissected free. There were two small areas of bleeding that were made hemostatic with the bovie. This process was repeated inferiorly. The rectus muscles were in the midline and the peritoneum was entered bluntly. Entry to the abdominal cavity was confirmed and the XL Dennis O retractor was placed. The bowel was packed away with 3 moist lap sponges and a sushi roll. The uterus was evident upon entering the peritoneal cavity. The uterus was then exteriorized and noted to have the findings as above suspicious for adenomyosis. 2 Kaya clamps were used to grasp the fallopian tube and round ligament complex at the cornua of the uterus. The round ligaments were identified bilaterally, grasped with the Enseal, coagulated and transected. The Enseal was used to work down the body of the uterus coagulating and transecting the broad ligament down to the cardinal's. This process was repeated on the contralateral side. Straight clamps proximal to the uterus were placed across the uterine vessels and cardinal ligaments were cut and suture ligated bilaterally with 0-vicryl. At this level the ureters were easily palpated and noted to be distal to the operative field. Then the bladder was sharply and bluntly dissected off the underlying cervix with a moist Ray-Terry sponge distal to the level of the cervix. Two sharply curved Giancarlo clamps were placed just distal to the cervix and Minda scissors were used to transect the remainder of the uterine body and cervix. Specimen passed off and sent to pathology. Each clamp was suture ligated with a 0-vicryl transfixation stitch at each vaginal apex. The middle of the vaginal cuff was closed with running locking 0- Vicryl suture. The abdomen was copiously irrigated with warm normal saline. All areas were noted to be hemostatic. The left fallopian tube was grasped and elevated from the ovary and the Enseal was used to coagulate, transect, and removed the fallopian tube remnants. The right ovary did not have enough fallopian tube remnant to allow removal, although it was left was the fimbriated end and it was densely adherent to the ovary and left in situ. The operative site was inspected again and there was noted to be a small amount of bleeding along the vaginal cuff. This area was imbricated with a second running locking stitch. There was still some bleeding underneath the bladder peritoneum. Vascular hemostatic, clips were placed on the bladder peritoneum and vaginal cuff. Surgicel powder and Gelfoam were applied prior to applying the Gelfoam inspection of the area was completed for 3 minutes without any bleeding noted. Gelfoam was placed over the area for added prophylaxis The sigmoid colon was replaced back into the hollow of the sacrum. All instruments and laps were returned from the abdominal cavity. The Dennis O retractor was removed. Lap count was correct. The omentum was pulled over the bowel. The peritoneum was reapproximated with 2-0 Monocryl. The rectus muscles were noted to be hemostatic and nicely returned to midline. The fascia was then closed in a running fashion with 0-vicryl x 2 meeting right of midline. No gaps or defects were appreciated. The subcutaneous tissue was irrigated. Any bleeders were made hemostatic with the bovie. The subcutaneous tissue was reapproximated in 2 layers with 2-0 Monocryl. The skin was closed in a subcuticular fashion with INSORB stapler. Cystoscopy: The Frias catheter was removed.? A diagnostic cystoscope was placed and bladder distended with sterile water.? Inspection of the bladder showed a normal- looking, smooth bladder mucosa with no evidence of injury, suture, puckering, or other abnormalities.? Both ureteral meatuses were visualized and were noted to be expelling urine in routine fashion.? Cystoscope was removed and Frias catheter was once again replaced, draining clear urine. The patient tolerated the procedure well. The sponge, lap, and needle counts were correct, per nursing. Condition: stable Disposition: floor Specimens:: Uterine body, cervix, fallopian tube remnants Complications:: none
--- NOTE | 2025-07-03 13:53 | P.PNANES_ITS ---
[facility] Anesthesia Record Part I Anesthesia Record I Intake, IV Amount: 1,200 Hydration: Adequate Estimated blood loss (mL): 20 Urine output (mL): 600 Blood Pressure: 129/75 SaO2: 98 Pulse Rate: 73 Airway Patency: Patent Respiratory Rate: 18 Temperature: 97.4 F Patient is:: Drowsy, Nasal O2 and Stable Stable to PACU at:: 14:00
--- NOTE | 2025-07-03 14:34 | SUR.PHASEI ---
1410-pt c/o urge to void. Placed on bedpan. Unable to void.
[2025-07-03 15:08] LABS: Appearance,Urine/Cath CLEAR (Clear); Bilirubin,Cath Negative (Negative); Blood, Urine/Cath Negative (Negative); Color,Urine/Cath YELLOW (Yellow); Glucose,Urine/Cath (UA) Negative (Negative); Ketones,Urine/Cath Negative (Negative); Leukocyte Esterase,Cath Negative (Negative); Microscopic,Cath URINE MICROSCOPIC (MICROSCOPIC); Nitrate,Cath Negative (Negative); PH,Urine/Cath 6.0 (5.0-8.5); Protein,Urine/Cath Negative (Negative); Specific Gravity, Urine/Cath 1.010 (1.005-1.030); Urobilinogen,Cath 0.2 EU/dl (0.2)
[2025-07-03] MEDS: HYDROMORPHONE 2MG/ML SYRINGE 1 MG IV (15:20)
[2025-07-03] MEDS: ACETAMINOPHEN 1,000MG/100ML VIAL 1000 MG IV ×2 (15:36→21:30)
[2025-07-03] MEDS: LACTATED RINGERS 1000ML 1,000 ML 125 ML IV (15:36)
[2025-07-03 15:51] LABS: Bacteria,Urine/Cath TRACE /lpf; WBC,Urine/Cath Occasional #/hpf (0-3)
--- NOTE | 2025-07-03 16:00 | EXP.ANES.II ---
[facility] Anesthesia Record Part II Anesthesia Record Part II Discharge Time: 14:20 Destination: Obstetric PACU nurse assessment reviewed?: Yes Patient Condition:: Good Anesthesia Complications:: None Swallowing reflex intact?: Yes Airway Patency: Patent Cyanosis?: No Blood Pressure: 139/79 SaO2: 98 Respiratory Rate: 18 Pulse Rate: 74 Temperature: 97.6 F Mental Status: Alert & Oriented Pain level:: 0 Nausea and/or vomitting:: None Intake, IV Amount: 0 Hydration: Adequate
[2025-07-03] MEDS: OXYCODONE 5MG IMMEDIATE RELEASE TABLET 5 MG PO (18:40)
[2025-07-03] MEDS: MULTIVITAMIN TABLET 1 EACH PO (18:40)
[2025-07-03] MEDS: GABAPENTIN 300MG CAPSULE 300 MG PO (21:30)
[2025-07-03] MEDS: TRAZODONE 50MG TABLET 150 MG PO (21:30)
[2025-07-03] MEDS: BREXPIPRAZOLE 2 MG 2 EACH PO (21:31)
[2025-07-03] MEDS: DESVENLAFAXINE SUCCINATE (21:33)
[2025-07-04 00:15] VITALS: BP 118/67; PULSE 88; RESP 15; TEMP 36.5; O2SAT 95
[2025-07-04] MEDS: LACTATED RINGERS 1000ML 1,000 ML 125 ML IV (00:15)
[2025-07-04] MEDS: HYDROMORPHONE 2MG/ML SYRINGE 1 MG IV (00:15)
[2025-07-04 04:00] VITALS: BP 113/67; PULSE 77; RESP 17; TEMP 36.6; O2SAT 96
[2025-07-04] MEDS: KETOROLAC 30MG/ML VIAL 30 MG IV ×2 (04:40→10:20)
[2025-07-04] MEDS: ACETAMINOPHEN 500MG TAB 1000 MG PO ×2 (04:40→10:19)
[2025-07-04 06:12] LABS: Hematocrit 28.0 % (37.0-47.0); Hemoglobin 9.0 g/dL (12.2-16.2); Immature Granulocytes % 0.4 %; Mean Corpuscular HGB Conc 32.1 g/dL (31.8-35.4); Mean Corpuscular Hemoglobin 27.4 pg (27.0-31.2); Mean Corpuscular Volume 85.4 fl (81-99); Nucleated Red Blood Cells % 0 %; Platelet Count 210 K/mm3 (142-424); Red Blood Count 3.28 M/mm3 (4.20-5.40); Red Cell Distribution Width-SD 43.8 fL; White Blood Count 10.1 K/mm3 (4.8-10.8)
[2025-07-04] MEDS: LEVOTHYROXINE 25MCG (0.025MG) TAB 25 MCG PO (06:41)
--- NOTE | 2025-07-04 07:59 | HMH.PHAINT1 ---
Pharmacy Intervention Comments: MEDICATION RECONCILIATION COMPLETED ON PATIENT USING EXTERNAL FILL HISTORY FROM PHARMACY. -NOHEMI PEARL, RITAD
--- OUTSIDE RECORDS SUMMARY | 2025-07-04 08:00 | XMS_ITS | Encounter Summary ---
[facility] Organization [facility] Address [address] [place] [address] Care Team Providers Care Medical Bill Processor Name Role Phone Lakshmi Rivera Primary Care Provider [phone] Reason for Visit * Reason Comments Med Refill Encounter Details Date Type Department Care Team (Late st Contact Info) Description 03/06/2023 Refill [facility] BARIATRIC SURGERY [address] [place] [address] Kate Bernstein, PA-C Social History [...] documented as of this encounter Care Teams Medical Bill Processor Relationship Specialty Start Date End Date Lakshmi Rivera PA [address] [facility] [address] [place] [address] PCP - General Physician Soft Sugar Supervisor 12/04/19 documented as of this encounter
--- OUTSIDE RECORDS SUMMARY | 2025-07-04 08:01 | XMS_ITS | Clinical Summary ---
Author Organization [facility] Address [address] [place] [address] Care Team Providers Care Managing Partner [employer] [place] Name Role Phone Lakshmi Rivera Primary Care Provider [phone] Allergies No known active allergies Medications * This document contains information received from the source organization and may not represent a complete record from that organization. gabapentin (NEURONTIN) 300 MG capsule Take 1 capsule by mouth every night at bedtime. 0 Active tiZANidine (ZANAFLEX) 4 MG tablet Take 1 tablet by mouth Every Night. 0 Active Cholecalciferol (Vitamin D3) 250 MCG (87795 UT) tablet Take 30,000 Units by mouth Daily. OTC 3 Active multivitamin (THERAGRAN) tablet tablet Take 3 tablets by mouth Daily. OTC Active Vitamin A 7.5 MG (80835 UT) capsule Take 65,000 Units by mouth [...] IM vit D in situations like this (204664 units IM every 4 months) Abdominal pannus [...] (04/29/2020): Added automatically from request for surgery [id number] Morbid obesity with body mas s index [...] drink = 0.6 oz pur e alcohol) [facility] Utilities Answer Date Recorded In the past 12 months has [employer] gas, oil, or water [employer] threatened to shut off services in your [...] and heating? Not hard at all 07/03/2024 [facility]at ional [facility] - Occupational Stress [...] GED or equivalent No 07/09/2024 Preferred Language Prydeinig 07/09/2024 PHQ-2 Answer Date Recorded Retired PHQ-9: [...] this topic Medical Devices Implanted Type Area Associate Project Manager Device Identifier Shelf Expiration Date Model / Serial / Lot Reload Stplr Signia Tristaple 2.0 Pga 60mm Art /Emily Prp - [id number] Implanted:Qty : 1 on 05/15/2020 by Elvin Rosenbaum MD at [facility] Implant N/A: Stomach COVIDIEN 11/05/2021 [id number] / / [id number] Reload Stplr Signia Tristaple 2.0 Pga 60mm Art /Emily Prp - [id number] Implanted:Qty : 3 on 05/15/2020 by Elvin Rosenbaum MD at [facility] Implant N/A: Stomach COVIDIEN 02/03/2023 [id number] AMT / / [id number] Cartrdg Clip Endo Ligaclip/X Opn Ti Slvr Pk/6 - [id number] Implanted:Qty : 4 on 08/10/2023 by Yudy Sanchez MD at [facility] Implant N/A: Abdomen [employer] DIV OF J AND J [id number] 12/06/2027 LT200 / / [id number] Cartrdg Clip Endo Ligaclip/X Opn Ti /Lg Grn Pk/6 - [id number] Implanted:Qty : 2 on 08/10/2023 by Yudy Sanchez MD at [facility] Implant N/A: Abdomen [employer] DIV OF J AND J [id number] 06/05/2027 LT300 / / [id number] Cartrdg Clip Ligaclip/X Opn Ti Luther Pk/6 - [id number] Implanted:Qty : 1 on 08/10/2023 by Yudy Sanchez MD at [facility] Implant N/A: Abdomen [employer] DIV OF J AND J [id number] 11/05/2027 LT100 / / [id number] Dev Cls Wnd Vloc/Pbt Natasha Nonabs 1/2cir Sz2/0 27mm 23cm Luther - [id number] Implanted:Qty : 1 on 01/31/2024 by Elvin Rosenbaum MD at [facility] Implant N/A: Abdomen COVIDIEN 05/05/2026 [id number] / / [id number] Dev Contrl Tiss Stratafix Spiral Pds Pls 3/0 0 15cm Tex - [id number] Implanted:Qty : 1 on 01/31/2024 by Elvin Rosenbaum MD at [facility] Implant N/A: Abdomen ETH[employer]ON DIV OF Hue AND J 03/05/2025 [id number] / / [id number] Dev Cls Wnd Vloc/Pbt Natasha Nonabs 1/2cir Sz2/0 26mm 15cm Luther - [id number] Implanted:Qty : 2 on 01/31/2024 by Elvin Rosenbaum MD at [facility] Implant N/A: Abdomen COVIDIEN 10/05/2026 [id number] / / [id number] Dev Contrl Tiss Stratafix Spiral Pds Pls 3/0 0 15cm Tex - [id number] Implanted:Qty : 2 on 01/31/2024 by Elvin Rosenbaum MD at [facility] Implant N/A: Abdomen ETH[employer]ON DIV OF Hue AND J 03/05/2025 [id number] / / [id number] Stplr Lnr Cut Prox 75mm Luther Tlc75 - [id number] Implanted:Qty : 1 on 01/31/2024 by Elvin Rosenbaum MD at [facility] Implant N/A: Abdomen [employer] DIV OF J AND J 12/06/2028 [id number] / / [id number] Reload Stplr Lnr Cut Prox 75mm Luther Tcr75 - [id number] Implanted:Qty : 3 on 01/31/2024 by Elvin Rosenbaum MD at [facility] Implant N/A: Abdomen [employer] DIV OF J AND J 12/06/2028 TCR75 / / [id number] Stplr Lnr Cut Prox 75mm Luther Tlc75 - [id number] Implanted:Qty : 1 on 07/02/2024 by Kate Fleming MD at [facility] Implant Right: Abdomen [employer] DIV OF AND J 04/05/2029 [id number] / / [id number] Reload Stplr Lnr Cut Prox 75mm Luther Tcr75 - [id number] Implanted:Qty : 1 on 07/02/2024 by Kate Fleming MD at [facility] Implant Right: Abdomen [employer] DIV OF AND J 02/03/2029 TCR75 / / [id number] Reload Stplr Lnr Cut Prox 75mm Luther Tcr75 - [id number] Implanted:Qty : 1 on 07/02/2024 by Elvin Rosenbaum MD at [facility] Implant Right: Abdomen [employer] DIV OF AND J 02/03/2029 TCR75 / / [id number] Reload Stplr Lnr Cut Prox 75mm Luther Tcr75 - [id number] Implanted:Qty : 3 on 07/02/2024 by Elvin Rosenbaum MD at [facility] Implant Right: Abdomen [employer] DIV OF AND J 04/05/2029 TCR75 / / [id number] Dev Contrl Tiss Stratafix Spiral Pds Pls 3/0 0 15cm Tex - [id number] Implanted:Qty : 2 on 07/02/2024 by Elvin Rosenbaum MD at [facility] Implant Right: Abdomen ETHICON DIV OF AND J 10/05/2025 [id number] / / [id number] Dev Cls Wnd Vloc/Pbt Natasha Nonabs 1/2cir Sz2/0 26mm 15cm Luther - [id number] Implanted:Qty : 1 on 07/02/2024 by Elvin Rosenbaum MD at [facility] Implant Right: Abdomen COVIDIEN 03/05/2027 [id number] / / [id number] Reload Stplr Lnr Cut Prox 75mm Luther Tcr75 - [id number] Implanted:Qty : 1 on 07/02/2024 by Elvin Rosenbaum MD at [facility] Implant Right: Abdomen [employer] DIV OF J AND J 04/05/2029 TCR75 / / [id number] Dev Cls Wnd Vloc/Pbt Natasha Nonabs 1/2cir Sz2/0 26mm 15cm Luther - [id number] Implanted:Qty : 2 on 07/02/2024 by Elvin Rosenbaum MD at [facility] Implant Right: Abdomen COVIDIEN 01/03/2027 [id number] / / [id number] Insurance [facility] Advance Directives * CPR (Attempt to [...] or is breathing): Full Support Care Teams Managing Partner [employer] [place] Relationship Specialty Start Date End Date Lakshmi Rivera PA [address] [place] [id number] PCP - General Physician Speech Therapy Director 12/04/19
--- OUTSIDE RECORDS SUMMARY | 2025-07-04 08:01 | XMS_ITS | Encounter Summary ---
Author Organization [facility] Address [address] [place] [address] Care Team Providers Care Pin Cleaner Name Role Phone Lakshmi Rivera Primary Care Provider [phone] Reason for Visit * Reason Comments Med Refill Encounter Details Date Type Department Care Team (Late st Contact Info) Description 12/23/2024 Refill [facility] BARI[facility]IC SURGERY [address] [place] [address] Indira Kidd MD [address] [place] [address] Social History Tobacco Use Types Packs/Day Years Used Date Smoking Tobacco: Former Cigarettes 0.5 10 0 11/06/1999 - 11/06/2009 Passive Smoke Exposure: Past Smokeless Tobacco: Never Alcohol Use Standard Drinks/Week Comments Not Currently 0 (1 standard drink = 0.6 oz pur e alcohol) [facility] Utilities Answer Date Recorded In the past 12 months has [employer], gas, oil, or water company threatened to [...] and heating? Not hard at all 07/03/2024 [facility] Health - Occupational Stress Questionnaire Answer Date [...] GED or equivalent No 07/09/2024 Preferred Language Croatian 07/09/2024 PHQ-2 Answer Date Recorded Retired PHQ-9: [...] on filedocumented in this encounter Care Teams Pin Cleaner Relationship Specialty Start Date End Date Lakshmi Rivera PA [address] [place] [address] [facility] [address] [facility] [address] PCP - General Physician Vocational Coordinator 12/04/19 documented as of this encounter
--- NOTE | 2025-07-04 09:05 | EXP.DC.SUM ---
General Admission date:: 07/03/25 Discharge date: 07/04/25 HPI HPI HPI: Kimberly Smart is a pleasant 39yo (CSx3 with one set of twins) presenting today to for a hysterectomy. Desires to proceed with JAMAL. Past HPI: -Indications: heavy uterine bleeding and dysmenorrhea. suspeccted adenomyosis -reviewed benign EMB -patient desires to proceed with definitive surgical management, hysterectomy. We agreed upon a total abdominal hysterectomy, bilateral salpingectomy (she does have a history of a tubal but is unsure if she has any tubal remnants), and cystoscopy -This has been a long standing problem for several years. Her US is suggestive of adenomyosis. Endorses fairly regular menses, just states they are heavy and painful. FDLMP: 04/03/25. She has complained of right sided pain that radiates to her back in the past -Her PMHx is complicated by several abdominal surgeries, see below. -She is using a tubal for contraception. Her other surgeries include 3 C-sections, weight loss surgery x3 who she still follows with that surgeon, cholecystectomy, a skin removal surgery, and right colon resection along with exploratory laparotomy for abdominal pain and suspected bowel pathology. We will need to get the records from some of these surgeries to determine the exent of adhesive disease -[place] and ovarian cyst noted. See below for follow up TVUS x2. She was originally scheduled for an endometrial ablation but was cancelled secondary to needing emergency bowel surgery. Chart review from 02/29/24: Patient was recently admitted to [facility] for a bowel obstruction, she was transferred to [facility] where they did surgery on 328. She was discharged a few days later and shortly after went on vacation with her family. While on vacation in [place] she started having problems again and was admitted to the hospital down there and had a second surgery on 02/07. Patient is doing much better at this time but states that it has been very stressful emotional [place] [employer]. -Hx of GDM with last twin . Follows with surgeon that did gastric bypass and thinks they may have screened for DM but she is unsure. -Denies any STD history. Reports she is sexually active and has no concerns. In a safe monomagous relationship, feels safe in work and home life. Denies dyspareunia, or insertional pain. -Denies any bowel or bladder complaints/ incontinence. -Controlled anxiety or depression -Denies Tobacco use. Social EtOH use. Denies illcit drug use. -FHX: denies breast, ovarian, colon or uterine cancer. Hospital Course Hospital Course Hospital Course: Kimberly is a 39-year-old postoperative day #1 from a total abdominal hysterectomy, removal of fallopian tube remnants, and cystoscopy. Her surgery was uncomplicated. She is ambulating this morning. She is tolerating p.o. without nausea or vomiting. She is voiding spontaneously without dysuria. She is using her incentive spirometer and her pain is adequately controlled. Rates her pain a 4 out of 10 this morning. She will be discharged home with short interval follow-up. All questions and concerns were addressed Exam Data for Last 24 hours Vital signs and Labs for Last 24 Hours: Temp Pulse Resp BP Pulse Ox O2 Del Method 97.8 F 77 17 113/67 96 Room Air 07/04/25 04:00 07/04/25 04:00 07/04/25 04:00 07/04/25 04:00 07/04/25 04:00 07/04/25 08:15 Laboratory Results - last 24 hr 07/03/25 08:39: Blood Type O Positive, Antibody Screen Negative 07/03/25 11:45: Urine Color Yellow, Urine Appearance Clear, Urine pH 6.0, Ur Specific Jackson 1.010, Urine Protein Negative, Urine Glucose (UA) Negative, Urine Ketones Negative, Urine Blood Negative, Urine Nitrate Negative, Urine Bilirubin Negative, Urine Urobilinogen 0.2, Ur Leukocyte Esterase Negative, Urine RBC None, Urine WBC Occasional, Ur Squamous Epith Cells 3-5, Urine Bacteria Trace 07/04/25 05:29: WBC 10.1, RBC 3.28 L, Hgb 9.0 L, Hct 28.0 L, MCV 85.4, MCH 27.4, MCHC 32.1, RDW 13.9, Plt Count 210, MPV 10.0, Neut % (Auto) 69.7, Lymph % (Auto) 23.0, [place] % (Auto) 6.5, Eos % (Auto) 0.2, Baso % (Auto) 0.2, Neut # (Auto) 7.0, Lymph # (Auto) 2.3, [place] # (Auto) 0.7, Eos # (Auto) 0.0, Baso # (Auto) 0.0 I & O for Last 24 hours: Intake & Output 07/01/25 07/02/25 07/03/25 07/04/25 23:59 23:59 23:59 23:59 Intake Total 2650 / 2650 1900 / 1900 Output Total 1200 / 1200 Balance 1450 / 1450 1900 / 1900 Constitutional Constitutional: no acute distress *Routine HEENT Exam Head: Present normocephalic Eye: Present EOMI and PERRL ENT: Present mucous membranes moist *Routine Neck Exam Neck: Present supple; Absent lymphadenopathy *Routine Respiratory Exam Respiratory: Present CTA bilaterally *Routine Cardiovascular Exam Cardiovascular: Present RRR *Routine Abdominal Exam Abdominal: Present soft, normoactive bowel sounds and tenderness (For the postoperative timeframe) *Routine Extremities Exam Extremities: Absent cyanosis, clubbing or edema *Routine Skin Exam Skin: Present warm; Absent rash Comments: hysterectomy skin incision is healing well, covered by dressing, no significant pian or signs of infection *Routine Neurological Exam Neurological: Present alert and oriented X3 Results Data Completed and Pending Labs on day of discharge: Labs from last 24 hours 07/04/25 07/03/25 07/03/25 05:29 11:45 08:39 WBC 10.1 RBC 3.28 L Hgb 9.0 L Hct 28.0 L MCV 85.4 MCH 27.4 MCHC 32.1 RDW 13.9 Plt Count 210 MPV 10.0 Neut % (Auto) 69.7 Lymph % (Auto) 23.0 [place] % (Auto) 6.5 Eos % (Auto) 0.2 Baso % (Auto) 0.2 Neut # (Auto) 7.0 Lymph # (Auto) 2.3 [place] # (Auto) 0.7 Eos # (Auto) 0.0 Baso # (Auto) 0.0 Urine Color Yellow Urine Appearance Clear Urine pH 6.0 Ur Specific Jackson 1.010 Urine Protein Negative Urine Glucose (UA) Negative Urine Ketones Negative Urine Blood Negative Urine Nitrate Negative Urine Bilirubin Negative Urine Urobilinogen 0.2 Ur Leukocyte Esterase Negative Urine RBC None Urine WBC Occasional Ur Squamous Epith Cells 3-5 Urine Bacteria Trace Blood Type O Positive Antibody Screen Negative DS: Diagnosis Discharge Diagnosis (1) Fatigue: Status: Acute Code(s): R53.83 - Other fatigue (2) Abnormal uterine bleeding due to adenomyosis: Status: Acute Code(s): N93.9 - Abnormal uterine and vaginal bleeding, unspecified; N80.03 - Adenomyosis of the uterus (3) MDD (major depressive disorder), recurrent episode: Status: Acute Code(s): F33.9 - Major depressive disorder, recurrent, unspecified (4) Dysmenorrhea: Status: Acute Code(s): N94.6 - Dysmenorrhea, unspecified (5) Ovarian cyst: Status: Acute Code(s): N83.209 - Unspecified ovarian cyst, unspecified side (6) Nausea & vomiting: Status: Acute Code(s): R11.2 - Nausea with vomiting, unspecified (7) Abdominal pain: Status: Acute Code(s): R10.9 - Unspecified abdominal pain Qualifiers: Abdominal location: generalized Qualified Code(s): R10.84 - Generalized abdominal pain (8) Generalized anxiety disorder: Status: Acute Code(s): F41.1 - Generalized anxiety disorder (9) Obesity: Status: Acute Code(s): E66.9 - Obesity, unspecified Qualifiers: Body mass index: BMI 60.0-69.9 Obesity classification: adult class 3 (BMI >= 40) Obesity type: unspecified obesity type Serious obesity comorbidity presence: without serious comorbidity Qualified Code(s): E66.01 - Morbid (severe) obesity due to excess calories; Z68.44 - Body mass index (BMI) 60.0-69.9, adult Meds Home Medications and Allergies Home Medications ?Medication ?Instructions ?Recorded ?Confirmed ?Type multivitamin 1 tab PO DAILY 03/08/21 07/03/25 History vonoprazan 20 mg tablet (Voquezna) 20 mg PO DAILY 01/17/25 07/04/25 History tizanidine 4 mg tablet 4 mg PO BIDP PRN Muscle Spasm #60 03/24/25 07/03/25 Rx tabs levothyroxine 25 mcg tablet 25 mcg PO DAILY 04/17/25 07/03/25 History trazodone 150 mg tablet 150 mg PO HS insomnia #30 tabs 06/18/25 07/03/25 Rx hydroxyzine pamoate 25 mg capsule 25 mg PO TID PRN anxiety #30 caps 06/23/25 07/03/25 Rx acetaminophen 500 mg tablet 1,000 mg (2 x 500 mg) PO Q6H #60 07/03/25 Rx tabs brexpiprazole 2 mg tablet (Rexulti) 2 mg PO DAILY 07/03/25 07/03/25 History desvenlafaxine succinate 100 mg 100 mg PO DAILY 07/03/25 07/03/25 History tablet,extended release 24 hr (Pristiq) oxycodone 5 mg tablet 5 mg PO Q4HP PRN Moderate Pain 07/03/25 Rx (4-6) #20 tabs polyethylene glycol 3350 17 17 g PO BID #119 grams 07/03/25 Rx gram/dose oral powder (Miralax) simethicone 125 mg chewable tablet 125 mg PO TID PRN gas pain #30 tabs 07/03/25 Rx gabapentin 300 mg capsule 300 mg PO BID 07/04/25 07/04/25 History New Prescriptions to Start Prescriptions: oxycoKate Gonsalez acetaminophen Estelle Hopenifer polyethylene glycol 3350 [Miralax] Estelle Hopenifer simethicone Estelle Hopenifer Allergies Allergy/AdvReac Type Severity Reaction Status Date / Time No Known Allergies Allergy Verified 07/03/25 08:15 Discharge Plan Disposition Patient Disposition: Home, Self-Care Discharge Order Discharge Orders: Discharge Order (Routine); Ordered 07/04/25 Ordered By: Kylie Reddy Follow up Plan Follow up with: Kylie Reddy DO [Staff Physician, [facility]] - 07/17/25 10:30 am Prescriptions/Medication Reconciliation: New acetaminophen 500 mg Tablet 1,000 mg PO Q6H Qty: 60 0RF oxycodone 5 mg Tablet 5 mg PO Q4HP PRN (Reason: Moderate Pain (4-6)) Qty: 20 0RF simethicone 125 mg tablet,chewable 125 mg PO TID PRN (Reason: gas pain) Qty: 30 0RF polyethylene glycol 3350 [Miralax] 17 gram/dose powder 17 g PO BID Qty: 119 0RF Continued trazodone 150 mg tablet 150 mg PO HS Qty: 30 2RF multivitamin Tablet 1 tab PO DAILY Voquezna 20 mg tablet 20 mg PO DAILY levothyroxine 25 mcg tablet 25 mcg PO DAILY Patient Comments: TAKE 1 TABLET BY MOUTH EVERY MORNING ON AN EMPTY STOMACH hydroxyzine pamoate 25 mg capsule 25 mg PO TID PRN (Reason: anxiety) Qty: 30 1RF desvenlafaxine succinate [Pristiq] 100 mg tablet extended release 24 hr 100 mg PO DAILY Rexulti 2 mg tablet 2 mg PO DAILY gabapentin 300 mg capsule 300 mg PO BID Patient Comments: TAKE 1 CAPSULE BY MOUTH 2 TIMES A DAY FOR pain tizanidine 4 MG tablet 4 mg PO BIDP PRN (Reason: Muscle Spasm) Qty: 60 5RF Problem Reconciliation Problems Reviewed?: Yes Patient Discharge Instructions ACTIVITY: Continue current activity DIET: regular diet Additional Instructions: Hysterectomy Discharge You had a total abdominal hysterectomy, removal of remaining tubal remnants, and cystoscopy. This means I removed your uterus, cervix, and remaining fallopian tubes. I also used a camera to look in your bladder after the surgery and there were no problems with your bladder wall or ureters. There were no complications with your surgery. We have called several medications in for you and they are detailed below as well as discharge instructions. If you have any questions, please call the office. Activity: - No lifting more than 10 lbs for 6 weeks. - No driving while you are taking narcotic pain medication. Wound care - You have stitches under your skin which will dissolve over the next 4-6 weeks as your body heals - Keep your wound clean and dry, ok to wash with soap and water but pat thoroughly dry Medications: - Acetaminophen (Tylenol) for discomfort. Please take Tylenol scheduled for the first 2 to 3 days. Tylenol dosing should not exceed 1000 mg every 6 hours. Please do not consume more than 4000 mg in a 24-hour. - Oxycodone (a narcotic pain medication) use the narcotic pain medication for breakthrough or severe pain. You will want to stop the narcotic pain medication first. Narcotic pain medication can be habit forming so please only use this medication if you need it. This pain medication is also associated with constipation please remember to increase your fiber intake, and water intake. I have also given you a stool softener. You should not take more than 1-2 5 mg tablets every 6 hours for pain that rates greater than 6. - Senna (a stool softener) use this medication for constipation as needed. Narcotics can increase your risk for constipation - Simethicone: a gas medication for bloating and gas pain you may experience in the next 1-2 weeks. Please call the office or return to the ER if you have any of the followin. bleeding more than 1 pad an hour for 2 hours 2. pain that does not respond to your narcotic pain medication 3. dizziness or lightheadedness such that you lose consciousness 4. abnormal discharge that looks like pus from your incisions Questions or concerns: It is my privilege to be your doctor. Please let me know if you have other questions or concerns. Kylie Reddy DO [facility] [place], [place] [address] Patient Instructions: How to Care for a Surgical Wound, DI for Hysterectomy, DI for Postoperative Pain Print Language: Turkmen Providers Primary Care Provider: Lakshmi Rivera Admit Provider: Kylie Reddy Attending Provider: Kylie Reddy
[2025-07-04 09:15] VITALS: BP 116/66; PULSE 87; RESP 16; TEMP 36.6; O2SAT 96
[2025-07-04] MEDS: OXYCODONE 5MG IMMEDIATE RELEASE TABLET 5 MG PO (09:16)
[2025-07-04] MEDS: GABAPENTIN 300MG CAPSULE 300 MG PO (09:16)
[2025-07-04] MEDS: BREXPIPRAZOLE 2 MG 2 EACH PO (09:17)
[2025-07-04] MEDS: DESVENLAFAXINE 100 MG 100 EACH PO (09:17)
[2025-07-04] MEDS: SODIUM CHLORIDE 0.9% 10ML FLUSH SYRINGE 10 ML IV (10:21)
--- NOTE | 2025-07-04 11:26 | PC.NURSE ---
Discharge education provided, questions encouraged and answered. Pt. v/u.
== END 2025-07-04 11:32 | disposition home or self-care (01) | DRG 742 ==
LOC: OB 14:25
PROVIDERS: Admitting Provider Obstetrics & Gynecology; PCP Physician Assistant; Visit Provider Obstetrics & Gynecology
PROC: 0UT90ZZ Resection of Uterus, Open Approach (ICD-10-PCS; CPT 58150; principal; 2025-07-03 09:15)
DX: N80.03 Adenomyosis of the uterus (principal); F33.9 Major depressive disorder, recurrent, unspecified; N94.6 Dysmenorrhea, unspecified; N83.209 Unspecified ovarian cyst, unspecified side; F41.1 Generalized anxiety disorder; E66.813 Obesity, class 3; N73.6 Female pelvic peritoneal adhesions (postinfective); Z98.51 Tubal ligation status; Z90.49 Acquired absence of other specified parts of digestive tract; Z98.84 Bariatric surgery status; Z98.891 History of uterine scar from previous surgery; Z86.32 Personal history of gestational diabetes; Z87.891 Personal history of nicotine dependence; Z79.899 Other long term (current) drug therapy; Z79.890 Hormone replacement therapy; Z68.35 Body mass index [BMI] 35.0-35.9, adult
CPT/HCPCS: 36415; 81001; 85025; 86850; J0131; J0665; J0666; J0690; J1100; J1171; J1200; J1836; J1885; J2003; J2250; J2405; J2704; J3010; J7120